=== PATIENT | female | born 1980 | race African-American/Black ===

== ENCOUNTER 2020-03-16 14:25 | Emergency (ER) | payer OTHER, SELFPAY ==
--- NOTE | ~2020-03-16 | CT_ITS ---
EXAMINATION: CT abdomen pelvis w con INDICATION: Left-sided abdominal pain TECHNIQUE: Computed tomographic images of the abdomen and pelvis were obtained after the administrati on of 100 cc of Omnipaque 350 intravenous contrast. The dose-length product (DLP) was 204.64 mGy-cm. Automated exposure control and iterative reconstruction technique were employed. COMPARISON: None available FINDINGS: Minimal dependent atelectasis is present in the lung bases. The heart size is normal. The l iver, spleen, pancreas, and adrenal glands are normal. There is a 2 mm nonobstructing stone of the ri ght kidney lower pole. The gallbladder is not identified, likely surgically absent. No pathologically enlarged abdominal or pelvic lymph nodes are identified. There is no free intraperitoneal gas or yadira dence of bowel obstruction. The appendix is normal. A small amount of free fluid in the pelvis is lik zainab physiologic. IMPRESSION: 1. No CT correlate for the patient's symptoms. 2. Nonobstructing right nephrolithiasis. Reviewed, dictated and finalized at location A.
--- NOTE | ~2020-03-16 | XR_ITS ---
EXAMINATION: XR chest 1V portable INDICATION: Abdominal pain and vomiting TECHNIQUE: Portable AP chest at 1602 hours COMPARISON: None available FINDINGS: There is mild atelectasis of the lung bases. The lungs are free of focal airspace opacities . There is no pleural effusion or pneumothorax. The cardiomediastinal silhouette is normal. IMPRESSION: 1. Mild atelectasis of the lung bases. Reviewed, dictated and finalized at location A.
--- NOTE | 2020-03-16 14:28 | ED.GENADULT ---
HPI - General Adult General Chief complaint: Nausea/Vomiting/Diarrhea Stated complaint: vomiting Time Seen by Provider: 03/16/20 14:28 Source: patient Mode of arrival: ambulatory Limitations: no limitations History of Present Illness HPI narrative: 39-year-old female patient presents to the emergency department with complaints of nausea and vomiting that started last night. Patient states that she was positive for COVID at the end of January. Patient states that her symptoms from COVID have since resolved. Patient states that she was placed on antibiotics for the pneumonia symptoms but has been finished with that now for over 3 weeks. Patient states that she just came out of quarantine for her COVID about 6 days ago. Patient states that she does have history of diabetes and prior to COVID she was maintaining with oral medication just fine however recently her sugars have been increasing since the COVID diagnosis and was recently placed on insulin. Patient states that she has not yet started the insulin. Patient states she is also having some abdominal pain more so on the left side. Patient denies stating that her significant other cannot have children. Patient denies any fevers that she is aware of. Denies any chest pain or shortness of breath. Related Data Home Medications Medication Instructions Recorded Confirmed liraglutide [Victoza 3-Yves] mg SUBCUT 03/16/20 pioglitazone mg 03/16/20 Allergies Allergy/AdvReac Type Severity Reaction Status Date / Time No Known Allergies Allergy Verified 03/16/20 14:40 Review of Systems Review of Systems: Narrative: CONSTITUTIONAL: Denies fever, chills, or sweats. EYES: Denies visual changes, redness, or discharge. ENT: Denies rhinorrhea, congestion, sore throat, or otalgia. CARDIOVASCULAR: Denies chest pain, palpitations, or edema. RESPIRATORY: Denies cough or dyspnea. GASTROINTESTINAL: Positive abdominal pain, nausea, vomiting, denies diarrhea. GENITOURINARY: Denies dysuria or hematuria. SKIN: Denies rash or itching. MUSCULOSKELETAL: Denies back pain, joint pain, or myalgia. NEUROLOGIC: Denies headache, numbness, or weakness. PSYCHIATRIC: Denies anxiety or depression. [facility] Social History Social History Gender identity (if verbalized by the patient): Female Comments At the time of my signature I agree with nursing past medical history, surgical, social, and family history. There is no relevant family history pertinent to the presenting complaint. Exam Narrative: Exam Narrative: GENERAL: Well-appearing, well-nourished, and in no acute distress. HEAD: Normocephalic, atraumatic. EYES: PERRLA and EOMI. ENT: Nares clear, no rhinorrhea or epistaxis. Mucous membranes moist. NECK: Supple. No lymphadenopathy CHEST: Clear to auscultation. No respiratory distress. Patient able talk in clear complete sentences. No tripoding noted. HEART: Regular rate and rhythm. No murmur heard. Normal peripheral pulses. ABDOMEN: Soft, flat, slightly distended. No guarding, rebound tenderness, or rigid. Patient has tenderness noted to the left lower quadrant and left upper quadrant on palpation as well as to the periumbilical area. No tenderness noted to the epigastric area. No pulsatilla masses. Bowel sounds present in all four quadrants. No organomegaly. Negative Trinh?s sign. No periumbicial tenderness. Supra public distension. Good femoral pulses bilaterally. No hernia noted. No scars or surface trauma. EXTREMITIES: Normal range of motion. No edema. SKIN: Warm, dry, no rash. NEURO: No focal deficits. Alert and oriented x3. Course Reevaluation(s) Reevaluation #1: Reevaluated patient. Discussed with her that I did speak with her primary care doctor and Dr. Gaitan wants her to start her insulin at home today after discharge. Discussed with her that she is going to continue to be sick until she starts the insulin. Discussed with her th
[2020-03-16 14:34] VITALS: BP 117/81; PULSE 126; RESP 18; TEMP 36.8; O2SAT 100
[2020-03-16 14:37] LABS: Glucose Point of Care 250 (65-105)
--- NOTE | 2020-03-16 14:42 | ECG_ITS ---
Measurements Intervals Crowder Rate: 112 P: 76 SD: 143 QRS: 34 QRSD: 76 T: 15 QT: 331 QTc: 453 Interpretive Statements SINUS TACHYCARDIA BORDERLINE T WAVE ABNORMALITY- INFERIOR LEADS ABNORMAL ECG Electronically Signed On 03-16-2020 16:14:00 CDT by Jamey Cowan D.O.
[2020-03-16 15:04] LABS: Add Urine Microscopic? YES; Appearance Urine Cloudy (Clear); Bacteria Urine 1+ /hpf; Bilirubin Urine Negative (Negative); Color Urine Yellow (Yellow); Glucose Urine UA 3+ mg/dL (Negative); Ketones Urine 2+ mg/dL (Negative); Leukocyte Esterase Ur Trace LEU/UL (Negative); Mucus Urine Heavy /lpf; Nitrate Urine Negative (Negative); Protein Urine 2+ mg/dL (Negative); Squamous Epithelial Cell Urine Many /hpf (Few); WBC Urine 21-30 /hpf
[2020-03-16 15:05] LABS: Blood Urine Negative (Negative); Specific Grav Ur 1.036 (1.001-1.035)
[2020-03-16 15:07] LABS: Basophils Percent Auto 0.2 % (0.2-1.2); Eosinophils Percent Auto 0.1 % (0-4.4); Hematocrit 41.1 % (37.0-47.0); Hemoglobin 14.5 g/dL (12.0-15.0); Immature Granulocyte Absolute 0.03 K/mm3 (0.00-0.031); Immature Granulocyte Percent A 0.3 % (0-0.5); Lymphocytes Absolute Auto 2.93 K/mm3 (0.9-3.2); Lymphocytes Percent Auto 29.4 % (18.3-44.2); Mean Corpuscular HGB Conc 35.3 g/dl (32-36); Mean Corpuscular Hemoglobin 31.8 pg (26-34); Mean Corpuscular Volume 90.1 fl (80-100); Mean Platelet Volume 11.1 fl (7.4-10.4); Monocytes Absolute Auto 0.6 K/mm3 (0.1-0.6); Monocytes Percent Auto 5.9 % (2.6-8.5); Neutrophils Absolute Auto 6.4 K/mm3 (1.3-6.7); Neutrophils Percent Auto 64.1 % (45.5-73.1); Platelet Count Result 355 k/mm3 (150-375); Red Blood Count 4.56 M/mm3 (4.2-5.4); Red Cell Distribution Width 13.6 % (11.5-14.5)
[2020-03-16] MEDS: ONDANSETRON INJ 4 MG/2 ML VIAL IV PUSH (15:12)
[2020-03-16] MEDS: SODIUM CHLORIDE 0.9% IV 1,000 ML 999 ML IV CONT ×2 (15:12→16:43)
[2020-03-16 15:18] LABS: Lactic Acid Reflex 1.6 mmol/L (0.7-2.1)
[2020-03-16 15:21] LABS: Alanine Aminotransferase 22 U/L (4-35); Albumin Level 4.8 g/dL (3.5-5.1); Alkaline Phosphatase 107 U/L (38-126); Aspartate Amino Transferase 20 U/L (14-36); Bilirubin,Total 0.7 mg/dL (0.2-1.3); Blood Urea Nitrogen 15 mg/dL (7-17); Calcium 9.5 mg/dL (8.4-10.2); Carbon Dioxide 22 mmol/L (22-30); Chloride 100 mmol/L (98-107); Estimated CRCL calculation 111 ml/min; Estimated Glomerular Filt Rate > 60; Glucose 303 mg/dL (65-105); Lipase 136 U/L (23-300); Potassium 4.1 mmol/L (3.4-5.0); Sodium 135 mmol/L (137-145)
[2020-03-16 15:22] LABS: Phosphorus 4.2 mg/dL (2.5-4.5)
[2020-03-16 15:24] LABS: INR 1.1; Prothrombin Time 14.1 Seconds (11.1-14.7)
[2020-03-16 15:25] LABS: Beta-Hydroxybutyrate/Acetoacetate 1.01 mmol/L (0.02-0.27); Partial Thromboplastin Time 24.9 SECONDS (22.3-36.8)
[2020-03-16 15:33] LABS: Troponin I < 0.012 ng/mL (0.000-0.034)
[2020-03-16 16:15] LABS: Glucose Point of Care 256 (65-105)
[2020-03-16 18:00] VITALS: BP 103/74; PULSE 108; RESP 16; O2SAT 100
== END 2020-03-16 18:06 | disposition home or self-care (01) ==
PROVIDERS: Emergency Provider Nurse Practitioner Family
DX: E11.65 Type 2 diabetes mellitus with hyperglycemia (principal); R11.2 Nausea with vomiting, unspecified; Z79.84 Long term (current) use of oral hypoglycemic drugs; R00.0 Tachycardia, unspecified; R94.31 Abnormal electrocardiogram [ECG] [EKG]; Z86.19 Personal history of other infectious and parasitic diseases
CPT/HCPCS: 36415; 71045; 74177; 80053; 81001; 81025; 82010; 82248; 82948; 83605; 83690; 83735; 84100; 84484; 85025; 85610; 85730; 87086; 87088; 93005; 96361; 96374; 99284; J2405; J7030; Q9967

== ENCOUNTER 2024-12-14 16:32 | Inpatient (IN) | payer OTHER, SELFPAY ==
--- NOTE | ~2024-12-14 | CT_ITS ---
CT abdomen pelvis w con Ordering provider: Oniel Ibarra MD History: 44 years Female with . abd pain . Comparison: March 15, 2024 Technique: CT abdomen and pelvis with IV and without oral contrast. Automated exposure control and it erative reconstruction technique were employed. The dose-length product was 196.93 mGy-cm. 100 mL Omn ipaque 350 was given IV. Fecal material is probably Findings: VISUALIZED LOWER CHEST: Bilateral dependent atelectatic changes. UPPER ABDOMINAL ORGANS: Liver: Hepatomegaly. Gallbladder: Not demonstrated most likely due to Cholecystectomy. Spleen: Normal. Stomach/duodenum: Normal. Pancreas: Normal. Adrenals: Normal. Kidneys: Hypodensity is seen in the right kidney lower pole. Follow-up ultrasound advised. PELVIC ORGANS: The bladder shows thickened wall suggestive of cystitis. BOWEL AND MESENTERY: Colon: No evidence of diverticulitis. Fecal material is loaded in the colon. Appendix is not demonstr ated. Small Bowel: Normal. No obstruction. Peritoneum/mesentery: No free air or free fluid. No mesenteric lymphadenopathy. RETROPERITONEUM: Normal aorta. No retroperitoneal lymphadenopathy. MUSCULOSKELETAL: Superficial soft tissues: The superficial soft tissues are normal. Bones: normal spine. IMPRESSION: 1. Hepatomegaly. 2. Hypodensities in the right kidney lower pole which may indicate focal infection cysts are less l ikely. Ultrasound evaluation advised. 3. Constipation. Reviewed, dictated and finalized at location A. IMPRESSION: 1. Hepatomegaly. 2. Hypodensities in the right kidney lower pole which may indicate focal infec tion cysts are less likely. Ultrasound evaluation advised. 3. Constipation.
--- NOTE | ~2024-12-14 | US_ITS ---
US renal BI Ordering provider: Oniel Ibarra MD History: . pyelonephritis . Comparison: None. Technique: Ultrasound bilateral kidneys. Findings: RIGHT KIDNEY: Measures 12.7x 5.3x 6.5 cm in length which is normal in size. No renal cysts. No renal mass or visualized echogenic stones. Otherwise, normal echotexture and contour. No hydronephrosis. No rmal renal cortical thickness. Increased vascularity is seen. LEFT KIDNEY: Measures 11.4x 6.2x 4.3 cm in length which is normal in size. No renal cysts. No renal m ass or visualized echogenic stones. Otherwise, normal echotexture and contour. No hydronephrosis. Nor mal renal cortical thickness. Increased vascularity is noted. BLADDER: Distended. Ureteral jets were not seen bilaterally. IMPRESSION: Increased vascularity in both kidneys which may indicate pyelonephritis. Clinical correlation and fol low-up advised. Reviewed, dictated and finalized at location A. IMPRESSION: Increased vascularity in both kidneys which may indicate pyelonephritis. Clinic al correlation and follow-up advised.
--- NOTE | ~2024-12-14 | CT_ITS ---
Non-contrast CT scan of the Abdomen and Pelvis Clinical indication: Left flank pain Technique: 2.5 mm axial scans were obtained through the abdomen and pelvis without intravenous or or al contrast. Dose reduction technique was used on this scan by utilizing automated exposure control a nd iterative reconstruction technique. The dose-length product (DLP) was 178.97 mGy-cm. COMPARISON: 12/14/2024 Findings: Images through the lung bases reveal partially imaged moderate bilateral pleural effusions . There is bibasilar pulmonary edema/atelectasis.. There is no evidence of renal or ureteral calculi. The kidneys and the ureters are nondilated. The liver, spleen, pancreas, and adrenals appear normal. Probable prior cholecystectomy. There is no aortic aneurysm. There is no evidence of bowel obstruction. Images through the pelvis were performed. There is small amount of pelvic ascites. Urinary bladder un remarkable. No pelvic mass evident. Impression: Moderate bilateral pleural effusions with bibasilar pulmonary edema/atelectasis. Small amount of pelvic ascites. Reviewed, dictated and finalized at location . Impression: Moderate bilateral pleural effusions with bibasilar pulmonary edema/atelectasis . Small amount of pelvic ascites.
--- NOTE | ~2024-12-14 | US_ITS ---
EXAMINATION: US abdomen limited DATE: 12/15/2024 07:53 INDICATION: Abnormal liver function tests. TECHNIQUE: Multiple grayscale and Doppler ultrasound images of the abdomen were obtained. COMPARISON: CT abdomen and pelvis 12/14/2024 FINDINGS: The visualized portions of the head, body, and tail of the pancreas are normal. The liver i s normal without focal lesion. There is normal flow in main portal vein. The gallbladder is absent. T he common duct is normal and measures 5 mm. IMPRESSION: 1. Normal right upper quadrant ultrasound status post cholecystectomy. Reviewed, dictated and finalized at location A.
[2024-12-14 16:33] VITALS: BP 122/75; PULSE 124; RESP 18; TEMP 37; O2SAT 98
--- OUTSIDE RECORDS SUMMARY | 2024-12-14 16:35 | XMS_ITS | CONTINUITY OF CARE DOCUMENT ---
Author Name dylanjaspreet dylanjaspreet Address Unknown Organization [facility] Address [address] [place] [address] Phone [phone] Care Team Providers Care Enamel Finisher Name Role Phone Dante Chavez MD Unavailable [phone] Anirudh BALL WARPER TENDER-BC, [place] Unavailable Anirudh BALL WARPER TENDER-BC, [place] Unavailable PROBLEMS Condition Status Date Provider Notes Cardiology examination active Dante Anna Fast pulse active Dante Chavez MD Diabetes, Type 2 active Dante Chavez MD Palpitations active Dante Chavez MD Sinus tachycardia active Kerry Oscar er ENCOUNTERS Date Type Provider Location Encounter Diag nosis - In-person encounter Office Visit Dante Chavez MD [facility] - In-person encounter Office Visit Dante Chavez MD [facility] Cardiology examinationFast pulseDiabetes, Type 2PalpitationsSinus tachycardia VITAL SIGNS Date Observation Value Provider Body Mass Index (Ratio) 22.48 kg/m2 Nicole Byrd blood pressure, cuff size regular Ke rri Gruenenfelder blood pressure, diastolic 70 mm[Hg] Ke rri Gruenenfelder blood pressure, systolic 100 mm[Hg] Ker ri Gruenenfelder oxygen saturation, oximetry 99 % Graciela Carlosruma respiratory rate E&M 12 /min Graciela herrmannkemargolden pulse rate 84 /min Graciela Kay tyraer weight E&M 131 [lb_av] Graciela Kay tyraer height E&M 64 [in_i] Graciela Kay tyraer weight E&M 131 [lb_av] Jessica Patelnard Body Mass Index (Ratio) 22.48 kg/m2 Nicole Byrd blood pressure, diastolic 85 mm[Hg] Nicol nkLogic blood pressure, systolic 132 mm[Hg] Shayla kLogic blood pressure, diastolic 85 mm[Hg] Rody Polk blood pressure, systolic 132 mm[Hg] [facility] yamel Polk oxygen saturation, oximetry 99 % Sangeetha Polk pulse rate 100 /min Sangeetha anna height E&M 64 [in_i] Sangeetha anna weight E&M 131 [lb_av] Sangeetha anna respiratory rate E&M 16 /min Adrienne Pokl blood pressure, cuff size large Rody Polk HISTORY OF MEDICATION USE Medication Status Instructions Dates Provider Indications Com ments Invokana 300 mg tablet active Sangeetha Polk glipizide 5 mg tablet active Sangeetha Polk sertraline 50 mg tablet active TAKE 1 TABLET BY MOUTH EVERY DAY Sangeetha Polk pantoprazole 40 mg tablet,delayed release (DR/EC) active Sangeetha Polk atenolol 50 mg tablet active 1 tablet by mouth once a day TAKE 1 TABLET BY MOUTH EVERY DAY Dante Chavez MD pioglitazone 30 mg tablet active Sangeetha Polk SOCIAL HISTORY Date Observation Value Provider social history reviewed E&M revi ewed - no changes required Kerry Byrd social history E&M S moking History: Monie dey has never smoked. Kerry Coatsdeo social history reviewed E&M revi ewed - no changes required Kerry Olivasharry smoking status Never smoker Sangeetha Osmel and INSURANCE PROVIDERS Payer name Policy type / Coverage type Ryan red republican ID TAL MEDICAID (2) Medicaid [id number] ADVANCE DIRECTIVES Name Date DISCUSSED - NO DECISION MADE TREATMENT PLAN Date Name Performer [id number],C, H er updated medication list for this problem includes: Invokana 300 Mg Tablet (Canagliflozin) Glipizide 5 Mg Tablet (Glipizide) Pioglitazone 30 Mg Tablet (Pioglitazone) Kerry Olivasharry [id number],C,P t reports significant improvement of sinus tachycardia. She also feels more calm, fewer palpitations. Telesentry showed occasional PVCs and an episode of sinus tachycardia. Stress test was normal. We will ask insurance to approve echo at this time based on telesentry results. H er updated medication list for this problem includes: Atenolol 50 Mg Tablet (Atenolol) ..... 1 tablet by mouth once a day take 1 tablet by mouth every day Kerry Olivasharry [id number],C,P t reports significant improvement of sinus tachycardia. She also feels more calm, fewer palpitations. Telesentry showed occasional PVCs and an episode of sinus tachycardia. Stress test was normal. We will ask insurance to approve echo at this time based on telesentry results. H er updated medication list for this problem includes: Atenolol 50 Mg Tablet (Atenolol) ..... 1 tablet by mouth once a day take 1 tablet by mouth every day Kerry Olivasharry [id number],C, H er updated medication list for this problem includes: Invokana 300 Mg Tablet (Canagliflozin) Glipizide 5 Mg Tablet (Glipizide) Pioglitazone 30 Mg Tablet (Pioglitazone) Kerry Olivasharry [id number],C,T He pt had a dental procedure and was noted to be tachycardic. EKG showed sinus tachycardia. Started on atenolol 25 mg BID and feels a bit better. Will obtain echo, stress test routine, and telemonitor Kerry Byrd [id number],C,T He pt had a dental procedure and was noted to be tachycardic. EKG showed sinus tachycardia. Started on atenolol 25 mg BID and feels a bit better. Will obtain echo, stress test routine, and telemonitor Kerry Byrd Cardiology: H er updated medication list for this problem includes: Invokana 300 Mg Tablet (Canagliflozin) Glipizide 5 Mg Tablet (Glipizide) Pioglitazone 30 Mg Tablet (Pioglitazone) Kerry Byrd Cardiology:Pt report s significant improvement of sinus tachycardia. She also feels more calm, fewer palpitations. Telesentry showed occasional PVCs and an episode of sinus tachycardia. Stress test was normal. We will ask insurance to approve echo at this time based on telesentry results. H er updated medication list for this problem includes: Atenolol 50 Mg Tablet (Atenolol) ..... 1 tablet by mouth once a day take 1 tablet by mouth every day Kerry Byrd Cardiology:Pt report s significant improvement of sinus tachycardia. She also feels more calm, fewer palpitations. Telesentry showed occasional PVCs and an episode of sinus tachycardia. Stress test was normal. We will ask insurance to approve echo at this time based on telesentry results. H er updated medication list for this problem includes: Atenolol 50 Mg Tablet (Atenolol) ..... 1 tablet by mouth once a day take 1 tablet by mouth every day Kerry Byrd Cardiology: H er updated medication list for this problem includes: Invokana 300 Mg Tablet (Canagliflozin) Glipizide 5 Mg Tablet (Glipizide) Pioglitazone 30 Mg Tablet (Pioglitazone) Kerry Byrd Cardiology:THe pt osman d a dental procedure and was noted to be tachycardic. EKG showed sinus tachycardia. Started on atenolol 25 mg BID and feels a bit better. Will obtain echo, stress test routine, and telemonitor Kerry Byrd Cardiology:THe pt osman d a dental procedure and was noted to be tachycardic. EKG showed sinus tachycardia. Started on atenolol 25 mg BID and feels a bit better. Will obtain echo, stress test routine, and telemonitor Kerry Byrd Date Name Complete Echo Stress Routine Monitor - Telemetry (Mobile Cardiac) Complete Echo HISTORY OF PROCEDURES Procedure Date Procedure Name Provider Procedure Notes S tatus EKG Dante Chavez MD completed
--- OUTSIDE RECORDS SUMMARY | 2024-12-14 16:35 | XMS_ITS | Clinical Summary ---
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 I BLOCKER Gender Identity Not on file Sexual Orientation Not on file Plan of Treatment Health Maintenance Due Date Last Done Comments Hepatitis C Virus (HCV) Screening 1982 Hepatitis B Immunization (1 of 3 - 19+ 3-dose series) 2001 Pap Smear 2003 Cervical Cancer Screening (CCS) 2012 HPV/Cotest 2012 Discussion re Starting/Frequency of Mammograms 2022 Influenza Immunization (#1) 2024 SARS-COV-2 Immunization ( season) 2024 Respiratory Syncytial Virus (RSV) Immunization (Adult) (1 - 1-dose 75+ series) 2057 DTaP/Tdap/Td Immunization Discontinued 2009, 04/23/1992, 03/20/1987, Additional history exists TdaP Immunization Completed 08/27/2010 Meningococcal Immunization (ACWY) Aged Out No longer eligible based on patient's age to complete this topic Pneumococcal Immunization Combined Aged Out No longer eligible based on patient's age to complete this topic Rotavirus Immunization Aged Out No lo nger eligible based on patient's age to complete this topic
--- OUTSIDE RECORDS SUMMARY | 2024-12-14 16:35 | XMS_ITS | Data Portability ---
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 Plan of Treatment Reminders Order Date Submit Date Provider Last Modified By Organization Details Last Modified Time Details Appointments None recorded . Lab CBC 2024 025 [facility] (Lab), [address], [place], [address], 5 22:56:28 CMP, serum or plasma 2024 025 [facility] (Lab), [address], [place], [address], 5 08:31:44 calprote ctin, stool 2023 024 [facility] (Lab), [address], [place], [address], 4 16:14:43 ESR (erythro cyte sediment ation rate), blood 2023 024 [facility] (Lab), [address], [place], [address], 4 14:34:56 C diff screen, stool, reflex PCR 2023 024 [facility] (Lab), [address], [place], [address], 4 15:01:26 culture, stool 2023 024 [facility] (Lab), [address], [place], [address], 4 16:07:41 giardia lamblia Ag, stool 2023 024 [facility] (Lab), [address], [place], [address], 4 15:49:12 O&P (ova & parasite s), stool 2023 024 [facility] (Lab), [address], [place], [address], 4 08:33:50 CMP, serum or plasma 2023 024 [facility] (Lab), [address], [place], [address], 4 14:34:54 CBC 2023 024 [facility] (Lab), [address], [place], [address], 4 05:01:15 pregnanc y test, urine 2022 023 [email or web address] In-Office Order, Internal Use Only DO Not Attach Compendium DO Not Attach Compendium, Do Not Delete/merge, [id number] 3 16:21:50 bacteria l vaginosi s score, BRYANNA+prob e, vaginal fluid (OBS) 2022 023 [facility], [address] [facility] [facility], [address], [place], [address], 3 03:08:08 pregnanc y test, urine 2022 023 [email or web address] In-Office Order, Internal Use Only DO Not Attach Compendium DO Not Attach Compendium, Do Not Delete/merge, [id number] 3 12:06:42 Referral None recorded . Procedures esophago gastrodu odenosco py with biopsy (PROC) 2024 025 [email or web address] [facility] (Surgery Sched), [address], [place], [address], 5 11:15:24 colonosc opy procedur e (PROC) - Is patient on blood thinners ?: NPacemak er or defibril lator?: NPrep (Colonos copy Procedur e): PEG 3350, Go Lytely, Colyte or Gavalyte G, dependin g on insuranc e coverage If patient has had coronary / vascular stent, provide date: NoIf patient has had heart attack or stroke, provide date: NoHas patient ever had problems with anesthes ia or sedation ?: NoHas patient had problems with opening mouth or breathin g tubes?: NoDoes patient use a wheelcha ir?: N 2023 024 [facility] (Surgery Sched), [address] [place], [address], 4 14:07:39 Surgeries None recorded . Imaging MAMMO, screenin g, bilatera l 2022 023 [facility] (One Call Scheduling), [address] [facility] [facility] [place], [address], 3 10:44:24 Medication Orders loperami de 2 mg tablet 2024 025 [facility] #[facility]2954, [address] , [place], [place], [id number], 5 16:12:53 Dulcolax (bisacod yl) 5 mg tablet,d elayed release 2023 024 [facility] #84905, [address] , [place], [place], [id number], 4 17:37:25 Miralax 17 gram/dos e oral powder 2023 024 [facility] #82510, [address], [place], [place], [id number], 4 17:37:24 pantopra zole 40 mg tablet,d elayed release 2023 024 [facility] #47615, [address], [place], [place], [id number], 4 17:37:27 Nexplano n 68 mg subderma l implant 2022 023 [email or web address] #60158, [address], [place], [place], [id number], 3 16:20:24 Nexplano n 68 mg subderma l implant 2022 023 [email or web address] Not available 14:21:59 Patient TargetsNo targets recorded. Patient Instructions Encounter Date Encounter Id Patient Instructions Last Modified By Organization Details Last Modified Time 12/03/2022 [id number] learning about breast cancer screening yancy Not available 12/03/2022 12:06:43 CHARLI Gonzalez Discussed with SARAVANAN Thomas Not available 12/03/2022 13:57:08 12/10/2022 [id number] CHARLI Gonzalez Discussed with SARAVANAN Thomas Not available 12/10/2022 18:39:13 01/12/2023 [id number] LAURA Nicolas, Discussed with SARAVANAN Thomas Not available 01/12/2023 09:40:12 11/11/2023 [id number] RL About Your Colonoscopy 1 Day Prep [email or web address] Not available 11/11/2023 17:37:19 Reason for Referral None Reported. Results Created Date Observation Date Name Description Value Unit Range Abnormal Flag Note LastModifiedBy Organization Detail LastModifiedTime 12/04/1912/03/2022 pregn ron test, urine HCG negati ve Not Available In-Office Order Internal Use Only DO Not Attach Compendium DO Not Attach Compendium, Do Not Delete/merge, [id number] 12/03/2022 12:00:07 12/05/1912/08/2022 NUSWA B VG+, HSV atopobium vaginae HIGH - 2 score abnormal Not Available [facility] ([facility]) [address], [place], [address], 12/09/2022 03:08:07 12/05/1912/08/2022 NUSWA B VG+, HSV bvab 2 HIGH - 2 score abnormal Not Available [facility] ([facility]) [address], [place], [address], 12/09/2022 03:08:07 12/05/1912/08/2022 NUSWA B VG+, HSV megasphaera 1 HIGH - 2 score abnormal Calcu late total score by silke g the 3 indiv idual bacte rial vagin osis (BV) marke r score s toget her. Total score is inter prete d as follo ws: Total score 0-1: Indic ates the absen ce of BV. Total score 2: Indet ermin ate for BV. Addit ional clini jaswinder data shoul d be evalu ated to estab donta a diagn osis. Total score 3-6: Indic ates the prese nce of BV. This test was devel oped and its perfo rmanc e marcelina cteri stics deter mined by [facility]. It has not been clear ed or appro layne by the Food and Drug Admin istra tion. Not Available [facility] ([facility]) [address], [place], [address], 12/09/2022 03:08:07 12/05/1912/08/2022 NUSWA B VG+, HSV kamila albicans, BRYANNA NEGATI VE negati ve Not Available [facility] ([facility]) [address], [place], [address], 12/09/2022 03:08:07 12/05/19 23 12/08/2022 NUSWA B VG+, HSV kamila glabrata, BRYANNA NEGATI VE negati ve Not Available [facility] ([facility]) [address], [place], [address], 12/09/2022 03:08:07 12/05/1912/08/2022 NUSWA B VG+, HSV trich vag by BRYANNA NEGATI VE negati ve Not Available [facility] ([facility]) [address], [place], [address], 12/09/2022 03:08:07 12/05/19 23 12/08/2022 NUSWA B VG+, HSV chlamydia trachomatis, BRYANNA NEGATI VE negati ve Not Available [facility] ([facility]) [address], [place], [address], 12/09/2022 03:08:07 12/05/1912/08/2022 NUSWA B VG+, HSV neisseria gonorrhoeae, BRYANNA NEGATI VE negati ve Not Available [facility] ([facility]) [address], [place], [address], 12/09/2022 03:08:07 12/05/19 23 12/08/2022 NUSWA B VG+, HSV hsv 1 BRYANNA NEGATI VE negati ve Not Available [facility] ([facility]) [address], [place], [address], 12/09/2022 03:08:07 12/05/19 23 12/08/2022 NUSWA B VG+, HSV hsv 2 BRYANNA NEGATI VE negati ve Not Available [facility] ([facility]) [address], [place], [address], 12/09/2022 03:08:07 12/11/1912/10/2022 pregn ron test, urine HCG negati ve Not Available In-Office Order Internal Use Only DO Not Attach Compendium DO Not Attach Compendium, Do Not Delete/merge, [id number] 12/10/2022 16:17:17 11/29/19 24 11/29/2023 COMPL ETE BLOOD COUNT AUTO DIFF white blood count 5.3 x10e3 /uL 3.4-10 .8 normal Not Available [facility] (Lab) [address], [place], [address], 11/29/2023 14:34:55 11/29/19 24 11/29/2023 COMPL ETE BLOOD COUNT AUTO DIFF red blood count 4.56 x10e6 /uL 3.77-5 .28 normal Not Available [facility] (Lab) [address], [place], [address], 11/29/2023 14:34:55 11/29/19 24 11/29/2023 COMPL ETE BLOOD COUNT AUTO DIFF hemoglobin 15.1 g/dL 11.1-1 5.9 normal Not Available [facility] (Lab) [address], [place], [address], 11/29/2023 14:34:55 11/29/19 24 11/29/2023 COMPL ETE BLOOD COUNT AUTO DIFF hematocrit 41.7 % 34.0-4 6.6 normal Not Available [facility] (Lab) [address], [place], [address], 11/29/2023 14:34:55 11/29/19 24 11/29/2023 COMPL ETE BLOOD COUNT AUTO DIFF mean corpuscular volume 91 fL 79-97 normal Not Available [facility] (Lab) [address], [place], [address], 11/29/2023 14:34:55 11/29/19 24 11/29/2023 COMPL ETE BLOOD COUNT AUTO DIFF mean corpuscular hemoglobin 33.1 pg 26.6-3 3.0 high Not Available [facility] (Lab) [address] [place], [address], 11/29/2023 14:34:55 11/29/19 24 11/29/2023 COMPL ETE BLOOD COUNT AUTO DIFF mean corpuscular HGB conc 36.2 g/dL 31.5-3 5.7 high Not Available [facility] (Lab) [address] [place], [address], 11/29/2023 14:34:55 11/29/19 24 11/29/2023 COMPL ETE BLOOD COUNT AUTO DIFF red cell distribution width 11.1 % 11.5-1 4.5 low Not Available [facility] (Lab) [address], [place], [address], 11/29/2023 14:34:55 11/29/19 24 11/29/2023 COMPL ETE BLOOD COUNT AUTO DIFF platelet count 263 x10e3 /uL 150-45 0 normal Not Available [facility] (Lab) [address] [place], [address], 11/29/2023 14:34:55 11/29/19 24 11/29/2023 COMPL ETE BLOOD COUNT AUTO DIFF mean platelet volume 10.6 fL 8.9-12 .7 normal Not Available [facility] (Lab) [address] [place], [address], 11/29/2023 14:34:55 11/29/19 24 11/29/2023 COMPL ETE BLOOD COUNT AUTO DIFF immature granulocytes pct auto 0 % not estb. Not Available [facility] (Lab) [address] [place], [address], 11/29/2023 14:34:55 11/29/19 24 11/29/2023 COMPL ETE BLOOD COUNT AUTO DIFF neutrophils percent auto 50 % not estb. Not Available [facility] (Lab) [address] [place], [address], 11/29/2023 14:34:55 11/29/19 24 11/29/2023 COMPL ETE BLOOD COUNT AUTO DIFF lymphocytes percent auto 44 % not estb. Not Available [facility] (Lab) [address], [place], [address], 11/29/2023 14:34:55 11/29/19 24 11/29/2023 COMPL ETE BLOOD COUNT AUTO DIFF monocytes percent auto 6 % not estb. Not Available [facility] (Lab) [address], [place], [address], 11/29/2023 14:34:55 11/29/19 24 11/29/2023 COMPL ETE BLOOD COUNT AUTO DIFF eosinophils percent auto 1 % not estb. Not Available [facility] (Lab) [address], [place], [address], 11/29/2023 14:34:55 11/29/19 24 11/29/2023 COMPL ETE BLOOD COUNT AUTO DIFF basophils percent auto 0 % not estb. Not Available [facility] (Lab) [address], [place], [address], 11/29/2023 14:34:55 11/29/19 24 11/29/2023 COMPL ETE BLOOD COUNT AUTO DIFF neutrophils absolute auto 2.6 x10e3 /uL 1.4-7. 0 normal Not Available [facility] (Lab) [address], [place], [address], 11/29/2023 14:34:55 11/29/19 24 11/29/2023 COMPL ETE BLOOD COUNT AUTO DIFF immature granulocytes abs auto 0.0 x10e3 /uL 0.0-0. 1 normal Not Available [facility] (Lab) [address], [place], [address], 11/29/2023 14:34:55 11/29/19 24 11/29/2023 COMPL ETE BLOOD COUNT AUTO DIFF lymphocytes absolute auto 2.3 x10e3 /uL 0.7-3. 1 normal Not Available [facility] (Lab) [address] [place], [address], 11/29/2023 14:34:55 11/29/19 24 11/29/2023 COMPL ETE BLOOD COUNT AUTO DIFF monocytes absolute auto 0.3 x10e3 /uL 0.1-0. 9 normal Not Available [facility] (Lab) [address] [place], [address], 11/29/2023 14:34:55 11/29/19 24 11/29/2023 COMPL ETE BLOOD COUNT AUTO DIFF eosinophils absolute auto 0.0 x10e3 /uL 0.0-0. 4 normal Not Available [facility] (Lab) [address], [place], [address], 11/29/2023 14:34:55 11/29/19 24 11/29/2023 COMPL ETE BLOOD COUNT AUTO DIFF basophils absolute auto 0.0 x10e3 /uL 0.0-0. 2 normal Not Available [facility] (Lab) [address], [place], [address], 11/29/2023 14:34:55 11/29/19 24 11/29/2023 COMPL ETE BLOOD COUNT AUTO DIFF nucleated red blood cells auto 0 % 0-0 normal Not Available [facility] ([facility]) [address] [place], [address], 11/29/2023 14:34:55 11/29/19 24 11/29/2023 COMPR EHENS GUERRERO METAB OLIC PANEL sodium 136 mmol/ L 134-14 4 normal Not Available [facility] (Lab) [address] [place], [address], 11/29/2023 14:34:54 11/29/19 24 11/29/2023 COMPR EHENS GUERRERO METAB OLIC PANEL potassium 4.2 mmol/ L 3.5-5. 2 normal Not Available [facility] (Lab) [address] [place], [address], 11/29/2023 14:34:54 11/29/19 24 11/29/2023 COMPR EHENS GUERRERO METAB OLIC PANEL chloride 100 mmol/ L 96-106 normal Not Available [facility] (Lab) [address] [place], [address], 11/29/2023 14:34:54 11/29/19 24 11/29/2023 COMPR EHENS GUERRERO METAB OLIC PANEL carbon dioxide 23 mmol/ L 20-29 normal Not Available [facility] (Lab) [address], [place], [address], 11/29/2023 14:34:54 11/29/19 24 11/29/2023 COMPR EHENS GUERRERO METAB OLIC PANEL anion gap 17.0 mmol/ L Not Available [facility] (Lab) [address], [place], [address], 11/29/2023 14:34:54 11/29/19 24 11/29/2023 COMPR EHENS GUERRERO METAB OLIC PANEL blood urea nitrogen 13 mg/dL 6-24 normal Not Available [facility] ([facility]) [address] [place], [address], 11/29/2023 14:34:54 11/29/19 24 11/29/2023 COMPR EHENS GUERRERO METAB OLIC PANEL creatinine 0.52 mg/dL 0.76-1 .27 low Not Available [facility] (Lab) [address] [place], [address], 11/29/2023 14:34:54 11/29/19 24 11/29/2023 COMPR EHENS GUERRERO METAB OLIC PANEL glomerular filtration rate 120 mL/mi n/1 Not Available [facility] (Lab) [address] [place], [address], 11/29/2023 14:34:54 11/29/19 24 11/29/2023 COMPR EHENS GUERRERO METAB OLIC PANEL BUN creatinine ratio 24 9-23 high Not Available [facility] ([facility]) [address] [place], [address], 11/29/2023 14:34:54 11/29/19 24 11/29/2023 COMPR EHENS GUERRERO METAB OLIC PANEL glucose 384 mg/dL 70-99 critical high RESUL TS VERIF IED AND GARZA D 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 Not Available [facility] (Lab) [address] [place], [address], 11/29/2023 14:34:54 11/29/19 24 11/29/2023 COMPR EHENS GUERRERO METAB OLIC PANEL osmolality calculated 288 275-29 5 normal Not Available [facility] (Lab) [address] [place], [address], 11/29/2023 14:34:54 11/29/19 24 11/29/2023 COMPR EHENS GUERRERO METAB OLIC PANEL calcium 9.2 mg/dL 8.7-10 .2 normal Not Available [facility] (Lab) [address], [place], [address], 11/29/2023 14:34:54 11/29/19 24 11/29/2023 COMPR EHENS GUERRERO METAB OLIC PANEL bilirubin total 1.1 mg/dL 0.0-1. 2 normal Not Available [facility] (Lab) [address] [place], [address], 11/29/2023 14:34:54 11/29/19 24 11/29/2023 COMPR EHENS GUERRERO METAB OLIC PANEL aspartate amino transferase 12 IU/L 0-40 normal Not Available [facility] ([facility]) [address] [place], [address], 11/29/2023 14:34:54 11/29/19 24 11/29/2023 COMPR EHENS GUERRERO METAB OLIC PANEL alanine aminotransfe rase 14 IU/L 0-32 normal Not Available [facility] (Lab) [address] [place], [address], 11/29/2023 14:34:54 11/29/19 24 11/29/2023 COMPR EHENS GUERRERO METAB OLIC PANEL total protein 7.5 g/dL 6.0-8. 5 normal Not Available [facility] (Lab) [address], [place], [address], 11/29/2023 14:34:54 11/29/19 24 11/29/2023 COMPR EHENS GUERRERO METAB OLIC PANEL albumin level 4.6 g/dL 3.9-4. 9 normal Not Available [facility] (Lab) [address], [place], [address], 11/29/2023 14:34:54 11/29/19 24 11/29/2023 COMPR EHENS GUERRERO METAB OLIC PANEL globulin 2.9 g/dL 1.5-4. 5 normal Not Available [facility] (Lab) [address], [place], [address], 11/29/2023 14:34:54 11/29/19 24 11/29/2023 COMPR EHENS GUERRERO METAB OLIC PANEL albumin globulin ratio 2.0 1.2-2. 2 normal Not Available [facility] (Lab) [address], [place], [address], 11/29/2023 14:34:54 11/29/19 24 11/29/2023 COMPR EHENS GUERRERO METAB OLIC PANEL alkaline phosphatase 92 IU/L 44-121 normal Not Available [facility] (Lab) [address] [place], [address], 11/29/2023 14:34:54 11/29/19 24 11/29/2023 ERYTH ROCYT E SEDIM ENTAT ION RATE erythrocyte sedimentatio n rate 14 mm/HR 0-20 normal Not Available [facility] (Lab) [address] [place], [address], 11/29/2023 14:34:56 11/29/19 24 11/30/2023 C DIFFI CILE TOXIN S A+B, EIA C difficile toxins A+B, EIA Negati ve negati ve Perfo rmed at: 01 - [facility] [address] [place] [address] Lab Direc tor: Tulio mcdonough PhD, Phone : [phone] Not Available [facility] (Lab) [address] [place] [address], [address], 11/30/2023 16:14:44 11/29/19 24 12/01/2023 SALMO JOANNA /SHIG MANOHAR SCREE N salmonella/s higella screen No Salmo joanna or Shige lla recov ered. Perfo rmed at: 01 - [facility] [address] [place], [place] [id number] Lab Direc tor: Tulio mcdonough PhD, Phone : [phone] Not Available [facility] (Lab) [address] [place], [address], 12/01/2023 14:15:55 11/29/19 24 12/01/2023 E COLI SHIGA TOXIN EIA E coli shiga toxin EIA Negat guerrero Perfo rmed at: 01 - [facility] [address] [place] [address] Lab Direc tor: Tulio mcdonough PhD, Phone : [phone] Not Available [facility] (Lab) [address] [place], [address], 12/01/2023 16:14:47 11/29/19 24 12/03/2023 CALPR OTECT IN, FECAL calprotectin , fecal 11 ug/g 0-120 Raeann ntrat ion Inter preta tion Follo w-Up < 5 - 50 ug/g Makayla l None >50 -120 ug/g Borde rline Re-ev aluat e in 4-6 weeks >120 ug/g Abnor mal Repea t as clini carl indic ated [facility]: [facility] [address] [facility] [place] [address] Lab Direc tor: Angélica beltrán MD, Phone : [phone] Not Available [facility] (Lab) [address] [place], [address], 12/03/2023 16:14:43 11/29/19 24 12/03/[address]AMPY LOBAC TER CULTU RE campylobacte r culture No Campy lobac ter speci es isola raciel. Not Available [facility] (Lab) [address] [place], [address], 12/03/2023 16:14:48 11/29/19 24 12/03/[address]AC TER CULTU RE campylobacte r culture No Campy lobac ter speci es isola raciel. Not Available [facility] (Lab) [address] [place], [address], 12/06/2023 22:08:43 11/29/19 24 12/06/2023 OVA + SWATI ITE EXAM ova + parasite exam No ova, cysts , or swati ites seen. . One negat guerrero speci men does not rule out the possi bilit y of a swati itic infec tion. These resul ts were obtai greg using wet prepa ratio n(s) and trich chang stain ed smear . This test does not inclu de testi ng for Crypt ospor idium parvu m, Cyclo spora , or Micro spori lisa. Perfo [facility]med at: 01 - [facility] [id number] [id number] Lab Direc tor: Tulio mcdonough PhD, Phone : [phone] Not Available [facility] (Lab) [address] [place], [address], 12/06/2023 22:08:44 12/17/19 24 12/17/2023 Micro album in/Cr eatin ine [Mass Ratio ] in Urine microalbumin [mass/volume ] in urine by detection limit <= 1.0 mg/L 15.4 ug/mL text: not establ ished Album in Rando m Urine 15.4 Not Estab lishe d ug/mL 12/16 4:31 PM CDT [facility] Not Available Not Available 11/30/2024 15:13:24 12/17/19 24 12/17/2023 Micro album in/Cr eatin ine [Mass Ratio ] in Urine creatinine [mass/volume ] in urine 43.47 mg/dL text: not establ ished Creat inine Urine 43.47 Not Estab lishe d mg/dL 12/16 4:31 PM CDT [facility] Not Available Not Available 11/30/2024 15:13:24 12/17/19 24 12/17/2023 Micro album in/Cr eatin ine [Mass Ratio ] in Urine microalbumin /creatinine [mass ratio] in urine 35 mg/g high: 30mg/g high Urine Album in/Cr eatin ine Ratio 35 (H) <30 mg/g 12/16 4:31 PM CDT [facility] Not Available Not Available 11/30/2024 15:13:24 12/17/19 24 12/17/2023 Micro album in/Cr eatin ine [Mass Ratio ] in Urine interpretati on and review of laboratory results Abnorm al Not Available Not Available 15:13:24 12/17/19 24 12/17/2023 Thyro xine (T4) free [Mass /volu me] in Serum or Plasm a thyroxine (T4) free [mass/volume ] in serum or plasma 0.8 NG/dL low: 0.7NG/ dLhigh : 1.5NG/ dL T4 Free 0.8 0.7 - 1.5 ng/dL 12/16 4:31 PM CDT [facility] Not Available Not Available 11/30/2024 15:13:31 12/17/19 24 12/17/2023 Thyro xine (T4) free [Mass /volu me] in Serum or Plasm a interpretati on and review of laboratory results Normal Not Available Not Available 11/18 15:13:31 12/17/19 24 12/17/2023 Thyro tropi n [Unit s/vol ume] in Serum or Plasm a by Detec tion limit <= 0.005 mIU/L thyrotropin [units/volum e] in serum or plasma by detection limit <= 0.005 mIU/L 0.977 text: 0.350 - 4.940 uIU/mL TSH 0.977 0.350 - 4.940 uIU/m L 12/16 4:31 PM CDT [facility] [employer] [facility] Not Available Not Available 11/30/2024 15:13:31 12/17/19 24 12/17/2023 Thyro tropi n [Unit s/vol ume] in Serum or Plasm a by Detec tion limit <= 0.005 mIU/L interpretati on and review of laboratory results Normal Not Available Not Available 11/18 15:13:31 12/17/19 24 12/17/2023 Lipid 1995 panel - Serum or Plasm a cholesterol [mass/volume ] in serum or plasma 208 mg/dL high: 200mg/ dL high Veronique stero l Total 208 (H) <200 mg/dL 12/16 4:31 PM CDT [facility] [employer] [facility] Not Available Not Available 11/30/2024 15:13:31 12/17/19 24 12/17/2023 Lipid 1995 panel - Serum or Plasm a cholesterol in HDL [mass/volume ] in serum or plasma 73 mg/dL low: 40mg/d L HDL 73 >40 mg/dL 12/16 4:31 PM CDT [facility] [employer] [facility] Not Available Not Available 11/30/2024 15:13:31 12/17/19 24 12/17/2023 Lipid 1995 panel - Serum or Plasm a cholesterol in LDL [mass/volume ] in serum or plasma by calculation 86 mg/dL high: 100mg/ dL LDL Calcu lated 86 <100 mg/dL 12/16 4:31 PM CDT [facility] [employer] [facility] Not Available Not Available 11/30/2024 15:13:31 12/17/19 24 12/17/2023 Lipid 1995 panel - Serum or Plasm a tricyclic antidepressa nts [mass/volume ] in serum or plasma 245 mg/dL high: 150mg/ dL high Trigl yceri ancelmo 245 (H) <150 mg/dL 12/16 4:31 PM CDT [facility] Not Available Not Available 11/30/2024 15:13:31 12/17/19 24 12/17/2023 Lipid 1996 panel - Serum or Plasm a interpretati on and review of laboratory results Abnorm al Not Available Not Available 15:13:31 12/17/19 24 12/17/2023 CBC panel - Blood by Autom ated count leukocytes [#/volume] in blood by automated count 5.4 text: 4.0 - 10.7 x10e9/ L WBC 5.4 4.0 - 10.7 x10E9 /L 12/16 3:12 PM CDT [facility] Not Available Not Available 11/30/2024 15:13:31 12/17/19 24 12/17/2023 CBC panel - Blood by Autom ated count erythrocytes [#/volume] in blood by automated count 4.49 text: 3.90 - 5.20 x10e12 /L RBC Count 4.49 3.90 - 5.20 x10E1 2/L 12/16 3:12 PM CDT [facility] STPE[facility] Not Available Not Available 11/30/2024 15:13:31 12/17/19 24 12/17/2023 CBC panel - Blood by Autom ated count hemoglobin [mass/volume ] in blood 14.9 g/dL low: 11.9g/ dLhigh : 15.8g/ dL Hemog lobin 14.9 11.9 - 15.8 g/dL 12/16 3:12 PM CDT [facility] Not Available Not Available 11/30/2024 15:13:31 12/17/19 24 12/17/2023 CBC panel - Blood by Autom ated count hematocrit [volume fraction] of blood by automated count 41 % low: 34.8%h igh: 46.1% Hemat ocrit 41.0 34.8 - 46.1 % 12/16 3:12 PM CDT [facility] Not Available Not Available 11/30/2024 15:13:31 12/17/19 24 12/17/2023 CBC panel - Blood by Autom ated count MCV [entitic volume] by automated count 91.3 fL low: 80fLhi gh: 98fL MCV 91.3 80.0 - 98.0 fL 12/16 3:12 PM [facility]T [facility] Not Available Not Available 11/30/2024 15:13:31 12/17/19 24 12/17/2023 CBC panel - Blood by Autom ated count MCH [entitic mass] by automated count 33.2 pg low: 26.7pg high: 33.6pg MCH 33.2 26.7 - 33.6 pg 12/16 3:12 PM CDT [facility] Not Available Not Available 11/30/2024 15:13:31 12/17/1912/17/2023 CBC panel - Blood by Autom ated count MCHC [mass/volume ] by automated count 36.3 g/dL low: 31.7g/ dLhigh : 36.3g/ dL MCHC 36.3 31.7 - 36.3 g/dL 12/16 3:12 PM CDT [facility] Not Available Not Available 11/30/2024 15:13:31 12/17/19 24 12/17/2023 CBC panel - Blood by Autom ated count erythrocyte distribution width [ratio] by automated count 11.3 % low: 11.3%h igh: 14.8% RDW-C V 11.3 11.3 - 14.8 % 12/16 3:12 PM T [facility] Not Available Not Available 11/30/2024 15:13:31 12/17/19 24 12/17/2023 CBC panel - Blood by Autom ated count platelets [#/volume] in blood by automated count 318 text: 150 - 420 x10e9/ L Plate let Count 318 150 - 420 x10E9 /L 12/16 3:12 PM T [facility] Not Available Not Available 11/30/2024 15:13:31 12/17/19 24 12/17/2023 CBC panel - Blood by Autom ated count platelet mean volume [entitic volume] in blood by automated count 10.5 fL low: 7.8fLh igh: 11.4fL MPV 10.5 7.8 - 11.4 fL 12/16 3:12 PM CDT [facility] Not Available Not Available 11/30/2024 15:13:31 12/17/19 24 12/17/2023 CBC panel - Blood by Autom ated count interpretati on and review of laboratory results Normal Not Available Not Available 11/18 15:13:31 12/17/19 24 12/17/2023 Compr ehens guerrero metab olic 1999 panel - Serum or Plasm a urea nitrogen [mass/volume ] in serum or plasma 7 mg/dL low: 7mg/dL high: 26mg/d L BUN 7 7 - 26 mg/dL 12/16 4:31 PM CDT [facility] Not Available Not Available 11/30/2024 15:13:24 12/17/19 24 12/17/2023 Compr ehens guerrero metab olic 1999 panel - Serum or Plasm a creatinine [mass/volume ] in serum or plasma 0.59 mg/dL low: 0.56mg /dLhig h: 0.96mg /dL Creat inine 0.59 0.56 - 0.96 mg/dL 12/16 4:31 PM CDT [facility] Not Available Not Available 11/30/2024 15:13:24 12/17/19 24 12/17/2023 Compr ehens guerrero metab olic 1999 panel - Serum or Plasm a sodium [moles/volum e] in serum or plasma 135 mmol/ L low: 136mmo l/Lhig h: 145mmo l/L low Sodiu m 135 (L) 136 - 145 mmol/ L 12/16 4:31 PM CDT [facility] Not Available Not Available 11/30/2024 15:13:24 12/17/19 24 12/17/2023 Compr ehens guerrero metab olic 2000 panel - Serum or Plasm a potassium [moles/volum e] in serum or plasma 4 mmol/ L low: 3.5mmo l/Lhig h: 4.5mmo l/L Potas sium 4.0 3.5 - 4.5 mmol/ L 12/16 4:31 PM CDT [facility] Not Available Not Available 11/30/2024 15:13:24 12/17/19 24 12/17/2023 Compr ehens guerrero metab olic 1999 panel - Serum or Plasm a chloride [moles/volum e] in serum or plasma 99 mmol/ L low: 98mmol /Lhigh : 107mmo l/L Chlor kiersten 99 98 - 107 mmol/ L 12/16 4:31 PM CDT [facility] Not Available Not Available 11/30/2024 15:13:24 12/17/19 24 12/17/2023 Compr ehens guerrero metab olic 1999 panel - Serum or Plasm a carbon dioxide, total [moles/volum e] in serum or plasma 23 mmol/ L low: 22mmol /Lhigh : 29mmol /L CO2 23 22 - 29 mmol/ L 12/16 4:31 PM CDT [facility] Not Available Not Available 11/30/2024 15:13:24 12/17/19 24 12/17/2023 Compr ehens guerrero metab olic 1999 panel - Serum or Plasm a glucose [mass/volume ] in serum or plasma 386 mg/dL low: 70mg/d Lhigh: 115mg/ dL high Gluco se 386 (H) 70 - 115 mg/dL 12/16 4:31 PM CDT [facility] Not Available Not Available 11/30/2024 15:13:24 12/17/19 24 12/17/2023 Compr ehens guerrero metab olic 1999 panel - Serum or Plasm a calcium [moles/volum e] in serum or plasma 9.6 mg/dL low: 8.4mg/ dLhigh : 10.2mg /dL Calci um 9.6 8.4 - 10.2 mg/dL 12/16 4:31 PM CDT [facility] Not Available Not Available 11/30/2024 15:13:24 12/17/19 24 12/17/2023 Compr ehens guerrero metab olic 1999 panel - Serum or Plasm a protein [mass/volume ] in serum or plasma 8 g/dL low: 6g/dLh igh: 8.3g/d L Prote in Total 8.0 6.0 - 8.3 g/dL 12/16 4:31 PM CDT [facility] Not Available Not Available 11/30/2024 15:13:24 12/17/19 24 12/17/2023 [facility] guerrero metab olic 1999 panel - Serum or Plasm a albumin [mass/volume ] in serum or plasma by bromocresol green (bcg) dye binding method 4.1 g/dL low: 3.4g/d Lhigh: 5g/dL Album in 4.1 3.4 - 5.0 g/dL 12/16 4:31 PM CDT [facility] Not Available Not Available 11/30/2024 15:13:24 12/17/19 24 12/17/2023 Compr ens guerrero metab olic 2000 panel - Serum or Plasm a bilirubin.to steph [mass/volume ] in serum or plasma 1.1 mg/dL low: 0.2mg/ dLhigh : 1.2mg/ dL Bilir ubin Total 1.1 0.2 - 1.2 mg/dL 12/16 4:31 PM CDT [facility] Not Available Not Available 11/30/2024 15:13:24 12/17/19 24 12/17/2023 Compr ens guerrero metab olic 2000 panel - Serum or Plasm a alkaline phosphatase [enzymatic activity/vol ume] in serum or plasma 103 U/L low: 40U/Lh igh: 150U/L Alkal ine Phosp hatas e 103 40 - 150 U/L 12/16 4:31 PM CDT [facility] Not Available Not Available 11/30/2024 15:13:24 12/17/19 24 12/17/2023 Compr XINTECens guerrero metab olic 2000 panel - Serum or Plasm a alanine aminotransfe rase [enzymatic activity/vol ume] in serum or plasma by no addition of P-5'-P 18 U/L low: 5U/Lhi gh: 55U/L ALT 18 5 - 55 U/L 12/16 4:31 PM CDT [facility] Not Available Not Available 11/30/2024 15:13:24 12/17/19 24 12/17/2023 Compr ehens guerrero metab olic 1999 panel - Serum or Plasm a aspartate aminotransfe rase [enzymatic activity/vol ume] in serum or plasma 11 U/L low: 5U/Lhi gh: 34U/L AST 11 5 - 34 U/L 12/16 4:31 PM CDT [facility] Not Available Not Available 11/30/2024 15:13:24 12/17/19 24 12/17/2023 Compr ehens guerrero metab olic 1999 panel - Serum or Plasm a anion gap 13 low: 6high: 16 Anion Gap 13 6 - 16 12/16 4:31 PM CDT [facility] Not Available Not Available 11/30/2024 15:13:24 12/17/19 24 12/17/2023 Compr ehens guerrero metab olic 1999 panel - Serum or Plasm a urea nitrogen/cre atinine [mass ratio] in serum or plasma 12 low: 7high: 23 BUN/C reati nine Ratio 12 7 - 23 12/16 4:31 PM CDT [facility] Not Available Not Available 11/30/2024 15:13:24 12/17/19 24 12/17/2023 Compr ehens guerrero metab olic 2000 panel - Serum or Plasm a osmolality calculated 294 text: 275 - 295 mOsm/k g Osmol ality Calcu lated 294 275 - 295 mOsm/ kg 12/16 4:31 PM CDT [facility] Not Available Not Available 11/30/2024 15:13:24 12/17/19 24 12/17/2023 Compr ehens guerrero metab olic 2000 panel - Serum or Plasm a albumin/glob ulin ratio 1.1 low: 1.1hig h: 2.3 Album in/Gl obuli n Ratio 1.1 1.1 - 2.3 12/16 4:31 PM CDT [facility] Not Available Not Available 11/30/2024 15:13:24 12/17/19 24 12/17/2023 Compr ehens guerrero metab olic 1999 panel - Serum or Plasm a glomerular filtration rate/1.73 sq M.predicted [volume rate/area] in serum, plasma or blood by creatinine-b ased formula (CKD-epi) text: >=90 mL/min /1.73 m2 eGFR by CKD-E PI >90 >=90 mL/mi n/1.7 3 m2 12/16 4:31 PM CDT [facility] Not Available Not Available 11/30/2024 15:13:24 12/17/19 24 12/17/2023 Compr ehens guerrero metab olic 2000 panel - Serum or Plasm a interpretati on and review of laboratory results Abnorm al Not Available Not Available 15:13:24 12/17/19 24 12/17/2023 Hemog lobin A1c/H emogl obin. total in Blood hemoglobin A1C/hemoglob in.total in blood 11.3 % Hemog lobin A1c POCT 11.3 % [facility] [address] Not Available Not Available 11/30/2024 15:13:24 01/14/20 23 01/13/2023 MAMMO , scree whitney, bilat eral No observ ation record ed. [facility] [address] [place], [address], 01/29/2023 10:21:04 12/28/19 24 12/09/2023 colon oscop y proce dure (PROC ) No observ ation record ed. [email or web address] Not Available 12/27 13:11:41 02/08/20 24 12/09/2023 colon oscop y proce dure (PROC ) No observ ation record ed. BARCODE Not Available 2023 18:07:03 Result Notes None recorded. Problems Name Problem SNOMED Code Status Onset Date Resolution Date Notes Provider Name and Address Organization Details Recorded Time Polycyst ic ovaries Active 2017 KALIN Birch [place] - [place] 3 16:05:01 Genital herpes simplex 50108157 Active 2017 [place] 3 16:04:35 Candidia sis of vagina 93280319 Active 2017 Frida Garvin [place] [facility] 3 16:04:02 HPV - Human papillom avirus test positive Active 2018 Frida [place] [facility] 3 16:04:56 Group B Streptoc occus carrier 52523858572 03 Active 2018 Frida Gar[place] [facility] 3 16:04:40 Fibrocys tic disease of breast 54917065 Active 2018 Frida [place] [facility] 3 16:04:26 Family planning surveill ance Active 2018 Frida [place] [facility] 3 16:04:19 Gynecolo gic examinat ion Active 2018 Frida [place] [facility] 3 16:04:49 Candidal vulvovag initis 30873459 Active 2018 Frida [place] [facility] 3 16:03:57 Candidia sis 49393375 Active 2018 Frida Gar[place] [facility] 3 16:03:59 Active or passive immuniza tion Active 2018 KAL[place] [facility] 3 16:03:48 Screenin g for malignan t neoplasm of colon Active 2019 Next colonosc opy April 2025 Frida [place] [facility] 3 16:05:04 Gastriti s 0997011 Active 2019 Frida [place] [facility] 3 16:04:29 Internal hemorrho ids 10870859 Active 2019 Frida [place] [facility] 3 16:04:58 Divertic ulosis of colon 332243114 Active 2019 K[place] [facility] 3 16:04:14 Gastroes ophageal reflux disease 405055203 Active 2019 K[place] [facility] 3 16:04:32 Type 2 diabetes mellitus 31617216 Active 2020 KAL[place] [facility] 3 16:05:10 Gastriti s 2947059 Completed 12/13/2018 KAL[place] [facility] 3 16:04:29 Mammogra [facility] mass of breast 871765437 Completed 12/13/2018 David [place]houry [place] - [facility] 9 11:26:47 Nausea 123223333 Completed 12/13/2018 [place]houry [place] [facility] 9 11:26:34 Bacteria l vaginosi s 534206477 Active [place] [facility] 3 16:03:54 Urinary tract infectio us disease 52675285 Active [place] [facility] 3 16:05:16 Sexually transmit raciel infectio us disease 0909702 [place] [facility] 3 16:05:06 Diabetes mellitus 90298904 Active [place]AL[place] [facility] 3 16:04:05 [place] ht 756641186 Completed 12/13/2018 [place]houry [place] [facility] 9 11:26:26 Albuminu chavo 963353729 Completed 12/13/2018 [place]houry [place] [facility] 9 11:26:31 Bacteria l conjunct ivitis 079682824 Active KAL[place] [facility] 3 16:03:50 Herpesvi oh infectio n 56240268 Completed 12/13/2018 David [place]houry [place] - [facility] 9 11:26:22 Problem Notes None recorded. Procedures Surgical History Date Name Laterality Status Provider Name and Address Organization Details Recorded Time 12/11/19 23 Control Implant Insertion completed TRE YORK Attn: Accounting, [address] [facility], [place], [address], [facility] - [facility] 12/10/2022 14:36:09 03/26/20 21 Date of Last Pap Smear completed Rebecca Akbar [place] - [facility] 12/03/2021 11:40:30 07/29/20 16 IUD Removal completed Derek Carranza MD Attn: Accounting, [address] [facility], [place], [address], [facility] - SI 07/29/2016 10:53:47 05/26/20 16 IUD Removal completed Santa Owens [place] - [facility] 05/26/2016 15:32:23 05/26/20 16 IUD Insertion completed Derek Carranza MD Attn: Accounting, [address] [place], [address], [facility] - SI 05/26/2016 16:34:23 09/20/19 15 Cholecystectomy completed Derek Carranza MD Attn: Accounting, [address] [place], [address], [facility] SI 09/06/2015 11:40:49 Imaging Results Imaging Date Name Status LastModified by Organiz ation Details LastModified Time 01/13/2023 MAMMO, screening, bilateral completed [address], [address], 01/29/2023 10:21:04 12/09/2023 colonoscopy procedure (PROC) completed [email or web address] Information not available 12/28/2023 13:11:41 12/09/2023 colonoscopy procedure (PROC) completed BARCODE Information not available 02/08/2024 18:07:03 Procedure Notes None recorded. Medical Equipment None Reported. Allergies No known drug allergies Medications Name Sig Start Date Stop Date Status Note LastModified by Organization Details LastModified Time multivitami n tablet TAKE 1 TABLET EVERY DAY BY ORAL ROUTE 12/03 completed Not Available Not Available Not Available cyclobenzap rine 10 mg tablet TAKE 1 TABLET BY MOUTH THREE TIMES DAILY EVERY 8 HOURS active Not Available Not Available No t Available amoxicillin 500 mg capsule 11/27 completed Not Available Not Available Not Available Mirena 21 mcg/24 hr (up to 8 years) 52 mg intrauterin e device Take 1 device by intrauter ine route. 04/27 completed Not Available Not Available Not Available pioglitazon e 15 mg tablet Take 1 tablet every day by oral route in the morning for 30 days. 05/16 completed Not Available Not Available Not Available metformin 500 mg tablet TAKE 1 TABLET BY MOUTH TWICE DAILY WITH MEALS active Not Available Not Available No t Available prednisone 10 mg tablet 12/03 completed Not Available Not Available Not Available Protonix 40 mg tablet,andrea yed release Take 1 tablet every day by oral route for 30 days. 2024 active Not Available Not Available Not Avai lable paroxetine 10 mg tablet TAKE 1 TABLET BY MOUTH AT BEDTIME 12/03 completed Not Available Not Available Not Available clindamycin HCl 300 mg capsule 07/22 completed Not Available Not Available Not Available loperamide 2 mg capsule TAKE ONE CAPSULE BY MOUTH DAILY NEEDED active Not Available Not Available No t Available trazodone 50 mg tablet TAKE 1 TABLET BY MOUTH EVERY NIGHT AT BEDTIME active Not Available Not Available No t Available azithromyci n 250 mg tablet TAKE 2 TABLETS (500 MG) BY ORAL ROUTE ONCE DAILY FOR 1 DAY THEN 1 TABLET (250 MG) BY ORAL ROUTE ONCE DAILY FOR 4 DAYS 12/03 completed Not Available Not Available Not Available nystatin 100,000 unit/gram topical ointment APPLY TO THE AFFECTED AREA(S) BY TOPICAL ROUTE 2 TIMES PER DAY 04/09 completed Not Available Not Available Not Available fluconazole 150 mg tablet TAKE 1 TABLET BY MOUTH ONCE 12/03 completed Not Available Not Available Not Available benzonatate 200 mg capsule TAKE 1 CAPSULE BY MOUTH EVERY 8 HOURS FOR 7 DAYS NEEDED 12/10 completed Not Available Not Available Not Available hydrocodone 5 mg-acetamin ophen 325 mg tablet TAKE 1 TABLET BY MOUTH EVERY 6 HOURS NEEDED 01/13 completed Not Available Not Available Not Available fluconazole 200 mg tablet TAKE 1 TABLET BY MOUTH EVERY 2 WEEKS NEEDED 03/16 /2022 completed Not Available Not Available Not Available phenazopyri dine 200 mg tablet active Not Available Not Available Not Available metronidazo le 0.75 % (37.5 mg/5 gram) vaginal gel Insert 1 applicato rful every day by vaginal route at bedtime for 5 days. active Not Available Not Available No t Available ondansetron HCl 4 mg tablet Take 1 tablet every 8 hours by oral route for 10 days. active Not Available Not Available No t Available prednisone 20 mg tablet TAKE 3 TABLET BY MOUTH ONCE DAILY FOR 5 DAYS 12/03 completed Not Available Not Available Not Available terconazole 0.8 % vaginal cream INSERT 1 APPLICATO RFUL VAGINALLY EVERY EVENING FOR 3 DAYS 12/03 completed Not Available Not Available Not Available loperamide 2 mg tablet Take 1 tablet as needed by oral route, for diarrhea. 2024 active Not Available Not Available Not Avai lable atenolol 25 mg tablet TAKE 1 TABLET BY MOUTH EVERY DAY active Not Available Not Available No t Available Lantus U-100 Insulin 100 unit/mL subcutaneou s solution Inject 24 units subqutane ously at bedtime 11/27 completed Not Available Not Available Not Available clindamycin HCl 150 mg capsule TAKE 3 CAPSULES BY MOUTH THREE TIMES DAILY FOR 10 DAYS 01/13 completed Not Available Not Available Not Available penicillin V potassium 500 mg tablet TAKE 1 TABLET BY MOUTH TWICE DAILY FOR 10 DAYS 01/13 completed Not Available Not Available Not Available metronidazo le 500 mg tablet TAKE 1 TABLET BY MOUTH EVERY 12 HOURS FOR 7 DAYS 12/03 completed Not Available Not Available Not Available acetaminoph en 300 mg-codeine 30 mg tablet 07/22 completed Not Available Not Available Not Available prochlorper azine maleate 10 mg tablet TAKE 1 TABLET BY MOUTH EVERY 6 HOURS NEEDED FORNAUSEA AND VOMITING 12/03 completed Not Available Not Available Not Available acyclovir 400 mg tablet Take 1 tablet twice a day by oral route for 30 days. 04/27 completed Not Available Not Available Not Available ciprofloxac in 500 mg tablet 07/22 completed Not Available Not Available Not Available sulfamethox azole 800 mg-trimetho prim 160 mg tablet Take 1 tablet every 12 hours by oral route for 7 days. 04/27 completed Not Available Not Available Not Available peg-electro lyte solution 420 gram oral solution 07/15 completed Not Available Not Available Not Available tramadol 50 mg tablet TAKE 1 TABLET BY MOUTH EVERY 6 HOURS NEEDED 12/03 completed Not Available Not Available Not Available acetaminoph en 500 mg tablet Take 2 tablets every 6 hours by oral route as directed for 30 days. 01/13 completed Not Available Not Available Not Available simvastatin 40 mg tablet Take 1 tablet every day by oral route. 05/18 completed Not Available Not Available Not Available acyclovir 800 mg tablet Take 1 tablet every day by oral route. 12/03 completed Not Available Not Available Not Available ondansetron 8 mg disintegrat ing tablet Place 1 tablet every 8 hours by transling ual route as directed for 5 days. 07/15 completed Not Available Not Available Not Available Vitamin tablet Take 1 tablet every day by oral route for 30 days. 04/27 completed Not Available Not Available Not Available meloxicam 7.5 mg tablet active Not Available Not Available Not Available oxycodone-a cetaminophe n 5 mg-325 mg tablet TAKE 1 TABLET BY MOUTH EVERY 6 HOURS NEEDED FOR MILD TO MODERATE PAIN OR 2 TABLETS EVERY 6 HOURS NEEDED FOR SEVERE PAIN 12/03 completed Not Available Not Available Not Available amoxicillin 875 mg tablet TAKE 1 TABLET BY MOUTH TWICE DAILY FOR 10 DAYS active Not Available Not Available No t Available famotidine 20 mg tablet Take 1 tablet twice a day by oral route as directed for 30 days. 01/15 completed Not Available Not Available Not Available oxycodone-a cetaminophe n 10 mg-325 mg tablet 04/27 completed Not Available Not Available Not Available hydrocodone 7.5 mg-acetamin ophen 325 mg tablet TAKE 1 TABLET BY MOUTH EVERY 4 HOURS NEEDED 12/03 completed Not Available Not Available Not Available cephalexin 500 mg capsule TAKE 1 CAPSULE BY MOUTH EVERY 6 HOURS FOR 10 DAYS 12/03 completed Not Available Not Available Not Available metformin 1,000 mg tablet Take 1 tablet twice a day by oral route. 06/27 completed Not Available Not Available Not Available nystatin 100,000 unit/gram topical cream APPLY TOPICALLY TO THE AFFECTED AREA TWICE DAILY 12/03 completed Not Available Not Available Not Available ranitidine 150 mg tablet Take 1 tablet twice a day by oral route for 30 days. 04/27 completed Not Available Not Available Not Available polymyxin B sulfate 10,000 unit-trimet hoprim 1 mg/mL eye drops INSTILL 1 DROP INTO AFFECTED EYE(S) BY OPHTHALMI C ROUTE EVERY 6 HOURS 04/27 completed Not Available Not Available Not Available gabapentin 300 mg capsule 05/18 completed Not Available Not Available Not Available omeprazole 20 mg capsule,del ayed release Take 1 capsule every day by oral route in the morning for 30 days. 05/16 completed Not Available Not Available Not Available bisacodyl 5 mg tablet,andrea yed release TAKE 4 TABLETS BY MOUTH AT 2PM THE DAY BEFORE PROCEDURE WITH 8 OUNCES OF WATER active Not Available Not Available No t Available diazepam 10 mg tablet 07/22 completed Not Available Not Available Not Available ibuprofen 600 mg tablet TAKE 1 TABLET BY MOUTH EVERY 6 HOURS NEEDED FOR PAIN active Not Available Not Available No t Available polyethylen e glycol 3350 17 gram/dose oral powder In a pitcher, mix entire bottle of Miralax in one 64 ounce bottle of yellow or green Gatorade. Beginning at 5:00 PM the evening before the colonosco py, drink 1 8-ounce glass every 15 minutes until completed . Drink 4 glasses of water after finishing this mixture active Not Available Not Available No t Available levofloxaci n 500 mg tablet 04/09 completed Not Available Not Available Not Available methylpredn isolone 4 mg tablets in a dose pack 04/27 completed Not Available Not Available Not Available albuterol sulfate HFA 90 mcg/actuati on aerosol inhaler INHALE 2 PUFFS BY MOUTH EVERY 6 HOURS FOR 10 DAYS NEEDED 12/10 completed Not Available Not Available Not Available pioglitazon e 30 mg tablet TAKE 1 TABLET BY MOUTH DAILY active Not Available Not Available No t Available oxybutynin chloride 5 mg tablet Take 1 tablet twice a day by oral route. 12/13 completed Not Available Not Available Not Available ondansetron 4 mg disintegrat ing tablet DISSOLVE 1 TABLET IN MOUTH EVERY 6 HOURS NEEDED FOR NAUSEA OR VOMITING active Not Available Not Available No t Available metformin ER 500 mg tablet,exte nded release 24 hr TAKE 2 TABLETS BY MOUTH EVERY MORNING 07/11 completed Not Available Not Available Not Available sertraline 50 mg tablet TAKE 1 TABLET BY MOUTH EVERY DAY active Not Available Not Available No t Available atenolol 50 mg tablet TAKE 1 TABLET BY MOUTH DAILY active Not Available Not Available No t Available glipizide 5 mg tablet TAKE 1 TABLET BY MOUTH TWICE DAILY BEFORE BREAKFAST AND SUPPER active Not Available Not Available No t Available naproxen 500 mg tablet Take 1 tablet twice a day by oral route for 7 days. 04/27 completed Not Available Not Available Not Available diazepam 5 mg tablet TAKE 1 TABLET BY MOUTH EVERY NIGHT AT BEDTIME NEEDED FOR ANXIETY 12/03 completed Not Available Not Available Not Available amoxicillin 875 mg-potassiu m clavulanate 125 mg tablet Take 1 Tablet by mouth Every twelve hours active Not Available Not Available No t Available hydroxyzine pamoate 25 mg capsule TAKE ONE CAPSULE BY MOUTH FOUR TIMES DAILY FOR 7 DAYS NEEDED FOR ANXIETY active Not Available Not Available No t Available Alcohol Prep Pads USE 2 TIMES A DAY. active Not Available Not Available No t Available nitrofurant oin monohydrate /macrocryst als 100 mg capsule TAKE ONE CAPSULE BY MOUTH TWICE DAILY active Not Available Not Available No t Available BD Ultra-Fine Mini Pen Needle 31 gauge x 12/03 completed Not Available Not Available Not Available Byetta 5 mcg/dose (250 mcg/mL)1.2 mL subcutaneou s pen injector Inject 5 microgram s twice a day by subcutane ous route as directed for 30 days. 03/13 completed Not Available Not Available Not Available calcium 600 mg (as carbonate)- vitamin D3 10 mcg (400 unit) tablet TAKE 1 TABLET TWICE A DAY 12/03 completed Not Available Not Available Not Available peg 3350 240 gram-electr olytes 22.72 gram-6.72 g-5.84 g powdr for soln Beginning at 5:00 PM the night before the colonosco py, drink 8 ounces every 15 minutes until gone. 05/16 completed Not Available Not Available Not Available Lantus Solostar U-100 Insulin 100 unit/mL (3 mL) subcutaneou s pen INJECT 20 UNITS INTO SKIN ONCE DAILY AT BEDTIME active Not Available Not Available No t Available metformin ER 1,000 mg 24 hr tablet,exte nded release (gastric reten.) Take 1 tablet every day by oral route in the morning for 30 days. 07/11 completed Not Available Not Available Not Available Trueresult Blood Glucose System kit 04/27 completed Not Available Not Available Not Available Lili (28) 90 mcg-20 mcg tablet Take 1 tablet every day by oral route. 05/18 completed Not Available Not Available Not Available Nexplanon 68 mg subdermal implant Inject 1 implant by subcutane ous route. 2022 active Not Available Not Available Not Avai lable OneTouch Verio test strips TEST TWICE DAILY DIRECTED active Not Available Not Available No t Available Wal-Mucil Fiber (aspartame) 3.4 gram/5.8 gram oral powder 12/03 completed Not Available Not Available Not Available calcium 600 mg (as carbonate)- vitamin D3 20 mcg (800 unit) tablet Take 1 tablet twice a day by oral route. 12/13 completed Not Available Not Available Not Available Invokana 100 mg tablet TAKE 1 TABLET BY MOUTH DAILY BEFORE BREAKFAST 12/10 completed Not Available Not Available Not Available Invokana 300 mg tablet TAKE 1 TABLET BY MOUTH DAILY BEFORE BREAKFAST active Not Available Not Available No t Available Victoza 3-Yves 0.6 mg/0.1 mL (18 mg/3 mL) subcutaneou s pen injector Inject 1.8 mg every day by subcutane ous route as directed for 30 days. 07/15 completed Not Available Not Available Not Available Vitamins Plus Low Iron 27 mg iron-1 mg tablet 04/27 completed Not Available Not Available Not Available Metamucil 3.4 gram/5.4 gram oral powder Week 1: Take 1 teaspoon mixed in water by mouth daily Week 2: Take 2 teaspoons mixed in water by mouth daily Week 3 and afterward s: Take 1 Tablespoo n mixed in water by mouth daily 01/13 completed Not Available Not Available Not Available TRUEplus Pen Needle 32 gauge x 532 DIRECTED EVERY DAY active Not Available Not Available No t Available OneTouch Delica Plus Lancet 33 gauge active Not Available Not Available Not Available Slynd 4 mg (28) tablet TAKE 1 TABLET BY MOUTH EVERY DAY 12/03 completed Not Available Not Available Not Available OneTouch Verio Reflect Meter USE DIRECTED active Not Available Not Available No t Available Vitals Date Recorded Body height Body mass index (BMI) Body weight Systolic blood pressure Diastolic blood pressure Provider Name and Address Organization Details Last Updated DateTime 12/03/2022 162.56 cm 22 kg/m2 70275.82 g 90 mm[Hg] 58 mm[Hg] Rebecca Akbar MA [facility] 3 11:54:09 Date Recorded Body height Body mass index (BMI) Body weight Systolic blood pressure Diastolic blood pressure Provider Name and Address Organization Details Last Updated DateTime 12/10/2022 162.56 cm 21.8 kg/m2 37595.23 g 88 mm[Hg] 58 mm[Hg] Rebecca Akbar MA [facility] 3 14:25:59 Date Recorded Body height Body weight Systolic blood pressure Diastolic blood pressure Provider Name and Address Organization Details Last Updated DateTime 01/12/2023 162.56 cm 64792.71 g 92 mm[Hg] 60 mm[Hg] Flores ball MA [facility] 01/12/2023 09:13:47 Date Recorded Body height Body mass index (BMI) Body weight Heart rate Oxygen saturation Oxygen saturation in Arterial blood by Pulse oximetry Pain severity - 0-10 verbal numeric rating [Score] - Reported Body temperature Systolic blood pressure Diastolic blood pressure Provider Name and Address Organization Details Last Updated DateTime 4 162.56 cm 19.9 kg/m2 47537.6 4 g 126 /min 97 % 97 % 7 98.3 [degF] 166 mm[Hg] 95 mm[Hg] Kim Gentile MA [facility] 4 16:43:50 Date Recorded Body weight Body temperature Oxygen saturation Oxygen saturation in Arterial blood by Pulse oximetry Respiratory rate Body mass index (BMI) Body height Heart rate Systolic blood pressure Diastolic blood pressure Provider Name and Address Organization Details Last Updated DateTime 5 47558.9 4 g 97.6 [degF] 99 % 99 % 18 /min 19.4 kg/m2 162.56 cm 126 /min 110 mm[Hg] 69 mm[Hg] Jia barbosa MA [facility] 15:16:51 Social History Question Answer Notes LastModified by Organizat ion Details LastModified Time Tobacco Smoking Status Never Smoker Derek Carranza MD Attn: Accounting,[address] , [place], [address], [facility] - [facility] 06/27/2015 11:19:32 Do You Have An Advance Directive? No Information not available 04/27/2018 What Is Your Level Of Alcohol Consumption? None Information not available 04/27/2018 Is Blood Transfusion Acceptable In An Emergency? Yes Information not available 04/27/2018 What Is Your Level Of Caffeine Consumption? Moderate Information not available 04/27/2018 How Much Tobacco Do You Chew? None Information not available 04/27/2018 Are You Currently Employed? Yes Information not available 04/27/2018 What Type Of Diet Are You Following? REGULAR Information not available 04/27/2018 Which Illicit Or Recreational Drugs Have You Used? None Information not available 04/27/2018 Do You Or Have You Ever Used E-cigarettes Or Vape? 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 With Others Information not available 04/27/2018 What Was The Date Of Your Most Recent Tobacco Screening? 11/30/2024 Information not available 11/30/2024 How Many Children Do You Have? 1 Information not available 04/27/2018 Performs Monthly Self-breast Exam? Yes Information not available 04/27/2018 Do You Use Protection During Sex? No Information not available 04/27/2018 What Is Your Relationship Status? Single Information not available 04/27/2018 Seat Belts Used Routinely Yes Information not available 04/27/2018 Are You Sexually Active? Yes Information not available 04/27/2018 Do You Have Smoke And Carbon Monoxide Detectors In Your Home? Yes Information not available 12/03/2021 Are You Passively Exposed To Smoke? No Information not available 12/03/2021 Do You Or Have You Ever Used Smokeless Tobacco? Never Used Smokeless Tobacco [email or web address] Information not available 05/18/2019 How Much Tobacco Do You Smoke? No [email or web address] Information not available 11/25/2015 General Stress Level Low Information not available 04/27/2018 Do You Use Any Illicit Or Recreational Drugs? No Information not available 12/03/2021 Do You Use Sunscreen Routinely? No Information not available 04/27/2018 Has Tobacco Cessation Counseling Been Provided? Yes Information not available 12/03/2022 On What Date Was Tobacco Cessation Counseling Provided? 11/30/2024 Information not available 11/30/2024 Do You Or Have You Ever Used Any Other Forms Of Tobacco Or Nicotine? No Information not available 12/03/2021 Sex: Unknown Functional Status Question Answer Note LastModified by Organization D etails LastModified Time What is your exercise level? None Information not available 04/27/2018 Mental Status None recorded. Family History Relationship Description Onset Age of this Age Resolved Age Notes LastModified by Organization Details LastModified Time Mother No current problems or disability [email or web address] Not available 01/18 12:55:04 Father Malignant tumor of colon 42 [email or web address] Not available 02/05 12:55:04 Paternal Aunt Crohn's disease [email or web address] Not available 2019 12:35:26 Paternal Aunt Malignant tumor of stomach [email or web address] Not available 2019 12:35:37 Medical History Condition Response Coronary Artery Disease N Other N Atrial Fibrillation N High Blood Pressure N Breast Cancer N Lung Disease N Depression N COPD N Blood Clots N Breast Problem N Anesthesia Complications N Headaches/Migraines N Anxiety Disorder N Muscle, Joint, or Bone Problems N Arthritis N Infertility N Polyps N Acid Reflux (GERD) N Cancer N Stroke N ADHD N Endometriosis N High Cholesterol N Liver Disease N Fibromyalgia N Headaches N Kidney Disease N Heart Problems N Thyroid Problems N Kidney or Bladder Problems N GI Problems N Acne N Eating Disorder N Skin Problems N Anemia N Heart Attack (DE) N Diabetes Y Ovarian Cancer N Blood Transfusions N Seizures/Epilepsy N Abuse/Domestic Violence N Asthma N Allergies N Hepatitis N Heart Disease N Pre-Eclampsia N Hypertension N Heart Failure N Osteoporosis N Gynecological History Statement/Question Response Abnormal Pap Y Flow Moderate Date of LMP 12/20/2022 On BCP's at Conception? N STIs/STDs N HPV Vaccine N Duration of Flow (days) 4 Age at Menarche 17 Current Control Method Implant Age at First Child 19 Frequency of Cycle (Q days) 28 Sexually Active? Y Menses Monthly Y Date of Last Pap Smear 03/26/2021 Sexual Problems? N LMP Approximate Desired Control Method Unknown Obstetrics History GPAL:G 1 P 1 0 0 1 Type Value Multiple Births 0 Full Term 1 Induced 0 Spontaneous 0 Premature 0 Living 1 Ectopics 0 Total 1 Immunizations Vaccine Type Date Status Note Provider Nam e and Address Organization Details Recorded Time pneumococcal polysaccharide PPV23 7 completed Not Available [facility] 10/07/2019 02:33:58 HPV9 9 completed Not Available [facility] 10/07/2019 02:37:31 HPV9 1 completed Ayse Christensen MA [place], [place] - [facility] 08/01/2021 11:57:32 Past Encounters Encounter ID Performer Location Encounter Start Date Encounter Closed Date Diagnosis/Indication Diagnosis SNOMED-CT Code Diagnosis ICD10 Code Diagnosis Note [id number] [facility] ([employer]) [address] [place] [address] 06/27/2015 10:46:17 06/27/2015 17:08:16 Gastritis 0590715 K29.70 Mammograph ic mass of breast 061532481 R92.8 [id number] Derek Carranza MD [facility] ([employer]) [address] [place] [address] 09/06/2015 10:40:05 09/06/2015 17:04:08 Mammographic mass of breast 597431616 R92.8 Diabetes m ellitus screening 452637056 Z13.1 Nausea 541198775 R11.0 [id number] Derek Carranza MD [facility] ([employer]) [address] [place] [address] 10/23/2015 10:23:45 10/23/2015 14:11:47 Gynecologic examination 40703558 Z01.419 Bacterial vaginosis 4197 66589 N76.0 Urinary tr act infectious disease 73740066 N39.0 Sexually t ransmitted infectious disease 1356793 A64 Diabetes mellitus 728886 09 E11.9 [id number] Chloé [address] [address] 10/24/2015 12:21:58 10/24/2015 13:20:01 Overweight 202095601 E66.3 Diabetes mellitus 248024 09 E11.9 New diagnoisis ...discuss ed disease process and treatment. -Postprand ial FS 281 -Start oral therapy -Fasting labs to be done in am -Referral to automobile damage field appraiser -RTC in 2 weeks for FU [id number] Chloé [address] [address] 10/25/2015 10:47:11 11/02/2015 12:11:51 Diabetes mellitus 00085856 E11.9 New diagnoisis ...discuss ed disease process and treatment. -Postprand ial FS 281 -Start oral therapy -Fasting labs to be done in am -Referral to automobile damage field appraiser -RTC in 2 weeks for FU [id number] Chloé [address] [address] 11/07/2015 10:13:18 11/08/2015 09:04:52 Diabetes mellitus 33295077 E11.9 Post Prandial BS >300 today...Ho me sugars mid 200s. Pt. advised due to work schedule only taking Metformin once daily...Re inforced importance of taking medication appropriat zainab. Chg Metformin to 1000mg ER to improve compliance . Will continue close FU Noncomplia nce with treatment 7160668 Z91.19 Per pt. only taking Metformin once daily because of work scheduled. Overweight 269514385 E66 .3 BMI=27 Bacterial conjunctivitis 145885024 H10.021 [id number] Derek Carranza MD [facility] ([employer]) [address] [place] [address] 11/15/2015 10:03:00 11/15/2015 11:26:14 Bacterial vaginosis 139706937 N76.0 Herpesvirus infection 23 782983 B00.9 [id number] BLAYNE Vázquez [address] [address] 11/25/2015 10:24:11 11/25/2015 11:08:06 Diabetes mellitus 04800088 E11.9 RR=994...d iscussed adding bedtime insulin. Had pt. demonstrat e ability to administer her in the office today. RTC in 1 month for FU. Overweight 864362084 E66 .3 BMI=27 Bacterial conjunctivitis 974764103 H10.021 resolved with polytrim gtts. Albuminuria 511080763 R8 0.9 Albumin urine 40.6...DM2 primary dx. will refer to Nephrologi for eval and treat....A pt. with Dr. Sanz on 12/07. [id number] BLAYNE Vázquez [address] [address] 01/10/2016 11:03:07 01/10/2016 12:30:03 Diabetes mellitus 00444745 E11.9 Refill request. Post prandial EV=456 Home fasting sugars still in early 200s...dis cussed increasing Lantus to 24U @ HS...peggy nue Metformin 1000mg ER Seeing dialal next FU in 4 months Seen by bottle machine operator and feels that was beneficial . [id number] BLAYNE Vázquez [address] [address] 02/06/2016 10:10:52 02/06/2016 13:06:50 Diabetes mellitus 95766288 E11.9 Post prandial DS=591 Tolerating Metformin 1000mg ER. Seeing dialal next FU in February Seen by bottle machine operator and feels that was beneficial . Discussed checking feet daily/eye exam Noncomplia nce with treatment 7801247 Z91.19 Per pt. occasional ly missing PO and insulin doses. [id number] BLAYNE Vázquez [address] [address] 02/24/2016 10:35:05 03/14/2016 03:47:52 Diabetes mellitus 96606618 E11.9 Post prandial XF=866 Tolerating Metformin 1000mg ER. Seeing dialal next FU in February Seen by bottle machine operator and feels that was beneficial . Discussed checking feet daily/eye exam [id number] Derek Carranza MD [facility] ([employer]) [address] [place] [address] 04/23/2016 11:26:44 04/23/2016 13:31:11 Contraception care 817586549 Z30.40 [id number] Derek Carranza MD [facility] ([employer]) [address] [place] [address] 05/26/2016 15:00:38 05/26/2016 17:39:44 Contraception care 838445483 Z30.40 [id number] Derek Carranza MD [facility] ([employer]) [address] [place] [address] 07/29/2016 10:18:44 07/29/2016 16:22:20 Vaginitis and vulvovaginitis 282294357 N76.0 [id number] Marilee Chou [facility] ([employer]) [address] [place] [address] 10/30/2016 14:51:32 10/30/2016 17:20:50 Diabetes mellitus 68319634 E11.9 Vaginitis and vulvovaginitis 172324198 N76.0 [id number] Derek Carranza MD [facility] ([employer]) [address] [place] [address] 03/10/2017 11:28:57 03/10/2017 12:49:08 Gynecologic examination 16844962 Z01.419 Vaginitis and vulvovaginitis 411405474 N76.0 Diabetes mellitus 874572 09 E11.9 Costal chondritis 697361 04 M94.0 [id number] Chloé Carreon NP-C [address] [address] 03/18/2017 11:14:25 03/25/2017 08:57:34 Diabetes mellitus 35385213 E11.9 Post prandial LK=639 Tolerating Metformin 1000mg ER. Seeing dialal next FU in February Seen by bottle machine operator and feels that was beneficial . Discussed checking feet daily/eye exam Gastroesop hageal reflux disease without esophagitis 516692474 K21.9 STable, conitnue Body mass index 25-29 - overweight 617236694 Z68.25 BMI=25.9 [id number] BLAYNE Vázquez [address] [address] 04/15/2017 12:22:59 04/15/2017 14:29:32 Diabetes mellitus 79871245 E11.9 Post prandial EO=409 Last A1C=11.9 Had not been taking insulin because Lantus not covered. Ordered Basaglar kwik pen. Gastroesop hageal reflux disease without esophagitis 456142881 K21.9 R/o esophagiti s. Frequent Body mass index 25-29 - overweight 238101448 Z68.25 BMI=25.2 Noncomplia nce with medication regimen 921915158 Z91.14 No taking insulin as ordered, frequently misses PO meds. No PO meds this AM. [id number] Alem Chavez [address] [address] 05/14/2017 11:30:46 05/25/2017 13:45:09 Diabetes mellitus 22528899 E11.9 Post prandial LC=003, 11.9 Active or passive immunization 324339432 Z23 Tolerated well VIS given Candidiasis of vagina 72 963257 B37.3 [id number] BLAYNE Vázquez [address] [address] 07/22/2017 11:48:13 07/22/2017 14:03:19 Diabetes mellitus 14424986 E11.9 Post prandial FS 221. She was referred to column precaster by Endocrinol ogist. Continue current medication glipizide, invokana, and bedtime insulin. Counseled on counting carbs and increasing physical activity. Candidiasis of vagina 72 376734 B37.3 Presumptiv e treatment Body mass index 25-29 - overweight 229781148 Z68.25 BMI=26.1. Discussed increasing physical activity [id number] BLAYNE Vázquez [address] [address] 08/24/2017 11:50:28 08/24/2017 16:18:47 Diabetes mellitus 76295103 E11.9 Post prandial FS 131 . She was referred to column precaster by Endocrinol ogist. Continue invokana, and bedtime insulin. Counseled on counting carbs and increasing physical activity. Overweight 805063164 E66 .3 BMI=26 Candidiasis of vagina 72 645302 B37.3 recurrent Low back pain 242606164 M54.5 UTI r/o by Endocrinol ogist. Discussed that OTC ibuprofen is ok. [id number] [facility] ([employer]) [address] [place] [address] 04/27/2018 11:51:59 04/27/2018 13:30:44 Gynecologic examination 29362605 Z01.419 Exposure t o sexually transmissible disorder 725669142 Z20.2 Fertility care 974301730 Z31.84 Diabetes mellitus 454078 09 E11.9 Polycystic ovaries 47581 008 E28.2 Bacterial vaginosis 4197 66281 N76.0 Candidiasis of vagina 72 556513 B37.3 [id number] BLAYNE Vázquez [address] [address] 06/14/2018 15:49:25 06/27/2018 16:36:12 Diabetes mellitus 68939754 E11.9 Post prandial FS 107 . POC A!C today is 9.9 down from 12. She was referred to column precaster by Endocrinol ogist. Continue invokana, and bedtime insulin. Counseled on counting carbs and increasing physical activity. Low back pain 106052399 M54.5 UTI r/o by Endocrinol ogist. Discussed that OTC ibuprofen is ok. Noncomplia nce with treatment 7426963 Z91.19 Per pt. occasional ly missing PO and insulin doses. Not follow-up with Endocrinol ogist as scheduled/ advised [id number] [facility] ([employer]) [address] [place] [address] 06/27/2018 15:39:47 06/29/2018 16:06:25 HPV - Human papillomavirus test positive 457052180 R87.619 Polycystic ovaries 02502 008 E28.2 DM managed per PCP. To wait for results of partner's sperm study and discuss further therapy options pending results with possible referral to fertility specialist . Candidiasis of vagina 72 849328 B37.3 Recurrent yeast infections from DM. [facility] nning surveillance 132535724 Z30.09 Diabetes mellitus 946640 09 E11.9 Follows with BLAYNE Vázquez Herpesvirus infection 23 766762 B00.9 on acyclovir. [id number] David Cohn ([employer]) [address] [place] [address] 12/13/2018 10:29:51 12/14/2018 12:15:26 Gynecologic examination 88275863 Z01.419 Z11.51 Candidal vulvovaginitis 69510384 B37.3 Candidiasis 78314096 B37 .[address] reptococcus carrier 9173139028 103 Z22.330 [facility] nning surveillance 381886750 Z30.09 Fibrocysti c disease of breast 97894427 N60.19 HPV - Sussy n papillomavirus test positive 878268671 R87.619 Genital he rpes simplex 85188096 A60.9 Polycystic ovaries 93455 008 E28.2 DM managed per PCP. To wait for results of partner's sperm study and discuss further therapy options pending results with possible referral to fertility specialist . Diabetes mellitus 597473 09 E11.9 Follows with BLAYNE Vázquez Active or passive immunization 461491320 Z23 [id number] David Cohn ([employer]) [address] [place] [address] 05/18/2019 16:13:11 05/19/2019 13:43:36 Group B Streptococcus carrier 3131776367 103 Z22.330 Exposure t o sexually transmissible disorder 901113497 Z20.2 Diabetes mellitus 753389 09 E11.9 Follows with BLAYNE Vázquez Candidiasis 70795971 B37 .9 [facility] nning surveillance 898846361 Z30.09 [id number] Ewelina Parson MD [address] [address] 11/28/2019 16:27:26 11/29/2019 08:46:39 Type 2 diabetes mellitus 30739963 E11.65 Gastroesop hageal reflux disease without esophagitis 527526682 K21.9 [id number] Kim Elliott LPN [address] [address] 11/29/2019 14:22:52 12/05/2019 11:29:00 [id number] Ewelina Parson MD [address] [address] 01/16/2020 14:37:31 01/17/2020 10:50:54 Type 2 diabetes mellitus 55567300 E11.65 improved control, continue care and instructio n per endocrinol ogist. Viral gastroenteritis 11 3953910 A08.4 increase oral fluids and electrolyt es as directed with soft foods. Gastroesop hageal reflux disease without esophagitis 817893885 K21.9 [id number] Ewelina Parson MD [place] [address] 01/29/2020 14:11:14 01/30/2020 09:34:57 Nausea and vomiting 66903428 R11.2 referred for Covid-19 testing due to loss of smell and taste Abdominal pain 23880894 R10.9 follow up in 1 week to discuss results [id number] THUAN MONTEZ [address] [place] [address] 01/29/2020 15:58:19 01/30/2020 08:37:21 Loss of sense of smell 50757569 R43.0 [id number] Ewelina Parson MD [address] [address] 02/19/2020 14:53:37 02/20/2020 11:10:04 SARS-CoV-2 570407324 U07.1 resolving , improving symptoms. [id number] Ewelina Parson MD [address] [address] 03/19/2020 10:02:44 03/20/2020 07:07:43 Chronic nonspecific abdominal pain 950277641 R10.9 with intermitte nt nausea and vomiting, non-pregna nt. Type 2 lisa betes mellitus 25957156 E11.65 improved control, continue care and instructio n per endocrinol ogist., seeing Dr. Momin. [id number] MILTON FERRIS NP [facility] [address] [place] [address] 04/09/2020 12:08:47 04/16/2020 16:37:28 Abdominal pain 04551652 R10.9 Family history of colon cancer - father diagnosed in 40's with stage 4Family history stomach cancer - epigastric pain, persistent reflux unresponsi ve to PPIOn PPI, will review EGD pathology report for presence of H. Pylori Diabetes mellitus 954464 09 E11.9 Last A1C 11/29/2019: 12.1%Now on insulin [id number] MILTON FERRIS NP [facility] [address] [place] [address] 05/16/2020 09:49:39 05/23/2020 16:20:27 Internal hemorrhoids 53822326 K64.8 Diverticul osis of colon 694926222 K57.30 Gastritis 6337341 K29.70 Reactive gastritis, H. Pylori negativeTa ke omeprazole 20 mg daily until current medication is gone, then change to pantoprazo le 40 mg daily for formulary purposesWi ll consider gastric emptying study if no improvemen t Screening for malignant neoplasm of colon 248281799 Z12.11 Next colonoscop y April 2025 Test resul t to patient personally 992080717 Z71.2 Colonoscop y and EGD [id number] KALIN Sotelo ([employer]) [address] [place] [address] 06/11/2020 09:31:53 06/12/2020 13:54:43 Diabetes mellitus 33979090 E11.9 Follows with Chloé Carreon NP[facility] nning surveillance 151419211 Z30.09 Exposure t o sexually transmissible disorder 805785168 Z20.2 [id number] MILTON FERRIS NP [facility] [address] [place] [address] 07/15/2020 15:02:55 07/16/2020 08:35:59 Gastritis 3232784 K29.70 Reactive gastritis, H. Pylori negativeTa ke omeprazole 20 mg daily until current medication is gone, then change to pantoprazo le 40 mg daily for formulary purposesWi ll consider gastric emptying study if no improvemen t Gastroesop hageal reflux disease 178883109 K21.9 Asymptomat ic on pantoprazo le 40 mg daily Diabetes mellitus 487703 09 E11.9 Last A1C May 2020: 7.6% by patient report as assessed by endocrinol ogy in [facility] on insulin [id number] MILTON FERRIS NP [facility] [address] [place] [address] 01/13/2021 14:50:36 01/20/2021 12:15:38 Gastroesophageal reflux disease [id number] K21.9 Asymptomat ic on pantoprazo le 40 mg daily Type 2 lisa betes mellitus 31884634 E11.9 Uncontroll ed Being managed by [facility] endocrinol ogy [id number] David Cohn HC ([employer]) [address] [place] [phone] 03/26/2021 11:37:03 04/05/2021 20:04:04 Gynecologic examination 22177571 Z01.419 Z11.51 Venereal d isease screening 644604004 Z11.3 Diabetes mellitus 393628 09 E11.9 Follows with Chloé Carreon NP-Edilberto Genital he rpes simplex 87354484 A60.[address] reptococcus carrier [id number] 103 Z22.330 Sexually t ransmitted infectious disease 4941421 A64 Type 2 lisa betes mellitus 11431306 E11.65 Active or passive immunization 312001785 Z23 [id number] KALIN Romero HC ([employer]) [address] [place] [phone] 08/01/2021 11:36:45 08/04/2021 10:37:47 Immunization due 955256486 Z28.3 [id number] TRE YORK HC ([employer]) [address] [place] [phone] 12/03/2021 11:22:36 12/10/2021 13:22:32 Venereal disease screening 637369637 Z11.3 41 year old who presents today for STI check. She thinks she was exposed to trichomona s by a former sexual partner 1.5 months ago and desires a full STI workup. Reporting vulvar irritation and pruritis. PE concerning for possible yeast vs BV infection, see below. Safe sex practices discussed. Lump in bi lateral breasts [id number] 2647280 N63.10 N63.20 Pt noticed a rash and swelling on her left breast September 2021. She was treated in the ER with antibiotic s and pain medication s, which resolved symptoms. Two weeks later she noticed a painful breast lump above the nipple in her right breast which has not changed in size since then. Pt reports h/o fibrocysti c changes on mammogram and US 6 years ago. Given bilateral breast issues, diagnostic mammogram and US ordered. Vulvovaginitis 08942562 N76.0 Pt has history of recurrent yeast and BV infections , and possibly exposed to trich. Will treat empiricall y with PO Flagyl and Diflucan. Follow up cultures. Topical nystatin started for clinically present candidal vulvitis. Wear loose cotton clothing. Do not wear nylon or other fabric that holds body heat and moisture close to the skin. Do not scratch. Relieve itching with a cold pack or a cool bath. Do not wash your vaginal area more than once a day. Use plain water or a mild, unscented soap. Use condoms to prevent STIs. [id number] TRE YORK ([employer]) [address] [place] [phone] 12/03/2022 11:40:03 12/15/2022 10:04:32 Gynecologic examination 50270899 Z01.419 Normal gynecologi c exam today.Cerv ical cancer screening: Last Pap 2020 NILM/HPV neg, due 2025.Breas t cancer screening: Reviewed recommenda tions for initiation at age 40 with annual screening. Discussed SBESTI screening: routine nuswab, treat as needed. Safe sex practices discussed. Contracept ion: discussed, nexplanon orderedDie t/exercise : Counseled regarding importance of physical activity, healthy diet and appropriat e calcium intake. Screening for malignant neoplasm of breast 657374602 Z12.31 Patient referred for yearly mammogram. Educated on the importance of breast cancer screening. Contracept ion care management 351365622 Z30.9 Patient expressed desire to begin contracept ion. Educated on options and their risks/bene fits. Patient stated she would like to start Nexplanon. Scheduled a visit for Nexplanon insertion. Acute vaginitis 98879227 N76.0 Pt reporting discharge with itching x 2 weeks. PE unremarkab le. Cultures obtained, will treat as indicated. [id number] TRE YORK HC ([employer]) [address] [place] [phone] 12/10/2022 14:13:04 12/17/2022 15:34:47 Insertion of subcutaneous contraceptive 318819452 Z30.9 Nexplanon inserted in office today as detailed in the procedure note. Educated on irregular bleeding. RTC in 1 month. [id number] TRE YORK ([employer]) [address] [place] [phone] 01/12/2023 09:04:13 01/19/2023 10:59:50 Surveillance of subcutaneous contraceptive implant 335216539 Z30.46 Insertion site well healed. Pt tolerating Nexplanon well. RTC prn. [id number] Jon Padron DO [facility] [address] [place] [address] 11/11/2023 16:09:41 11/12/2023 11:09:28 Diarrhea 41593145 R19.7 Altered saran wel function 74934765 R19.4 Family his tory of cancer of colon 491224310 Z80.0 Father found age 43 Gastroesop hageal reflux disease 625512430 K21.9 [id number] Jon Padron DO [facility] [address] [place] [address] 11/30/2024 15:11:47 12/01/2024 07:11:45 Abdominal pain 58503234 R10.9 Stop Pantorazol e has not helped. Irritable bowel syndrome with diarrhea 451032698 K58.0 most likely DX Weight loss 68606312 R63 .4 May consider Elavil later. Health Concerns Section Related Observation LastModified by Organization Detai ls LastModified Time None Recorded Concern Status LastModified by Organization Details LastModified Time None Recorded Advance Directives Directive N: Payers Encounter Date Sequence Insurance Name Policy Number Policy George Covered Member ID George Member ID Guarantor Name 12/03/2022 1 [facility] ON OR AFTER 03/20/21 (MEDICAID REPLACEMENT - HMO) Alyssa Guzmán [id number] Alyssa Ramirez 12/10/2022 1 [facility] ON OR AFTER 03/20/21 (MEDICAID REPLACEMENT - HMO) Alyssa Guzmán [id number] Alyssasa Guzmán 01/12/2023 1 [facility] ON OR AFTER 03/20/21 (MEDICAID REPLACEMENT - HMO) Alyssa Guzmán [id number] Alyssa Guzmán 11/11/2023 1 [facility] ON OR AFTER 03/20/21 (MEDICAID REPLACEMENT - HMO) Alyssa Guzmán [id number] Alyssasa Guzmán 11/30/2024 1 [facility] ON OR AFTER 03/20/21 (MEDICAID REPLACEMENT - HMO) Alyssa Guzmán [id number] Alyssa Guzmán Notes Date Note Type Note Provider Name and Address Organization Details Recorded Time 12/03/2022 text/html Annual GYNReport ed bypatient.Menstrual cycle:Normal menses Urinary symptoms:No hematuria; No incontinence Vulva:No genital lesion Vagina:White;Vagina l itching Breast:No breast pain; No breast lump; No nipple discharge Current Contraception:Wants to discuss contraceptive options Sexual complaints:No sexual complaints; No pain during intercourse; Normal libido Menopausal Symptoms:No menopausal symptoms; Normal vaginal lubrication Psychological symptoms:No depression; No anxiety; No PMDD Preventive measures:Encourage self breast examination; Encourage regular exercise; Encourage no tobacco use; Encourage regular mammograms starting age 40; Needs to schedule mammogram Alyssa Guzmán is a 42 year old female with T2DM, polycystic ovaries, fibrocystic breast changes, and candidal infections who presents for WWE with concerns for vaginal itching with discharge x 2 weeks and counseling on contraception. LMP 11/20/22. She states that after her last menstrual cycle, he experienced a clear discharge that was accompanied by itching. She denies pain, odor, dyspareunia, or changes in urination. She states she had an infection last year when she presented for her WWE, and these symptoms feel similar. She is not currently on contraception but would like to start. She states she would like Nexplanon, as she previously had an IUD and does not want another, and is not a compliant pill taker. TRE YORK Attn: Accounting,[address] [facility], [place], [address], [place] - [facility] 12/08/2022 13:49:17 12/10/2022 text/html Alyssa Guzmán is a 42 year old F who presents for Nexplanon insertion with no concerns. LMP 11/20/22, patient reports regular periods with no menorrhagia. She states she was previously seen on 12/03/22, tested positive for BV, but has not yet filled her script for metrogel. She reports no improvement in symptoms of itching or discharge. She still denies dyspareunia, odor, or pelvic pain. She denies changes in bowel, bladder, v/v/d/f. TER YORK Attn: Accounting[address] [facility], [place], [address], [place] [facility] 12/17/2022 12:41:40 01/12/2023 text/html Pt is a 42yo G1P 1 F here for Nexplanon check. She has no concerns, problems, the insertion wound has healed well, pt can feel the implant. LMP started just yesterday.She has mammo scheduled for trw. Pt denies rash, fever, chills, breast pain, discharge, abnormal bleeding. TRE YORK Attn: Accounting[address] [facility], [place], [address], [place] [facility] 02/02/2023 10:15:45 11/11/2023 text/html Has lost 15 poun ds. No appetite. Mucous in the stool. Has back pain. Has bowel urgency foul smelling stool. Has nocturnal fecal incontinence. Jon Padron, DO [address] [place], [address], [place] [facility] 11/11/2023 17:38:01 11/30/2024 text/html Uses Peptobismol . Has diarrhea daily.. Colonoscopy 12/11 had some lymphoid aggregates on BX. Has discomfort after each meal. Diarrhea is brown. Has lost weight. Jon Padron, DO [address], [place], [address], [facility] 11/30/2024 16:13:26 OBGyn Episode Ob Episode Information Episode Created Date Number of Fetuses Patient Bloodtype Patient rh Status Prepregnancy Weight lbs Domestic Partner Domestic Partner Phone Father Name Emt P Status 04/27/20 18 1 CLOSED Fetus Data First Name Last Name Admitted to NICU Weight (g) Sex Living Outcome Pediatric Complications Fetus ID Race Codes Race Delivery Type 2608.15 4 F Full Term [id number] Vaginal Keven Calculation Initial Keven Date Initial Exam Date Initial Exam Provider Initial Ultrasound Date Last Menstrual Period Date Ultra Sound Weeks Gestation 0 Eighteen To Twenty Week Keven Update Ultra Sound Date Fundal Height At Umbil Quickening Date Ultra Sound Latest Weeks Gestation Final Keven Confirmed By Final Keven Confirmed Date Final Keven Date Ultra Sound Latest Days Gestation 0 0 Menstrual History Last Menstrual Date Menses Monthly On Bcp Conception Prior Menses Frequency Hcg Plus Date Menarche Onset Age Delivery Information Delivery Date Delivery Type Labor Anesthesia Weeks Gestation Incision Type Labor Labor Length Hrs Delivered By Post Complications Tubal Sterilization Discharge Date Comments 9 None 37 12 Discharge Information Feeding Method Contraceptive Method Maternal HG B and HCT Levels
--- OUTSIDE RECORDS SUMMARY | 2024-12-14 16:35 | XMS_ITS | Clinical Summary ---
Author Organization [facility] [employer] Address [address] [facility] [place] [address] Care Team Providers Care Pig Sticker Name Role Phone Ewelina Gaitan MD Primary Care Provider [phone] Source Comments [facility] [employer],non-owned Affiliates and Associated Physician Practices is amultiple site organization consisting of ambulatory clinics and hospital sitesin [place], [place], [place] and [place]. This disclosure is being madepursuant to the Care Everywhere program and may not contain all information available regarding this patient. Last updated 18.[facility] [employer] Allergies No known active allergies Medications * Be aware that medications may not be up to date on this document. Alwaysverify current medications with the patient. Medication Sig Dispensed Refills Start Date End Date Status calcium carbonate-vitamin D 600-400 MG-UNIT tablet 12/13/2018 Active Multiple Vitamin (MULTI-VITAMINS) TABS 12/13/2018 Active ACETAMINOPHEN EXTRA STRENGTH 500 MG tablet as needed 02/19/2020 Active WAL-MUCIL 58.6 % powder 05/16/2020 Active nystatin (MYCOSTATIN) 503287 UNIT/GM cream APPLY TOPICALLY TO THE AFFECTED AREA TWICE DAILY 12/03/2021 Active terconazole (TERAZOL 3) 0.8 % vaginal cream terconazole 0.8 % vaginal cream INSERT 1 APPLICATORFUL VAGINALLY EVERY EVENING FOR 3 DAYS Active fluconazole (Diflucan) 150 MG tablet fluconazole 150 mg tablet TAKE 1 TABLET BY MOUTH ONCE Active Blood Glucose Monitoring Suppl (OneTouch Verio Flex System) w/Device KITIndications:Ty pe 2 diabetes mellitus with hyperglycemia, with long-term current use of insulin ([facility]) Use 1 kit as directed 1 kit 11/30/2022 Active pantoprazole EC (Protonix) 40 MG tabletIndications :Type 2 diabetes mellitus with hyperglycemia, with long-term current use of insulin ([facility]) Take 1 (one) tablet by mouth once daily 11/30/2022 Active bisacodyl EC 5 MG tablet TAKE 4 TABLETS BY MOUTH AT 2PM THE DAY BEFORE PROCEDURE WITH 8 OUNCES OF WATER 11/11/2023 Active Alcohol SwabsIndications: Type 2 diabetes mellitus with hyperglycemia, with long-term current use of insulin ([facility]) Use 1 Each 2 times daily 100 Each 12/17/2023 Active atenolol (Tenormin) 50 MG tabletIndications :Type 2 diabetes mellitus with hyperglycemia, with long-term current use of insulin ([facility]) Take 1 (one) tablet by mouth once daily 90 tablet 12/17/2023 Active canagliflozin (Invokana) 300 MG tabletIndications :Type 2 diabetes mellitus with hyperglycemia, with long-term current use of insulin ([facility]) Take 1 (one) tablet by mouth daily before breakfast 90 tablet 12/17/2023 Active glipiZIDE (Glucotrol) 5 MG tabletIndications :Type 2 diabetes mellitus with hyperglycemia, with long-term current use of insulin ([facility]) Take 1 (one) tablet by mouth 2 times daily, before breakfast and supper 180 tablet 12/17/2023 Active insulin glargine (Lantus/Semglee) 100 units/mL penIndications:Ty pe 2 diabetes mellitus with hyperglycemia, with long-term current use of insulin ([facility]) Inject 20 (twenty) Units subcutaneously at bedtime 15 mL 12/17/2023 Active Insulin Pen Needle 32G X 4 MM MISCIndications:T ype 2 diabetes mellitus with hyperglycemia, with long-term current use of insulin ([facility]) 1 Each by Injection route once daily 100 Each 12/17/2023 Active OneTouch Delica Lancets 33G MISCIndications:T ype 2 diabetes mellitus with hyperglycemia, with long-term current use of insulin ([facility]) Use 1 Each 2 times daily 100 Each 12/17/2023 Active pioglitazone (Actos) 30 MG tabletIndications :Type 2 diabetes mellitus with hyperglycemia, with long-term current use of insulin ([facility]) Take 1 (one) tablet by mouth once daily 90 tablet 4 12/17/2023 Active Active Problems Problem Noted Date Diagnosed Date Albuminuria 12/22/2023 12/22/2023 Biliary dyskinesia 12/22/2023 12/22/2023 Bacterial vaginosis 12/22/2023 12/22/2023 Anxiety 01/07/2023 12/22/2023 Cyst of right breast 11/25/2021 12/22/2023 Gastroesophageal reflux disease without esophagi tis 07/15/2020 12/22/2023 Diverticulosis of colon 05/10/2020 12/22/19 24 Candidiasis 12/13/2018 12/22/2023 Fibrocystic disease of breast 12/13/2018 Genital herpes simplex 05/07/2018 Type 2 diabetes mellitus wit h hyperglycemia, with long-term current use of insulin 07/05/2017 Resolved Problems Problem Noted Date Diagnosed Date Resolved Date care home current use of insulin 07/05/2017 12/19/2019 Encounters Date Type Department Care Team Description 11/30/2024 Telephone [facility] - Endocrinology [address] [place] [phone] Nancy Jaeger, RD/LD Scheduling 11/23/2024 Telephone [facility] - Ophthalmology [address] [place] [phone] Santy Guerra MD Eye Problem from Last 3 Months Immunizations Name Administration Dates Next Due Human Papilloma Virus Ninevalent Vaccine 019 INFLUENZA VACCINE 08/03/2017 Influenza Intradermal 08/03/2017 PNEUMOCOCCAL PPSV23 05/14/2017 Family History Medical History Relation Name Comments None Known Brother Status: d Alcohol abuse Father Status: Deceas ed Cancer - Colon Father Diabetes - Type 2 Maternal Aunt Status: A live CVA Maternal Grandfather Status: Diabetes - Type [address] atus: Alive Hypertension Maternal Grandmother Renal Disease Maternal Grandmother Diabetes - Type 2 Maternal Uncle 1 Status : Alive CVA Maternal Uncle 2 None Known Mother Status: Alive None Known Other CVA Paternal Aunt Status: Alive None Known Paternal Grandfather Status: Alive None Known Paternal Grandmother Status: Alive None Known Paternal Uncle Status: Decea sed Thyroid Disease Sister Status: Aliv e Asthma Neg Hx Blindness Neg Hx Dementia Neg Hx Depression Neg Hx Drug Abuse Neg Hx Glaucoma Neg Hx Gout Neg Hx Leukemia Neg Hx Migraine Neg Hx Multiple Sclerosis Neg Hx Other Neg Hx Relation Name Status Comments Brother Father Maternal Aunt Maternal Grandfather Maternal Grandmother Maternal Uncle 1 Maternal Uncle 2 Mother Other Paternal Aunt Paternal Grandfather Paternal Grandmother Paternal Uncle Sister Social History Tobacco Use Types Packs/Day Years Used Date Smoking Tobacco: Never Smokeless Tobacco: Never Tobacco Cessation:Counseling Given: Not Answered Alcohol Use Standard Drinks/Week Comments No 0 (1 standard drink = 0.6 oz pur e alcohol) PHQ-2 Answer Date Recorded PHQ2 TOTAL SCORE 0 11/30/2022 Sex and Gender Information Value Date Recorded Sex Assigned at Not on file Gender Identity Not on file Sexual Orientation Not on file Last Filed Vital Signs Vital Sign Reading Time Taken Comments Blood Pressure 147/89 12/17/2023 2:08 PM CDT Pulse 109 12/17/2023 2:08 PM CDT Temperature 36.4 C (97.6 F) 12/17/2023 2:08 PM CDT Respiratory Rate 18 11/30/2022 3:02 PM CDT Oxygen Saturation 98% 12/17/2023 2:08 PM CDT Inhaled Oxygen Concentration - - Weight 53.5 kg (118 lb) 12/17/2023 2:08 PM CDT Height 162.6 cm (5' 4 ) 11/30/2022 3:02 PM CDT Body Mass Index 20.25 11/30/2022 3:02 PM CDT Plan of Treatment Upcoming Encounters Date Type Department Care Team (Late st Contact Info) Description 12/28/2024 9:30 AM CDT [facility] [address] [place] [phone] Jose M Cooper MD [address] [place] [address] [place] [phone] 03/01/2025 1:20 PM CDT Office Visit [facility] - Endocrinology [address] [place] [address], [place] [address] Vinny De Luna MD [address] [place] [address] Health Maintenance Due Date Last Done Comments MAMMOGRAM 1982 PAP SMEAR 1982 HIV SCREENING 1997 HEPATITIS C SCREENING 06/20/2000 DTAP/TDAP/TD VACCINES (1 - Tdap) 2001 HEPATITIS B VACCINE (1 of 3 - 19+ 3-dose series) 2001 PNEUMOCOCCAL VACCINE (2 of 2 - PCV) 05/14/2018 05/14/2017 HPV VACCINE (2 - 3-dose SCDM series) 01/10/2019 12/13/2018 DIABETES-STATIN 2022 DIABETES-FOOT EXAM WITH MONOFILAMENT 12/01/2023 11/30/2022, 01/09/2019 DIABETES-HGB A1C 03/18/2024 12/17/2023, , 05/16/2021, Additional history exists COVID-19 VACCINE ( - season) 2024 INFLUENZA VACCINE (#1) 2024 08/03/2017, 2016 DEPRESSION SCREENING 09/20/2024 11/30/2022 DIABETES - URINE PROTEIN SCREENING 09/20/2024 12/17/2023, 12/30/2020, 01/09/2019, Additional history exists DIABETES-SERUM CREATININE 12/16/20242023, 05/16/2021, 12/30/2020, Additional history exists DIABETES RETINOPATHY SCREENING 12/21/2025 12/22/2023, 12/01/2023, 11/19/2022, Additional history exists ZOSTER VACCINE (1 of 2) 2032 HIB VACCINE Aged Out No longer eligi ble based on patient's age to complete this topic MENINGOCOCCAL (Group B) VACCINE SHARED DECISION-MAKING Aged Out No longer eligible based on patient's age to complete this topic MENINGOCOCCAL GROUPS A/C/Y/W VACCINE Aged Out No longer eligible based on patient's age to complete this topic Goals Goal Patient Goal Type Associated Problems Recent Progress Patient-Stated? Author Follow-up with Diabetes Clinic as recommended by Provider General Maria Fernanda Iniguez RN Note: Decrease the Victoza to 1.2mg daily If symptoms present please call [facility] MCALL[facility] [phone] MON PM, AM, WED AM, MON PM, PM, WED PM THUR-AM/PM Bring meter back to the office for download and review in 1 week. Return to the clinic in 3 months. Procedures Procedure Name Priority Date/Time Associated Diagnosis Comments MICROALB/CREAT RATIO URINE RANDOM PANEL Routine 12/17/2023 2:53 PM CDT Type 2 diabetes mellitus with hyperglycemia, with long-term current use of insulin COMPREHENSIVE METABOLIC PANEL Routine 12/17/2023 2:45 PM CDT Type 2 diabetes mellitus with hyperglycemia, with long-term current use of insulin HEMOGLOBIN A1C - POINT OF CARE (AMB) [facility] Routine 12/17/2023 2:13 PM CDT Type 2 diabetes mellitus with hyperglycemia, with long-term current use of insulin from Last 3 Months or Most Recently Relevant to Health Maintenance Results * (ABNORMAL) MICROALB/CREAT RATIO URINE RANDOM PANEL (12/17/2023 2:53 PM CDT) Albumin Random Urine 15.4 Not Established ug/mL 12/17/2023 4:31 PM CDT [facility] Creatinine Urine 43.47 Not Established mg/dL 12/17/2023 4:31 PM CDT [facility] Urine Albumin/Creati nine Ratio 35(H) <30 mg/g 12/17/2023 4:31 PM T [facility] Urine URINE SPECIMEN OBTAINED BY CLEAN CATCH PROCEDURE / Unknown Collection / Unknown 12/17/2023 2:53 PM CDT 12/17/2023 3:04 PM CDT Vinny De Luna MD LAB - URINE CHEMISTR Y ORDERABLES [facility] [address] [address], [facility] [phone] * (ABNORMAL) COMPREHENSIVE METABOLIC PANEL (12/17/2023 2:45 PM [facility]) BUN 7 7 - 26 mg/dL 12/17/2023 4:31 PM [facility] Creatinine 0.59 0.56 - 0.96 mg/dL 12/17/2023 4:31 PM [facility] Sodium 135(L) 136 - 145 mmol/L 12/17/2023 4:31 PM [facility] Potassium 4.0 3.5 - 4.5 mmol/L 12/17/2023 4:31 PM [facility] Chloride 99 98 - 107 mmol/L 12/17/2023 4:31 PM [facility] CO2 23 22 - 29 mmol/L 12/17/2023 4:31 PM [facility] Glucose 386(H) 70 - 115 mg/dL 12/17/2023 4:31 PM [facility] Calcium 9.6 8.4 - 10.2 mg/dL 12/17/2023 4:31 PM [facility] Protein Total 8.0 6.0 - 8.3 g/dL 12/17/2023 4:31 PM [facility] Albumin 4.1 3.4 - 5.0 g/dL 12/17/2023 4:31 PM [facility] Bilirubin Total 1.1 0.2 - 1.2 mg/dL 12/17/2023 4:31 PM [facility] Alkaline Phosphatase 103 40 - 150 U/L 12/17/2023 4:31 PM [facility] ALT 18 5 - 55 U/L 12/17/2023 4:31 PM [facility] AST 11 5 - 34 U/L 12/17/2023 4:31 PM [facility] Anion Gap 13 6 - 16 12/17/2023 4:31 PM [facility] BUN/Creatinine Ratio 12 7 - 23 12/17/2023 4:31 PM [facility] Osmolality Calculated 294 275 - 295 mOsm/kg 12/17/2023 4:31 PM CDT [facility] Albumin/Globulin Ratio 1.1 1.1 - 2.3 12/17/2023 4:31 PM CDT [facility] eGFR by CKD-EPI >90 >=90 mL/min/1.7 3 m2 12/17/2023 4:31 PM CDT [facility] Blood BLOOD SPECIMEN / Unknown Lab Venipuncture / Unknown 12/17/2023 2:45 PM CDT 12/17/2023 3:08 PM CDT Vinny De Luna MD LAB - CHEMISTRY ORDE SIN [facility] [address] [place] [address], [facility] [phone] * HEMOGLOBIN A1C - POINT OF CARE (AMB) U (12/17/2023 2:13 PM CDT) Hemoglobin A1c POCT 11.3 % [address] BLOOD SPECIMEN / Unknown 12/17/2023 2:13 PM CDT Vinny De Luna MD LAB - POINT OF CARE ORDERABLES [facility] [address] [facility] [address] [facility] [place] [address], [facility] [phone] from Last 3 Months or Most Recently Relevant to Health Maintenance Care Teams Pig Sticker Relationship Specialty Start Date End Date Ewelina Gaitan MD [address] [place] [address] PCP - General 01/25/20
--- OUTSIDE RECORDS SUMMARY | 2024-12-14 16:35 | XMS_ITS | Continuity of Care Document ---
Author Organization [facility]. If a dditional information is needed, contact Health Information Management at [phone] [place] [address] Phone Care Team Providers Care Office Services Clerk Name Role Phone Unavailable Unavailable Unavailable Unavailable Unavailable Unavailable Unavailable Unavailable Unavailable Problems Hyperglycemia Onset:23-Dec-2022 Shalom Bright MD Palpitations Onset:23-Dec-2022 Shalom Bright MD Urinary tract infectious dis ease Onset:23-Dec-2022 Shalom Bright MD Allergies and Adverse Reactions No Known Allergies(Allergy) Onset: 23-Dec-2022 Social History Smoking Status Never smoked tobacco Recorded: 23-Dec-2022
--- OUTSIDE RECORDS SUMMARY | 2024-12-14 16:35 | XMS_ITS | Clinical Summary ---
Author Organization [facility] Address [address] [place] [address] Care Team Providers Care Thermal Spray Operator Name Role Phone Unknown, Notinfile Primary Care Provider Unavail able Allergies No known active allergies Medications atenoloL (TENORMIN) 50 mg tablet Take 1 tablet (50 mg total) by mouth daily Active Invokana 300 mg tablet Take 1 tablet (300 mg total) by mouth daily before breakfast 4 Active glipiZIDE (GLUCOTROL) 5 mg tablet TAKE 1 TABLET BY MOUTH TWICE DAILY BEFORE BREAKFAST AND SUPPER 4 Active LANTUS 100 unit/mL (3 mL) pen for injection ADMINISTER 20 UNITS UNDER THE SKIN AT BEDTIME [address] (PROTONIX) 40 mg EC tablet Take 1 tablet (40 mg total) by mouth daily 3 Active pioglitazone (ACTOS) 30 mg tablet Take 1 tablet (30 mg total) by mouth daily 4 Active ibuprofen (ADVIL,MOTRIN) 600 mg tablet Take 1 tablet (600 mg total) by mouth every 6 (six) hours as needed for pain 20 tablet 4 Active Surgical History Surgery Date Site/Laterality Comments CHOLECYSTECTOMY Medical History Medical History Date Comments Diabetes mellitus (HCC) Social History Tobacco Use Types Packs/Day Years Used Date Smoking Tobacco: Never Assessed Personal Safety Answer Date Recorded Have you ever been in or are you currently in a harmful physical or emotional relationship or is someone making you feel afraid or unsafe? 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 Gender Identity Not on file Sexual Orientation Not on file Obstetrics History Last Filed Vital Signs Vital Sign Reading Time Taken Comments Blood Pressure 121/68 09/09/2024 3:09 PM STEVEDORING SUPERINTENDENT Pulse 97 09/09/2024 3:09 PM STEVEDORING SUPERINTENDENT Temperature 36.6 C (97.9 F) 09/09/2024 3:09 PM STEVEDORING SUPERINTENDENT Respiratory Rate 18 09/09/2024 3:09 PM STEVEDORING SUPERINTENDENT Oxygen Saturation 99% 09/09/2024 3:09 PM STEVEDORING SUPERINTENDENT Inhaled Oxygen Concentration - - Weight 49.9 kg (110 lb) 09/09/2024 3:09 PM STEVEDORING SUPERINTENDENT Height 162.6 cm (5' 4 ) 09/09/2024 3:09 PM STEVEDORING SUPERINTENDENT Body Mass Index 18.88 09/09/2024 3:09 PM STEVEDORING SUPERINTENDENT Plan of Treatment Health Maintenance Due Date Last Done Comments Breast Cancer Screening-Mammogram 1982 Cervical Cancer Screening 1982 Depression Screening 1982 Hepatitis C Screening 1982 DTaP/Tdap/Td Vaccine (1 - Tdap) 1993 Varicella Vaccines (1 of 2 - 13+ 2-dose series) 1995 Hepatitis B Screening 2000 Regular Well Visit/Exam 18-64 2000 Influenza Vaccine (#1) 2024 08/03/2017 Pneumococcal vaccine <65 Aged Out 05/14/2017 No longer eligible based on patient's age to complete this topic HPV Vaccines Aged Out No longer eligi ble based on patient's age to complete this topic Insurance [facility] Care Teams Thermal Spray Operator Relationship Specialty Start Date End Date Unknown, Notinfile PCP - General 03/26/21
--- OUTSIDE RECORDS SUMMARY | 2024-12-14 16:35 | XMS_ITS | Referral Summary ---
Author Organization [facility] Address [address] [place] [address] Care Team Providers Care Vp Clinical Name Role Phone Unknown, Notinfile Primary Care [...] needed for pain 20 tablet 4 Active Social History Tobacco Use Types Packs/Day Years [...] on file Legal Sex Female 11:28 PM DIRECTOR PARK Gender Identity Not on file Sexual Orientation Not on file Last Filed Vital Signs Vital Sign Reading Time Taken Comments Blood Pressure 121/68 09/09/2024 3:09 PM DIRECTOR PARK Pulse 97 09/09/2024 3:09 PM DIRECTOR PARK Temperature 36.6 C (97.9 F) 09/09/2024 3:09 PM DIRECTOR PARK Respiratory Rate 18 09/09/2024 3:09 PM DIRECTOR PARK Oxygen Saturation 99% 09/09/2024 3:09 PM DIRECTOR PARK Inhaled Oxygen Concentration - - Weight 49.9 kg (110 lb) 09/09/2024 3:09 PM DIRECTOR PARK Height 162.6 cm (5' 4 ) 09/09/2024 3:09 PM DIRECTOR PARK Body Mass Index 18.88 09/09/2024 3:09 PM DIRECTOR PARK Plan of Treatment Not on file Insurance [facility] Care Teams Vp Clinical Relationship Specialty Start Date End Date Unknown, Notinfile PCP - General 03/26/21
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
[2024-12-14 16:39] LABS: Glucose Point of Care 422 mg/dl (65-105)
[2024-12-14 17:24] LABS: BEDSIDEPREGUCG Negative (Negative)
--- OUTSIDE RECORDS SUMMARY | 2024-12-14 17:40 | XMS_ITS | Clinical Summary ---
Author Organization [facility] Address [address] [place] [address] Care Team Providers Care Bottom Scrubber Name Role Phone Ewelina Gaitan MD Primary Care Provider [phone] Source Comments [facility],non-owned Affiliates and Associated Physician Practices is amultiple site organization consisting of ambulatory clinics and hospital sitesin [place], [place], [place] and [place]. This disclosure is being madepursuant to the Care Everywhere program and may not contain all information available regarding this patient. Last updated 18.[facility] Allergies No known active allergies Medications * [...] 58.6 % powder 05/16/2020 Active nystatin (MYCOSTATIN) 015842 UNIT/GM cream APPLY TOPICALLY TO THE AFFECTED [...] hyperglycemia, with long-term current use of insulin ([facility]) Use 1 kit as directed 1 kit 11/30/2022 Active pantoprazole EC (Protonix) 40 MG tabletIndications :Type 2 diabetes mellitus with hyperglycemia, with long-term current use of insulin ([facility]) Take 1 (one) tablet by mouth once daily 11/30/2022 Active bisacodyl EC 5 MG tablet TAKE 4 TABLETS BY MOUTH AT 2PM THE DAY BEFORE PROCEDURE WITH 8 OUNCES OF WATER 11/11/2023 Active Alcohol SwabsIndications: Type 2 diabetes mellitus with hyperglycemia, with long-term current use of insulin ([facility]) Use 1 Each 2 times daily 100 Each 12/17/2023 Active atenolol (Tenormin) 50 MG tabletIndications :Type 2 diabetes mellitus with hyperglycemia, with long-term current use of insulin ([facility]) Take 1 (one) tablet by mouth once daily 90 tablet 12/17/2023 Active canagliflozin (Invokana) 300 MG tabletIndications :Type 2 diabetes mellitus with hyperglycemia, with long-term current use of insulin ([facility]) Take 1 (one) tablet by mouth daily before breakfast 90 tablet 12/17/2023 Active glipiZIDE (Glucotrol) 5 MG tabletIndications :Type 2 diabetes mellitus with hyperglycemia, with long-term current use of insulin ([facility]) Take 1 (one) tablet by mouth 2 times daily, before breakfast and supper 180 tablet 12/17/2023 Active insulin glargine (Lantus/Semglee) 100 units/mL penIndications:Ty pe 2 diabetes mellitus with hyperglycemia, with long-term current use of insulin ([facility]) Inject 20 (twenty) Units subcutaneously at bedtime 15 mL 12/17/2023 Active Insulin Pen Needle 32G X 4 MM MISCIndications:T ype 2 diabetes mellitus with hyperglycemia, with long-term current use of insulin ([facility]) 1 Each by Injection route once daily 100 Each 12/17/2023 Active OneTouch Delica Lancets 33G MISCIndications:T ype 2 diabetes mellitus with hyperglycemia, with long-term current use of insulin ([facility]) Use 1 Each 2 times daily 100 [...] Problem Noted Date Diagnosed Date Resolved Date senior care current use of insulin 07/05/2017 12/19/2019 Encounters Date Type Department Care Team Description 11/30/2024 Telephone [facility] - Endocrinology [address] [place] [phone] Nancy Jaeger, RD/LD Scheduling 11/23/2024 Telephone [facility] - Ophthalmology [address] [place] [phone] Santy Guerra MD Eye Problem from Last [...] Description 12/28/2024 9:30 AM CDT [facility] [address] [place] [phone] Jose M Cooper MD [address] [place] [address] [place] [phone] 03/01/2025 1:20 PM CDT Office Visit [facility] - Endocrinology [address] [place] [address], [place] [phone] Vinny De Luna MD [address] [place] [address] Health Maintenance Due Date Last Done Comments [...] If symptoms present please call Doris MCALLISTER [facility] [phone] MON PM, AM, WED AM, MON PM, [...] Not Established ug/mL 12/17/2023 4:31 PM CDT [facility] Creatinine Urine 43.47 Not Established mg/dL 12/17/2023 4:31 PM CDT [facility] Urine Albumin/Creati nine Ratio 35(H) <30 mg/g 12/17/2023 4:31 PM T [facility] Urine URINE SPECIMEN OBTAINED BY CLEAN CATCH PROCEDURE / Unknown Collection / Unknown 12/17/2023 2:53 PM CDT 12/17/2023 3:04 PM CDT Vinny De Luna MD LAB - URINE CHEMISTR Y ORDERABLES [facility] [address] [phone], [facility] [phone] * (ABNORMAL) COMPREHENSIVE METABOLIC PANEL (12/17/2023 2:45 PM [facility] BUN 7 7 - 26 mg/dL 12/17/2023 4:31 PM [facility] Creatinine 0.59 0.56 - 0.96 mg/dL 12/17/2023 4:31 PM [facility] Sodium 135(L) 136 - 145 mmol/L 12/17/2023 4:31 PM [facility] Potassium 4.0 3.5 - 4.5 mmol/L 12/17/2023 4:31 PM [facility] Chloride 99 98 - 107 mmol/L 12/17/2023 4:31 PM [facility] CO2 23 22 - 29 mmol/L 12/17/2023 4:31 PM [facility] Glucose 386(H) 70 - 115 mg/dL 12/17/2023 4:31 PM [facility] Calcium 9.6 8.4 - 10.2 mg/dL 12/17/2023 4:31 PM [facility] Protein Total 8.0 6.0 - 8.3 g/dL 12/17/2023 4:31 PM [facility] Albumin 4.1 3.4 - 5.0 g/dL 12/17/2023 4:31 PM [facility] Bilirubin Total 1.1 0.2 - 1.2 mg/dL 12/17/2023 4:31 PM [facility] Alkaline Phosphatase 103 40 - 150 U/L 12/17/2023 4:31 PM [facility] ALT 18 5 - 55 U/L 12/17/2023 4:31 PM [facility] AST 11 5 - 34 U/L 12/17/2023 4:31 PM [facility] Anion Gap 13 6 - 16 12/17/2023 4:31 PM [facility] BUN/Creatinine Ratio 12 7 - 23 12/17/2023 4:31 PM [facility] Osmolality Calculated 294 275 - 295 mOsm/kg 12/17/2023 4:31 PM CDT [facility] Albumin/Globulin Ratio 1.1 1.1 - 2.3 12/17/2023 4:31 PM CDT [facility] eGFR by CKD-EPI >90 >=90 mL/min/1.7 3 m2 12/17/2023 4:31 PM CDT [facility] Blood BLOOD SPECIMEN / Unknown Lab Venipuncture / Unknown 12/17/2023 2:45 PM CDT 12/17/2023 3:08 PM CDT Vinny De Luna MD LAB - CHEMISTRY ORDE SIN [facility] [address] [place] [address], [facility] [phone] * HEMOGLOBIN A1C - POINT OF CARE (AMB) U (12/17/2023 2:13 PM CDT) Hemoglobin A1c POCT 11.3 % [address] BLOOD SPECIMEN / Unknown 12/17/2023 2:13 PM CDT Vinny De Luna MD LAB - POINT OF CARE ORDERABLES [facility] [address] [facility] [address] [facility] [place] [address], [facility] [phone] from Last 3 Months or Most Recently Relevant to Health Maintenance Care Teams Bottom Scrubber Relationship Specialty Start Date End Date Ewelina Gaitan MD [address] [place] [address] PCP - General 01/25/20
--- OUTSIDE RECORDS SUMMARY | 2024-12-14 17:40 | XMS_ITS | Clinical Summary ---
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
--- OUTSIDE RECORDS SUMMARY | 2024-12-14 17:40 | XMS_ITS | Clinical Summary ---
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 Gender Identity Not on file Sexual Orientation Not on file Obstetrics History Last Filed Vital Signs Vital Sign Reading Time Taken Comments Blood Pressure 121/68 09/09/2024 3:09 PM CHAIN SALES CONSULTANT Pulse 97 09/09/2024 3:09 PM CHAIN SALES CONSULTANT Temperature 36.6 C (97.9 F) 09/09/2024 3:09 PM CHAIN SALES CONSULTANT Respiratory Rate 18 09/09/2024 3:09 PM CHAIN SALES CONSULTANT Oxygen Saturation 99% 09/09/2024 3:09 PM CHAIN SALES CONSULTANT Inhaled Oxygen Concentration - - Weight 49.9 kg (110 lb) 09/09/2024 3:09 PM CHAIN SALES CONSULTANT Height 162.6 cm (5' 4 ) 09/09/2024 3:09 PM CHAIN SALES CONSULTANT Body Mass Index 18.88 09/09/2024 3:09 PM CHAIN SALES CONSULTANT Plan of Treatment Health Maintenance Due Date [...] patient's age to complete this topic Insurance [facility] Care Teams Education Nurse Relationship Specialty Start Date End Date Unknown, Notinfile PCP - General 03/26/21
--- OUTSIDE RECORDS SUMMARY | 2024-12-14 17:40 | XMS_ITS | Referral Summary ---
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 Gender Identity Not on file Sexual Orientation Not on file Last Filed Vital Signs Vital Sign Reading Time Taken Comments Blood Pressure 121/68 09/09/2024 3:09 PM TEXTILE COATING MACHINE OPERATOR Pulse 97 09/09/2024 3:09 PM TEXTILE COATING MACHINE OPERATOR Temperature 36.6 C (97.9 F) 09/09/2024 3:09 PM TEXTILE COATING MACHINE OPERATOR Respiratory Rate 18 09/09/2024 3:09 PM TEXTILE COATING MACHINE OPERATOR Oxygen Saturation 99% 09/09/2024 3:09 PM TEXTILE COATING MACHINE OPERATOR Inhaled Oxygen Concentration - - Weight 49.9 kg (110 lb) 09/09/2024 3:09 PM TEXTILE COATING MACHINE OPERATOR Height 162.6 cm (5' 4 ) 09/09/2024 3:09 PM TEXTILE COATING MACHINE OPERATOR Body Mass Index 18.88 09/09/2024 3:09 PM TEXTILE COATING MACHINE OPERATOR Plan of Treatment Not on file Insurance [facility] Care Teams Ski Maker Wood Relationship Specialty Start Date End Date Unknown, Notinfile PCP - General 03/26/21
--- OUTSIDE RECORDS SUMMARY | 2024-12-14 17:40 | XMS_ITS | CONTINUITY OF CARE DOCUMENT ---
Author Name dylanjaspreet dylanjaspreet Address Unknown Organization [facility] Address [address] [place] [address] Phone [phone] Care Team Providers Care Binding Cutter Name Role Phone Dante Chavez MD Unavailable [phone] Anirudh AIRPORT PLANNER-BC, [place] Unavailable [phone] Anirudh AIRPORT PLANNER-BC, [place] Unavailable PROBLEMS Condition Status Date Provider Notes Cardiology examination active Dante Anna Fast pulse active Dante Chavez MD Diabetes, Type 2 active Dante Chavez MD Palpitations active Dante Chavez MD Sinus tachycardia active Kerry Oscar er ENCOUNTERS Date Type Provider Location Encounter Diag nosis - In-person encounter Office Visit Dante Chavez MD [facility] - In-person encounter Office Visit Dante Chavez MD [facility] Cardiology examinationFast pulseDiabetes, Type 2PalpitationsSinus tachycardia VITAL SIGNS Date Observation Value Provider Body Mass Index (Ratio) 22.48 kg/m2 Nicole Byrd blood pressure, cuff size regular Ke rri Gruenenfelder blood pressure, diastolic 70 mm[Hg] Ke rri Gruenenfelder blood pressure, systolic 100 mm[Hg] Ker ri Gruenenfelder oxygen saturation, oximetry 99 % Graicela Carlosruma respiratory rate E&M 12 /min Graciela [...] Rody Polk blood pressure, systolic 132 mm[Hg] [facility] yamel Polk oxygen saturation, oximetry 99 % Sangeetha Polk pulse rate 100 /min Sangeetha anna height E&M 64 [in_i] Sangeetha anna weight E&M 131 [lb_av] Sangeetha anna respiratory rate E&M 16 /min Adrienne Polk blood pressure, cuff size large Rody Polk [...] Policy type / Coverage type Ryan red libertarian [place] MEDICAID (2) Medicaid [id number] ADVANCE DIRECTIVES Name Date DISCUSSED - NO DECISION MADE TREATMENT PLAN Date Name Performer [id number],C, H er updated medication list for this problem includes: Invokana 300 Mg Tablet (Canagliflozin) Glipizide 5 Mg Tablet (Glipizide) Pioglitazone 30 Mg Tablet (Pioglitazone) Kerry Olivasharry [id number],C,P t reports significant improvement of sinus tachycardia. [...] 1 tablet by mouth every day Kerry Olivashrary [id number],C,P t reports significant improvement of sinus tachycardia. [...] tablet by mouth every day Kerry Olivasharry [id number],C, H er updated medication list for this problem includes: Invokana 300 Mg Tablet (Canagliflozin) Glipizide 5 Mg Tablet (Glipizide) Pioglitazone 30 Mg Tablet (Pioglitazone) Kerry Olivasharry [id number],C,T He pt had a dental procedure and was noted to be tachycardic. EKG showed sinus tachycardia. Started on atenolol 25 mg BID and feels a bit better. Will obtain echo, stress test routine, and telemonitor Kerry Byrd [id number],C,T He pt had a dental procedure and [...] obtain echo, stress test routine, and telemonitor Keryr Byrd Date Name Complete Echo Stress Routine Monitor - Telemetry (Mobile Cardiac) Complete Echo HISTORY OF PROCEDURES Procedure Date Procedure Name Provider Procedure Notes S tatus EKG Dante Chavez MD completed
[2024-12-14 17:43] LABS: Basophils Percent Auto 0.3 % (0.2-1.2); Eosinophils Absolute Auto 0.1 K/mm3 (0-0.3); Hematocrit 36.5 % (37.0-47.0); Hemoglobin 13.5 g/dL (12.0-15.0); Immature Granulocyte Absolute 0.04 K/mm3 (0.00-0.031); Immature Granulocyte Percent A 0.5 % (0-0.5); Lymphocytes Absolute Auto 0.94 K/mm3 (0.9-3.2); Lymphocytes Percent Auto 10.9 % (18.3-44.2); Mean Corpuscular Hemoglobin 32.7 pg (26-34); Mean Corpuscular Volume 88.4 fl (80-100); Neutrophils Absolute Auto 6.6 K/mm3 (1.3-6.7); Neutrophils Percent Auto 76.3 % (45.5-73.1); Platelet Count Result 228 k/mm3 (150-375); Red Blood Count 4.13 M/mm3 (4.2-5.4); Red Cell Distribution Width 11.1 % (11.5-14.5); White Blood Count 8.7 K/mm3 (4.5-10.0)
[2024-12-14 17:53] LABS: Alanine Aminotransferase 185 U/L (6-35); Alkaline Phosphatase 286 U/L (38-126); Anion Gap 12 mmol/L (4-12); Aspartate Amino Transferase 54 U/L (14-36); Bilirubin,Total 1.5 mg/dL (0.2-1.3); Blood Urea Nitrogen 6 mg/dL (7-17); Calcium 8.9 mg/dL (8.4-10.2); Carbon Dioxide 26 mmol/L (22-30); Chloride 90 mmol/L (98-107); Estimated CRCL calculation 93 ml/min; Estimated Glomerular Filt Rate > 60; Glucose 380 mg/dL (65-110); Lipase 21 U/L (23-300); Potassium 3.5 mmol/L (3.4-5.0); Sodium 128 mmol/L (137-145)
[2024-12-14 18:05] LABS: Add Urine Microscopic? YES; Appearance Urine Cloudy (Clear); Bacteria Urine 4+ /hpf; Bilirubin Urine Negative (Negative); Blood Urine Negative (Negative); Budding Yeast Urine Present /hpf; Color Urine Yellow (Yellow); Glucose Urine UA 3+ mg/dL (Negative); Ketones Urine 1+ mg/dL (Negative); Leukocyte Esterase Ur 2+ LEU/UL (Negative); Need Manual Microscopic Reviewed; Nitrate Urine Negative (Negative); Non Pathogenic Casts 0-2; Protein Urine Trace mg/dL (Negative); RBC Urine 0-2 /hpf (0-2); Specific Grav Ur 1.026 (1.001-1.035); Squamous Epithelial Cell Urine Few /hpf (Few); WBC Urine >100 /hpf (0-3); pH Urine 5.5 (5.0-9.0)
--- NOTE | 2024-12-14 18:12 | ED.NAVMDI ---
HPI - Nausea/Vomiting/Diarrhea General Chief complaint: Nausea/Vomiting/Diarrhea Stated complaint: n/v, h/a Time Seen by Provider: 12/14/24 17:07 History of Present Illness HPI Narrative: 44-year-old female with a past medical history including insulin-dependent diabetes presenting to the emergency department for nausea vomiting and abdominal pain as well as a headache, myalgias and back pain for last 4 days. She is nauseous to the point where she was not taking her oral medications and noted that her blood sugars are high recently. She has a type 2 diabetic but uses nightly long-acting insulin. Was otherwise in her normal state of health, no diarrheal illness, recent sick contact exposures or hospital visits. No recent antibiotics. Related Data Home Medications ?Medication ?Instructions ?Recorded ?Confirmed ?Last Taken ?Type liraglutide 0.6 mg/0.1 mL (18 mg/3 mg subcut 03/16/20 Unknown History mL) subcutaneous pen injector (Victoza 3-Yves) pioglitazone 30 mg tablet mg 03/16/20 Unknown History Allergies Allergy/AdvReac Type Severity Reaction Status Date / Time No Known Allergies Allergy Verified 03/16/20 14:40 Review of Systems Review of Systems: As reviewed above in HPI [facility] Social History Social History Gender identity (if verbalized by the patient): Female Exam Narrative: GENERAL: [Well-appearing, well-nourished, and in no acute distress.] HEAD: [Normocephalic, atraumatic.] EYES: [PERRLA and EOMI.] ENT: Nares clear, no rhinorrhea or epistaxis. Mucous membranes dry. NECK: Supple. CHEST: [Clear to auscultation. No respiratory distress.] HEART: [Regular rate and rhythm]. No murmur heard. [Normal peripheral pulses.] ABDOMEN: [Soft, nondistended], tender to palpation without any focality. No rigidity or guarding. No CVA tenderness EXTREMITIES: Normal range of motion. [No edema.] SKIN: Warm, dry, no rash. NEURO: [No focal deficits]. Alert and oriented [x3.] PSYCH: [Normal mood and affect.] Course Vital Signs Vital signs: Vital Signs Temperature 37.0 C 12/14/24 16:33 Pulse Rate 124 H 12/14/24 16:33 Respiratory Rate 18 12/14/24 16:33 Blood Pressure 122/75 12/14/24 16:33 Pulse Oximetry 98 12/14/24 16:33 Oxygen Delivery Room Air 12/14/24 16:33 Temperature 37.0 C 12/14/24 16:33 Pulse Rate 106 H 12/14/24 20:22 Respiratory Rate 16 12/14/24 20:22 Blood Pressure 148/96 H 12/14/24 20:22 Pulse Oximetry 96 12/14/24 20:22 Oxygen Delivery Room Air 12/14/24 16:33 MDM - Nausea/Vomiting/Diarrhea MDM Narrative Medical decision making narrative: 44-year-old female with history of insulin-dependent diabetes presenting to the emergency room with nausea vomiting abdominal pain, headache, myalgias and back pain. She is hyperglycemic in triage up in the 400s and tachycardic. She does appear dry does have a tender abdomen. No fever, hypoxia, blood pressure concerns. Differential diagnosis includes gastroenteritis, gastritis, cholecystitis, pancreatitis, diverticulitis, diabetic ketoacidosis, urinary tract infection, . Broad workup was ordered including a CBC, CMP, lipase, beta hydroxybutyrate level, urinalysis. She was given 2 L of fluid resuscitation and some morphine for analgesia. CT scan with contrast was ordered after laboratory assessment. Laboratory studies showed no leukocytosis or anemia. Normal platelet count. Urinary tract infection seen on urinalysis with patient has no urinary symptoms this time. She is complaining of flank and back pain. CT scan shows evidence of pyelonephritis. She is hyperglycemic at 380 but no signs of ketosis or acidosis. Likely asymptomatic hyperglycemia. She was given a fluid bolus and resuscitated with additional fluids. She was given pain control medications as needed with improvement. Started on Zosyn for the pyelonephritis. Discussed this with the patient and my plan for admission given her kidney infection in hyperglycemia. She was comfortable with this. Spoke to the hospitalist currently being covered by the midlevel provider Vanna Orellana who accepted the patient to a medical bed at this time. Medical Records Attestation: I reviewed the patient's medical records. Lab Data Attestation: I reviewed the patient's lab results. 12/14/24 17:35 12/14/24 17:35 Labs: Lab Results 12/14/24 12/14/24 12/14/24 Range/Units 16:36 17:20 17:34 WBC (4.5-10.0) K/mm3 RBC (4.2-5.4) M/mm3 Hgb (12.0-15.0) g/dL Hct (37.0-47.0) % MCV (80-100) fl MCH (26-34) pg MCHC (32-36) g/dl RDW (11.5-14.5) % Plt Count (150-375) k/mm3 MPV (7.4-10.4) fl Immature Gran % (Auto) (0-0.5) % Neut % (Auto) (45.5-73.1) % Lymph % (Auto) (18.3-44.2) % [place] % (Auto) (2.6-8.5) % Eos % (Auto) (0-4.4) % Baso % (Auto) (0.2-1.2) % Lymph # (Auto) (0.9-3.2) K/mm3 [place] # (Auto) (0.1-0.6) K/mm3 Eos # (Auto) (0-0.3) K/mm3 Baso # (Auto) (0.0-0.1) K/mm3 Abs Immat Gran (auto) (0.00-0.031) K/mm3 Absolute Neuts (auto) (1.3-6.7) K/mm3 Absolute Nucleated RBC (0.0-0.012) K/mm3 Nucleated RBC % (0.0-0.2) % Sodium (137-145) mmol/L Potassium (3.4-5.0) mmol/L Chloride (98-107) mmol/L Carbon Dioxide (22-30) mmol/L Anion Gap (4-12) mmol/L BUN (7-17) mg/dL Creatinine (0.7-1.0) mg/dL Estim Creat Clear Calc ml/min Estimated GFR (59 - ) Glucose (65-110) mg/dL POC Capillary Glucose 422 H (65-105) mg/dl Calcium (8.4-10.2) mg/dL Total Bilirubin (0.2-1.3) mg/dL AST (14-36) U/L ALT (6-35) U/L Alkaline Phosphatase (38-126) U/L Total Protein (6.3-8.2) g/dL Albumin (3.5-5.1) g/dL Lipase (23-300) U/L Beta-Hydroxybutyrate/Acetoacetate 0.73 H (0.02-0.27) mmol/L Urine Color (Yellow) Urine Appearance (Clear) Urine pH (5.0-9.0) Ur Specific [place] (1.001-1.035) Urine Protein (Negative) mg/dL Urine Glucose (UA) (Negative) mg/dL Urine Ketones (Negative) mg/dL Ur Blood (Man) (Negative) Urine Nitrate (Negative) Urine Bilirubin (Negative) Urine Urobilinogen (<2.0) mg/dL Add Ur Microanalysis Leukocyte Esterase Rfl (Negative) VARUN/UL Urine RBC (0-2) /hpf Urine WBC (0-3) /hpf Ur Squamous Epith Cells (Few) /hpf Urine Bacteria /hpf Urine Casts Urine Yeast (Budding) (None) /hpf POC Urine HCG, Qual Negative (Negative) Influenza A (RT-PCR) (Negative) Influenza B (RT-PCR) (Negative) RSV (RT-PCR) (Negative) SARS-CoV-2 RNA (RT-PCR) (Negative) 12/14/24 Range/Units 17:35 WBC 8.7 (4.5-10.0) K/mm3 RBC 4.13 L (4.2-5.4) M/mm3 Hgb 13.5 (12.0-15.0) g/dL Hct 36.5 L (37.0-47.0) % MCV 88.4 (80-100) fl MCH 32.7 (26-34) pg MCHC 37.0 H (32-36) g/dl RDW 11.1 L (11.5-14.5) % Plt Count 228 (150-375) k/mm3 MPV 10.0 (7.4-10.4) fl Immature Gran % (Auto) 0.5 (0-0.5) % Neut % (Auto) 76.3 H (45.5-73.1) % Lymph % (Auto) 10.9 L (18.3-44.2) % [place] % (Auto) 11.0 H (2.6-8.5) % Eos % (Auto) 1.0 (0-4.4) % Baso % (Auto) 0.3 (0.2-1.2) % Lymph # (Auto) 0.94 (0.9-3.2) K/mm3 [place] # (Auto) 1.0 H (0.1-0.6) K/mm3 Eos # (Auto) 0.1 (0-0.3) K/mm3 Baso # (Auto) 0.0 (0.0-0.1) K/mm3 Abs Immat Gran (auto) 0.04 H (0.00-0.031) K/mm3 Absolute Neuts (auto) 6.6 (1.3-6.7) K/mm3 Absolute Nucleated RBC 0.000 (0.0-0.012) K/mm3 Nucleated RBC % 0.0 (0.0-0.2) % Sodium 128 L (137-145) mmol/L Potassium 3.5 (3.4-5.0) mmol/L Chloride 90 L (98-107) mmol/L Carbon Dioxide 26 (22-30) mmol/L Anion Gap 12 (4-12) mmol/L BUN 6 L D (7-17) mg/dL Creatinine 0.52 L (0.7-1.0) mg/dL Estim Creat Clear Calc 93 ml/min Estimated GFR > 60 (59 - ) Glucose 380 H (65-110) mg/dL POC Capillary Glucose (65-105) mg/dl Calcium 8.9 (8.4-10.2) mg/dL Total Bilirubin 1.5 H (0.2-1.3) mg/dL AST 54 H (14-36) U/L ALT 185 H (6-35) U/L Alkaline Phosphatase 286 H (38-126) U/L Total Protein 8.0 (6.3-8.2) g/dL Albumin 4.0 (3.5-5.1) g/dL Lipase 21 L (23-300) U/L Beta-Hydroxybutyrate/Acetoacetate (0.02-0.27) mmol/L Urine Color Yellow (Yellow) Urine Appearance Cloudy H (Clear) Urine pH 5.5 (5.0-9.0) Ur Specific [place] 1.026 (1.001-1.035) Urine Protein Trace (Negative) mg/dL Urine Glucose (UA) 3+ H (Negative) mg/dL Urine Ketones 1+ H (Negative) mg/dL Ur Blood (Man) Negative (Negative) Urine Nitrate Negative (Negative) Urine Bilirubin Negative (Negative) Urine Urobilinogen 1.0 (<2.0) mg/dL Add Ur Microanalysis Reviewed Leukocyte Esterase Rfl 2+ H (Negative) VARUN/UL Urine RBC 0-2 (0-2) /hpf Urine WBC >100 H (0-3) /hpf Ur Squamous Epith Cells Few (Few) /hpf Urine Bacteria 4+ H /hpf Urine Casts 0-2 Urine Yeast (Budding) Present H (None) /hpf POC Urine HCG, Qual (Negative) Influenza A (RT-PCR) Negative (Negative) Influenza B (RT-PCR) Negative (Negative) RSV (RT-PCR) Negative (Negative) SARS-CoV-2 RNA (RT-PCR) Negative (Negative) Imaging Data Attestation: I personally reviewed and interpreted this imaging study as follows: My impression: Impressions Abdomen/Pelvis CT 12/14/24 20:15 IMPRESSION: 1. Hepatomegaly. 2. Hypodensities in the right kidney lower pole which may indicate focal infection cysts are less likely. Ultrasound evaluation advised. 3. Constipation. Critical Care Time Critical Care Time Critical Care Time: Yes Total Critical Care Time: 35 Discharge Plan Discharge Clinical Impression: Pyelonephritis, Abdominal pain, Nausea & vomiting, Elevated LFTs, Hyperglycemia without ketosis Patient Disposition: Still a Patient Condition: Stable Patient Language: Armenian Prescriptions: No Action pioglitazone 30 mg tablet Victoza 3-Yves 0.6 mg/0.1 mL (18 mg/3 mL) pen injector SUBCUT ondansetron 4 mg tablet,disintegrating 4 mg PO Q6H PRN (Reason: nausea and vomiting) Qty: 14 0RF Follow-up/Referrals: PHYSICIAN,MUNICIPAL CLERK [Primary Care Provider] - Time of Disposition: 20:53
[2024-12-14 18:20] LABS: Influenza A QL RT-PCR Negative (Negative); Influenza B QL RT-PCR Negative (Negative); RSV RNA, RT-PCR Negative (Negative); SARS-CoV-2 RNA PCR Negative (Negative)
[2024-12-14] MEDS: LACTATED RINGERS 1,000 ML 999 ML IV CONT ×2 (18:36)
[2024-12-14] MEDS: ONDANSETRON INJ 4 MG/2 ML VIAL IV PUSH ×2 (18:36→20:34)
[2024-12-14] MEDS: MORPHINE SULFATE (*CRX) 4 MG/ML INJ IV PUSH (18:36)
[2024-12-14 18:39] VITALS: BP 134/79; PULSE 112; RESP 16; O2SAT 99
[2024-12-14 19:47] LABS: Beta-Hydroxybutyrate/Acetoacetate 0.73 mmol/L (0.02-0.27)
[2024-12-14 20:22] VITALS: BP 148/96; PULSE 106; RESP 16; O2SAT 96
[2024-12-14] MEDS: HYDROmorphone HCL INJ (*CRX) 1 MG/ML SYR 0.5 MG IV PUSH (20:28)
[2024-12-14] MEDS: PIPERACILLIN/TAZ 4.5G/NS 100ML 4.5 GM/100 ML BAG IVPB (20:57)
[2024-12-14 21:07] VITALS: BP 141/75; PULSE 122; RESP 14; O2SAT 92
[2024-12-14] MEDS: INSULIN ASPART (*BKC) 100 UNITS/ML SUB-Q (21:52)
--- NOTE | 2024-12-14 21:58 | P.HP_ITS ---
H&P: HPI History of Present Illness Date/Time: 12/14/24 21:58 Chief Complaint: nausea and vomiting Narrative: This is a 44-year-old female with a significant past medical history of insulin dependent diabetes who presented to the hospital with complaints of nausea, vomiting, abdominal pain, headache x4 days. Patient states that her symptoms started on Wednesday and thought she had possible stomach flu. She tried treating this home however her abdominal pain and flank pain the continue to get worse. She decided to come in for further evaluation of her symptoms. She denies any fever, chills, diarrhea, chest pain, shortness a breath. Workup in the hospital included in abdomen/pelvis CT which showed hepatomegaly, hypodensities in the right kidney lower pole which may indicate focal infection, constipation. Renal ultrasound showed increased vascularity in both kidneys which may indicate pyelonephritis. Initial labs showed a normal white blood cell count of 8.7, sodium 128, chloride 90, creatinine 0.52, blood sugars ranging 329-422, total bili 1.5, AST 54, ALT 185, alkaline phosphate 286, beta hydroxybutyrate 0.73, anion gap 12. UA was obtained which showed cloudy urine appearance, 3+ urine glucose, 1+ urine ketone, 2+ leukocyte, greater than 100 urine WBC, 4+ urine bacteria, yeast present. Urine test was negative. Respiratory panel was negative for influenza a and B, RSV, COVID. Urine culture was obtained and pending. Patient was given 1 L of LR, 5 units of insulin, morphine, Zofran, Dilaudid, and Zosyn while in the ED. Review of Systems Review of Systems: All systems reviewed & are unremarkable except as noted in HPI and below PMFSH Past Medical History Medical History Insulin dependent diabetes mellitus Social History Social History Smoking status: Never smoker Alcohol intake: never Substance use: never Substance use type: does not use Do You Feel Safe in your Home?: Yes Lack of Transportation: YES Lack of Food: Never True Current Housing: I Have Housing Concerned About Future Housing: No Difficulty Paying Gas/Electric Bills: No Difficulty Paying for Meds: No Currently Unemployed: No Education: Decline to Answer Difficulty w/ Childcare or Family Care: No Gender identity (if verbalized by the patient): Female Spiritual care concerns: No Meds Home Medications and Allergies Home Medications ?Medication ?Instructions ?Recorded ?Confirmed ?Type liraglutide 0.6 mg/0.1 mL (18 mg/3 mg subcut 03/16/20 History mL) subcutaneous pen injector (Victoza 3-Yves) ondansetron 4 mg disintegrating 4 mg PO Q6H PRN nausea and 03/16/20 12/14/24 Rx tablet vomiting #14 tabs pioglitazone 30 mg tablet 30 mg PO DAILY 03/16/20 12/14/24 History atenolol 50 mg tablet 50 mg PO DAILY 12/14/24 12/14/24 History canagliflozin 300 mg tablet 300 mg PO DAILY 12/14/24 12/14/24 History (Invokana) glipizide 5 mg tablet 5 mg PO BIDAC 12/14/24 12/14/24 History insulin glargine 100 unit/mL (3 10 unit subcut HS 12/14/24 12/14/24 History mL) subcutaneous pen (Lantus Solostar U-100 Insulin) Allergies Allergy/AdvReac Type Severity Reaction Status Date / Time No Known Allergies Allergy Verified 03/16/20 14:40 Vital Signs Vital Signs - 24 hr 12/14/24 16:33 12/14/24 18:39 12/14/24 20:22 Temperature 98.6 F Pulse Rate 124 H 112 H 106 H Respiratory Rate 18 16 16 Blood Pressure 122/75 134/79 148/96 H Pulse Oximetry 98 99 96 Oxygen Delivery Room Air 12/14/24 21:07 Temperature Pulse Rate 122 H Respiratory Rate 14 Blood Pressure 141/75 H Pulse Oximetry 92 Oxygen Delivery Exam Narrative: General: In no acute distress, well nourished Head: atraumatic, no encephalopathy Eyes: PERRLA, sclera clear ENT: moist mucous membranes, nasal passages clear Neck: supple, no JVD, no adenopathy, trachea midline Cardiac: Normal S1 and S2. No murmur, gallops or friction rubs, peripheral pulses intact. Respiratory: Lungs clear to auscultation, no adventitious lung sounds, currently on room air Gastrointestinal: soft, non-distended, non-tender, normoactive bowel sounds. : voiding without difficulty. Extremities: moves all extremities well, no edema Skin: clean, dry, intact. No wounds or lesions. Neuro: Alert and oriented x4, cranial nerves intact, no neuro deficits. Psych: normal mood, normal affect, interactive H&P: Results Labs Labs: Short CBC 12/14/24 Range/Units 17:35 WBC 8.7 (4.5-10.0) K/mm3 Hgb 13.5 (12.0-15.0) g/dL Hct 36.5 L (37.0-47.0) % Plt Count 228 (150-375) k/mm3 BMP 12/14/24 17:35 Sodium 128 L Potassium 3.5 Chloride 90 L Carbon Dioxide 26 BUN 6 L D Creatinine 0.52 L Glucose 380 H Calcium 8.9 Liver Function 12/14/24 Range/Units 17:35 Total Bilirubin 1.5 H (0.2-1.3) mg/dL AST 54 H (14-36) U/L ALT 185 H (6-35) U/L Alkaline Phosphatase 286 H (38-126) U/L Albumin 4.0 (3.5-5.1) g/dL Urine 12/14/24 Range/Units 17:35 Urine Color Yellow (Yellow) Urine Appearance Cloudy H (Clear) Urine pH 5.5 (5.0-9.0) Ur Specific [place] 1.026 (1.001-1.035) Urine Protein Trace (Negative) mg/dL Urine Glucose (UA) 3+ H (Negative) mg/dL Imaging Abdomen/pelvis CT: Radiologist's impression: CT abdomen pelvis w con Ordering provider: Oniel Ibarra MD History: 44 years Female with . abd pain . Comparison: March 15, 2024 Technique: CT abdomen and pelvis with IV and without oral contrast. Automated exposure control and iterative reconstruction technique were employed. The dose- length product was 196.93 mGy-cm. 100 mL Omnipaque 350 was given IV. Fecal material is probably Findings: VISUALIZED LOWER CHEST: Bilateral dependent atelectatic changes. UPPER ABDOMINAL ORGANS: Liver: Hepatomegaly. Gallbladder: Not demonstrated most likely due to Cholecystectomy. Spleen: Normal. Stomach/duodenum: Normal. Pancreas: Normal. Adrenals: Normal. Kidneys: Hypodensity is seen in the right kidney lower pole. Follow-up ultrasound advised. PELVIC ORGANS: The bladder shows thickened wall suggestive of cystitis. BOWEL AND MESENTERY: Colon: No evidence of diverticulitis. Fecal material is loaded in the colon. Appendix is not demonstrated. Small Bowel: Normal. No obstruction. Peritoneum/mesentery: No free air or free fluid. No mesenteric lymphadenopathy. RETROPERITONEUM: Normal aorta. No retroperitoneal lymphadenopathy. MUSCULOSKELETAL: Superficial soft tissues: The superficial soft tissues are normal. Bones: normal spine. IMPRESSION: 1. Hepatomegaly. 2. Hypodensities in the right kidney lower pole which may indicate focal infection cysts are less likely. Ultrasound evaluation advised. 3. Constipation. Reviewed, dictated and finalized at location A. Renal ultrasound: Radiologist's impression: US renal BI Ordering provider: Oniel Ibarra MD History: . pyelonephritis . Comparison: None. Technique: Ultrasound bilateral kidneys. Findings: RIGHT KIDNEY: Measures 12.7x 5.3x 6.5 cm in length which is normal in size. No renal cysts. No renal mass or visualized echogenic stones. Otherwise, normal echotexture and contour. No hydronephrosis. Normal renal cortical thickness. Increased vascularity is seen. LEFT KIDNEY: Measures 11.4x 6.2x 4.3 cm in length which is normal in size. No renal cysts. No renal mass or visualized echogenic stones. Otherwise, normal echotexture and contour. No hydronephrosis. Normal renal cortical thickness. Increased vascularity is noted. BLADDER: Distended. Ureteral jets were not seen bilaterally. IMPRESSION: Increased vascularity in both kidneys which may indicate pyelonephritis. Clinical correlation and follow-up advised. Reviewed, dictated and finalized at location A. Assessment and Plan Assessment and plan (1) Pyelonephritis: Code(s): N12 - Tubulo-interstitial nephritis, not specified as acute or chronic Status: Acute Assessment and Plan: Patient reporting nausea vomiting and abdominal pain x4 days * Abdomen/pelvis CT showed hyperdensities in the right kidney lower pole which may indicate focal infection, hepatomegaly, constipation * Renal ultrasound shown increased vascularity in both kidneys which may indicate pyelonephritis * UA showed cloudy urine appearance, 3+ urine glucose, 1+ urine ketone, 2+ leukocytes, greater than 100 urine WBC, 4+ urine bacteria, yeast present * Urine culture was obtained and pending * Patient was started on Zosyn while in the ED * Will start Rocephin 2 g dosing (2) Insulin dependent diabetes mellitus: Status: Acute Assessment and Plan: * Blood sugars ranging 329-422 * Hgb A1C 11.8 * Accu checks AC/HS * Low-dose SSI ordered * Continue Lantus 10 at HS * hypoglycemic protocol in place * Diabetic diet ordered (3) Hyperglycemia without ketosis: Code(s): R73.9 - Hyperglycemia, unspecified Status: Acute Assessment and Plan: * Blood sugars ranging 329-422 * Patient was given 5 units of insulin while in the ED * Will obtain hemoglobin A1c * Anion gap 12, beta hydroxybutyrate 0.73, UA showing 3+ glucose, 1+ ketone * Continue to monitor (4) Elevated LFTs: Code(s): R79.89 - Other specified abnormal findings of blood chemistry Status: Acute Assessment and Plan: * Total bili 1.5, AST 54, ALT 185, alkaline phosphate 286 * Abdomen/pelvis CT showed hepatomegaly, gallbladder was not demonstrated most likely due to cholecystectomy * Patient does take glipizide, ? Hepatotoxicity * Continue to trend * Will get US of Liver * Check Hepatitis panel Quality VTE Prophylaxis VTE prophylaxis: mechanical ordered Hospitalist MIPS Advance Care Plan I have confirmed that the patient's Advanced Care Plan is present, code status is documented, or surrogate decision maker is listed in patient medical record.: Yes Medication Reconciliation I have utilized all available resources to obtain, update and review the patients current medications (includes all prescriptions, OTC, herbals, cannabis, and nutritional supplements).: Yes
[2024-12-14 22:08] VITALS: BP 105/63; PULSE 113; RESP 15; O2SAT 96
[2024-12-14 22:35] VITALS: BMI 19.1
[2024-12-14 22:39] LABS: Glucose Point of Care 329 mg/dl (65-105)
[2024-12-14 22:42] VITALS: BP 108/68; PULSE 115; RESP 20; TEMP 36.5; O2SAT 100
[2024-12-14] MEDS: LACTATED RINGERS 1,000 ML 125 ML IV CONT (22:58)
[2024-12-15] MEDS: HYDROcodone/acetaminophen (*CRX) 5-325 MG TABLET 1 TAB PO ×2 (02:02→17:15)
[2024-12-15] MEDS: cefTRIAXone 2 GM/NS 100 ML 2 GM/100 ML BAG IVPB (05:38)
[2024-12-15] MEDS: LACTATED RINGERS 1,000 ML 125 ML IV CONT ×2 (05:39→17:13)
[2024-12-15 05:41] LABS: Magnesium 1.6 mg/dL (1.6-2.3)
[2024-12-15 05:42] VITALS: BP 100/68; PULSE 93; RESP 20; TEMP 36.7; O2SAT 99
[2024-12-15] MEDS: INSULIN GLARGINE (*BKC) 100 UNITS/ML 10 UNITS SUB-Q ×2 (05:43→20:10)
[2024-12-15 05:46] LABS: Hemoglobin A1C 11.8 % (<5.7)
[2024-12-15 06:04] LABS: Glucose Point of Care 253 mg/dl (65-105)
[2024-12-15 06:08] LABS: Hepatitis B Surface Antigen Negative (Negative)
[2024-12-15 06:14] LABS: HAV RESULT Negative (Negative); Hepatitis B Core IgM Result Negative (Negative)
[2024-12-15 06:25] LABS: Hepatitis C Virus Antibody Negative (Negative)
[2024-12-15 06:44] LABS: Basophils Percent Auto 0.4 % (0.2-1.2); Eosinophils Absolute Auto 0.2 K/mm3 (0-0.3); Eosinophils Percent Auto 1.4 % (0-4.4); Hemoglobin 11.4 g/dL (12.0-15.0); Immature Granulocyte Absolute 0.07 K/mm3 (0.00-0.031); Immature Granulocyte Percent A 0.6 % (0-0.5); Lymphocytes Absolute Auto 1.27 K/mm3 (0.9-3.2); Lymphocytes Percent Auto 11.5 % (18.3-44.2); Mean Corpuscular HGB Conc 35.6 g/dl (32-36); Mean Corpuscular Hemoglobin 31.8 pg (26-34); Mean Corpuscular Volume 89.1 fl (80-100); Mean Platelet Volume 10.8 fl (7.4-10.4); Monocytes Absolute Auto 1.2 K/mm3 (0.1-0.6); Monocytes Percent Auto 10.5 % (2.6-8.5); Neutrophils Absolute Auto 8.4 K/mm3 (1.3-6.7); Neutrophils Percent Auto 75.6 % (45.5-73.1); Platelet Count Result 209 k/mm3 (150-375); Red Blood Count 3.59 M/mm3 (4.2-5.4); Red Cell Distribution Width 11.3 % (11.5-14.5); White Blood Count 11.1 K/mm3 (4.5-10.0)
[2024-12-15 06:55] LABS: Alanine Aminotransferase 337 U/L (6-35); Albumin Level 3.3 g/dL (3.5-5.1); Alkaline Phosphatase 422 U/L (38-126); Anion Gap 15 mmol/L (4-12); Aspartate Amino Transferase 260 U/L (14-36); Bilirubin,Total 1.8 mg/dL (0.2-1.3); Blood Urea Nitrogen 6 mg/dL (7-17); Calcium 8.1 mg/dL (8.4-10.2); Carbon Dioxide 20 mmol/L (22-30); Chloride 95 mmol/L (98-107); Estimated CRCL calculation 100 ml/min; Estimated Glomerular Filt Rate > 60; Glucose 274 mg/dL (65-110); Potassium 3.3 mmol/L (3.4-5.0); Sodium 130 mmol/L (137-145)
[2024-12-15 07:45] LABS: Glucose Point of Care 276 mg/dl (65-105)
[2024-12-15 08:41] VITALS: PULSE 94
[2024-12-15] MEDS: ONDANSETRON INJ 4 MG/2 ML VIAL IV PUSH ×3 (08:41→17:15)
[2024-12-15] MEDS: atenoloL 50 MG TABLET PO (08:41)
[2024-12-15] MEDS: HYDROmorphone HCL INJ (*CRX) 1 MG/ML SYR 0.5 MG IV PUSH ×3 (08:41→21:34)
[2024-12-15] MEDS: POTASSIUM CHLORIDE 20 MEQ ER TABLET 40 MEQ PO (08:42)
[2024-12-15] MEDS: MAGNESIUM SULF 2 GM/WATER 50ML 2 GM/50 ML BAG IVPB (08:44)
[2024-12-15 09:30] VITALS: O2SAT 92
[2024-12-15] MEDS: INSULIN ASPART (*BKC) 100 UNITS/ML SUB-Q ×4 (09:33→20:08)
--- NOTE | 2024-12-15 10:55 | P.PNIM_ITS ---
Progress Note: A&P Assessment and Plan (1) Pyelonephritis: Code(s): N12 - Tubulo-interstitial nephritis, not specified as acute or chronic Status: Acute Assessment and Plan: Patient reporting nausea vomiting and abdominal pain x4 days * Abdomen/pelvis CT showed hyperdensities in the right kidney lower pole which may indicate focal infection, hepatomegaly, constipation * Renal ultrasound shown increased vascularity in both kidneys which may indicate pyelonephritis * UA showed cloudy urine appearance, 3+ urine glucose, 1+ urine ketone, 2+ leukocytes, greater than 100 urine WBC, 4+ urine bacteria, yeast present * Urine culture was obtained and pending * Patient was started on Zosyn while in the ED * Currently receiving Rocephin 2 g dosing (2) Insulin dependent diabetes mellitus: Status: Acute Assessment and Plan: * Blood sugars ranging 253-309 * Hgb A1C 11.8% * Accu checks AC/HS * Low-dose SSI ordered * Continue Lantus 10 at HS * hypoglycemic protocol in place * Diabetic diet ordered (3) Hyperglycemia without ketosis: Code(s): R73.9 - Hyperglycemia, unspecified Status: Acute Assessment and Plan: * Blood sugars ranging 253-309 * Patient was given 5 units of insulin while in the ED * Hemoglobin A1c 11.8% * Accu checks AC/HS * Low-dose SSI ordered * Continue Lantus 10 at HS * hypoglycemic protocol in place * Diabetic diet ordered * Anion gap 12, beta hydroxybutyrate 0.73, UA showing 3+ glucose, 1+ ketone * Continue to monitor (4) Elevated LFTs: Code(s): R79.89 - Other specified abnormal findings of blood chemistry Status: Acute Assessment and Plan: * Total bili 1.5, AST 260, ALT 337, alkaline phosphate 422 * Abdomen/pelvis CT showed hepatomegaly, gallbladder was not demonstrated most likely due to cholecystectomy * Patient does take glipizide, ? Hepatotoxicity * Continue to trend * US of Liver showed:FINDINGS: The visualized portions of the head, body, and tail of the pancreas are normal. The liver is normal without focal lesion. There is normal flow in main portal vein. The gallbladder is absent. The common duct is normal and measures 5 mm. IMPRESSION: 1. Normal right upper quadrant ultrasound status post cholecystectomy. * Hepatitis panel- negative. (5) Hypokalemia: Code(s): E87.6 - Hypokalemia Status: Acute Assessment and Plan: * Potassium 3.3. * Potassium 40 meq PO x1. * Monitor lab. Subjective Date/time seen: 12/15/24 10:55 Interval history: Patient reports pain in lower back and abdomen are a 6 , frequent, and aching. Patient reports that she just had an episode of nausea with vomiting. Patient denies chest pain, palpitations, headache, or dizziness. Family at bedside. Review of Systems Review of Systems: All systems reviewed & are unremarkable except as noted in HPI and below Exam Const: General: no acute distress and uncomfortable Resp: Effort & Inspection: normal respiratory effort Auscultation: clear to auscultation bilaterally Cardio: Rate: regular rate Rhythm: regular rhythm GI: GI Palp: Yes Soft to palpation Auscultation: normal bowel sounds Neuro: Speech: normal speech Extrem: General: no pedal edema Psych: Mental Status: mental status grossly normal Affect: normal affect Objective Data Vital Signs Vital Signs: Vital Signs - 24 hr 12/14/24 16:33 12/14/24 18:39 12/14/24 20:22 Temperature 98.6 F Pulse Rate 124 H 112 H 106 H Respiratory Rate 18 16 16 Blood Pressure 122/75 134/79 148/96 H Pulse Oximetry 98 99 96 Oxygen Delivery Room Air Oxygen Flow Rate 12/14/24 21:07 12/14/24 22:08 12/14/24 22:42 Temperature 97.7 F Pulse Rate 122 H 113 H 115 H Respiratory Rate 14 15 20 Blood Pressure 141/75 H 105/63 108/68 Pulse Oximetry 92 96 100 Oxygen Delivery Oxygen Flow Rate 12/15/24 05:42 12/15/24 08:41 12/15/24 09:30 Temperature 98.1 F Pulse Rate 93 94 Respiratory Rate 20 Blood Pressure 100/68 Pulse Oximetry 99 92 Oxygen Delivery Nasal Cannula Oxygen Flow Rate 2.5 Intake/Output Intake/Output: Intake & Output 12/12/24 12/13/24 12/14/24 12/15/24 23:59 23:59 23:59 23:59 Intake Total 2100 895.4 Balance 2100 895.4 Meds/Results Medications: Active Medications Generic Name Dose Route Start Last Admin Trade Name Freq PRN Reason Stop Dose Admin Acetaminophen 650 mg 12/14/24 21:07 Acetaminophen 325 Mg Tablet PO Q4H PRN Mild Pain (1-3) or Fever Hydrocodone Bitart/Acetaminophen 1 tab 12/14/24 21:07 12/15/24 02:02 Hydrocodone/Acetaminophen (*Crx) 5-325 Mg Tablet PO 1 tab Q4H PRN Administration Pain Rated 4-6 Atenolol 50 mg 12/15/24 09:00 12/15/24 08:41 Atenolol 50 Mg Tablet PO 50 mg DAILY LAURA Administration Dextrose 12.5 gm 12/15/24 02:21 Dextrose 50% 25 Gm/50 Ml Syringe IV PUSH PRN PRN Hypoglycemia Protocol Glucagon 1 mg 12/15/24 02:21 Glucagon For Inj 1 Mg Vial IM PRN PRN Hypoglycemia Protocol Glucose 15 gm 12/15/24 02:21 Glucose Oral Gel 15 Gm Of Glucse In 37.5 Gm Tube PO PRN PRN Hypoglycemia Protocol Hydromorphone HCl 0.5 mg 12/14/24 21:07 12/15/24 08:41 Hydromorphone Hcl Inj (*Crx) 1 Mg/Ml Syr IV PUSH 0.5 mg Q4H PRN Administration Pain Rated 7-10 Lactated Ringer's 1,000 mls @ 125 mls/hr 12/14/24 21:10 12/15/24 05:39 Lr - Lactated Ringers Iv IV CONT 125 mls/hr .Q8H LAURA Administration Dextrose 1,000 mls @ 100 mls/hr 12/15/24 02:21 Dextrose 5% 1,000 Ml IVPB PRN PRN Hypoglycemia Protocol Ceftriaxone Sodium 2 gm in 100 mls @ 200 mls/hr 12/15/24 03:00 12/15/24 05:38 Rocephin 2 Gm/Ns 100 Ml IVPB 200 mls/hr Q24H LAURA Administration Insulin Aspart 2 - 5 units 12/15/24 08:00 12/15/24 09:33 Insulin Aspart (*Bkc) 100 Units/Ml SUB-Q 3 units TIDWM LAURA Administration Protocol Insulin Aspart 1 - 2 units 12/15/24 21:00 Insulin Aspart (*Bkc) 100 Units/Ml SUB-Q HS LAURA Protocol Insulin Glargine 10 units 12/15/24 02:20 12/15/24 05:43 Insulin Glargine (*Bkc) 100 Units/Ml SUB-Q 10 units HS LAURA Administration Ondansetron HCl 4 mg 12/14/24 21:07 12/15/24 08:41 Ondansetron Inj 4 Mg/2 Ml Vial IV PUSH 4 mg Q4H PRN Administration Nausea Polyethylene Glycol 17 gm 12/16/24 09:00 Polyethylene Glycol 3350 17 Gm Powd.Pack PO QAM ON LICENSE OF [facility] Radiology Results: ITS Impressions Abdomen/Pelvis CT 12/14/24 20:15 IMPRESSION: 1. Hepatomegaly. 2. Hypodensities in the right kidney lower pole which may indicate focal infection cysts are less likely. Ultrasound evaluation advised. 3. Constipation. Renal Ultrasound 12/14/24 21:36 IMPRESSION: Increased vascularity in both kidneys which may indicate pyelonephritis. Clinical correlation and follow-up advised. Abdomen Ultrasound 12/15/24 08:03 IMPRESSION: 1. Normal right upper quadrant ultrasound status post cholecystectomy. Labs Labs: Laboratory Results - last 24 hr 12/14/24 12/14/24 12/14/24 16:36 17:20 17:34 WBC RBC Hgb Hct MCV MCH MCHC RDW Plt Count MPV Immature Gran % (Auto) Neut % (Auto) Lymph % (Auto) [place] % (Auto) Eos % (Auto) Baso % (Auto) Lymph # (Auto) [place] # (Auto) Eos # (Auto) Baso # (Auto) Abs Immat Gran (auto) Absolute Neuts (auto) Absolute Nucleated RBC Nucleated RBC % Sodium Potassium Chloride Carbon Dioxide Anion Gap BUN Creatinine Estim Creat Clear Calc Estimated GFR Glucose POC Capillary Glucose 422 H Hemoglobin A1c Calcium Magnesium Total Bilirubin AST ALT Alkaline Phosphatase Total Protein Albumin Lipase Beta-Hydroxybutyrate/Acetoacetate 0.73 H Urine Color Urine Appearance Urine pH Ur Specific [place] Urine Protein Urine Glucose (UA) Urine Ketones Ur Blood (Man) Urine Nitrate Urine Bilirubin Urine Urobilinogen Add Ur Microanalysis Leukocyte Esterase Rfl Urine RBC Urine WBC Ur Squamous Epith Cells Urine Bacteria Urine Casts Urine Yeast (Budding) POC Urine HCG, Qual Negative Hepatitis A IgM Ab Hep Bs Antigen Hep B Core IgM Ab Hepatitis C Ab Screen Influenza A (RT-PCR) Influenza B (RT-PCR) RSV (RT-PCR) SARS-CoV-2 RNA (RT-PCR) 12/14/24 12/14/24 12/15/24 17:35 22:34 04:47 WBC 8.7 11.1 H RBC 4.13 L 3.59 L Hgb 13.5 11.4 L Hct 36.5 L 32.0 L MCV 88.4 89.1 MCH 32.7 31.8 MCHC 37.0 H 35.6 RDW 11.1 L 11.3 L Plt Count 228 209 MPV 10.0 10.8 H Immature Gran % (Auto) 0.5 0.6 H Neut % (Auto) 76.3 H 75.6 H Lymph % (Auto) 10.9 L 11.5 L [place] % (Auto) 11.0 H 10.5 H Eos % (Auto) 1.0 1.4 Baso % (Auto) 0.3 0.4 Lymph # (Auto) 0.94 1.27 [place] # (Auto) 1.0 H 1.2 H Eos # (Auto) 0.1 0.2 Baso # (Auto) 0.0 0.0 Abs Immat Gran (auto) 0.04 H 0.07 H Absolute Neuts (auto) 6.6 8.4 H Absolute Nucleated RBC 0.000 0.000 Nucleated RBC % 0.0 0.0 Sodium 128 L 130 L Potassium 3.5 3.3 L Chloride 90 L 95 L Carbon Dioxide 26 20 L Anion Gap 12 15 H BUN 6 L D 6 L Creatinine 0.52 L 0.49 L Estim Creat Clear Calc 93 100 Estimated GFR > 60 > 60 Glucose 380 H 274 H POC Capillary Glucose 329 H Hemoglobin A1c Calcium 8.9 8.1 L Magnesium Total Bilirubin 1.5 H 1.8 H AST 54 H 260 H ALT 185 H 337 H Alkaline Phosphatase 286 H 422 H Total Protein 8.0 6.0 L Albumin 4.0 3.3 L Lipase 21 L Beta-Hydroxybutyrate/Acetoacetate Urine Color Yellow Urine Appearance Cloudy H Urine pH 5.5 Ur Specific [place] 1.026 Urine Protein Trace Urine Glucose (UA) 3+ H Urine Ketones 1+ H Ur Blood (Man) Negative Urine Nitrate Negative Urine Bilirubin Negative Urine Urobilinogen 1.0 Add Ur Microanalysis Reviewed Leukocyte Esterase Rfl 2+ H Urine RBC 0-2 Urine WBC >100 H Ur Squamous Epith Cells Few Urine Bacteria 4+ H Urine Casts 0-2 Urine Yeast (Budding) Present H POC Urine HCG, Qual Hepatitis A IgM Ab Hep Bs Antigen Hep B Core IgM Ab Hepatitis C Ab Screen Influenza A (RT-PCR) Negative Influenza B (RT-PCR) Negative RSV (RT-PCR) Negative SARS-CoV-2 RNA (RT-PCR) Negative 12/15/24 12/15/24 12/15/24 04:49 05:43 07:33 WBC RBC Hgb Hct MCV MCH MCHC RDW Plt Count MPV Immature Gran % (Auto) Neut % (Auto) Lymph % (Auto) [place] % (Auto) Eos % (Auto) Baso % (Auto) Lymph # (Auto) [place] # (Auto) Eos # (Auto) Baso # (Auto) Abs Immat Gran (auto) Absolute Neuts (auto) Absolute Nucleated RBC Nucleated RBC % Sodium Potassium Chloride Carbon Dioxide Anion Gap BUN Creatinine Estim Creat Clear Calc Estimated GFR Glucose POC Capillary Glucose 253 H 276 H Hemoglobin A1c 11.8 H Calcium Magnesium 1.6 Total Bilirubin AST ALT Alkaline Phosphatase Total Protein Albumin Lipase Beta-Hydroxybutyrate/Acetoacetate Urine Color Urine Appearance Urine pH Ur Specific [place] Urine Protein Urine Glucose (UA) Urine Ketones Ur Blood (Man) Urine Nitrate Urine Bilirubin Urine Urobilinogen Add Ur Microanalysis Leukocyte Esterase Rfl Urine RBC Urine WBC Ur Squamous Epith Cells Urine Bacteria Urine Casts Urine Yeast (Budding) POC Urine HCG, Qual Hepatitis A IgM Ab Negative Hep Bs Antigen Negative Hep B Core IgM Ab Negative Hepatitis C Ab Screen Negative Influenza A (RT-PCR) Influenza B (RT-PCR) RSV (RT-PCR) SARS-CoV-2 RNA (RT-PCR) Quality VTE Prophylaxis VTE prophylaxis: mechanical ordered
[2024-12-15 11:02] VITALS: BMI 19.1
[2024-12-15 11:55] LABS: Glucose Point of Care 309 mg/dl (65-105)
[2024-12-15 14:53] VITALS: BP 120/82; PULSE 95; RESP 18; TEMP 36.8; O2SAT 99
[2024-12-15] MEDS: diphenhydrAMINE HCl CAP 25 MG CAPSULE PO ×2 (15:33→23:14)
[2024-12-15 16:15] LABS: Glucose Point of Care 247 mg/dl (65-105)
[2024-12-15 20:00] VITALS: O2SAT 96
[2024-12-15 20:46] LABS: Glucose Point of Care 273 mg/dl (65-105)
[2024-12-15 21:09] VITALS: BP 125/74; PULSE 100; RESP 18; TEMP 37.1; O2SAT 96
[2024-12-16] MEDS: traMADol HCL (*CRX) 50 MG TABLET PO ×3 (01:22→16:34)
[2024-12-16] MEDS: LACTATED RINGERS 1,000 ML 125 ML IV CONT ×3 (01:23→17:55)
[2024-12-16] MEDS: cefTRIAXone 2 GM/NS 100 ML 2 GM/100 ML BAG IVPB (02:05)
[2024-12-16 06:19] LABS: Basophils Percent Auto 0.2 % (0.2-1.2); Eosinophils Percent Auto 0.4 % (0-4.4); Hemoglobin 10.7 g/dL (12.0-15.0); Immature Granulocyte Absolute 0.06 K/mm3 (0.00-0.031); Immature Granulocyte Percent A 0.7 % (0-0.5); Lymphocytes Percent Auto 18.2 % (18.3-44.2); Mean Corpuscular HGB Conc 35.7 g/dl (32-36); Mean Corpuscular Hemoglobin 31.9 pg (26-34); Mean Corpuscular Volume 89.6 fl (80-100); Mean Platelet Volume 10.3 fl (7.4-10.4); Monocytes Percent Auto 12.7 % (2.6-8.5); Neutrophils Absolute Auto 5.6 K/mm3 (1.3-6.7); Neutrophils Percent Auto 67.8 % (45.5-73.1); Platelet Count Result 225 k/mm3 (150-375); Red Blood Count 3.35 M/mm3 (4.2-5.4); Red Cell Distribution Width 11.2 % (11.5-14.5); White Blood Count 8.2 K/mm3 (4.5-10.0)
[2024-12-16 06:36] LABS: Alanine Aminotransferase 216 U/L (6-35); Albumin Level 3.3 g/dL (3.5-5.1); Alkaline Phosphatase 356 U/L (38-126); Anion Gap 10 mmol/L (4-12); Aspartate Amino Transferase 67 U/L (14-36); Bilirubin,Total 0.7 mg/dL (0.2-1.3); Blood Urea Nitrogen 5 mg/dL (7-17); Calcium 8.3 mg/dL (8.4-10.2); Carbon Dioxide 26 mmol/L (22-30); Chloride 94 mmol/L (98-107); Estimated CRCL calculation 114 ml/min; Estimated Glomerular Filt Rate > 60; Glucose 256 mg/dL (65-110); Magnesium 1.9 mg/dL (1.6-2.3); Potassium 3.2 mmol/L (3.4-5.0); Sodium 130 mmol/L (137-145)
[2024-12-16 08:08] LABS: Glucose Point of Care 269 mg/dl (65-105)
[2024-12-16 08:41] VITALS: PULSE 72
[2024-12-16] MEDS: POTASSIUM CHLORIDE 20 MEQ ER TABLET 40 MEQ PO (08:41)
[2024-12-16] MEDS: atenoloL 50 MG TABLET PO (08:41)
[2024-12-16] MEDS: polyethylene glycoL 3350 17 GM POWD.PACK PO (08:41)
[2024-12-16] MEDS: ONDANSETRON INJ 4 MG/2 ML VIAL IV PUSH ×2 (08:41→16:35)
[2024-12-16] MEDS: INSULIN ASPART (*BKC) 100 UNITS/ML SUB-Q ×4 (08:45→20:42)
[2024-12-16 11:58] LABS: Glucose Point of Care 256 mg/dl (65-105)
--- NOTE | 2024-12-16 12:33 | P.PNIM_ITS ---
Progress Note: A&P Assessment and Plan (1) Pyelonephritis: Code(s): N12 - Tubulo-interstitial nephritis, not specified as acute or chronic Status: Acute Assessment and Plan: Patient reporting nausea vomiting and abdominal pain x4 days * Abdomen/pelvis CT showed hyperdensities in the right kidney lower pole which may indicate focal infection, hepatomegaly, constipation * Renal ultrasound shown increased vascularity in both kidneys which may indicate pyelonephritis * UA showed cloudy urine appearance, 3+ urine glucose, 1+ urine ketone, 2+ leukocytes, greater than 100 urine WBC, 4+ urine bacteria, yeast present * Urine culture grew E coli. * Patient was started on Zosyn while in the ED * Currently receiving Rocephin 2 g dosing (2) Insulin dependent diabetes mellitus: Status: Acute Assessment and Plan: * Blood sugars ranging 256-269 * Hgb A1C 11.8% * Accu checks AC/HS * Low-dose SSI ordered * Increase Lantus 12 at HS * hypoglycemic protocol in place * Diabetic diet ordered (3) Hyperglycemia without ketosis: Code(s): R73.9 - Hyperglycemia, unspecified Status: Acute Assessment and Plan: * Blood sugars ranging 256-269 * Patient was given 5 units of insulin while in the ED * Hemoglobin A1c 11.8% * Accu checks AC/HS * Low-dose SSI ordered * Increase Lantus 12 at HS * hypoglycemic protocol in place * Diabetic diet ordered * Anion gap 12, beta hydroxybutyrate 0.73, UA showing 3+ glucose, 1+ ketone * Continue to monitor (4) Elevated LFTs: Code(s): R79.89 - Other specified abnormal findings of blood chemistry Status: Acute Assessment and Plan: * 12/16/24: Total bili 0.7, AST 67, ALT 216, alkaline phosphatase 356. * 12/15/24:Total bili 1.5, AST 260, ALT 337, alkaline phosphatase 422. * Abdomen/pelvis CT showed hepatomegaly, gallbladder was not demonstrated most likely due to cholecystectomy * Patient does take glipizide, ? Hepatotoxicity * Continue to trend * US of Liver showed:FINDINGS: The visualized portions of the head, body, and tail of the pancreas are normal. The liver is normal without focal lesion. There is normal flow in main portal vein. The gallbladder is absent. The common duct is normal and measures 5 mm. IMPRESSION: 1. Normal right upper quadrant ultrasound status post cholecystectomy. * Hepatitis panel- negative. (5) Hypokalemia: Code(s): E87.6 - Hypokalemia Status: Acute Assessment and Plan: * Potassium 3.2. * Potassium 40 meq PO x1. * Monitor lab. Subjective Date/time seen: 12/16/24 12:33 Interval history: Patient sitting up in bed. Patient in back is a 6 , frequent, and aching. Patient reports episode of vomiting after taking a pain pill this morning on an empty stomach. Patient denies chest pain, palpitations, headache, or dizziness. Patient reports that her abdomen is a little tender. Review of Systems Review of Systems: All systems reviewed & are unremarkable except as noted in HPI and below Exam Const: General: no acute distress and uncomfortable Resp: Effort & Inspection: normal respiratory effort Auscultation: clear to auscultation bilaterally Cardio: Rate: regular rate Rhythm: regular rhythm GI: GI Palp: Yes Soft to palpation Auscultation: normal bowel sounds Neuro: Speech: normal speech Extrem: General: no pedal edema Psych: Mental Status: mental status grossly normal Affect: normal affect Objective Data Vital Signs Vital Signs: Vital Signs - 24 hr 12/15/24 14:53 12/15/24 20:00 12/15/24 21:09 Temperature 98.2 F 98.7 F Pulse Rate 95 100 Respiratory Rate 18 18 Blood Pressure 120/82 125/74 Pulse Oximetry 99 96 96 Oxygen Delivery Nasal Cannula Oxygen Flow Rate 2 12/16/24 08:00 12/16/24 08:41 Temperature Pulse Rate 72 Respiratory Rate Blood Pressure Pulse Oximetry Oxygen Delivery Room Air Oxygen Flow Rate Intake/Output Intake/Output: Intake & Output 12/13/24 12/14/24 12/15/24 12/16/24 23:59 23:59 23:59 23:59 Intake Total 2099 3365.4 1999 Balance 2099 3365.4 1999 Meds/Results Medications: Active Medications Generic Name Dose Route Start Last Admin Trade Name Freq PRN Reason Stop Dose Admin Acetaminophen 650 mg 12/14/24 21:07 Acetaminophen 325 Mg Tablet PO Q4H PRN Mild Pain (1-3) or Fever Atenolol 50 mg 12/15/24 09:00 12/16/24 08:41 Atenolol 50 Mg Tablet PO 50 mg DAILY LAURA Administration Dextrose 12.5 gm 12/15/24 02:21 Dextrose 50% 25 Gm/50 Ml Syringe IV PUSH PRN PRN Hypoglycemia Protocol Glucagon 1 mg 12/15/24 02:21 Glucagon For Inj 1 Mg Vial IM PRN PRN Hypoglycemia Protocol Glucose 15 gm 12/15/24 02:21 Glucose Oral Gel 15 Gm Of Glucse In 37.5 Gm Tube PO PRN PRN Hypoglycemia Protocol Lactated Ringer's 1,000 mls @ 125 mls/hr 12/14/24 21:10 12/16/24 10:28 Lr - Lactated Ringers Iv IV CONT 125 mls/hr .Q8H LAURA Administration Dextrose 1,000 mls @ 100 mls/hr 12/15/24 02:21 Dextrose 5% 1,000 Ml IVPB PRN PRN Hypoglycemia Protocol Ceftriaxone Sodium 2 gm in 100 mls @ 200 mls/hr 12/15/24 03:00 12/16/24 02:05 Rocephin 2 Gm/Ns 100 Ml IVPB 200 mls/hr Q24H LAURA Administration Insulin Aspart 2 - 5 units 12/15/24 08:00 12/16/24 08:45 Insulin Aspart (*Bkc) 100 Units/Ml SUB-Q 3 units TIDWM LAURA Administration Protocol Insulin Aspart 1 - 2 units 12/15/24 21:00 12/15/24 20:08 Insulin Aspart (*Bkc) 100 Units/Ml SUB-Q 1 units HS LAURA Administration Protocol Insulin Glargine 12 units 12/16/24 21:00 Insulin Glargine (*Bkc) 100 Units/Ml SUB-Q HS LAURA Ondansetron HCl 4 mg 12/14/24 21:07 12/16/24 08:41 Ondansetron Inj 4 Mg/2 Ml Vial IV PUSH 4 mg Q4H PRN Administration Nausea Polyethylene Glycol 17 gm 12/16/24 09:00 12/16/24 08:41 Polyethylene Glycol 3350 17 Gm Powd.Pack PO 17 gm QAM LAURA Administration Tramadol HCl 50 mg 12/15/24 23:40 12/16/24 07:26 Tramadol Hcl (*Crx) 50 Mg Tablet PO 50 mg Q6H PRN Administration Pain Rated 4-6 Radiology Results: ITS Impressions Abdomen/Pelvis CT 12/14/24 20:15 IMPRESSION: 1. Hepatomegaly. 2. Hypodensities in the right kidney lower pole which may indicate focal infection cysts are less likely. Ultrasound evaluation advised. 3. Constipation. Renal Ultrasound 12/14/24 21:36 IMPRESSION: Increased vascularity in both kidneys which may indicate pyelonephritis. Clinical correlation and follow-up advised. Abdomen Ultrasound 12/15/24 08:03 IMPRESSION: 1. Normal right upper quadrant ultrasound status post cholecystectomy. Labs Labs: Laboratory Results - last 24 hr 12/15/24 12/15/24 12/16/24 16:06 20:02 05:32 WBC 8.2 RBC 3.35 L Hgb 10.7 L Hct 30.0 L MCV 89.6 MCH 31.9 MCHC 35.7 RDW 11.2 L Plt Count 225 MPV 10.3 Immature Gran % (Auto) 0.7 H Neut % (Auto) 67.8 Lymph % (Auto) 18.2 L [place] % (Auto) 12.7 H Eos % (Auto) 0.4 Baso % (Auto) 0.2 Lymph # (Auto) 1.50 [place] # (Auto) 1.0 H Eos # (Auto) 0.0 Baso # (Auto) 0.0 Abs Immat Gran (auto) 0.06 H Absolute Neuts (auto) 5.6 Absolute Nucleated RBC 0.000 Nucleated RBC % 0.0 Sodium 130 L Potassium 3.2 L Chloride 94 L Carbon Dioxide 26 Anion Gap 10 BUN 5 L Creatinine 0.42 L Estim Creat Clear Calc 114 Estimated GFR > 60 Glucose 256 H POC Capillary Glucose 247 H 273 H Calcium 8.3 L Magnesium 1.9 Total Bilirubin 0.7 AST 67 H ALT 216 H Alkaline Phosphatase 356 H Total Protein 7.0 Albumin 3.3 L 12/16/24 12/16/24 08:06 11:42 WBC RBC Hgb Hct MCV MCH MCHC RDW Plt Count MPV Immature Gran % (Auto) Neut % (Auto) Lymph % (Auto) [place] % (Auto) Eos % (Auto) Baso % (Auto) Lymph # (Auto) [place] # (Auto) Eos # (Auto) Baso # (Auto) Abs Immat Gran (auto) Absolute Neuts (auto) Absolute Nucleated RBC Nucleated RBC % Sodium Potassium Chloride Carbon Dioxide Anion Gap BUN Creatinine Estim Creat Clear Calc Estimated GFR Glucose POC Capillary Glucose 269 H 256 H Calcium Magnesium Total Bilirubin AST ALT Alkaline Phosphatase Total Protein Albumin Quality VTE Prophylaxis VTE prophylaxis: mechanical ordered
[2024-12-16 16:00] VITALS: BP 104/64; PULSE 102; RESP 18; TEMP 36.6; O2SAT 98
[2024-12-16] MEDS: PANTOPRAZOLE 40 MG TABLET PO (16:34)
[2024-12-16 16:35] LABS: Glucose Point of Care 273 mg/dl (65-105)
[2024-12-16] MEDS: INSULIN GLARGINE (*BKC) 100 UNITS/ML 12 UNITS SUB-Q (20:41)
[2024-12-16 21:27] LABS: Glucose Point of Care 232 mg/dl (65-105)
[2024-12-17] VITALS (7 sets, daily range): BP systolic 107–157; BP diastolic 68–89; PULSE 70–89; RESP 18; TEMP 36.2–36.8; O2SAT 90–100
[2024-12-17] MEDS: traMADol HCL (*CRX) 50 MG TABLET PO ×3 (02:02→22:13)
[2024-12-17] MEDS: cefTRIAXone 2 GM/NS 100 ML 2 GM/100 ML BAG IVPB (02:02)
[2024-12-17] MEDS: LACTATED RINGERS 1,000 ML 125 ML IV CONT (02:03)
[2024-12-17 06:48] LABS: Basophils Percent Auto 0.3 % (0.2-1.2); Eosinophils Percent Auto 0.1 % (0-4.4); Hematocrit 30.7 % (37.0-47.0); Immature Granulocyte Absolute 0.04 K/mm3 (0.00-0.031); Immature Granulocyte Percent A 0.6 % (0-0.5); Lymphocytes Absolute Auto 1.38 K/mm3 (0.9-3.2); Lymphocytes Percent Auto 20.5 % (18.3-44.2); Mean Corpuscular HGB Conc 35.8 g/dl (32-36); Mean Corpuscular Hemoglobin 32.2 pg (26-34); Mean Corpuscular Volume 89.8 fl (80-100); Monocytes Absolute Auto 0.6 K/mm3 (0.1-0.6); Monocytes Percent Auto 8.3 % (2.6-8.5); Neutrophils Absolute Auto 4.7 K/mm3 (1.3-6.7); Neutrophils Percent Auto 70.2 % (45.5-73.1); Platelet Count Result 273 k/mm3 (150-375); Red Blood Count 3.42 M/mm3 (4.2-5.4); Red Cell Distribution Width 11.4 % (11.5-14.5); White Blood Count 6.7 K/mm3 (4.5-10.0)
[2024-12-17 07:03] LABS: Alanine Aminotransferase 153 U/L (6-35); Albumin Level 3.2 g/dL (3.5-5.1); Alkaline Phosphatase 324 U/L (38-126); Anion Gap 6 mmol/L (4-12); Aspartate Amino Transferase 38 U/L (14-36); Bilirubin,Total 0.5 mg/dL (0.2-1.3); Blood Urea Nitrogen 3 mg/dL (7-17); Calcium 8.2 mg/dL (8.4-10.2); Carbon Dioxide 31 mmol/L (22-30); Chloride 95 mmol/L (98-107); Estimated CRCL calculation 114 ml/min; Estimated Glomerular Filt Rate > 60; Glucose 212 mg/dL (65-110); Magnesium 1.6 mg/dL (1.6-2.3); Potassium 3.4 mmol/L (3.4-5.0); Sodium 132 mmol/L (137-145)
[2024-12-17 08:08] LABS: Glucose Point of Care 198 mg/dl (65-105)
[2024-12-17] MEDS: PANTOPRAZOLE 40 MG TABLET PO (09:44)
[2024-12-17] MEDS: atenoloL 50 MG TABLET PO (09:44)
[2024-12-17] MEDS: polyethylene glycoL 3350 17 GM POWD.PACK PO (09:45)
[2024-12-17] MEDS: POTASSIUM CHLORIDE 20 MEQ ER TABLET 40 MEQ PO (09:56)
[2024-12-17] MEDS: MAGNESIUM SULF 2 GM/WATER 50ML 2 GM/50 ML BAG IVPB (09:56)
[2024-12-17] MEDS: ONDANSETRON INJ 4 MG/2 ML VIAL IV PUSH (10:02)
--- NOTE | 2024-12-17 11:30 | P.PNIM_ITS ---
Progress Note: A&P Assessment and Plan (1) Pyelonephritis: Code(s): N12 - Tubulo-interstitial nephritis, not specified as acute or chronic Status: Acute Assessment and Plan: Patient reporting nausea vomiting and abdominal pain x4 days * Abdomen/pelvis CT showed hyperdensities in the right kidney lower pole which may indicate focal infection, hepatomegaly, constipation * Renal ultrasound shown increased vascularity in both kidneys which may indicate pyelonephritis * UA showed cloudy urine appearance, 3+ urine glucose, 1+ urine ketone, 2+ leukocytes, greater than 100 urine WBC, 4+ urine bacteria, yeast present * Urine culture grew E coli. * Patient was started on Zosyn while in the ED * Currently receiving Rocephin 2 g dosing (2) Insulin dependent diabetes mellitus: Status: Acute Assessment and Plan: * Blood sugars ranging 198-241 * Hgb A1C 11.8% * Accu checks AC/HS * Low-dose SSI ordered * Increase Lantus 14 at HS * hypoglycemic protocol in place * Diabetic diet ordered (3) Hyperglycemia without ketosis: Code(s): R73.9 - Hyperglycemia, unspecified Status: Acute Assessment and Plan: * Blood sugars ranging 198-241 * Patient was given 5 units of insulin while in the ED * Hemoglobin A1c 11.8% * Accu checks AC/HS * Low-dose SSI ordered * Increase Lantus 14 at HS * hypoglycemic protocol in place * Diabetic diet ordered * Anion gap 12, beta hydroxybutyrate 0.73, UA showing 3+ glucose, 1+ ketone * Continue to monitor (4) Elevated LFTs: Code(s): R79.89 - Other specified abnormal findings of blood chemistry Status: Acute Assessment and Plan: * 12/17/24: Total bili 0.5, AST 38, ALT 153, alkaline phosphatase 324. * 12/16/24: Total bili 0.7, AST 67, ALT 216, alkaline phosphatase 356. * 12/15/24:Total bili 1.5, AST 260, ALT 337, alkaline phosphatase 422. * Abdomen/pelvis CT showed hepatomegaly, gallbladder was not demonstrated most likely due to cholecystectomy * Patient does take glipizide, ? Hepatotoxicity * Continue to trend * US of Liver showed:FINDINGS: The visualized portions of the head, body, and tail of the pancreas are normal. The liver is normal without focal lesion. There is normal flow in main portal vein. The gallbladder is absent. The common duct is normal and measures 5 mm. IMPRESSION: 1. Normal right upper quadrant ultrasound status post cholecystectomy. * Hepatitis panel- negative. (5) Hypokalemia: Code(s): E87.6 - Hypokalemia Status: Acute Assessment and Plan: * Potassium 3.4. * Potassium 40 meq PO x1. * Monitor lab. (6) Nausea & vomiting: Code(s): R11.2 - Nausea with vomiting, unspecified Status: Acute Assessment and Plan: * Change Zofran to Prochlorperazine 10 mg q 6 PRN. * NS @ 100 ml/hr. (7) Constipation: Code(s): K59.00 - Constipation, unspecified Status: Acute Assessment and Plan: * Miralax 17 gram PO daily * Add Docusate/senna tab 1 tab PO BID. * Encourage water to drink and activity. Subjective Date/time seen: 12/17/24 11:30 Interval history: Patient reports pain in her head that is a 6 , frequent, and aching. Patient denies chest pain, palpitations, headache, or dizziness. Patient had episode of vomiting earlier and is having some nausea not. Review of Systems Review of Systems: All systems reviewed & are unremarkable except as noted in HPI and below Exam Const: General: no acute distress and uncomfortable Resp: Effort & Inspection: normal respiratory effort Auscultation: clear to auscultation bilaterally Cardio: Rate: regular rate Rhythm: regular rhythm GI: GI Palp: Yes Soft to palpation Other: hypoactive. Neuro: Speech: normal speech Extrem: General: no pedal edema Psych: Mental Status: mental status grossly normal Affect: normal affect Objective Data Vital Signs Vital Signs: Vital Signs - 24 hr 12/16/24 16:00 12/16/24 20:00 12/17/24 00:00 Temperature 98 F 97.1 F L Pulse Rate 102 H 86 Respiratory Rate 18 18 Blood Pressure 104/64 128/80 Pulse Oximetry 98 90 Oxygen Delivery Room Air 12/17/24 05:30 12/17/24 08:00 12/17/24 09:39 Temperature 98.2 F 97.5 F L Pulse Rate 83 87 Respiratory Rate 18 18 Blood Pressure 146/87 H 157/89 H Pulse Oximetry 96 100 94 Oxygen Delivery Room Air 12/17/24 09:44 Temperature Pulse Rate 70 Respiratory Rate Blood Pressure Pulse Oximetry Oxygen Delivery Intake/Output Intake/Output: Intake & Output 12/14/24 12/15/24 12/16/24 12/17/24 23:59 23:59 23:59 23:59 Intake Total 2100 3365.4 4251.3 1400 Balance 2100 3365.4 4251.3 1400 Meds/Results Medications: Active Medications Generic Name Dose Route Start Last Admin Trade Name Freq PRN Reason Stop Dose Admin Acetaminophen 650 mg 12/14/24 21:07 Acetaminophen 325 Mg Tablet PO Q4H PRN Mild Pain (1-3) or Fever Atenolol 50 mg 12/15/24 09:00 12/17/24 09:44 Atenolol 50 Mg Tablet PO 50 mg DAILY LAURA Administration Dextrose 12.5 gm 12/15/24 02:21 Dextrose 50% 25 Gm/50 Ml Syringe IV PUSH PRN PRN Hypoglycemia Protocol Glucagon 1 mg 12/15/24 02:21 Glucagon For Inj 1 Mg Vial IM PRN PRN Hypoglycemia Protocol Glucose 15 gm 12/15/24 02:21 Glucose Oral Gel 15 Gm Of Glucse In 37.5 Gm Tube PO PRN PRN Hypoglycemia Protocol Lactated Ringer's 1,000 mls @ 125 mls/hr 12/14/24 21:10 12/17/24 02:03 Lr - Lactated Ringers Iv IV CONT 125 mls/hr .Q8H LAURA Administration Dextrose 1,000 mls @ 100 mls/hr 12/15/24 02:21 Dextrose 5% 1,000 Ml IVPB PRN PRN Hypoglycemia Protocol Ceftriaxone Sodium 2 gm in 100 mls @ 200 mls/hr 12/15/24 03:00 12/17/24 02:02 Rocephin 2 Gm/Ns 100 Ml IVPB 200 mls/hr Q24H LAURA Administration Magnesium Sulfate 2 gm in 50 mls @ 25 mls/hr 12/17/24 09:33 12/17/24 09:56 Magnesium Sulf 2 Gm/Water 50ml IVPB 12/17/24 11:32 25 mls/hr ONCE ONE Administration Insulin Aspart 2 - 5 units 12/15/24 08:00 12/17/24 08:46 Insulin Aspart (*Bkc) 100 Units/Ml SUB-Q Not Given TIDWM LAURA Protocol Insulin Aspart 1 - 2 units 12/15/24 21:00 12/16/24 20:42 Insulin Aspart (*Bkc) 100 Units/Ml SUB-Q 1 units HS LAURA Administration Protocol Insulin Glargine 12 units 12/16/24 21:00 12/16/24 20:41 Insulin Glargine (*Bkc) 100 Units/Ml SUB-Q 12 units HS LAURA Administration Ondansetron HCl 4 mg 12/14/24 21:07 12/17/24 10:02 Ondansetron Inj 4 Mg/2 Ml Vial IV PUSH 4 mg Q4H PRN Administration Nausea Pantoprazole Sodium 40 mg 12/16/24 14:55 12/17/24 09:44 Pantoprazole 40 Mg Tablet PO 40 mg QAM LAURA Administration Polyethylene Glycol 17 gm 12/16/24 09:00 12/17/24 09:45 Polyethylene Glycol 3350 17 Gm Powd.Pack PO 17 gm QAM LAURA Administration Tramadol HCl 50 mg 12/15/24 23:40 12/17/24 09:57 Tramadol Hcl (*Crx) 50 Mg Tablet PO 50 mg Q6H PRN Administration Pain Rated 4-6 Radiology Results: ITS Impressions Abdomen/Pelvis CT 12/14/24 20:15 IMPRESSION: 1. Hepatomegaly. 2. Hypodensities in the right kidney lower pole which may indicate focal infection cysts are less likely. Ultrasound evaluation advised. 3. Constipation. Renal Ultrasound 12/14/24 21:36 IMPRESSION: Increased vascularity in both kidneys which may indicate pyelonephritis. Clinical correlation and follow-up advised. Abdomen Ultrasound 12/15/24 08:03 IMPRESSION: 1. Normal right upper quadrant ultrasound status post cholecystectomy. Labs Labs: Laboratory Results - last 24 hr 12/16/24 12/16/24 12/16/24 11:42 16:28 20:15 WBC RBC Hgb Hct MCV MCH MCHC RDW Plt Count MPV Immature Gran % (Auto) Neut % (Auto) Lymph % (Auto) [place] % (Auto) Eos % (Auto) Baso % (Auto) Lymph # (Auto) [place] # (Auto) Eos # (Auto) Baso # (Auto) Abs Immat Gran (auto) Absolute Neuts (auto) Absolute Nucleated RBC Nucleated RBC % Sodium Potassium Chloride Carbon Dioxide Anion Gap BUN Creatinine Estim Creat Clear Calc Estimated GFR Glucose POC Capillary Glucose 256 H 273 H 232 H Calcium Magnesium Total Bilirubin AST ALT Alkaline Phosphatase Total Protein Albumin 12/17/24 12/17/24 06:00 07:42 WBC 6.7 RBC 3.42 L Hgb 11.0 L Hct 30.7 L MCV 89.8 MCH 32.2 MCHC 35.8 RDW 11.4 L Plt Count 273 MPV 10.0 Immature Gran % (Auto) 0.6 H Neut % (Auto) 70.2 Lymph % (Auto) 20.5 [place] % (Auto) 8.3 Eos % (Auto) 0.1 Baso % (Auto) 0.3 Lymph # (Auto) 1.38 [place] # (Auto) 0.6 Eos # (Auto) 0.0 Baso # (Auto) 0.0 Abs Immat Gran (auto) 0.04 H Absolute Neuts (auto) 4.7 Absolute Nucleated RBC 0.000 Nucleated RBC % 0.0 Sodium 132 L Potassium 3.4 Chloride 95 L Carbon Dioxide 31 H Anion Gap 6 BUN 3 L Creatinine 0.42 L Estim Creat Clear Calc 114 Estimated GFR > 60 Glucose 212 H POC Capillary Glucose 198 H Calcium 8.2 L Magnesium 1.6 Total Bilirubin 0.5 AST 38 H ALT 153 H Alkaline Phosphatase 324 H Total Protein 6.0 L Albumin 3.2 L Quality VTE Prophylaxis VTE prophylaxis: mechanical ordered
[2024-12-17 12:02] LABS: Glucose Point of Care 241 mg/dl (65-105)
[2024-12-17] MEDS: SENNA/DOCUSATE SODIUM TABLET 1 TAB PO ×2 (12:04→17:13)
[2024-12-17] MEDS: PROCHLORPERAZINE EDISYLATE 10 MG/2 ML VIAL IV PUSH ×2 (12:04→20:58)
[2024-12-17] MEDS: SODIUM CHLORIDE 0.9% IV 1,000 ML 100 ML IV CONT ×2 (12:05→20:55)
[2024-12-17] MEDS: INSULIN ASPART (*BKC) 100 UNITS/ML SUB-Q ×3 (12:05→20:57)
[2024-12-17 17:09] LABS: Glucose Point of Care 317 mg/dl (65-105)
[2024-12-17] MEDS: INSULIN GLARGINE (*BKC) 100 UNITS/ML 14 UNITS SUB-Q (20:58)
[2024-12-17 21:21] LABS: Glucose Point of Care 241 mg/dl (65-105)
[2024-12-18 05:08] VITALS: BP 142/75; PULSE 81; RESP 18; TEMP 36.8; O2SAT 99
[2024-12-18 06:30] LABS: Basophils Percent Auto 0.6 % (0.2-1.2); Eosinophils Absolute Auto 0.1 K/mm3 (0-0.3); Eosinophils Percent Auto 0.8 % (0-4.4); Hematocrit 28.7 % (37.0-47.0); Hemoglobin 10.2 g/dL (12.0-15.0); Immature Granulocyte Absolute 0.06 K/mm3 (0.00-0.031); Immature Granulocyte Percent A 0.9 % (0-0.5); Lymphocytes Absolute Auto 1.61 K/mm3 (0.9-3.2); Lymphocytes Percent Auto 25.3 % (18.3-44.2); Mean Corpuscular HGB Conc 35.5 g/dl (32-36); Mean Corpuscular Hemoglobin 32.8 pg (26-34); Mean Corpuscular Volume 92.3 fl (80-100); Mean Platelet Volume 10.1 fl (7.4-10.4); Monocytes Absolute Auto 0.6 K/mm3 (0.1-0.6); Monocytes Percent Auto 9.1 % (2.6-8.5); Neutrophils Percent Auto 63.3 % (45.5-73.1); Platelet Count Result 302 k/mm3 (150-375); Red Blood Count 3.11 M/mm3 (4.2-5.4); Red Cell Distribution Width 11.7 % (11.5-14.5); White Blood Count 6.4 K/mm3 (4.5-10.0)
[2024-12-18] MEDS: cefTRIAXone 2 GM/NS 100 ML 2 GM/100 ML BAG IVPB (06:38)
[2024-12-18 07:50] LABS: Glucose Point of Care 274 mg/dl (65-105)
[2024-12-18 09:03] LABS: Alanine Aminotransferase 121 U/L (6-35); Alkaline Phosphatase 308 U/L (38-126); Anion Gap 7 mmol/L (4-12); Aspartate Amino Transferase 36 U/L (14-36); Bilirubin,Total 0.5 mg/dL (0.2-1.3); Blood Urea Nitrogen 3 mg/dL (7-17); Calcium 7.9 mg/dL (8.4-10.2); Carbon Dioxide 31 mmol/L (22-30); Chloride 96 mmol/L (98-107); Estimated CRCL calculation 103 ml/min; Estimated Glomerular Filt Rate > 60; Glucose 280 mg/dL (65-110); Magnesium 1.8 mg/dL (1.6-2.3); Potassium 3.2 mmol/L (3.4-5.0); Sodium 134 mmol/L (137-145)
[2024-12-18] MEDS: ACETAMINOPHEN 325 MG TABLET 650 MG PO ×2 (10:02→19:35)
[2024-12-18] MEDS: POTASSIUM CHLORIDE 20 MEQ ER TABLET 40 MEQ PO ×2 (10:03→13:34)
[2024-12-18 10:04] VITALS: PULSE 81
[2024-12-18] MEDS: atenoloL 50 MG TABLET PO (10:04)
[2024-12-18] MEDS: PANTOPRAZOLE 40 MG TABLET PO (10:05)
[2024-12-18] MEDS: INSULIN ASPART (*BKC) 100 UNITS/ML SUB-Q ×4 (10:06→21:04)
[2024-12-18] MEDS: SENNA/DOCUSATE SODIUM TABLET 1 TAB PO ×2 (10:12→19:32)
--- NOTE | 2024-12-18 11:17 | P.PNIM_ITS ---
Progress Note: A&P Assessment and Plan (1) Pyelonephritis: Code(s): N12 - Tubulo-interstitial nephritis, not specified as acute or chronic Status: Acute Assessment and Plan: Patient reporting nausea vomiting and abdominal pain x4 days * Abdomen/pelvis CT showed hyperdensities in the right kidney lower pole which may indicate focal infection, hepatomegaly, constipation * Renal ultrasound shown increased vascularity in both kidneys which may indicate pyelonephritis * UA showed cloudy urine appearance, 3+ urine glucose, 1+ urine ketone, 2+ leukocytes, greater than 100 urine WBC, 4+ urine bacteria, yeast present * Urine culture grew E coli. * Patient was started on Zosyn while in the ED * Switch from Rocephin to Septra DS tonight. (2) Insulin dependent diabetes mellitus: Status: Acute Assessment and Plan: * Blood sugars ranging 258-274 * Hgb A1C 11.8% * Accu checks AC/HS * Low-dose SSI ordered * Continue Lantus 14 at HS * hypoglycemic protocol in place * Diabetic diet ordered (3) Hyperglycemia without ketosis: Code(s): R73.9 - Hyperglycemia, unspecified Status: Acute Assessment and Plan: * Blood sugars ranging 258-274 * Patient was given 5 units of insulin while in the ED * Hemoglobin A1c 11.8% * Accu checks AC/HS * Low-dose SSI ordered * Continue Lantus 14 at HS * hypoglycemic protocol in place * Diabetic diet ordered * Anion gap 12, beta hydroxybutyrate 0.73, UA showing 3+ glucose, 1+ ketone * Continue to monitor (4) Elevated LFTs: Code(s): R79.89 - Other specified abnormal findings of blood chemistry Status: Acute Assessment and Plan: * 12/18/24: Total bili 0.5, AST 36, ALT 121, Alkaline phosphatase 308. * 12/17/24: Total bili 0.5, AST 38, ALT 153, alkaline phosphatase 324. * 12/16/24: Total bili 0.7, AST 67, ALT 216, alkaline phosphatase 356. * 12/15/24:Total bili 1.5, AST 260, ALT 337, alkaline phosphatase 422. * Abdomen/pelvis CT showed hepatomegaly, gallbladder was not demonstrated most likely due to cholecystectomy * Patient does take glipizide, ? Hepatotoxicity * Continue to trend * US of Liver showed:FINDINGS: The visualized portions of the head, body, and tail of the pancreas are normal. The liver is normal without focal lesion. There is normal flow in main portal vein. The gallbladder is absent. The common duct is normal and measures 5 mm. IMPRESSION: 1. Normal right upper quadrant ultrasound status post cholecystectomy. * Hepatitis panel- negative. (5) Hypokalemia: Code(s): E87.6 - Hypokalemia Status: Acute Assessment and Plan: * Potassium 3.2. * Potassium 40 meq PO x2. * Monitor lab. (6) Nausea & vomiting: Code(s): R11.2 - Nausea with vomiting, unspecified Status: Acute Assessment and Plan: * Change Zofran to Prochlorperazine 10 mg q 6 PRN. (7) Constipation: Code(s): K59.00 - Constipation, unspecified Status: Acute Assessment and Plan: * Miralax 17 gram PO daily * Docusate/senna tab 1 tab PO BID. * Encourage water to drink and activity. * Last BM today. Subjective Date/time seen: 12/18/24 11:17 Interval history: Patient reports that her back feels better today. Patient had a headache this morning that has now gone away. Patient reports starting to eat more. Patient denies chest pain, palpitations, headache, dizziness, nausea, or vomiting. Review of Systems Review of Systems: All systems reviewed & are unremarkable except as noted in HPI and below Exam Const: General: comfortable and no acute distress Resp: Effort & Inspection: normal respiratory effort Auscultation: clear to auscultation bilaterally Cardio: Rate: regular rate Rhythm: regular rhythm GI: GI Palp: Yes Soft to palpation Auscultation: normal bowel sounds Neuro: Speech: normal speech Extrem: General: no pedal edema Psych: Mental Status: mental status grossly normal Affect: normal affect Objective Data Vital Signs Vital Signs: Vital Signs - 24 hr 12/17/24 16:00 12/17/24 21:48 12/18/24 05:08 Temperature 98.1 F 98 F 98.2 F Pulse Rate 89 88 81 Respiratory Rate 18 18 18 Blood Pressure 107/68 147/85 H 142/75 H Pulse Oximetry 93 98 99 12/18/24 10:04 Temperature Pulse Rate 81 Respiratory Rate Blood Pressure Pulse Oximetry Intake/Output Intake/Output: Intake & Output 0312/16/24 12/17/24 12/18/24 23:59 23:59 23:59 23:59 Intake Total 3365.4 4251.3 2583.3 300 Output Total 500 Balance 3365.4 4251.3 2583.3 -200 Meds/Results Medications: Active Medications Generic Name Dose Route Start Last Admin Trade Name Freq PRN Reason Stop Dose Admin Acetaminophen 650 mg 12/14/24 21:07 12/18/24 10:02 Acetaminophen 325 Mg Tablet PO 650 mg Q4H PRN Administration Mild Pain (1-3) or Fever Atenolol 50 mg 12/15/24 09:00 12/18/24 10:04 Atenolol 50 Mg Tablet PO 50 mg DAILY LAURA Administration Dextrose 12.5 gm 12/15/24 02:21 Dextrose 50% 25 Gm/50 Ml Syringe IV PUSH PRN PRN Hypoglycemia Protocol Glucagon 1 mg 12/15/24 02:21 Glucagon For Inj 1 Mg Vial IM PRN PRN Hypoglycemia Protocol Glucose 15 gm 12/15/24 02:21 Glucose Oral Gel 15 Gm Of Glucse In 37.5 Gm Tube PO PRN PRN Hypoglycemia Protocol Dextrose 1,000 mls @ 100 mls/hr 12/15/24 02:21 Dextrose 5% 1,000 Ml IVPB PRN PRN Hypoglycemia Protocol Ceftriaxone Sodium 2 gm in 100 mls @ 200 mls/hr 12/15/24 03:00 12/18/24 06:38 Rocephin 2 Gm/Ns 100 Ml IVPB 200 mls/hr Q24H LAURA Administration Sodium Chloride 1,000 mls @ 100 mls/hr 12/17/24 11:35 12/17/24 20:55 Normal Saline Iv IV CONT 100 mls/hr .Q10H LAURA Administration Insulin Aspart 2 - 5 units 12/15/24 08:00 12/18/24 10:06 Insulin Aspart (*Bkc) 100 Units/Ml SUB-Q 3 units TIDWM LAURA Administration Protocol Insulin Aspart 1 - 2 units 12/15/24 21:00 12/17/24 20:57 Insulin Aspart (*Bkc) 100 Units/Ml SUB-Q 1 units HS LAURA Administration Protocol Insulin Glargine 14 units 12/17/24 21:00 12/17/24 20:58 Insulin Glargine (*Bkc) 100 Units/Ml SUB-Q 14 units HS LAURA Administration Pantoprazole Sodium 40 mg 12/16/24 14:55 12/18/24 10:05 Pantoprazole 40 Mg Tablet PO 40 mg QAM LAURA Administration Polyethylene Glycol 17 gm 12/16/24 09:00 12/17/24 09:45 Polyethylene Glycol 3350 17 Gm Powd.Pack PO 17 gm QAM LAURA Administration Potassium Chloride 40 meq 12/18/24 14:00 Potassium Chloride 20 Meq Er Tablet PO 12/18/24 14:01 ONCE ONE Prochlorperazine Edisylate 10 mg 12/17/24 11:32 12/17/24 20:58 Prochlorperazine Edisylate 10 Mg/2 Ml Vial IV PUSH 10 mg Q6H PRN Administration Nausea And Vomiting Senna/Docusate Sodium 1 tab 12/17/24 11:35 12/18/24 10:12 Senna/Docusate Sodium Tablet PO 1 tab BID LAURA Administration Tramadol HCl 50 mg 12/15/24 23:40 12/17/24 22:13 Tramadol Hcl (*Crx) 50 Mg Tablet PO 50 mg Q6H PRN Administration Pain Rated 4-6 Radiology Results: ITS Impressions Abdomen/Pelvis CT 12/14/24 20:15 IMPRESSION: 1. Hepatomegaly. 2. Hypodensities in the right kidney lower pole which may indicate focal infection cysts are less likely. Ultrasound evaluation advised. 3. Constipation. Renal Ultrasound 12/14/24 21:36 IMPRESSION: Increased vascularity in both kidneys which may indicate pyelonephritis. Clinical correlation and follow-up advised. Abdomen Ultrasound 12/15/24 08:03 IMPRESSION: 1. Normal right upper quadrant ultrasound status post cholecystectomy. Labs Labs: Laboratory Results - last 24 hr 12/17/24 12/17/24 12/17/24 11:42 16:59 20:45 WBC RBC Hgb Hct MCV MCH MCHC RDW Plt Count MPV Immature Gran % (Auto) Neut % (Auto) Lymph % (Auto) [place] % (Auto) Eos % (Auto) Baso % (Auto) Lymph # (Auto) [place] # (Auto) Eos # (Auto) Baso # (Auto) Abs Immat Gran (auto) Absolute Neuts (auto) Absolute Nucleated RBC Nucleated RBC % Sodium Potassium Chloride Carbon Dioxide Anion Gap BUN Creatinine Estim Creat Clear Calc Estimated GFR Glucose POC Capillary Glucose 241 H 317 H 241 H Calcium Magnesium Total Bilirubin AST ALT Alkaline Phosphatase Total Protein Albumin 12/18/24 12/18/24 12/18/24 05:34 07:12 07:46 WBC 6.4 RBC 3.11 L Hgb 10.2 L Hct 28.7 L MCV 92.3 MCH 32.8 MCHC 35.5 RDW 11.7 Plt Count 302 MPV 10.1 Immature Gran % (Auto) 0.9 H Neut % (Auto) 63.3 Lymph % (Auto) 25.3 [place] % (Auto) 9.1 H Eos % (Auto) 0.8 Baso % (Auto) 0.6 Lymph # (Auto) 1.61 [place] # (Auto) 0.6 Eos # (Auto) 0.1 Baso # (Auto) 0.0 Abs Immat Gran (auto) 0.06 H Absolute Neuts (auto) 4.0 Absolute Nucleated RBC 0.000 Nucleated RBC % 0.0 Sodium 134 L Potassium 3.2 L Chloride 96 L Carbon Dioxide 31 H Anion Gap 7 BUN 3 L Creatinine 0.47 L Estim Creat Clear Calc 103 Estimated GFR > 60 Glucose 280 H POC Capillary Glucose 274 H Calcium 7.9 L Magnesium 1.8 Total Bilirubin 0.5 AST 36 ALT 121 H Alkaline Phosphatase 308 H Total Protein 6.0 L Albumin 3.0 L Quality VTE Prophylaxis VTE prophylaxis: mechanical ordered
--- NOTE | 2024-12-18 11:17 | PM.IMHP ---
H&P: HPI History of Present Illness Date/Time: 12/18/24 11:17 Review of Systems Review of Systems: All systems reviewed & are unremarkable except as noted in HPI and below PMFSH Past Medical History Medical History Insulin dependent diabetes mellitus Social History Social History Smoking status: Never smoker Alcohol intake: never Substance use: never Substance use type: does not use Do You Feel Safe in your Home?: Yes Lack of Transportation: YES Lack of Food: Never True Current Housing: I Have Housing Concerned About Future Housing: No Difficulty Paying Gas/Electric Bills: No Difficulty Paying for Meds: No Currently Unemployed: No Education: Decline to Answer Difficulty w/ Childcare or Family Care: No Gender identity (if verbalized by the patient): Female Spiritual care concerns: No Meds Home Medications and Allergies Home Medications ?Medication ?Instructions ?Recorded ?Confirmed ?Type liraglutide 0.6 mg/0.1 mL (18 mg/3 mg subcut 03/16/20 History mL) subcutaneous pen injector (Victoza 3-Yves) ondansetron 4 mg disintegrating 4 mg PO Q6H PRN nausea and 03/16/20 12/14/24 Rx tablet vomiting #14 tabs pioglitazone 30 mg tablet 30 mg PO DAILY 03/16/20 12/14/24 History atenolol 50 mg tablet 50 mg PO DAILY 12/14/24 12/14/24 History canagliflozin 300 mg tablet 300 mg PO DAILY 12/14/24 12/14/24 History (Invokana) glipizide 5 mg tablet 5 mg PO BIDAC 12/14/24 12/14/24 History insulin glargine 100 unit/mL (3 10 unit subcut HS 12/14/24 12/14/24 History mL) subcutaneous pen (Lantus Solostar U-100 Insulin) Allergies Allergy/AdvReac Type Severity Reaction Status Date / Time acetaminophen (From [place]) Allergy Itching Verified 12/16/24 07:28 hydrocodone (From [place]) Allergy Itching Verified 12/16/24 07:28 hydromorphone (From Dilaud[place]) Allergy Itching Verified 12/16/24 07:28 Vital Signs Vital Signs - 24 hr 12/17/24 16:00 12/17/24 21:48 12/18/24 05:08 Temperature 98.1 F 98 F 98.2 F Pulse Rate 89 88 81 Respiratory Rate 18 18 18 Blood Pressure 107/68 147/85 H 142/75 H Pulse Oximetry 93 98 99 12/18/24 10:04 Temperature Pulse Rate 81 Respiratory Rate Blood Pressure Pulse Oximetry H&P: Results Labs Labs: Short CBC 12/18/24 Range/Units 05:34 WBC 6.4 (4.5-10.0) K/mm3 Hgb 10.2 L (12.0-15.0) g/dL Hct 28.7 L (37.0-47.0) % Plt Count 302 (150-375) k/mm3 BMP 12/18/24 07:12 Sodium 134 L Potassium 3.2 L Chloride 96 L Carbon Dioxide 31 H BUN 3 L Creatinine 0.47 L Glucose 280 H Calcium 7.9 L Liver Function 12/18/24 Range/Units 07:12 Total Bilirubin 0.5 (0.2-1.3) mg/dL AST 36 (14-36) U/L ALT 121 H (6-35) U/L Alkaline Phosphatase 308 H (38-126) U/L Albumin 3.0 L (3.5-5.1) g/dL
[2024-12-18 11:41] LABS: Glucose Point of Care 258 mg/dl (65-105)
[2024-12-18 14:27] VITALS: BP 135/76; PULSE 79; RESP 18; TEMP 36.5; O2SAT 96
[2024-12-18 16:32] LABS: Glucose Point of Care 202 mg/dl (65-105)
[2024-12-18] MEDS: INSULIN GLARGINE (*BKC) 100 UNITS/ML 14 UNITS SUB-Q (21:03)
[2024-12-18] MEDS: SULFAMETHOXAZOLE/TRIMETHOPRIM 800/160 MG DS TABLET 1 TAB PO (21:03)
[2024-12-18] MEDS: traMADol HCL (*CRX) 50 MG TABLET PO (21:08)
[2024-12-18 21:35] LABS: Glucose Point of Care 282 mg/dl (65-105)
[2024-12-18 21:39] VITALS: BP 140/84; PULSE 95; RESP 18; TEMP 36.6; O2SAT 95
[2024-12-19 05:00] VITALS: BP 147/84; PULSE 82; RESP 18; TEMP 36.4; O2SAT 100
[2024-12-19 06:00] LABS: Basophils Percent Auto 0.5 % (0.2-1.2); Eosinophils Absolute Auto 0.1 K/mm3 (0-0.3); Eosinophils Percent Auto 1.3 % (0-4.4); Hematocrit 29.5 % (37.0-47.0); Hemoglobin 10.6 g/dL (12.0-15.0); Immature Granulocyte Absolute 0.08 K/mm3 (0.00-0.031); Immature Granulocyte Percent A 1.3 % (0-0.5); Lymphocytes Absolute Auto 2.33 K/mm3 (0.9-3.2); Lymphocytes Percent Auto 38.7 % (18.3-44.2); Mean Corpuscular HGB Conc 35.9 g/dl (32-36); Mean Corpuscular Hemoglobin 31.9 pg (26-34); Mean Corpuscular Volume 88.9 fl (80-100); Mean Platelet Volume 9.6 fl (7.4-10.4); Monocytes Absolute Auto 0.5 K/mm3 (0.1-0.6); Neutrophils Percent Auto 49.2 % (45.5-73.1); Platelet Count Result 398 k/mm3 (150-375); Red Blood Count 3.32 M/mm3 (4.2-5.4); Red Cell Distribution Width 11.4 % (11.5-14.5)
[2024-12-19 06:17] LABS: Alanine Aminotransferase 119 U/L (6-35); Albumin Level 3.3 g/dL (3.5-5.1); Alkaline Phosphatase 301 U/L (38-126); Anion Gap 8 mmol/L (4-12); Aspartate Amino Transferase 42 U/L (14-36); Bilirubin,Total 0.5 mg/dL (0.2-1.3); Blood Urea Nitrogen 2 mg/dL (7-17); Calcium 8.3 mg/dL (8.4-10.2); Carbon Dioxide 30 mmol/L (22-30); Chloride 96 mmol/L (98-107); Estimated CRCL calculation 114 ml/min; Estimated Glomerular Filt Rate > 60; Glucose 216 mg/dL (65-110); Potassium 3.4 mmol/L (3.4-5.0); Sodium 134 mmol/L (137-145)
[2024-12-19 07:36] LABS: Glucose Point of Care 219 mg/dl (65-105)
[2024-12-19] MEDS: PANTOPRAZOLE 40 MG TABLET PO (09:39)
[2024-12-19] MEDS: SENNA/DOCUSATE SODIUM TABLET 1 TAB PO (09:39)
[2024-12-19 09:40] VITALS: PULSE 82
[2024-12-19] MEDS: atenoloL 50 MG TABLET PO (09:40)
[2024-12-19] MEDS: traMADol HCL (*CRX) 50 MG TABLET PO (09:42)
[2024-12-19] MEDS: SULFAMETHOXAZOLE/TRIMETHOPRIM 800/160 MG DS TABLET 1 TAB PO (09:42)
[2024-12-19] MEDS: ACETAMINOPHEN 325 MG TABLET 650 MG PO (09:43)
[2024-12-19] MEDS: INSULIN ASPART (*BKC) 100 UNITS/ML SUB-Q ×2 (09:45→13:22)
[2024-12-19] MEDS: POTASSIUM CHLORIDE 20 MEQ ER TABLET 40 MEQ PO (09:47)
--- NOTE | 2024-12-19 11:18 | P.PNIM_ITS ---
Subjective Date/time seen: 12/19/24 11:18 Review of Systems Review of Systems: All systems reviewed & are unremarkable except as noted in HPI and below Objective Data Vital Signs Vital Signs: Vital Signs - 24 hr 12/18/24 14:27 12/18/24 21:39 12/19/24 05:00 Temperature 97.7 F 98 F 97.6 F Pulse Rate 79 95 82 Respiratory Rate 18 18 18 Blood Pressure 135/76 140/84 147/84 H Pulse Oximetry 96 95 100 12/19/24 09:40 Temperature Pulse Rate 82 Respiratory Rate Blood Pressure Pulse Oximetry Intake/Output Intake/Output: Intake & Output 12/16/24 12/17/24 12/18/24 12/19/24 23:59 23:59 23:59 23:59 Intake Total 4251.3 2583.3 1680 550 Output Total 500 Balance 4251.3 2583.3 1180 550 Meds/Results Medications: Active Medications Generic Name Dose Route Start Last Admin Trade Name Freq PRN Reason Stop Dose Admin Acetaminophen 650 mg 12/14/24 21:07 12/19/24 09:43 Acetaminophen 325 Mg Tablet PO 650 mg Q4H PRN Administration Mild Pain (1-3) or Fever Atenolol 50 mg 12/15/24 09:00 12/19/24 09:40 Atenolol 50 Mg Tablet PO 50 mg DAILY LAURA Administration Dextrose 12.5 gm 12/15/24 02:21 Dextrose 50% 25 Gm/50 Ml Syringe IV PUSH PRN PRN Hypoglycemia Protocol Glucagon 1 mg 12/15/24 02:21 Glucagon For Inj 1 Mg Vial IM PRN PRN Hypoglycemia Protocol Glucose 15 gm 12/15/24 02:21 Glucose Oral Gel 15 Gm Of Glucse In 37.5 Gm Tube PO PRN PRN Hypoglycemia Protocol Dextrose 1,000 mls @ 100 mls/hr 12/15/24 02:21 Dextrose 5% 1,000 Ml IVPB PRN PRN Hypoglycemia Protocol Insulin Aspart 2 - 5 units 12/15/24 08:00 12/19/24 09:45 Insulin Aspart (*Bkc) 100 Units/Ml SUB-Q 2 units TIDWM LAURA Administration Protocol Insulin Aspart 1 - 2 units 12/15/24 21:00 12/18/24 21:04 Insulin Aspart (*Bkc) 100 Units/Ml SUB-Q 1 units HS LAURA Administration Protocol Insulin Glargine 14 units 12/17/24 21:00 12/18/24 21:03 Insulin Glargine (*Bkc) 100 Units/Ml SUB-Q 14 units HS LAURA Administration Pantoprazole Sodium 40 mg 12/16/24 14:55 12/19/24 09:39 Pantoprazole 40 Mg Tablet PO 40 mg QAM LAURA Administration Polyethylene Glycol 17 gm 12/16/24 09:00 12/18/24 13:43 Polyethylene Glycol 3350 17 Gm Powd.Pack PO Not Given QAM LAURA Prochlorperazine Edisylate 10 mg 12/17/24 11:32 12/17/24 20:58 Prochlorperazine Edisylate 10 Mg/2 Ml Vial IV PUSH 10 mg Q6H PRN Administration Nausea And Vomiting Senna/Docusate Sodium 1 tab 12/17/24 11:35 12/19/24 09:39 Senna/Docusate Sodium Tablet PO 1 tab BID LAURA Administration Tramadol HCl 50 mg 12/15/24 23:40 12/19/24 09:42 Tramadol Hcl (*Crx) 50 Mg Tablet PO 50 mg Q6H PRN Administration Pain Rated 4-6 Trimethoprim/Sulfamethoxazole 1 tab 12/18/24 21:00 12/19/24 09:42 Sulfamethoxazole/Trimethoprim 800/160 Mg Ds Tablet PO 12/25/24 09:01 1 tab Q12HR LAURA Administration Radiology Results: ITS Impressions Abdomen/Pelvis CT 12/14/24 20:15 IMPRESSION: 1. Hepatomegaly. 2. Hypodensities in the right kidney lower pole which may indicate focal infection cysts are less likely. Ultrasound evaluation advised. 3. Constipation. Renal Ultrasound 12/14/24 21:36 IMPRESSION: Increased vascularity in both kidneys which may indicate pyelonephritis. Clinical correlation and follow-up advised. Abdomen Ultrasound 12/15/24 08:03 IMPRESSION: 1. Normal right upper quadrant ultrasound status post cholecystectomy. Labs Labs: Laboratory Results - last 24 hr 12/18/24 12/18/24 12/18/24 11:29 16:29 20:48 WBC RBC Hgb Hct MCV MCH MCHC RDW Plt Count MPV Immature Gran % (Auto) Neut % (Auto) Lymph % (Auto) [place] % (Auto) Eos % (Auto) Baso % (Auto) Lymph # (Auto) [place] # (Auto) Eos # (Auto) Baso # (Auto) Abs Immat Gran (auto) Absolute Neuts (auto) Absolute Nucleated RBC Nucleated RBC % Sodium Potassium Chloride Carbon Dioxide Anion Gap BUN Creatinine Estim Creat Clear Calc Estimated GFR Glucose POC Capillary Glucose 258 H 202 H 282 H Calcium Total Bilirubin AST ALT Alkaline Phosphatase Total Protein Albumin 12/19/24 12/19/24 05:16 07:24 WBC 6.0 RBC 3.32 L Hgb 10.6 L Hct 29.5 L MCV 88.9 MCH 31.9 MCHC 35.9 RDW 11.4 L Plt Count 398 H MPV 9.6 Immature Gran % (Auto) 1.3 H Neut % (Auto) 49.2 Lymph % (Auto) 38.7 [place] % (Auto) 9.0 H Eos % (Auto) 1.3 Baso % (Auto) 0.5 Lymph # (Auto) 2.33 [place] # (Auto) 0.5 Eos # (Auto) 0.1 Baso # (Auto) 0.0 Abs Immat Gran (auto) 0.08 H Absolute Neuts (auto) 3.0 Absolute Nucleated RBC 0.000 Nucleated RBC % 0.0 Sodium 134 L Potassium 3.4 Chloride 96 L Carbon Dioxide 30 Anion Gap 8 BUN 2 L Creatinine 0.42 L Estim Creat Clear Calc 114 Estimated GFR > 60 Glucose 216 H POC Capillary Glucose 219 H Calcium 8.3 L Total Bilirubin 0.5 AST 42 H ALT 119 H Alkaline Phosphatase 301 H Total Protein 7.0 Albumin 3.3 L
[2024-12-19 11:20] LABS: Glucose Point of Care 316 mg/dl (65-105)
--- NOTE | 2024-12-19 13:33 | P.CONUR_ITS ---
Assessment and Plan Assessment and plan (1) Flank pain, acute: Code(s): R10.9 - Unspecified abdominal pain Status: Acute Assessment and Plan: - Left, onset 12/18 (2) Pyelonephritis: Code(s): N12 - Tubulo-interstitial nephritis, not specified as acute or chronic Status: Acute Assessment and Plan: - 12/14/24 Urine culture: EColi (resistant to Cipro) transitioned to Bactrim from IV ceftriaxone Plan - Agree with culture-directed antibiotics for EColi UTI - Repeat CT AP WO CON ordred for today to reassess left kidney --> bibasilar pulmonary edema/atelectasis, no hydronephrosis, no stones, no abnormalities - Flank pain likely not related - A1c 11.8%, recommend glycemic control as glucosuria increases recurrent UTI risk Urology Consult Note HPI Date Seen: 12/19/24 Requesting Physician: Soto Chavez MD Primary Care Provider: COMMERCIAL LEASE ADMINISTRATOR PHYSICIAN Consult Narrative Reason for consult: Flank pain, pyelonephritis Narrative: WENT TO BEDSIDE AT 1515 TO ASSESS PATIENT FOLLOWING CT SCAN. HOSPITALIST DISCHARGED PATIENT WITHOUT NOTIFYING UROLOGY SERVICE. PATIENT NOT EXAMINED. Alyssa Guzmán is a 44 year old female with a medical history significant for uncontrolled diabetes admitted 12/14/24 with nausea, vomiting, abdominal pain, right flank pain, blood glucose >400. CT AP W/WO CON significant for right kidney lower pole hypodensity suspicious for focal infection, cystitis, constipation. Follow-up renal ultrasound unremarkable except increased vascularity concerning for bilateral pyelonephritis. Urine culture growing EColi on Bactrim. Urology was consulted today for evaluation of new left flank pain, onset last evening. Renal function, stable, Cr 0.4. No leukocytosis, WBC 6. Afebrile. [facility] Past Medical History Medical History Insulin dependent diabetes mellitus Social History Social History Smoking status: Never smoker Alcohol intake: never Substance use: never Substance use type: does not use Do You Feel Safe in your Home?: Yes Lack of Transportation: YES Lack of Food: Never True Current Housing: I Have Housing Concerned About Future Housing: No Difficulty Paying Gas/Electric Bills: No Difficulty Paying for Meds: No Currently Unemployed: No Education: Decline to Answer Difficulty w/ Childcare or Family Care: No Gender identity (if verbalized by the patient): Female Spiritual care concerns: No Meds Home Medications and Allergies Home Medications ?Medication ?Instructions ?Recorded ?Confirmed ?Type ondansetron 4 mg disintegrating 4 mg PO Q6H PRN nausea and 03/16/20 12/14/24 Rx tablet vomiting #14 tabs atenolol 50 mg tablet 50 mg PO DAILY 12/14/24 12/14/24 History canagliflozin 300 mg tablet 300 mg PO DAILY 12/14/24 12/14/24 History (Invokana) glipizide 5 mg tablet 5 mg PO BIDAC 12/14/24 12/14/24 History insulin glargine 100 unit/mL (3 10 unit subcut HS 12/14/24 12/14/24 History mL) subcutaneous pen (Lantus Solostar U-100 Insulin) sulfamethoxazole 800 1 tablet PO Q12HR #12 tabs 12/19/24 Rx mg-trimethoprim 160 mg tablet Allergies Allergy/AdvReac Type Severity Reaction Status Date / Time acetaminophen (From [place]) Allergy Itching Verified 12/16/24 07:28 hydrocodone (From [place]) Allergy Itching Verified 12/16/24 07:28 hydromorphone (From Dilaudid) Allergy Itching Verified 12/16/24 07:28 Vital Signs Vital Signs - 24 hr 12/18/24 14:27 12/18/24 21:39 12/19/24 05:00 Temperature 97.7 F 98 F 97.6 F Pulse Rate 79 95 82 Respiratory Rate 18 18 18 Blood Pressure 135/76 140/84 147/84 H Pulse Oximetry 96 95 100 12/19/24 09:40 Temperature Pulse Rate 82 Respiratory Rate Blood Pressure Pulse Oximetry Results Labs 12/19/24 05:16 12/19/24 05:16 Labs: Short CBC 12/19/24 Range/Units 05:16 WBC 6.0 (4.5-10.0) K/mm3 Hgb 10.6 L (12.0-15.0) g/dL Hct 29.5 L (37.0-47.0) % Plt Count 398 H (150-375) k/mm3 BMP 12/19/24 05:16 Sodium 134 L Potassium 3.4 Chloride 96 L Carbon Dioxide 30 BUN 2 L Creatinine 0.42 L Glucose 216 H Calcium 8.3 L Liver Function 12/19/24 Range/Units 05:16 Total Bilirubin 0.5 (0.2-1.3) mg/dL AST 42 H (14-36) U/L ALT 119 H (6-35) U/L Alkaline Phosphatase 301 H (38-126) U/L Albumin 3.3 L (3.5-5.1) g/dL
--- NOTE | 2024-12-19 14:22 | P.DS_ITS ---
DS: Admitting Diagnosis Discharge Date 12/19/2024 Admitting Diagnosis Nausea/ vomiting/diarrhea DS: Summary Hospital Course Hospital Course: Initial labs showed a normal white blood cell count of 8.7, sodium 128, chloride 90, creatinine 0.52, blood sugars ranging 329-422, total bili 1.5, AST 54, ALT 185, alkaline phosphate 286, beta hydroxybutyrate 0.73, anion gap 12. UA was obtained which showed cloudy urine appearance, 3+ urine glucose, 1+ urine ketone, 2+ leukocyte, greater than 100 urine WBC, 4+ urine bacteria, yeast present. Urine test was negative. Respiratory panel was negative for influenza a and B, RSV, COVID. Urine culture obtained. Patient was given 1 L of LR, 5 units of insulin, morphine, Zofran, Dilaudid, and Zosyn while in the ED. Urine grew E. coli. IV antibiotics transitioned to oral antibiotics. Radiology Results: ITS Impressions Abdomen/Pelvis CT 12/14/24 20:15 IMPRESSION: 1. Hepatomegaly. 2. Hypodensities in the right kidney lower pole which may indicate focal infection cysts are less likely. Ultrasound evaluation advised. 3. Constipation. Renal Ultrasound 12/14/24 21:36 IMPRESSION: Increased vascularity in both kidneys which may indicate pyelonephritis. Clinical correlation and follow-up advised. Abdomen Ultrasound 12/15/24 08:03 IMPRESSION: 1. Normal right upper quadrant ultrasound status post cholecystectomy. Abdominal pelvis CT on 12/19/24: Impression: Moderate bilateral pleural effusions with bibasilar pulmonary edema/atelectasis. Small amount of pelvic ascites. HgbA1C 11.8%. Patient was not compliant with medications at home. Patient has an paper inserter at [facility] that she will call and get an appointment with. Discussed importance of getting diabetes under control and the outcomes if she does not get her diabetes under control. Patient to get established with a primary doctor. Status at Discharge Functional status at discharge: independent ambulation Overall status at discharge: patient is progressing back to baseline Time Spent with Patient Time attestation: Total time spent providing and/or coordinating discharge services: Time spent: Greater than 30 minutes Exam Const: General: no acute distress and uncomfortable Resp: Effort & Inspection: normal respiratory effort Auscultation: clear to auscultation bilaterally Cardio: Rate: regular rate Rhythm: regular rhythm GI: GI Palp: Yes Soft to palpation Auscultation: normal bowel sounds : Other: Left flank slightly swollen and pain a 5 , frequent, and sore. Neuro: General: gait normal Extrem: General: no pedal edema Psych: Mental Status: mental status grossly normal Affect: normal affect DS: Data Data Completed and Pending Labs on day of discharge: Labs from last 24 hours 12/19/24 12/19/24 12/19/24 11:02 07:24 05:16 WBC 6.0 RBC 3.32 L Hgb 10.6 L Hct 29.5 L MCV 88.9 MCH 31.9 MCHC 35.9 RDW 11.4 L Plt Count 398 H MPV 9.6 Immature Gran % (Auto) 1.3 H Neut % (Auto) 49.2 Lymph % (Auto) 38.7 [place] % (Auto) 9.0 H Eos % (Auto) 1.3 Baso % (Auto) 0.5 Lymph # (Auto) 2.33 [place] # (Auto) 0.5 Eos # (Auto) 0.1 Baso # (Auto) 0.0 Abs Immat Gran (auto) 0.08 H Absolute Neuts (auto) 3.0 Absolute Nucleated RBC 0.000 Nucleated RBC % 0.0 Sodium 134 L Potassium 3.4 Chloride 96 L Carbon Dioxide 30 Anion Gap 8 BUN 2 L Creatinine 0.42 L Estim Creat Clear Calc 114 Estimated GFR > 60 Glucose 216 H POC Capillary Glucose 316 H 219 H Calcium 8.3 L Total Bilirubin 0.5 AST 42 H ALT 119 H Alkaline Phosphatase 301 H Total Protein 7.0 Albumin 3.3 L 12/18/24 12/18/24 20:48 16:29 WBC RBC Hgb Hct MCV MCH MCHC RDW Plt Count MPV Immature Gran % (Auto) Neut % (Auto) Lymph % (Auto) [place] % (Auto) Eos % (Auto) Baso % (Auto) Lymph # (Auto) [place] # (Auto) Eos # (Auto) Baso # (Auto) Abs Immat Gran (auto) Absolute Neuts (auto) Absolute Nucleated RBC Nucleated RBC % Sodium Potassium Chloride Carbon Dioxide Anion Gap BUN Creatinine Estim Creat Clear Calc Estimated GFR Glucose POC Capillary Glucose 282 H 202 H Calcium Total Bilirubin AST ALT Alkaline Phosphatase Total Protein Albumin Discharge Plan Discharge Attending physician on discharge: Shelly Santamaria Consulting providers: Charly Arreola Discharging Clinician: Maryanne Parada Anticipated Discharge Date/Time: 12/19/24 15:30 Patient Disposition: Home, Self-Care Activity: may shower and as tolerated Diet: diabetic Discharge Instructions: * Take all doses of antibiotics. * Get an appointment with Vehicle Dynamics Engineer and take diabetic medications as prescribed. * Your HgbA1C 11.8%. It is important to get your diabetes under control. * Set up appointment with Dr. Huff she is a primary doctor that can see you for after hospital visit. * Get established with primary. * Report to provider any fever >101, nausea, burning with urination, or blood in urine. Thank you for entrusting [facility] with your healthcare! Patient Instructions: Antibiotic Form, Urinary Tract Infection in Women (DC), Meal Planning with Diabetes Exchanges (DC), Diabetic Hyperglycemia (DC) Patient Language: [place]an Stand Alone Forms: General Discharge Information Follow-up/Referrals: Ramya Huff DO [Physician] - 1 Week Discharge Medications: New sulfamethoxazole-trimethoprim 800-160 mg Tablet 1 tablet PO Q12HR Qty: 12 0RF Continued insulin glargine [Lantus Solostar U-100 Insulin] 100 unit/mL (3 mL) insulin pen 10 unit SUBCUT HS Rx Instructions: 10 units for under 200 blood sugar 15 units for above 200 on blood sugar Invokana 300 mg tablet 300 mg PO DAILY glipizide 5 mg tablet 5 mg PO BIDAC Patient Comments: before breakfast and supper atenolol 50 mg tablet 50 mg PO DAILY ondansetron 4 mg tablet,disintegrating 4 mg PO Q6H PRN (Reason: nausea and vomiting) Qty: 14 0RF Discontinued pioglitazone 30 mg tablet 30 mg PO DAILY liraglutide [Victoza 3-Yves] 0.6 mg/0.1 mL (18 mg/3 mL) pen injector SUBCUT Date of admission: 12/14/24 21:07 Primary Care Provider: PHYSICIAN,RESIDENCE LIFE COORDINATOR Admitting Provider: Soto Chavez Attending physician on admission: Soto Chavez Condition: Improved Hospitalist MIPS Heart Failure (Exclusion) Patient has history of Heart Transplant or Left Ventricular Assistive Device?: No IF YES, STOP HERE Heart Failure (Qualifier) Patient has current or prior documentation of LVEF less than or equal to 40%, or mod/servere depressed LVSF?: No IF NO, STOP HERE
[2024-12-19 14:43] VITALS: BP 138/87; PULSE 69; RESP 18; TEMP 36.4; O2SAT 100
== END 2024-12-19 15:18 | disposition home or self-care (01) | DRG 463 ==
LOC: ANHED 20:53 → ANH3MEDSUR 12-15 11:39
PROVIDERS: Nurse Practitioner Acute Care; Admitting Provider General Practice; Emergency Provider Student in an Organized Health Care Education/Training Program; Visit Provider Nurse Practitioner Family
DX: N10 Acute pyelonephritis (principal); B96.20 Unspecified Escherichia coli [E. coli] as the cause of diseases classified elsewhere; Z16.39 Resistance to other specified antimicrobial drug; E11.65 Type 2 diabetes mellitus with hyperglycemia; R79.89 Other specified abnormal findings of blood chemistry; E87.6 Hypokalemia; K59.00 Constipation, unspecified; Z20.822 Contact with and (suspected) exposure to COVID-19
CPT/HCPCS: 36415; 74176; 74177; 76705; 76775; 80053; 80074; 81001; 81025; 82010; 82948; 83036; 83690; 83735; 85025; 87086; 87186; 87637; 96361; 96365; 96375; 96376; 99285; A9270; J0696; J0780; J1171; J1815; J2270; J2405; J2543; J3475; J7030; J7120; Q9967

== ENCOUNTER 2025-09-02 16:47 | Inpatient (IN) | payer SELFPAY ==
[2025-09-02] VITALS (19 sets, daily range): BP systolic 147–187; BP diastolic 90–124; PULSE 116–139; RESP 12–23; TEMP 36.6–36.8; O2SAT 94–100; BMI 16.5
--- NOTE | ~2025-09-02 | XR_ITS ---
EXAMINATION: XR chest 2V, 09/02/2025 17:40 CONDUIT INSTALLER HISTORY: chest pain COMPARISON: No comparisons available. Technique: 2 views obtained. Findings: Scattered small infiltrate suspected. No pneumothorax. Heart is normal size. Mediastinal and hilar contours are within normal limits. Bony thorax no acute abnormality. Impression: Probable viral pneumonitis Reviewed, dictated and finalized at location P. UIT INSTALLER Impression: Probable viral pneumonitis
--- NOTE | ~2025-09-02 | CT_ITS ---
Alyssa Guzmán EXAMINATION: CT abdomen pelvis w con COMPARISON: None HISTORY: abdominal pain and vomiting TECHNIQUE: Axial images were obtained through the abdomen, pelvis post administration of IV contrast. Oral contrast was also administered. Coronal reconstruction images were obtained from the axial views. CT scan performed using dose optimization techniques including the following automated exposure control; adjustment of mA and/or kV; use of iterative reconstruction technique. Automatic exposure control was used to reduce radiation dose. Permanent radiation dose record is archived to PACS. FINDINGS: CT abdomen: LUNG BASES: The lung bases are clear. The visualized portions of the heart and pericardium are unremarkable. LIVER: Mild hepatic steatosis. Portal vein is patent. No intrahepatic biliary duct dilatation. SPLEEN: Unremarkable. KIDNEYS: Right Kidney: Unremarkable. No calculi. No hydronephrosis. Left Kidney: Unremarkable. No calculi. No hydronephrosis ADRENAL GLANDS: Unremarkable. PANCREAS: Unremarkable. GALLBLADDER/BILIARY: Gallbladder is not identified. STOMACH AND ESOPHAGUS: Thickening of the esophagus may represent mild esophagitis. BOWEL/MESENTERY: Moderate fecal content, no colitis or diverticulitis. Appendix normal. Mesentery normal. No thickened or dilated loops of small bowel. ADENOPATHY/RETROPERITONEUM: No lymphadenopathy. AORTA/VASCULATURE: Normal caliber aorta. FREE FLUID OR FREE AIR: No free fluid.. CT pelvis: SOLID ORGANS/REPRODUCTIVE: Uterus is atrophic. No adnexal mass. BLADDER: The bladder is distended. OSSEOUS STRUCTURES: No acute osseous abnormality.No suspicious lesions. OVERLYING SOFT TISSUES: Unremarkable. IMPRESSION: No acute intra-abdominal process Reviewed, dictated and finalized at location P. INAL GAUGER SUPERVISOR
--- OUTSIDE RECORDS SUMMARY | 2025-09-02 16:49 | XMS_ITS | Clinical Summary ---
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
--- OUTSIDE RECORDS SUMMARY | 2025-09-02 16:49 | XMS_ITS | Clinical Summary ---
Author Organization [facility] [place] Address [address] [place] [address] Care Team Providers Care Tourist Adviser Name Role Phone Ewelina Gaitan MD Primary Care Provider [phone] Source Comments [facility] [place],non-owned Affiliates and Associated Physician Practices is amultiple site organization consisting of ambulatory clinics and hospital sitesin [place], [place], [place] and [place]. This disclosure is being madepursuant to the Care Everywhere program and may not contain all information available regarding this patient. Last updated 18.[facility] [place] Allergies No known active allergies Medications * Be aware that medications may not be up to date on this document. Alwaysverify current medications with the patient. Multiple Vitamin (MULTI-VITAMIN S) TABS 9 Active ACETAMINOPHEN EXTRA STRENGTH 500 MG tablet as needed 0 Active Blood Glucose Monitoring Suppl (OneTouch Verio Flex System) w/Device KITIndications :Type 2 diabetes mellitus with hyperglycemia, with long-term current use of insulin (HCC) Use 1 kit as directed 1 kit 3 Active pantoprazole EC (Protonix) 40 MG tabletIndicati ons:Type 2 diabetes mellitus with hyperglycemia, with long-term current use of insulin (HCC) Take 1 (one) tablet by mouth once daily 3 Active bisacodyl EC 5 MG tablet TAKE 4 TABLETS BY MOUTH AT 2PM THE DAY BEFORE PROCEDURE WITH 8 OUNCES OF WATER 4 Active Alcohol SwabsIndicatio ns:Type 2 diabetes mellitus with hyperglycemia, with long-term current use of insulin ([facility]) Use 1 Each 2 times daily 100 Each 11 4 Active atenolol (Tenormin) 50 MG tabletIndicati ons:Type 2 diabetes mellitus with hyperglycemia, with long-term current use of insulin ([facility]) Take 1 (one) tablet by mouth once daily 90 tablet 11 4 Active glipiZIDE (Glucotrol) 5 MG tabletIndicati ons:Type 2 diabetes mellitus with hyperglycemia, with long-term current use of insulin ([facility]) Take 1 (one) tablet by mouth 2 times daily, before breakfast and supper 180 tablet 11 4 Active insulin glargine (Lantus/Semgle e) 100 units/mL penIndications :Type 2 diabetes mellitus with hyperglycemia, with long-term current use of insulin ([facility]) Inject 20 (twenty) Units subcutaneously at bedtime 15 mL 11 4 Active Insulin Pen Needle 32G X 4 MM MISCIndication s:Type 2 diabetes mellitus with hyperglycemia, with long-term current use of insulin ([facility]) 1 Each by Injection route once daily 100 Each 4 Active OneTouch Delica Lancets 33G MISCIndication s:Type 2 diabetes mellitus with hyperglycemia, with long-term current use of insulin ([facility]) Use 1 Each 2 times daily 100 Each 4 Active pioglitazone (Actos) 30 MG tabletIndicati ons:Type 2 diabetes mellitus with hyperglycemia, with long-term current use of insulin ([facility]) Take 1 (one) tablet by mouth once daily 90 tablet 4 4 Active amoxicillin-cl avulanate (Augmentin) 875-125 MG tablet Take 1 Tablet by mouth Every twelve hours Active Loperamide (Imodium) 2 MG tablet Take 1 tablet as needed by oral route, for diarrhea. 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 Gender Identity Not on file Sexual Orientation [...] 2:08 PM CDT Height 162.6 cm (5' 4) 11/30/2022 3:02 PM CDT Body Mass Index 20.25 11/30/2022 3:02 PM CDT Plan of Treatment Health Maintenance Due Date Last Done Comments MAMMOGRAM 1982 HIV SCREENING 1997 HEPATITIS C SCREENING 06/20/2000 DTAP/TDAP/TD VACCINES (1 - Tdap) 2001 HEPATITIS B VACCINE (1 of 3 - 19+ 3-dose series) 2001 PAP SMEAR 2003 PNEUMOCOCCAL VACCINE (2 of 2 - PCV) 05/14/2018 05/14/2017 HPV VACCINE (2 - 3-dose SCDM series) 01/10/2019 12/13/2018 DIABETES-FOOT EXAM WITH MONOFILAMENT 12/01/2023 11/30/2022, 01/09/2019 DIABETES-HGB A1C 03/18/2024 12/17/2023, , 05/16/2021, Additional history exists DIABETES - URINE PROTEIN SCREENING 09/20/2024 12/17/2023, 12/30/2020, 01/09/2019, Additional history exists DIABETES-SERUM CREATININE 12/16/20242023, 05/16/2021, 12/30/2020, Additional history exists COVID-19 VACCINE (1 - season) 2025 INFLUENZA VACCINE (#1) 2025 08/03/2017, 2016 DIABETES RETINOPATHY SCREENING 12/28/2026 12/28/2024, 12/28/2024, 12/22/2023, Additional history exists ZOSTER VACCINE (1 of 2) 2032 DEPRESSION SCREENING Completed 12/28/2024, 12/01/19 23 HIB VACCINE Aged Out No longer eligi [...] If symptoms present please call Doris [facility] [phone] MON PM, AM, WED AM, MON PM, [...] 15.4 Not Established ug/mL 12/17/2023 4:31 PM T [facility] Creatinine Urine 43.47 Not Established mg/dL 12/17/2023 4:31 PM T [facility] Urine Albumin/Creati nine Ratio 35(H) <30 mg/g 12/17/2023 4:31 PM [facility] Urine URINE SPECIMEN OBTAINED BY CLEAN CATCH PROCEDURE / Unknown Collection / Unknown 12/17/2023 2:53 PM CDT 12/17/2023 3:04 PM CDT Vinny De Luna MD LAB - URINE CHEMISTRY ORDERABL ES Final Result Performing Organization Address [facility]/ZIP Co de Phone Number [facility] [address] [place] [address], [facility] [phone] * (ABNORMAL) COMPREHENSIVE METABOLIC PANEL (12/17/2023 2:45 PM CDT) BUN 7 7 - 26 mg/dL 12/17/2023 4:31 PM [facility] Creatinine 0.59 0.56 - 0.96 mg/dL 12/17/2023 4:31 PM [facility] Sodium 135(L) 136 - 145 mmol/L 12/17/2023 4:31 PM [facility] Potassium 4.0 3.5 - 4.5 mmol/L 12/17/2023 4:31 PM [facility] Chloride 99 98 - 107 mmol/L 12/17/2023 4:31 PM [facility] CO2 23 22 - 29 mmol/L 12/17/2023 4:31 PM [facility] Glucose 386(H) 70 - 115 mg/dL 12/17/2023 4:31 PM [facility] Calcium 9.6 8.4 - 10.2 mg/dL 12/17/2023 4:31 PM [facility] Protein Total 8.0 6.0 - 8.3 g/dL 12/17/2023 4:31 PM [facility] Albumin 4.1 3.4 - 5.0 g/dL 12/17/2023 4:31 PM [facility] Bilirubin Total 1.1 0.2 - 1.2 mg/dL 12/17/2023 4:31 PM [facility] Alkaline Phosphatase 103 40 - 150 U/L 12/17/2023 4:31 PM [facility] ALT 18 5 - 55 U/L 12/17/2023 4:31 PM CDT [facility] AST 11 5 - 34 U/L 12/17/2023 4:31 PM CDT [facility] Anion Gap 13 6 - 16 12/17/2023 4:31 PM CDT [facility] BUN/Creatinine Ratio 12 7 - 23 12/17/2023 4:31 PM CDT [facility] Osmolality Calculated 294 275 - 295 mOsm/kg 12/17/2023 4:31 PM CDT [facility] Albumin/Globulin Ratio 1.1 1.1 - 2.3 12/17/2023 4:31 PM T [facility] eGFR by CKD-EPI >90 >=90 mL/min/1.7 3 m2 12/17/2023 4:31 PM CDT [facility] Blood BLOOD SPECIMEN / Unknown Lab Venipuncture / Unknown 12/17/2023 2:45 PM CDT 12/17/2023 3:08 PM CDT Vinny De Luna MD LAB - CHEMISTRY ORDERABLES Fin al Result [facility] [address] [place] [address], [facility] [phone] * HEMOGLOBIN A1C - POINT OF CARE (AMB) [facility] (12/17/2023 2:13 PM CDT) Hemoglobin A1c POCT 11.3 % [address] BLOOD SPECIMEN / Unknown 12/17/2023 2:13 PM CDT Vinny De Luna MD LAB - POINT OF CARE ORDERABLES Final Result Performing Organization Address [facility]/ZIP Co de Phone Number [facility] [phone] [address], [facility] [phone] from Last 3 Months or Most Recently Relevant to Health Maintenance Care Teams Tourist Adviser Relationship Specialty Start Date End Date Ewelina Gaitan MD [address] [place] [id number] [facility] - General 01/25/20
--- NOTE | 2025-09-02 16:50 | ECG_ITS ---
Test Date: 2025-09-02 16:56:59 Measurements Intervals [place] Rate: 123 P: 81 SC: 129 QRS: 55 QRSD: 71 T: 42 QT: 324 QTc: 465 Interpretive Statements SINUS TACHYCARDIA CONSIDER ANTERIOR INFARCT, AGE INDETERMINATE ABNORMAL ECG No previous ECG available for comparison Electronically Signed On 09-02-2025 20:07:48 ASSURANCE ANALYST by Jamey Cowan D.O.
[2025-09-02 17:14] LABS: Hematocrit 43.6 % (37.0-47.0); Hemoglobin 15.5 g/dL (12.0-15.0); Immature Granulocyte Percent A 0.4 % (0-0.5); Lymphocytes Absolute Auto 1.17 K/mm3 (0.9-3.2); Mean Corpuscular HGB Conc 35.6 g/dl (32-36); Mean Corpuscular Hemoglobin 32.6 pg (26-34); Mean Corpuscular Volume 91.8 fl (80-100); Nucleated Red Blood Cells Absolute Auto 0.000 K/mm3 (0.0-0.012); Nucleated Red Blood Cells Perc 0.0 % (0.0-0.2); Platelet Count Result 337 k/mm3 (150-375); Red Blood Count 4.75 M/mm3 (4.2-5.4); White Blood Count 12.7 K/mm3 (4.5-10.0)
[2025-09-02] MEDS: ONDANSETRON INJ 4 MG/2 ML VIAL IV PUSH ×2 (17:19→21:28)
[2025-09-02] MEDS: SODIUM CHLORIDE 0.9% IV 1,000 ML 999 ML IV CONT (17:20)
[2025-09-02 17:37] LABS: Alanine Aminotransferase 31 U/L (6-35); Albumin Level 5.5 g/dL (3.5-5.1); Alkaline Phosphatase 128 U/L (38-126); Anion Gap 23 mmol/L (4-12); Aspartate Amino Transferase 34 U/L (14-36); Bilirubin,Total 1.7 mg/dL (0.2-1.3); Blood Urea Nitrogen 12 mg/dL (7-17); Calcium 9.9 mg/dL (8.4-10.2); Carbon Dioxide 21 mmol/L (22-30); Chloride 93 mmol/L (98-107); Estimated CRCL calculation 73 ml/min; Estimated Glomerular Filt Rate > 60; Glucose 487 mg/dL (65-110); Lipase 44 U/L (23-300); Potassium 3.8 mmol/L (3.4-5.0); Sodium 137 mmol/L (137-145); Total Protein 10.8 g/dL (6.3-8.2)
[2025-09-02 17:48] LABS: Troponin I < 0.012 ng/mL (0.000-0.034)
[2025-09-02 18:01] LABS: INR 1.1; Prothrombin Time 14.6 Seconds (11.1-14.7)
[2025-09-02 18:02] LABS: Partial Thromboplastin Time 22.2 Seconds (22.3-36.8)
[2025-09-02] MEDS: MORPHINE SULFATE (*CRX) 4 MG/ML INJ IV PUSH (18:07)
--- NOTE | 2025-09-02 18:24 | ED.GENADULT ---
HPI - General Adult General Chief complaint: Nausea/Vomiting/Diarrhea <TRE Green - Last Filed: 09/02/25 23:06> Stated complaint: NVD x2 days, chest pain <TRE Green - Last Filed: 09/02/25 23:06> Time Seen by Provider: 09/02/25 16:55 <TRE Green - Last Filed: 09/02/25 23:06> History of Present Illness HPI narrative: 45-year-old female presenting with vomiting since yesterday. Patient states she developed midline/epigastric pain that radiates to her back today. She was also concerned about having pink tinged vomit. Denies diarrhea, urinary symptoms, fevers/chills, or shortness of breath. Patient is a type 2 diabetic. <TRE Green - Last Filed: 09/02/25 23:06> Related Data Home medications: Home Medications ?Medication ?Instructions ?Recorded ?Confirmed ?Last Taken ?Type atenolol 50 mg tablet 50 mg PO DAILY 12/14/24 09/02/25 12/11/24 History canagliflozin 300 mg tablet 300 mg PO DAILY 12/14/24 09/02/25 12/11/24 History (Invokana) glipizide 5 mg tablet 5 mg PO BIDAC 12/14/24 09/02/25 12/11/24 History insulin glargine 100 unit/mL (3 10 unit subcut HS 12/14/24 09/02/25 12/11/24 History mL) subcutaneous pen (Lantus Solostar U-100 Insulin) <TRE Green - Last Filed: 09/02/25 23:06> Allergies/adverse reactions: Allergies Allergy/AdvReac Type Severity Reaction Status Date / Time hydrocodone (From [place]) AdvReac Mild Itching Verified 09/02/25 21:37 hydromorphone (From Dilaudid) AdvReac Mild Itching Verified 09/02/25 21:37 <TRE Green - Last Filed: 09/02/25 23:06> Review of Systems Review of Systems: All systems reviewed & are unremarkable except as noted in HPI and below <TRE Green - Last Filed: 09/02/25 23:06> [facility] Past Medical History Medical History: Medical History (Updated 09/03/25 @ 10:04 by Ej Quinn MD) Hypertension Insulin dependent diabetes mellitus <TRE Green - Last Filed: 09/02/25 23:06> Family History Family History: Family History (Updated 09/02/25 @ 22:01 by Sandra Wright RN) Grandparent Acute myocardial infarction Cerebrovascular accident Diabetes mellitus Hypertension Father Colon cancer Diabetes mellitus <TRE Green - Last Filed: 09/02/25 23:06> Social History Social History: Social History Smoking status: Never smoker Alcohol intake: current Drinks per week: 1 Substance use: never Substance use type: does not use Lack of Transportation: No Lack of Food: Never True Current Housing: I Have Housing Concerned About Future Housing: No Difficulty Paying Gas/Electric Bills: YES Difficulty Paying for Meds: No Currently Unemployed: Decline to Answer Education: Decline to Answer Difficulty w/ Childcare or Family Care: No Gender identity (if verbalized by the patient): Female Spiritual care concerns: No <TRE Green - Last Filed: 09/02/25 23:06> Exam Narrative: GENERAL: Ill-appearing HEAD: Normocephalic, atraumatic. EYES: PERRLA and EOMI. ENT: Nares clear, no rhinorrhea or epistaxis. Mucous membranes moist. Oropharynx without tonsillar hypertrophy exudate or other lesions. Bilateral TMs pearly reyes non-bulging NECK: Supple. No adenopathy or masses. No carotid bruits or JVD CHEST: Clear to auscultation. No respiratory distress. No wheezes rales or rhonchi HEART: Tachycardic. Regular rhythm. No murmur heard. Normal peripheral pulses. ABDOMEN: Decreased bowel sounds. Diffuse TTP. EXTREMITIES: Normal range of motion. No edema. SKIN: Warm, dry, no rash. NEURO: No focal deficits. Alert and oriented x3. PSYCH: Normal mood and affect <TRE Green - Last Filed: 09/02/25 23:06> Course ROUGH AND TRUING MACHINE OPERATOR/PA Physician Supervision This visit was performed by both a physician and an APC; I performed all aspects of the medical decision making component of this evaluation as documented. Briefly, patient with diabetes presenting with nausea, vomiting, not feeling well. Labs are consistent with likely DKA with possible starvation ketosis. Fluids given, potassium repleted, discussed with tree shear operator for admission to ICU. <Angeles Foote MD - Last Filed: 09/04/25 10:12> Vital Signs Vital signs: Vital Signs Temperature 97.8 F 09/02/25 16:52 Pulse Rate 127 H 09/02/25 16:52 Respiratory Rate 16 09/02/25 16:52 Blood Pressure 180/124 H 09/02/25 16:52 Pulse Oximetry 100 09/02/25 16:52 Oxygen Delivery Room Air 09/02/25 16:52 Temperature 97.9 F 09/04/25 05:58 Pulse Rate 96 09/04/25 08:35 Respiratory Rate 16 09/04/25 05:58 Blood Pressure 111/71 09/04/25 05:58 Pulse Oximetry 99 09/04/25 05:58 Oxygen Delivery Room Air 09/03/25 20:00 <TRE Green - Last Filed: 09/02/25 23:06> Vital Signs Temperature 97.8 F 09/02/25 16:52 Pulse Rate 127 H 09/02/25 16:52 Respiratory Rate 16 09/02/25 16:52 Blood Pressure 180/124 H 09/02/25 16:52 Pulse Oximetry 100 09/02/25 16:52 Oxygen Delivery Room Air 09/02/25 16:52 Temperature 97.9 F 09/04/25 05:58 Pulse Rate 96 09/04/25 08:35 Respiratory Rate 16 09/04/25 05:58 Blood Pressure 111/71 09/04/25 05:58 Pulse Oximetry 99 09/04/25 05:58 Oxygen Delivery Room Air 09/03/25 20:00 <Angeles Foote MD - Last Filed: 09/04/25 10:12> MDM MDM Narrative Medical decision making narrative: 45-year-old female presenting with vomiting since yesterday. Patient states she developed midline/epigastric pain that radiates to her back today. She was also concerned about having pink tinged vomit. Denies diarrhea, urinary symptoms, fevers/chills, or shortness of breath. Patient is a type 2 diabetic. Upon my initial assessment patient is ill-appearing and uncomfortable with tachycardia. Labs and presentation concerning for DKA vs. starvation ketosis with hyperglycemia, metabolic acidosis with an elevated anion gap, and positive serum/urine ketones. Started IV fluids. Troponins negative and EKGs without acute ischemic changes. Abdominal imaging without acute abnormalities. CXR concerning for a viral pneumonitis. ER provider Dr. Foote discussed with tree shear operator Dr. Quinn patient presentation and workup. Agrees with admission at this time and recommending DKA orders. Orders placed. Administered Zofran and morphine. Discussed with hospitalist Dr. Bernard patient presentation and workup. Agrees with admission at this time. Patient pending transfer. <TRE Green - Last Filed: 09/02/25 23:06> Differential Diagnosis Differential Diagnosis: DKA, starvation ketosis, dehydration, gastroenteritis, food poisoning, bowel obstruction <TRE Green - Last Filed: 09/02/25 23:06> Medical Records I have reviewed the following patient records and this information was taken into consideration when formulating the assessment and plan.: previous labs and previous ER visits <TRE Green - Last Filed: 09/02/25 23:06> Lab Data MDM Lab Attestation statement: I personally reviewed the patient's lab results. <TRE Green - Last Filed: 09/02/25 23:06> Result diagrams: 09/04/25 05:12 09/04/25 05:12 <TRE Green - Last Filed: 09/02/25 23:06> Labs: Lab Results 09/02/25 09/02/25 09/02/25 Range/Units 17:09 18:17 18:22 WBC 12.7 H (4.5-10.0) K/mm3 RBC 4.75 (4.2-5.4) M/mm3 Hgb 15.5 H D (12.0-15.0) g/dL Hct 43.6 (37.0-47.0) % MCV 91.8 (80-100) fl MCH 32.6 (26-34) pg MCHC 35.6 (32-36) g/dl RDW 12.0 (11.5-14.5) % Plt Count 337 (150-375) k/mm3 MPV 10.1 (7.4-10.4) fl Immature Gran % (Auto) 0.4 (0-0.5) % Neut % (Auto) 85.5 H (45.5-73.1) % Lymph % (Auto) 9.2 L (18.3-44.2) % [place] % (Auto) 4.7 (2.6-8.5) % Eos % (Auto) 0.0 (0-4.4) % Baso % (Auto) 0.2 (0.2-1.2) % Lymph # (Auto) 1.17 (0.9-3.2) K/mm3 [place] # (Auto) 0.6 (0.1-0.6) K/mm3 Eos # (Auto) 0.0 (0-0.3) K/mm3 Baso # (Auto) 0.0 (0.0-0.1) K/mm3 Abs Immat Gran (auto) 0.05 H (0.00-0.031) K/mm3 Absolute Neuts (auto) 10.8 H (1.3-6.7) K/mm3 Absolute Nucleated RBC 0.000 (0.0-0.012) K/mm3 Nucleated RBC % 0.0 (0.0-0.2) % PT 14.6 (11.1-14.7) Seconds INR 1.1 APTT 22.2 L (22.3-36.8) Seconds Sodium 137 (137-145) mmol/L Potassium 3.8 (3.4-5.0) mmol/L Chloride 93 L (98-107) mmol/L Carbon Dioxide 21 L (22-30) mmol/L Anion Gap 23 H (4-12) mmol/L BUN 12 D (7-17) mg/dL Creatinine 0.71 (0.7-1.0) mg/dL Estim Creat Clear Calc 73 ml/min Estimated GFR > 60 (59 - ) Glucose 487 H (65-110) mg/dL Hemoglobin A1c 12.6 H (<5.7) % Lactic Acid 3.2 H (0.7-2.0) mmol/L Calcium 9.9 (8.4-10.2) mg/dL Phosphorus 5.8 H (2.5-4.5) mg/dL Magnesium 2.3 (1.6-2.3) mg/dL Total Bilirubin 1.7 H (0.2-1.3) mg/dL AST 34 (14-36) U/L ALT 31 (6-35) U/L Alkaline Phosphatase 128 H (38-126) U/L Troponin I < 0.012 (0.000-0.034) ng/mL Total Protein 10.8 H (6.3-8.2) g/dL Albumin 5.5 H (3.5-5.1) g/dL Lipase 44 (23-300) U/L Beta-Hydroxybutyrate/Acetoacetate 3.71 H (0.02-0.27) mmol/L Urine Color Yellow (Yellow) Urine Appearance Clear (Clear) Urine pH 5.5 (5.0-9.0) Ur Specific [place] > 1.045 H (1.001-1.035) Urine Protein 1+ H (Negative) mg/dL Urine Glucose (UA) 3+ H (Negative) mg/dL Urine Ketones 4+ H (Negative) mg/dL Ur Blood (Man) Negative (Negative) Urine Nitrate Negative (Negative) Urine Bilirubin Negative (Negative) Urine Urobilinogen 0.2 (<2.0) mg/dL Leukocyte Esterase Rfl Negative (Negative) VARUN/UL Urine RBC 0-2 (0-2) /hpf Urine WBC 0-5 (0-3) /hpf Ur Squamous Epith Cells None seen (Few) /hpf Urine Bacteria 1+ H /hpf Urine Casts 0-2 <TRE Green - Last Filed: 09/02/25 23:06> Lab Results 09/02/25 09/02/25 09/02/25 Range/Units 17:09 18:17 18:22 WBC 12.7 H (4.5-10.0) K/mm3 RBC 4.75 (4.2-5.4) M/mm3 Hgb 15.5 H D (12.0-15.0) g/dL Hct 43.6 (37.0-47.0) % MCV 91.8 (80-100) fl MCH 32.6 (26-34) pg MCHC 35.6 (32-36) g/dl RDW 12.0 (11.5-14.5) % Plt Count 337 (150-375) k/mm3 MPV 10.1 (7.4-10.4) fl Immature Gran % (Auto) 0.4 (0-0.5) % Neut % (Auto) 85.5 H (45.5-73.1) % Lymph % (Auto) 9.2 L (18.3-44.2) % [place] % (Auto) 4.7 (2.6-8.5) % Eos % (Auto) 0.0 (0-4.4) % Baso % (Auto) 0.2 (0.2-1.2) % Lymph # (Auto) 1.17 (0.9-3.2) K/mm3 [place] # (Auto) 0.6 (0.1-0.6) K/mm3 Eos # (Auto) 0.0 (0-0.3) K/mm3 Baso # (Auto) 0.0 (0.0-0.1) K/mm3 Abs Immat Gran (auto) 0.05 H (0.00-0.031) K/mm3 Absolute Neuts (auto) 10.8 H (1.3-6.7) K/mm3 Absolute Nucleated RBC 0.000 (0.0-0.012) K/mm3 Nucleated RBC % 0.0 (0.0-0.2) % PT 14.6 (11.1-14.7) Seconds INR 1.1 APTT 22.2 L (22.3-36.8) Seconds Sodium 137 (137-145) mmol/L Potassium 3.8 (3.4-5.0) mmol/L Chloride 93 L (98-107) mmol/L Carbon Dioxide 21 L (22-30) mmol/L Anion Gap 23 H (4-12) mmol/L BUN 12 D (7-17) mg/dL Creatinine 0.71 (0.7-1.0) mg/dL Estim Creat Clear Calc 73 ml/min Estimated GFR > 60 (59 - ) Glucose 487 H (65-110) mg/dL Hemoglobin A1c 12.6 H (<5.7) % Lactic Acid 3.2 H (0.7-2.0) mmol/L Calcium 9.9 (8.4-10.2) mg/dL Phosphorus 5.8 H (2.5-4.5) mg/dL Magnesium 2.3 (1.6-2.3) mg/dL Total Bilirubin 1.7 H (0.2-1.3) mg/dL AST 34 (14-36) U/L ALT 31 (6-35) U/L Alkaline Phosphatase 128 H (38-126) U/L Troponin I < 0.012 (0.000-0.034) ng/mL Total Protein 10.8 H (6.3-8.2) g/dL Albumin 5.5 H (3.5-5.1) g/dL Lipase 44 (23-300) U/L Beta-Hydroxybutyrate/Acetoacetate 3.71 H (0.02-0.27) mmol/L Urine Color Yellow (Yellow) Urine Appearance Clear (Clear) Urine pH 5.5 (5.0-9.0) Ur Specific [place] > 1.045 H (1.001-1.035) Urine Protein 1+ H (Negative) mg/dL Urine Glucose (UA) 3+ H (Negative) mg/dL Urine Ketones 4+ H (Negative) mg/dL Ur Blood (Man) Negative (Negative) Urine Nitrate Negative (Negative) Urine Bilirubin Negative (Negative) Urine Urobilinogen 0.2 (<2.0) mg/dL Leukocyte Esterase Rfl Negative (Negative) VARUN/UL Urine RBC 0-2 (0-2) /hpf Urine WBC 0-5 (0-3) /hpf Ur Squamous Epith Cells None seen (Few) /hpf Urine Bacteria 1+ H /hpf Urine Casts 0-2 <Angeles Foote MD - Last Filed: 09/04/25 10:12> ABG Data ABG results: 09/02/25 18:22 VBG pH 7.277 L VBG pCO2 46.2 VBG pO2 31.2 L VBG HCO3 21.1 L O2 Delivery Device Room air O2 Liters/Min Not Reportable FiO2 21 <TRE Green - Last Filed: 09/02/25 23:06> 09/02/25 18:22 VBG pH 7.277 L VBG pCO2 46.2 VBG pO2 31.2 L VBG HCO3 21.1 L O2 Delivery Device Room air O2 Liters/Min Not Reportable FiO2 21 <Angeles Foote MD - Last Filed: 09/04/25 10:12> Imaging Data Attestation: I personally reviewed and interpreted this imaging study as follows: <TRE Green - Last Filed: 09/02/25 23:06> Radiologist's impression: ITS Impressions Chest X-Ray 09/02/25 17:56 Impression: Probable viral pneumonitis Abdomen/Pelvis CT 09/02/25 18:14 IMPRESSION: No acute intra-abdominal process <TRE Green - Last Filed: 09/02/25 23:06> ITS Impressions Chest X-Ray 09/02/25 17:56 Impression: Probable viral pneumonitis Abdomen/Pelvis CT 09/02/25 18:14 IMPRESSION: No acute intra-abdominal process <Angeles Foote MD - Last Filed: 09/04/25 10:12> ECG Data EKG #1: ECG completion date: 09/02/25 <TRE Green - Last Filed: 09/02/25 23:06> ECG completion time: 16:56 <TRE Green - Last Filed: 09/02/25 23:06> normal rate, tachycardia and no acute changes <TRE Green - Last Filed: 09/02/25 23:06> Critical Care Time Critical Care Time Critical Care Time: Yes <Angeles Foote MD - Last Filed: 09/04/25 10:12> Indication: DKA <Angeles Foote MD - Last Filed: 09/04/25 10:12> Initial evaluation, discuss w/ involved parties, attempting to gather old records: 10 minutes <Agneles Foote MD - Last Filed: 09/04/25 10:12> Documenting medical record: 5 minutes <Angeles Foote MD - Last Filed: 09/04/25 10:12> Review of results (EKG's, labs, imaging): 5 minutes <Angeles Foote MD - Last Filed: 09/04/25 10:12> Serial repeat bedside evaluation: 10 minutes <Angeles Foote MD - Last Filed: 09/04/25 10:12> Discussing case with multiple memebers of the care team and consultants: 5 minutes <Angeles Foote MD - Last Filed: 09/04/25 10:12> Total Critical Care Time: 35 <Angeles Foote MD - Last Filed: 09/04/25 10:12> Discharge Plan Discharge Clinical Impression: DKA (diabetic ketoacidosis) <TRE Green - Last Filed: 09/02/25 23:06> Patient Disposition: Still a Patient <TRE Green - Last Filed: 09/02/25 23:06> Condition: Serious <TRE Green - Last Filed: 09/02/25 23:06>
[2025-09-02 18:29] LABS: Fractional Inspired Oxygen 21 %; HCO3 VBG 21.1 mEq/l (24.0-30.0); PCO2 VBG 46.2 mmHg (42.0-48.0); PO2 VBG 31.2 mmHg (35.0-45.0); pH VBG 7.277 (7.300-7.400)
[2025-09-02 18:30] LABS: Add Urine Microscopic? YES; Appearance Urine Clear (Clear); Glucose Urine UA 3+ mg/dL (Negative); Leukocyte Esterase Ur Negative LEU/UL (Negative); Nitrate Urine Negative (Negative); Non Pathogenic Casts 0-2; Specific Grav Ur > 1.045 (1.001-1.035)
[2025-09-02 18:31] LABS: Magnesium 2.3 mg/dL (1.6-2.3)
[2025-09-02 18:37] LABS: Beta-Hydroxybutyrate/Acetoace. 3.71 mmol/L (0.02-0.27)
[2025-09-02 19:40] LABS: Hemoglobin A1C 12.6 % (<5.7)
[2025-09-02] MEDS: LACTATED RINGERS 1,000 ML 125 ML IV CONT (19:51)
[2025-09-02] MEDS: KCL 20 MEQ/SW 100 ML 100 ML 50 MEQ IVPB (19:52)
[2025-09-02] MEDS: INSULIN HUMAN REGULAR (*BKC) 100 UNITS in SODIUM CHLORIDE 0.9% IV 99 ML IV CONT (19:53)
--- NOTE | 2025-09-02 20:21 | ECG_ITS ---
Test Date: 2025-09-02 20:28:17 Measurements Intervals [place] Rate: 122 P: 73 RI: 141 QRS: 41 QRSD: 71 T: 35 QT: 338 QTc: 482 Interpretive Statements SINUS TACHYCARDIA CONSIDER ANTERIOR INFARCT, AGE INDETERMINATE ABNORMAL ECG Compared to ECG 09/02/2025 16:56:59 NO SIGNIFICANT CHANGE Electronically Signed On 09-03-2025 06:08:57 PAD MACHINE OFFBEARER by Jamey Cowan D.O.
[2025-09-02 20:27] LABS: MRSA (PCR) NOT DETECTED (NOT DETECTE)
[2025-09-02] MEDS: LACTATED RINGERS 1,000 ML 999 ML IV CONT (20:37)
--- NOTE | 2025-09-02 20:43 | WPCEDHO ---
ED Hand Off Checklist All vitals saved:yes IV Site documented:yes All med administrations documented:yes Triage Note Triage Note Pt amb to ED c/o epigastric/chest 09/02/25 16:52 , abd, and lower L back pain. Endorses N/V x 2 days. Reports chills. Allergies acetaminophen (From [place]) Allergy (Verified 12/16/24 07:28) Itching hydrocodone (From [place]) Allergy (Verified 12/16/24 07:28) Itching hydromorphone (From Dilaudid) Allergy (Verified 12/16/24 07:28) Itching Active Medications including assessments/comments Lactated Ringer's (Lr - Lactated Ringers Iv) 1,000 mls @ 125 mls/hr IV CONT .Q8H LAURA Last Admin: 09/02/25 19:51 Dose: 125 mls/hr Documented By: PEDRO Infusion/Titration Document 09/02/25 19:51 LLG (Rec: 09/02/25 19:51 LLG [id number]) Intake IV Site Peripheral Access Left Forearm Container Volume 1,000 Waste Amount 0 Dosing Infusion Rate 125 Cumulative Dose Not Applicable Increase/Decrease Started Elapsed Time Elapsed Time ( 0m minutes) Insulin Human Regular 100 (units/ Sodium Chloride) 100 mls @ 8 mls/hr IV CONT .[id number] [facility]; Protocol Last Titration: 09/02/25 20:36 Dose: 8 units/hr, 8 mls/hr Documented By: ALEXA Co-signed By: HNK Infusion/Titration Document 09/02/25 20:36 EMW (Rec: 09/02/25 20:36 EMW [id number]) Co-signed By Vanna Curiel RN Intake Intake 3.6 Cumulative Intake ( 3.6 bag) Cumulative Intake ( 3.6 Rx) Container Volume 96.4 Waste Amount 0 Dosing Dose Rate 8 Infusion Rate 8 Cumulative Dose 3.6 Increase/Decrease Increased Elapsed Time Elapsed Time ( 43m minutes) MAR IV Insulin Document 09/02/25 20:36 EMW (Rec: 09/02/25 20:36 EMW [id number]) Co-signed By Vanna Curiel RN Reason for Administration IV Insulin Infusion DKA Protocol - Reason for Administration Blood Glucose Random Glucose Yes Ordered IV Insulin Action/Checks IV Insulin Action Titrated - Blood Glucose Verified and Dose Adjusted per Guidelines DKA Trends Insulin Infusion - Blood Glucose Trend Upward/Unchanged DKA Trends Admin: 09/02/25 19:53 Dose: 5 units/hr, 5 mls/hr Documented By: PEDRO Co-signed By: ALEXA Infusion/Titration Document 09/02/25 19:53 LLG (Rec: 09/02/25 19:57 LLG [id number]) Co-signed By Leesa Robles RN Intake IV Site Peripheral Access Left Forearm Container Volume 100 Waste Amount 0 Dosing Dose Rate 5 Infusion Rate 5 Increase/Decrease Started Elapsed Time Elapsed Time ( 0m minutes) [facility] IV Insulin Pump Document 09/02/25 19:53 LLG (Rec: 09/02/25 19:57 LLG [id number]) Co-signed By Leesa Robles RN [facility] IV Insulin Pump Patient Has an No Insulin Pump MAR IV Insulin Document 09/02/25 19:53 LLG (Rec: 09/02/25 19:57 DONNAG [id number]) Co-signed By Leesa Robles RN Reason for Administration IV Insulin Infusion DKA Protocol - Reason for Administration IV Insulin Action/Checks IV Insulin Action Initiated Potassium Chloride (Kcl 20 Meq/Sw 100 Ml) 100 mls @ 50 mls/hr IVPB ONCE STA Stop: 09/02/25 21:10 Last Admin: 09/02/25 19:52 Dose: 50 mls/hr Documented By: PEDRO Co-signed By: ALEXA Infusion/Titration Document 09/02/25 19:52 LLG (Rec: 09/02/25 19:52 LLG [id number]) Co-signed By Leesa Robles RN Intake IV Site Peripheral Access Left Forearm Container Volume 100 Waste Amount 0 Dosing Infusion Rate 50 Cumulative Dose Not Applicable Increase/Decrease Started Elapsed Time Elapsed Time ( 0m minutes) Potassium Chloride Infusion Document 09/02/25 19:52 DONNAG (Rec: 09/02/25 19:52 LLG [id number]) Co-signed By Leesa Robles RN Infusion Action Potassium Chloride Initiated Infusion Action Administered/Completed Medications Discontinued Medications Aspirin (Aspirin 81 Mg Chewable Tablet) 324 mg PO ONCE STA Stop: 09/02/25 16:50 Last Admin: 09/02/25 17:18 Dose: Not Given Documented By: HNK Non-Admin Reason: Order Discontinued Sodium Chloride (Normal Saline Iv) 1,000 mls @ 999 mls/hr IV CONT .Q1H1M STA Stop: 09/02/25 18:15 Last Infusion: 09/02/25 19:19 Dose: Infused Documented By: Admin: 09/02/25 17:20 Dose: 999 mls/hr Documented By: MLHector Lactated Ringer's (Lr - Lactated Ringers Iv) 1,000 mls @ 999 mls/hr IV CONT .Q1H1M STA Stop: 09/02/25 19:59 Last Admin: 09/02/25 20:37 Dose: 999 mls/hr Documented By: DARLINW Morphine Sulfate (Morphine Sulfate (*Crx) 4 Mg/Ml Inj) 4 mg IV PUSH ONCE STA Stop: 09/02/25 17:46 Last Admin: 09/02/25 18:07 Dose: 4 mg Documented By: GRETTA Ondansetron HCl (Ondansetron Inj 4 Mg/2 Ml Vial) 4 mg IV PUSH ONCE STA Stop: 09/02/25 17:16 Last Admin: 09/02/25 17:19 Dose: 4 mg Documented By: GRETTA Interventions/Assessments IV / Saline Lock, Insert Start: 09/02/25 16:50 Freq: STAT Status: Active Protocol: Document 09/02/25 20:22 HNK (Rec: 09/02/25 20:22 HNK [id number]) IV Assessment Peripheral Access Left Wrist IV Catheter Access Initiated IV Insertion Date 09/02/25 IV Insertion Time 20:22 Catheter Gauge 20 IV Insertion 1 Attempts Ultrasound Used for Yes Placement IV Site Assessment WNL IV Care and WNL Maintenance PA: Cardiovascular Assessment Start: 09/02/25 16:49 Freq: Status: Complete Protocol: Document 09/02/25 16:56 MLI (Rec: 09/02/25 16:57 MLI [id number]) Cardiovascular Assessment Cardiovascular Chest Pain Symptoms Skin Description Normal Color Heart Sounds Normal Jugular Vein None Distention Chest Pain Assessment Chest Pain Intensity 10 Chest Pain Location Epigastric Description and Burning Symptoms Chest Pain Duration > 6 Hours PA: Gastrointestinal Assessment Start: 09/02/25 16:56 Freq: Status: Active Protocol: Document 09/02/25 16:56 MLI (Rec: 09/02/25 16:57 MLI [id number]) GI Assessment Gastrointestinal Nausea,Vomiting Symptoms Description Flat,Soft Pattern Normal Flatus Present Date of Last Bowel 08/30/25 Movement PA: Respiratory Assessment Start: 09/02/25 16:49 Freq: Status: Complete Protocol: Document 09/02/25 16:56 MLI (Rec: 09/02/25 16:57 MLI [id number]) Respiratory Assessment Symptoms Cough Effort Normal Pattern Regular Depth Normal Chest Expansion Symmetrical Adult Capillary Normal/Less than 2 Seconds Refill Cough Description Non-Productive Cough Frequency Intermittent Oxygen Delivery Oxygen Delivery Room Air Last Vital Signs Temperature 98.3 F 09/02/25 20:36 Pulse Rate 121 H 09/02/25 20:36 Respiratory Rate 15 09/02/25 20:36 Pulse Oximetry 98 09/02/25 20:36 Blood Pressure 164/92 H 09/02/25 20:36 Blood Pressure Mean 113 09/02/25 20:36 Oxygen Delivery Room Air 09/02/25 16:56 Weight 52.7 kg 09/02/25 16:52 Last Result - Abnormals Only WBC 12.7 K/mm3 (4.5-10.0) H 09/02/25 17:09 Hgb 15.5 g/dL (12.0-15.0) H D 09/02/25 17:09 Neut % (Auto) 85.5 % (45.5-73.1) H 09/02/25 17:09 Lymph % (Auto) 9.2 % (18.3-44.2) L 09/02/25 17:09 Abs Immat Gran (auto) 0.05 K/mm3 (0.00-0.031) H 09/02/25 17:09 Absolute Neuts (auto) 10.8 K/mm3 (1.3-6.7) H 09/02/25 17:09 APTT 22.2 Seconds (22.3-36.8) L 09/02/25 17:09 VBG pH 7.277 (7.300-7.400) L 09/02/25 18:22 VBG pO2 31.2 mmHg (35.0-45.0) L 09/02/25 18:22 VBG HCO3 21.1 mEq/l (24.0-30.0) L 09/02/25 18:22 Chloride 93 mmol/L (98-107) L 09/02/25 17:09 Carbon Dioxide 21 mmol/L (22-30) L 09/02/25 17:09 Anion Gap 23 mmol/L (4-12) H 09/02/25 17:09 Glucose 487 mg/dL (65-110) H 09/02/25 17:09 POC Capillary Glucose 396 mg/dl (65-105) H 09/02/25 20:35 Hemoglobin A1c 12.6 % (<5.7) H 09/02/25 17:09 Lactic Acid 3.2 mmol/L (0.7-2.0) H 09/02/25 18:22 Phosphorus 5.8 mg/dL (2.5-4.5) H 09/02/25 17:09 Total Bilirubin 1.7 mg/dL (0.2-1.3) H 09/02/25 17:09 Alkaline Phosphatase 128 U/L (38-126) H 09/02/25 17:09 Total Protein 10.8 g/dL (6.3-8.2) H 09/02/25 17:09 Albumin 5.5 g/dL (3.5-5.1) H 09/02/25 17:09 Beta-Hydroxybutyrate/Acetoacetate 3.71 mmol/L (0.02-0.27) H 09/02/25 17:09 Ur Specific [place] > 1.045 (1.001-1.035) H 09/02/25 18:17 Urine Protein 1+ mg/dL (Negative) H 09/02/25 18:17 Urine Glucose (UA) 3+ mg/dL (Negative) H 09/02/25 18:17 Urine Ketones 4+ mg/dL (Negative) H 09/02/25 18:17 Urine Bacteria 1+ /hpf H 09/02/25 18:17 Most Recent Suicide Severity Rating Suicide Severity Rating NO RISK INDICATED 09/02/25 16:52
--- NOTE | 2025-09-02 20:58 | PC.NURSE ---
This patient, Alyssa Guzmán, was admitted to Intensive Care Unit-3. Patient/family oriented to hospital policies and general routines including ID bracelet, bed and alarms, visiting hours, pain management, procedures, bathroom and other care routines, personal items, smoking policy, room service/diet, and visiting hours. Information on how to activate the Rapid Response Team has been discussed. Patient/Family are encouraged to report perceived risks to care and to ask questions if they do not understand what they are told or what they should do.
--- NOTE | 2025-09-02 21:17 | P.HP_ITS ---
H&P: HPI History of Present Illness Date/Time: 09/02/25 21:17 Chief Complaint: Nausea vomiting Narrative: This is a 45-year-old female who presented with nausea, vomiting since yesterday. Also epigastric pain that radiated to the back. She denies any diarrhea urinary symptoms fever chills shortness of breath. Patient type diabetes and insulin however she has not been using her insulin since a week now due to cost. In the ED she was hypertensive and tachycardic but afebrile. laboratory studies showed WBC 12 hemoglobin of 15 point platelet sodium potassium 3.8 chloride 93 bicarbonate 21 anion gap of 23 BUN 12 creatinine 0.7 blood glucose of 487 lactate of 3.2 calcium 9.9 phosphorus 5.8 magnesium 2.3 LFT with 1.7 bilirubin AST 34 ALT 31 up in phosphatase 128 troponin was negative at less than 0.012, beta hydroxy butyrate elevated at 3.71 urinalysis negative for UTI nasal MRSA is not detected. VBG 7.27/46//. INR 1.1. Chest x-ray showed probable viral pneumonitis. CT abdomen pelvis with no acute findings. EKG showed sinus tachycardia Patient received fluid bolus, morphine and Zofran. Patient has been started on IV insulin per DKA protocol. Patient admitted in this setting to the ICU for further treatment. Review of Systems Review of Systems: - CONSTITUTIONAL: Denies weight loss, fever and chills. - HEENT: Denies changes in vision and he aring - RESPIRATORY: Denies SOB and cough. - CV: Denies palpitations and CP. - GI: reports abdominal pain, nausea, v omiting and denies diarrhea. - : Denies dysuria and urinary frequen cy. - MSK: Denies myalgia and joint pain. - SKIN: Denies rash and pruritus. - NEUROLOGICAL: Denies headache and sync ope. - PSYCHIATRIC: Denies recent changes in mood. Denies anxiety and depression. [facility] Past Medical History Medical History Insulin dependent diabetes mellitus Family History Family History Grandparent Acute myocardial infarction Cerebrovascular accident Diabetes mellitus Hypertension Father Colon cancer Diabetes mellitus Social History Social History Smoking status: Never smoker Alcohol intake: never Substance use: never Substance use type: does not use Lack of Transportation: YES Lack of Food: Never True Current Housing: I Have Housing Concerned About Future Housing: No Difficulty Paying Gas/Electric Bills: No Difficulty Paying for Meds: No Currently Unemployed: No Education: Decline to Answer Difficulty w/ Childcare or Family Care: No Gender identity (if verbalized by the patient): Female Spiritual care concerns: No Meds Home Medications and Allergies Home Medications ?Medication ?Instructions ?Recorded ?Confirmed ?Type atenolol 50 mg tablet 50 mg PO DAILY 12/14/2408/20 History canagliflozin 300 mg tablet 300 mg PO DAILY 12/14/24 1 11/03/24 History (Invokana) glipizide 5 mg tablet 5 mg PO BIDAC 12/14/2409/02 History insulin glargine 100 unit/mL (3 10 unit subcut HS 11/1909/02/25 History mL) subcutaneous pen (Lantus Solostar U-100 Insulin) Allergies Allergy/AdvReac Type Severity Reaction Status Date / Time hydrocodone (From [place]) AdvReac Mild Itching Verified 09/02/25 21:37 hydromorphone (From Dilaudid) AdvReac Mild Itching Verified 09/02/25 21:37 Vital Signs Vital Signs - 24 hr 09/02/25 16:52 09/02/25 16:56 09/02/25 17:48 Temperature 97.8 F Pulse Rate 127 H 124 H Respiratory Rate 16 17 Blood Pressure 180/124 H Pulse Oximetry 100 94 Oxygen Delivery Room Air Room Air 09/02/25 18:07 09/02/25 18:40 09/02/25 19:16 Temperature Pulse Rate 118 H 117 H 121 H Respiratory Rate 15 20 13 Blood Pressure 187/104 H 162/102 H Pulse Oximetry 100 100 Oxygen Delivery 09/02/25 19:30 09/02/25 19:31 09/02/25 19:45 Temperature Pulse Rate 118 H 116 H 116 H Respiratory Rate 15 19 13 Blood Pressure 168/101 H 172/106 H Pulse Oximetry 100 98 Oxygen Delivery 09/02/25 19:46 09/02/25 20:00 09/02/25 20:01 Temperature Pulse Rate 116 H 117 H 139 H Respiratory Rate 16 22 H 23 H Blood Pressure 156/90 H Pulse Oximetry Oxygen Delivery 09/02/25 20:15 09/02/25 20:16 09/02/25 20:30 Temperature Pulse Rate 123 H 124 H 121 H Respiratory Rate 12 17 15 Blood Pressure 160/92 H Pulse Oximetry 100 100 97 Oxygen Delivery 09/02/25 20:36 09/02/25 20:47 Temperature 98.3 F 98.3 F Pulse Rate 121 H 121 H Respiratory Rate 15 20 Blood Pressure 164/92 H 156/110 H Pulse Oximetry 98 98 Oxygen Delivery Exam Narrative: GENERAL: The patient is well developed, not in acute distress HEENT: Nonicteric sclerae, PERRLA, EOMI. Oropharynx clear. dry mucous membranes. Conjunctivae appear well perfused. CHEST: Chest wall is nontender. HEART: tachycardic, sinus on telemetry, without murmur, rubs, or gallops LUNGS: Clear to auscultation bilaterally. no respiratory distress ABDOMEN: Soft, positive bowel sounds, non-tender, no organomegaly. SKIN: No rash, no excessive bruising, petechiae, or purpura. NEUROLOGIC: Cranial nerves II-XII intact, alert and oriented x 3, no gross motor deficits EXTREMITIES: no edema, cyanosis or clubbing Results Labs Labs: Short CBC 09/02/25 Range/Units 17:09 WBC 12.7 H (4.5-10.0) K/mm3 Hgb 15.5 H D (12.0-15.0) g/dL Hct 43.6 (37.0-47.0) % Plt Count 337 (150-375) k/mm3 [facility] 09/02/25 17:09 Sodium 137 Potassium 3.8 Chloride 93 L Carbon Dioxide 21 L BUN 12 D Creatinine 0.71 Glucose 487 H Calcium 9.9 Cardiac Enzymes 09/02/25 Range/Units 17:09 Troponin I < 0.012 (0.000-0.034) ng/mL Liver Function 09/02/25 Range/Units 17:09 Total Bilirubin 1.7 H (0.2-1.3) mg/dL AST 34 (14-36) U/L ALT 31 (6-35) U/L Alkaline Phosphatase 128 H (38-126) U/L Albumin 5.5 H (3.5-5.1) g/dL Urine // Range/Units 18:17 Urine Color Yellow (Yellow) Urine Appearance Clear (Clear) Urine pH 5.5 (5.0-9.0) Ur Specific [place] > 1.045 H (1.001-1.035) Urine Protein 1+ H (Negative) mg/dL Urine Glucose (UA) 3+ H (Negative) mg/dL Critical Care Time Critical Care Time Indication: 40 minutes Assessment and Plan Assessment and plan (1) Insulin dependent diabetes mellitus: Status: Acute (2) DKA (diabetic ketoacidosis): Code(s): E11.10 - Type 2 diabetes mellitus with ketoacidosis without coma Status: Acute (3) Nausea & vomiting: Code(s): R11.2 - Nausea with vomiting, unspecified Status: Acute (4) Abdominal pain: Code(s): R10.9 - Unspecified abdominal pain Status: Acute (5) Lactic acidosis: Code(s): E87.20 - Acidosis, unspecified Status: Acute Plan This is a 45-year-old female who presented with nausea, vomiting since yesterday. Also epigastric pain that radiated to the back. She denies any diarrhea urinary symptoms fever chills shortness of breath. Patient type diabetes and insulin however she has not been using her insulin since a week now due to cost. In the ED she was hypertensive and tachycardic but afebrile. laboratory studies showed WBC 12 hemoglobin of 15 point platelet sodium potassium 3.8 chloride 93 bicarbonate 21 anion gap of 23 BUN 12 creatinine 0.7 blood glucose of 487 lactate of 3.2 calcium 9.9 phosphorus 5.8 magnesium 2.3 LFT with 1.7 bilirubin AST 34 ALT 31 up in phosphatase 128 troponin was negative at less than 0.012, beta hydroxy butyrate elevated at 3.71 urinalysis negative for UTI nasal MRSA is not detected. VBG 7.27/46/31/21. INR 1.1. Chest x-ray showed probable viral pneumonitis. CT abdomen pelvis with no acute findings. EKG showed sinus tachycardia Patient received fluid bolus, morphine and Zofran. Patient has been started on IV insulin per DKA protocol. Patient admitted in this setting to the ICU for further treatment. Acute DKA with hyperglycemia Continue fluid resuscitation as ordered dehydration ivf with aggressive resuscitation Lactic acidosis chest x-ray viral pneumonitis will get flu RSV COVID swab. Panculture. Urinalysis negative for infection. no signs of infection could be from severe dehydration. watch off antibiotics. Abdominal pain nausea vomiting CT abdomen is negative. lipase is normal hypertension Type 2 diabetes mellitus On insulin Hemoglobin A1c 12.6 Diff prophylaxis Lovenox Code status full code Hospitalist [facility] Advance Care Plan I have confirmed that the patient's Advanced Care Plan is present, code status is documented, or surrogate decision maker is listed in patient medical record.: Yes Medication Reconciliation I have utilized all available resources to obtain, update and review the patients current medications (includes all prescriptions, OTC, herbals, cannabis, and nutritional supplements).: Yes
[2025-09-02] MEDS: MORPHINE SULFATE (*CRX) 4 MG/ML INJ 2 MG IV PUSH (21:28)
[2025-09-02 21:38] LABS: Anion Gap 23 mmol/L (4-12); Blood Urea Nitrogen 10 mg/dL (7-17); Calcium 9.5 mg/dL (8.4-10.2); Carbon Dioxide 14 mmol/L (22-30); Chloride 103 mmol/L (98-107); Estimated CRCL calculation 88 ml/min; Estimated Glomerular Filt Rate > 60; Glucose 334 mg/dL (65-110); Potassium 3.9 mmol/L (3.4-5.0); Sodium 140 mmol/L (137-145)
[2025-09-02 21:48] LABS: Troponin I < 0.012 ng/mL (0.000-0.034)
[2025-09-02 21:55] LABS: Hemoglobin A1C 12.8 % (<5.7)
[2025-09-02 21:59] LABS: Magnesium 2.2 mg/dL (1.6-2.3)
[2025-09-02] MEDS: KCL 20 MEQ/D5/0.45% SOD CHL 1,000 ML 150 ML IV CONT (23:10)
[2025-09-03] VITALS (16 sets, daily range): BP systolic 100–154; BP diastolic 56–96; PULSE 80–124; RESP 11–20; TEMP 36.4–37.1; O2SAT 97–100; BMI 16.5
[2025-09-03 00:13] LABS: Strep Group A RT-PCR NOT DETECTED (Negative)
[2025-09-03 00:24] LABS: Influenza A QL RT-PCR Negative (Negative); Influenza B QL RT-PCR Negative (Negative); RSV RNA, RT-PCR Negative (Negative); SARS-CoV-2 RNA PCR Negative (Negative)
[2025-09-03 00:50] LABS: Anion Gap 6 mmol/L (4-12); Blood Urea Nitrogen 10 mg/dL (7-17); Calcium 8.4 mg/dL (8.4-10.2); Carbon Dioxide 22 mmol/L (22-30); Chloride 110 mmol/L (98-107); Estimated CRCL calculation 92 ml/min; Estimated Glomerular Filt Rate > 60; Glucose 195 mg/dL (65-110); Potassium 4.1 mmol/L (3.4-5.0); Sodium 138 mmol/L (137-145)
[2025-09-03] MEDS: SODIUM CHLORIDE 0.9% IV 1,000 ML 150 ML IV CONT ×2 (02:12→08:05)
[2025-09-03] MEDS: MORPHINE SULFATE (*CRX) 4 MG/ML INJ 2 MG IV PUSH ×4 (02:25→21:26)
[2025-09-03] MEDS: ONDANSETRON INJ 4 MG/2 ML VIAL IV PUSH ×3 (02:25→12:10)
[2025-09-03 04:27] LABS: Troponin I < 0.012 ng/mL (0.000-0.034)
[2025-09-03 05:53] LABS: Anion Gap 10 mmol/L (4-12); Blood Urea Nitrogen 9 mg/dL (7-17); Calcium 9.0 mg/dL (8.4-10.2); Carbon Dioxide 20 mmol/L (22-30); Chloride 108 mmol/L (98-107); Estimated CRCL calculation 75 ml/min; Estimated Glomerular Filt Rate > 60; Glucose 225 mg/dL (65-110); Potassium 3.8 mmol/L (3.4-5.0); Sodium 138 mmol/L (137-145)
[2025-09-03] MEDS: ENOXAPARIN 40 MG/0.4 ML SYRINGE SUB-Q (08:06)
[2025-09-03] MEDS: INSULIN GLARGINE (*BKC) 100 UNITS/ML 15 UNITS SUB-Q (09:08)
[2025-09-03] MEDS: PANTOPRAZOLE SODIUM IV 40 MG VIAL IV PUSH ×2 (09:08→21:21)
[2025-09-03 09:11] LABS: Hematocrit 36.8 % (37.0-47.0); Hemoglobin 12.9 g/dL (12.0-15.0); Mean Corpuscular HGB Conc 35.1 g/dl (32-36); Mean Corpuscular Hemoglobin 32.5 pg (26-34); Mean Corpuscular Volume 92.7 fl (80-100); Platelet Count Result 274 k/mm3 (150-375); Red Blood Count 3.97 M/mm3 (4.2-5.4); White Blood Count 9.2 K/mm3 (4.5-10.0)
[2025-09-03] MEDS: KCL 20 MEQ/D5/0.45% SOD CHL 1,000 ML 150 ML IV CONT (09:17)
[2025-09-03 09:39] LABS: Anion Gap 7 mmol/L (4-12); Blood Urea Nitrogen 8 mg/dL (7-17); Calcium 8.3 mg/dL (8.4-10.2); Carbon Dioxide 22 mmol/L (22-30); Chloride 105 mmol/L (98-107); Estimated CRCL calculation 78 ml/min; Estimated Glomerular Filt Rate > 60; Glucose 246 mg/dL (65-110); Magnesium 2.2 mg/dL (1.6-2.3); Potassium 3.6 mmol/L (3.4-5.0); Sodium 134 mmol/L (137-145)
--- NOTE | 2025-09-03 09:55 | WPDCNINT2 ---
Assessment and Plan Assessment and plan (1) DKA (diabetic ketoacidosis): Code(s): E11.10 - Type 2 diabetes mellitus with ketoacidosis without coma Status: Acute Assessment and Plan: DKA secondary to noncompliance. Pt was given IVF bolus and started on infusion Insulin infusion Was started and Q1H glucose monitoring is being done Serial labs were ordered anion gap has now closed I will start patient on clear liquid diet and advance as tolerated. Will transition her to subcutaneous insulin. Consult dietitian and diabetes educator. (2) Nausea & vomiting: Code(s): R11.2 - Nausea with vomiting, unspecified Status: Acute Assessment and Plan: p.r.n. Zofran (3) Electrolyte abnormality: Code(s): E87.8 - Other disorders of electrolyte and fluid balance, not elsewhere classified Status: Acute Assessment and Plan: replace low potassium (4) Esophagitis: Code(s): K20.90 - Esophagitis, unspecified without bleeding Status: Acute Assessment and Plan: CT scan shows inflamed esophagus suggestive of esophagitis. Patient will be started on PPI IV q.12 hours. (5) Hematemesis: Code(s): K92.0 - Hematemesis Status: Acute Assessment and Plan: patient reports some episodes of blood-tinged vomitus later in the course of her vomiting episodes. This could be mild Samantha-Ibrahim tear. I did not see any blood-tinged vomitus in her vomitus bag at bedside monitor and consult GI IV PPI q.[address] scan of the abdomen does not show any evidence of perforation or free air but does show esophagitis changes (6) Pain: Code(s): R52 - Pain, unspecified Status: Acute Assessment and Plan: noncardiac chest pain and abdominal pain without any tenderness likely secondary to DKA CT abdomen pelvis negative EKG does not suggest any ST elevation or depression troponin x2 negative Plan DVT prophylaxis - SCD Stress ulcer prophylaxis - PPI Nutrition - start clear liquid diet and advance as tolerated Code Status - Full Code transfer out of ICU today Educational Adviser Consult Note Consult date: 09/03/25 Reason for consult: DKA HPI: Alyssa Guzmán is a 45 year old female with past medical history of hypertension and type 2 diabetes who is on p.o. medications and insulin but is noncompliant with the treatment presented to ER yesterday with chief complaint of nausea vomiting and chest pain. Patient admits that she does not take her insulin regularly and has not taken any insulin for last 1 week. She states that 2 days ago she started having nausea vomiting and was unable to keep anything down. After few episodes she had couple of the episodes of vomiting which she felt there was some blood associated with it. She denies any fever shortness of breath. She states the pain was in the middle the chest and upper abdomen and was sharp and did not radiate anywhere else. She rates pain at 7/10 . All other systems were reviewed and were negative. Workup in the ER showed hemoglobin to be elevated at 15.5 WBC 12.7 blood gas showed metabolic acidosis chemistry showed elevated beta hydroxybutyrate and anion gap along with hyperglycemia HbA1c 12.8 lactic acid was 9.5 troponin was negative patient was admitted to ICU with DKA and started on IV fluids and insulin infusion. Patient this morning states she feels markedly better with improvement in her pain and nausea vomiting. she is having some hiccups but is willing to try food. [facility] Past Medical History Medical History (Updated 09/03/25 @ 10:04 by Ej Quinn MD) Hypertension Insulin dependent diabetes mellitus Family History Family History (Updated 09/02/25 @ 22:01 by Sandra Wright RN) Grandparent Acute myocardial infarction Cerebrovascular accident Diabetes mellitus Hypertension Father Colon cancer Diabetes mellitus Social History Social History Smoking status: Never smoker Alcohol intake: current Drinks per week: 1 Substance use: never Substance use type: does not use Lack of Transportation: No Lack of Food: Never True Current Housing: I Have Housing Concerned About Future Housing: No Difficulty Paying Gas/Electric Bills: YES Difficulty Paying for Meds: No Currently Unemployed: Decline to Answer Education: Decline to Answer Difficulty w/ Childcare or Family Care: No Gender identity (if verbalized by the patient): Female Spiritual care concerns: No Meds Home Medications and Allergies Home Medications ?Medication ?Instructions ?Recorded ?Confirmed ?Type atenolol 50 mg tablet 50 mg PO DAILY 12/14/24 09/02/25 History canagliflozin 300 mg tablet 300 mg PO DAILY 12/14/24 09/02/25 History (Invokana) glipizide 5 mg tablet 5 mg PO BIDAC 12/14/24 09/02/25 History insulin glargine 100 unit/mL (3 10 unit subcut HS 12/14/24 09/02/25 History mL) subcutaneous pen (Lantus Solostar U-100 Insulin) Allergies Allergy/AdvReac Type Severity Reaction Status Date / Time hydrocodone (From [place]) AdvReac Mild Itching Verified 09/02/25 21:37 hydromorphone (From Dilaud[place]) AdvReac Mild Itching Verified 09/02/25 21:37 Vital Signs Vital Signs - 24 hr 09/02/25 16:52 09/02/25 16:56 09/02/25 17:48 Temperature 36.6 C Pulse Rate 127 H 124 H Respiratory Rate 16 17 Blood Pressure 180/124 H Pulse Oximetry 100 94 Oxygen Delivery Room Air Room Air 09/02/25 18:07 09/02/25 18:40 09/02/25 19:16 Temperature Pulse Rate 118 H 117 H 121 H Respiratory Rate 15 20 13 Blood Pressure 187/104 H 162/102 H Pulse Oximetry 100 100 Oxygen Delivery 09/02/25 19:30 09/02/25 19:31 09/02/25 19:45 Temperature Pulse Rate 118 H 116 H 116 H Respiratory Rate 15 19 13 Blood Pressure 168/101 H 172/106 H Pulse Oximetry 100 98 Oxygen Delivery 09/02/25 19:46 09/02/25 20:00 09/02/25 20:01 Temperature Pulse Rate 116 H 117 H 139 H Respiratory Rate 16 22 H 23 H Blood Pressure 156/90 H Pulse Oximetry Oxygen Delivery 09/02/25 20:15 09/02/25 20:16 09/02/25 20:30 Temperature Pulse Rate 123 H 124 H 121 H Respiratory Rate 12 17 15 Blood Pressure 160/92 H Pulse Oximetry 100 100 97 Oxygen Delivery 09/02/25 20:36 09/02/25 20:47 09/02/25 21:00 Temperature 36.8 C 36.8 C Pulse Rate 121 H 121 H Respiratory Rate 15 20 Blood Pressure 164/92 H 156/110 H Pulse Oximetry 98 98 Oxygen Delivery Room Air 09/02/25 21:00 09/02/25 22:00 09/02/25 22:00 Temperature 36.7 C Pulse Rate 124 H 123 H 123 H Respiratory Rate 15 17 Blood Pressure 168/95 H 147/93 H Pulse Oximetry 99 99 Oxygen Delivery 09/02/25 23:00 09/03/25 00:00 09/03/25 00:00 Temperature Pulse Rate 124 H 124 H Respiratory Rate 15 Blood Pressure 152/95 H Pulse Oximetry 99 Oxygen Delivery Room Air 09/03/25 00:00 09/03/25 01:00 09/03/25 02:00 Temperature 36.7 C Pulse Rate 124 H 110 H 103 H Respiratory Rate 14 16 Blood Pressure 138/73 100/56 L Pulse Oximetry 99 97 Oxygen Delivery 09/03/25 02:00 09/03/25 03:00 09/03/25 04:00 Temperature Pulse Rate 103 H 110 H Respiratory Rate 13 15 Blood Pressure 138/83 142/84 H Pulse Oximetry 98 97 Oxygen Delivery Room Air 09/03/25 04:00 09/03/25 04:00 09/03/25 05:00 Temperature 36.6 C Pulse Rate 98 100 110 H Respiratory Rate 13 13 Blood Pressure 126/77 154/96 H Pulse Oximetry 97 100 Oxygen Delivery 09/03/25 06:00 09/03/25 06:00 09/03/25 07:00 Temperature Pulse Rate 102 H 102 H 98 Respiratory Rate 18 11 L Blood Pressure 114/74 122/73 Pulse Oximetry 100 99 Oxygen Delivery 09/03/25 08:00 09/03/25 08:00 09/03/25 08:00 Temperature 36.8 C Pulse Rate 104 H 106 H Respiratory Rate 14 Blood Pressure 154/89 H Pulse Oximetry 99 Oxygen Delivery Room Air 09/03/25 09:30 Temperature Pulse Rate 104 H Respiratory Rate 12 Blood Pressure 148/86 H Pulse Oximetry 100 Oxygen Delivery Exam Narrative: General: Pt is alert awake and in NAD Lungs/Chest: Trachea central Clear BS B/L, No crackles or wheezing. she has some tenderness on chest wall anteriorly Cardiac: RRR. Normal S1 S2. No murmurs Circulation: Pedal pulses are intact and symmetrical. Abdomen: Normal bowel sounds.. Soft. NT. ND. Extremities: No clubbing, cyanosis or edema. Warm : Erwin in place Neurologic: Follows commands. Moves all 4 extremities PERRL AO x3 Skin: No Rash Results Labs 09/03/25 09:01 09/03/25 09:03 Labs: Short CBC 09/02/25 09/03/25 Range/Units 17:09 09:01 WBC 12.7 H 9.2 (4.5-10.0) K/mm3 Hgb 15.5 H D 12.9 (12.0-15.0) g/dL Hct 43.6 36.8 L (37.0-47.0) % Plt Count 337 274 (150-375) k/mm3 BMP 09/02/25 09/02/25 09/03/25 17:09 21:15 00:31 Sodium 137 140 138 Potassium 3.8 3.9 4.1 Chloride 93 L 103 110 H Carbon Dioxide 21 L 14 L 22 BUN 12 D 10 10 Creatinine 0.71 0.58 L 0.55 L Glucose 487 H 334 H 195 H Calcium 9.9 9.5 8.4 09/03/25 09/03/25 04:33 09:03 Sodium 138 134 L Potassium 3.8 3.6 Chloride 108 H 105 Carbon Dioxide 20 L 22 BUN 9 8 Creatinine 0.56 L 0.54 L Glucose 225 H 246 H Calcium 9.0 8.3 L Cardiac Enzymes 09/02/25 09/02/25 09/03/25 Range/Units 17:09 21:15 00:31 Troponin I < 0.012 < 0.012 < 0.012 (0.000-0.034) ng/mL Liver Function 09/02/25 Range/Units 17:09 Total Bilirubin 1.7 H (0.2-1.3) mg/dL AST 34 (14-36) U/L ALT 31 (6-35) U/L Alkaline Phosphatase 128 H (38-126) U/L Albumin 5.5 H (3.5-5.1) g/dL Urine 09/02/25 Range/Units 18:17 Urine Color Yellow (Yellow) Urine Appearance Clear (Clear) Urine pH 5.5 (5.0-9.0) Ur Specific Felt > 1.045 H (1.001-1.035) Urine Protein 1+ H (Negative) mg/dL Urine Glucose (UA) 3+ H (Negative) mg/dL
[2025-09-03] MEDS: PHENOL/SOD PHENO SPRAY CHERRY (*BKC) 1 SPRAY MUCOUS MEM (10:00)
[2025-09-03] MEDS: POTASSIUM CHLORIDE 20 MEQ PACKET (FOR LIQUID) 40 MEQ PO (11:43)
[2025-09-03] MEDS: INSULIN ASPART (*BKC) 100 UNITS/ML SUB-Q ×2 (12:04→17:39)
--- NOTE | 2025-09-03 14:51 | PC.NURSE ---
This patient, Alyssa Guzmán, was transferred to [facility] on 09/03/25 at 1452. Personal belongings sent with patient. Report given to Freya. Appropriate documentation sent with patient.
--- NOTE | 2025-09-03 15:01 | P.PNIM_ITS ---
Assessment and Plan Assessment and Plan (1) Insulin dependent diabetes mellitus: Status: Acute (2) DKA (diabetic ketoacidosis): Code(s): E11.10 - Type 2 diabetes mellitus with ketoacidosis without coma Status: Acute (3) Nausea & vomiting: Code(s): R11.2 - Nausea with vomiting, unspecified Status: Acute (4) Abdominal pain: Code(s): R10.9 - Unspecified abdominal pain Status: Acute (5) Lactic acidosis: Code(s): E87.20 - Acidosis, unspecified Status: Acute Plan This is a 45-year-old female who presented with nausea, vomiting since yesterday. Also epigastric pain that radiated to the back. She denies any diarrhea urinary symptoms fever chills shortness of breath. Patient type diabetes and insulin however she has not been using her insulin since a week now due to cost. In the ED she was hypertensive and tachycardic but afebrile. laboratory studies showed WBC 12 hemoglobin of 15 point platelet sodium potassium 3.8 chloride 93 bicarbonate 21 anion gap of 23 BUN 12 creatinine 0.7 blood glucose of 487 lactate of 3.2 calcium 9.9 phosphorus 5.8 magnesium 2.3 LFT with 1.7 bilirubin AST 34 ALT 31 up in phosphatase 128 troponin was negative at less than 0.012, beta hydroxy butyrate elevated at 3.71 urinalysis negative for UTI nasal MRSA is not detected. VBG 7.27/46/31/21. INR 1.1. Chest x-ray showed probable viral pneumonitis. CT abdomen pelvis with no acute findings. EKG showed sinus tachycardia Patient received fluid bolus, morphine and Zofran. Patient has been started on IV insulin per DKA protocol. Patient admitted in this setting to the ICU for further treatment. Acute DKA with hyperglycemia Continue fluid resuscitation as ordered along with IV insulin. After anion gap closed patient has been transition to subcu insulin. dehydration ivf with aggressive resuscitation Lactic acidosis chest x-ray viral pneumonitis. [place] acidosis improved with IV hydration. Panculture. Urinalysis negative for infection. no signs of infection could be from severe dehydration. watch off antibiotics. Abdominal pain nausea vomiting CT abdomen is negative. lipase is normal. Ppi. GI consulted. Reported blood-tinged vomitus hypertension Type 2 diabetes mellitus On insulin Hemoglobin A1c 12.6. Noncompliant with her medication DVT prophylaxis Lovenox Code status full code Subjective Date/time seen: 09/03/25 15:01 Interval history: Patient transferred [facility] Labs reviewed. Complains of epigastric pain. Awaiting GI consultation Review of Systems Review of Systems: All systems reviewed & are unremarkable except as noted in HPI and below Exam Narrative: General: Pt is alert awake and in NAD Lungs/Chest: Trachea central Clear BS B/L, No crackles or wheezing. Cardiac: RRR. Normal S1 S2. No murmurs Circulation: Pedal pulses are intact and symmetrical. Abdomen: Normal bowel sounds.. Soft. Non distended epigastric tenderness Extremities: No clubbing, cyanosis or edema. Warm : Erwin in place Neurologic: Follows commands. Moves all 4 extremities PERRL AO x3 Skin: No Rash Objective Data Vital Signs Vital Signs: Vital Signs - 24 hr 09/02/25 16:52 09/02/25 16:56 09/02/25 17:48 Temperature 97.8 F Pulse Rate 127 H 124 H Respiratory Rate 16 17 Blood Pressure 180/124 H Pulse Oximetry 100 94 Oxygen Delivery Room Air Room Air 09/02/25 18:07 09/02/25 18:40 09/02/25 19:16 Temperature Pulse Rate 118 H 117 H 121 H Respiratory Rate 15 20 13 Blood Pressure 187/104 H 162/102 H Pulse Oximetry 100 100 Oxygen Delivery 09/02/25 19:30 09/02/25 19:31 09/02/25 19:45 Temperature Pulse Rate 118 H 116 H 116 H Respiratory Rate 15 19 13 Blood Pressure 168/101 H 172/106 H Pulse Oximetry 100 98 Oxygen Delivery 09/02/25 19:46 09/02/25 20:00 09/02/25 20:01 Temperature Pulse Rate 116 H 117 H 139 H Respiratory Rate 16 22 H 23 H Blood Pressure 156/90 H Pulse Oximetry Oxygen Delivery 09/02/25 20:15 09/02/25 20:16 09/02/25 20:30 Temperature Pulse Rate 123 H 124 H 121 H Respiratory Rate 12 17 15 Blood Pressure 160/92 H Pulse Oximetry 100 100 97 Oxygen Delivery 09/02/25 20:36 09/02/25 20:47 09/02/25 21:00 Temperature 98.3 F 98.3 F Pulse Rate 121 H 121 H Respiratory Rate 15 20 Blood Pressure 164/92 H 156/110 H Pulse Oximetry 98 98 Oxygen Delivery Room Air 09/02/25 21:00 09/02/25 22:00 09/02/25 22:00 Temperature 98.0 F Pulse Rate 124 H 123 H 123 H Respiratory Rate 15 17 Blood Pressure 168/95 H 147/93 H Pulse Oximetry 99 99 Oxygen Delivery 09/02/25 23:00 09/03/25 00:00 09/03/25 00:00 Temperature Pulse Rate 124 H 124 H Respiratory Rate 15 Blood Pressure 152/95 H Pulse Oximetry 99 Oxygen Delivery Room Air 09/03/25 00:00 09/03/25 01:00 09/03/25 02:00 Temperature 98.1 F Pulse Rate 124 H 110 H 103 H Respiratory Rate 14 16 Blood Pressure 138/73 100/56 L Pulse Oximetry 99 97 Oxygen Delivery 09/03/25 02:00 09/03/25 03:00 09/03/25 04:00 Temperature Pulse Rate 103 H 110 H Respiratory Rate 13 15 Blood Pressure 138/83 142/84 H Pulse Oximetry 98 97 Oxygen Delivery Room Air 09/03/25 04:00 09/03/25 04:00 09/03/25 05:00 Temperature 97.9 F Pulse Rate 98 100 110 H Respiratory Rate 13 13 Blood Pressure 126/77 154/96 H Pulse Oximetry 97 100 Oxygen Delivery 09/03/25 06:00 09/03/25 06:00 09/03/25 07:00 Temperature Pulse Rate 102 H 102 H 98 Respiratory Rate 18 11 L Blood Pressure 114/74 122/73 Pulse Oximetry 100 99 Oxygen Delivery 09/03/25 08:00 09/03/25 08:00 09/03/25 08:00 Temperature 98.3 F Pulse Rate 104 H 106 H Respiratory Rate 14 Blood Pressure 154/89 H Pulse Oximetry 99 Oxygen Delivery Room Air 09/03/25 09:30 09/03/25 10:00 09/03/25 10:00 Temperature 98.2 F Pulse Rate 104 H 107 H 110 H Respiratory Rate 12 13 Blood Pressure 148/86 H 146/92 H Pulse Oximetry 100 100 Oxygen Delivery 09/03/25 10:00 09/03/25 11:00 09/03/25 12:00 Temperature 98.2 F Pulse Rate 108 H 93 88 Respiratory Rate 15 14 Blood Pressure 143/94 H 132/79 Pulse Oximetry 100 99 Oxygen Delivery 09/03/25 12:00 09/03/25 13:00 Temperature Pulse Rate 89 80 Respiratory Rate 14 Blood Pressure 114/73 Pulse Oximetry 99 Oxygen Delivery Intake/Output Intake/Output: Intake & Output 08/31/25 09/01/25 09/02/25 09/03/25 23:59 23:59 23:59 23:59 Intake Total 2526.2 1847.5 Output Total 1400 Balance 2526.2 447.5 Meds/Results Medications: Active Medications Generic Name Dose Route Start Last Admin Trade Name Freq PRN Reason Stop Dose Admin Atenolol 50 mg 09/03/25 09:00 09/03/25 10:00 Atenolol 50 Mg Tablet PO 50 mg DAILY LAURA Administration Dextrose 12.5 gm 09/03/25 08:49 Dextrose 50% 25 Gm/50 Ml Syringe IV PUSH PRN PRN Hypoglycemia Protocol Glucagon 1 mg 09/03/25 08:49 Glucagon For Inj 1 Mg Vial IM PRN PRN Hypoglycemia Protocol Glucose 15 gm 09/03/25 08:49 Glucose Oral Gel 15 Gm Of Glucse In 37.5 Gm Tube PO PRN PRN Hypoglycemia Protocol Dextrose 1,000 mls @ 100 mls/hr 09/03/25 08:49 Dextrose 5% 1,000 Ml IVPB PRN PRN Hypoglycemia Protocol Insulin Aspart 3 - 6 units 09/03/25 12:00 09/03/25 12:04 Insulin Aspart (*Bkc) 100 Units/Ml SUB-Q 4 units TIDWM LAURA Administration Protocol Insulin Aspart 1 - 3 units 09/03/25 21:00 Insulin Aspart (*Bkc) 100 Units/Ml SUB-Q HS LAURA Protocol Insulin Glargine 15 units 09/03/25 09:00 09/03/25 09:08 Insulin Glargine (*Bkc) 100 Units/Ml SUB-Q 15 units QAM LAURA Administration Morphine Sulfate 2 mg 09/02/25 21:24 09/03/25 14:33 Morphine Sulfate (*Crx) 4 Mg/Ml Inj IV PUSH 2 mg Q4H PRN Administration Pain Rated 7-10 Ondansetron HCl 4 mg 09/02/25 19:05 09/03/25 12:10 Ondansetron Inj 4 Mg/2 Ml Vial IV PUSH 4 mg Q4H PRN Administration Nausea Pantoprazole Sodium 40 mg 09/03/25 09:00 09/03/25 09:08 Pantoprazole Sodium Iv 40 Mg Vial IV PUSH 40 mg Q12HR LAURA Administration Phenol 1 spray 09/03/25 08:55 09/03/25 10:00 Phenol/Sod Pheno [employer] [facility] (*Bkc) MUCOUS MEM 1 spray PRN PRN Administration Sore Throat Radiology Results: ITS Impressions Chest X-Ray 09/02/25 17:56 Impression: Probable viral pneumonitis Abdomen/Pelvis CT 09/02/25 18:14 IMPRESSION: No acute intra-abdominal process Labs Labs: Laboratory Results - last 24 hr 09/02/25 09/02/25 09/02/25 17:09 18:17 18:22 WBC 12.7 H RBC 4.75 Hgb 15.5 H D Hct 43.6 MCV 91.8 MCH 32.6 MCHC 35.6 RDW 12.0 Plt Count 337 MPV 10.1 Immature Gran % (Auto) 0.4 Neut % (Auto) 85.5 H Lymph % (Auto) 9.2 L [place] % (Auto) 4.7 Eos % (Auto) 0.0 Baso % (Auto) 0.2 Lymph # (Auto) 1.17 [place] # (Auto) 0.6 Eos # (Auto) 0.0 Baso # (Auto) 0.0 Abs Immat Gran (auto) 0.05 H Absolute Neuts (auto) 10.8 H Absolute Nucleated RBC 0.000 Nucleated RBC % 0.0 PT 14.6 INR 1.1 APTT 22.2 L VBG pH 7.277 L VBG pCO2 46.2 VBG pO2 31.2 L VBG HCO3 21.1 L O2 Delivery Device Room air O2 Liters/Min Not Reportable FiO2 21 Sodium 137 Potassium 3.8 Chloride 93 L Carbon Dioxide 21 L Anion Gap 23 H BUN 12 D Creatinine 0.71 Estim Creat Clear Calc 73 Estimated GFR > 60 Glucose 487 H POC Capillary Glucose Hemoglobin A1c 12.6 H Lactic Acid 3.2 H Calcium 9.9 Phosphorus 5.8 H Magnesium 2.3 Total Bilirubin 1.7 H AST 34 ALT 31 Alkaline Phosphatase 128 H Troponin I < 0.012 Total Protein 10.8 H Albumin 5.5 H Lipase 44 Beta-Hydroxybutyrate/Acetoacetate 3.71 H Urine Color Yellow Urine Appearance Clear Urine pH 5.5 Ur Specific [place] > 1.045 H Urine Protein 1+ H Urine Glucose (UA) 3+ H Urine Ketones 4+ H Ur Blood (Man) Negative Urine Nitrate Negative Urine Bilirubin Negative Urine Urobilinogen 0.2 Leukocyte Esterase Rfl Negative Urine RBC 0-2 Urine WBC 0-5 Ur Squamous Epith Cells None seen Urine Bacteria 1+ H Urine Casts 0-2 Nasal MRSA (PCR) Influenza A (RT-PCR) Influenza B (RT-PCR) RSV (RT-PCR) SARS-CoV-2 RNA (RT-PCR) Group A Strep (PCR) 09/02/25 09/02/25 09/02/25 19:12 19:48 20:35 WBC RBC Hgb Hct MCV MCH MCHC RDW Plt Count MPV Immature Gran % (Auto) Neut % (Auto) Lymph % (Auto) [place] % (Auto) Eos % (Auto) Baso % (Auto) Lymph # (Auto) [place] # (Auto) Eos # (Auto) Baso # (Auto) Abs Immat Gran (auto) Absolute Neuts (auto) Absolute Nucleated RBC Nucleated RBC % PT INR APTT VBG pH VBG pCO2 VBG pO2 VBG HCO3 O2 Delivery Device O2 Liters/Min FiO2 Sodium Potassium Chloride Carbon Dioxide Anion Gap BUN Creatinine Estim Creat Clear Calc Estimated GFR Glucose POC Capillary Glucose 389 H 396 H Hemoglobin A1c Lactic Acid Calcium Phosphorus Magnesium Total Bilirubin AST ALT Alkaline Phosphatase Troponin I Total Protein Albumin Lipase Beta-Hydroxybutyrate/Acetoacetate Urine Color Urine Appearance Urine pH Ur Specific [place] Urine Protein Urine Glucose (UA) Urine Ketones Ur Blood (Man) Urine Nitrate Urine Bilirubin Urine Urobilinogen Leukocyte Esterase Rfl Urine RBC Urine WBC Ur Squamous Epith Cells Urine Bacteria Urine Casts Nasal MRSA (PCR) Not detected Influenza A (RT-PCR) Influenza B (RT-PCR) RSV (RT-PCR) SARS-CoV-2 RNA (RT-PCR) Group A Strep (PCR) 09/02/25 09/02/25 09/02/25 20:40 21:11 21:15 WBC RBC Hgb Hct MCV MCH MCHC RDW Plt Count MPV Immature Gran % (Auto) Neut % (Auto) Lymph % (Auto) [place] % (Auto) Eos % (Auto) Baso % (Auto) Lymph # (Auto) [place] # (Auto) Eos # (Auto) Baso # (Auto) Abs Immat Gran (auto) Absolute Neuts (auto) Absolute Nucleated RBC Nucleated RBC % PT INR APTT VBG pH VBG pCO2 VBG pO2 VBG HCO3 O2 Delivery Device O2 Liters/Min FiO2 Sodium 140 Potassium 3.9 Chloride 103 Carbon Dioxide 14 L Anion Gap 23 H BUN 10 Creatinine 0.58 L Estim Creat Clear Calc 88 Estimated GFR > 60 Glucose 334 H POC Capillary Glucose 322 H Hemoglobin A1c 12.8 H Lactic Acid 9.5 H* Calcium 9.5 Phosphorus 4.3 Magnesium Total Bilirubin AST ALT Alkaline Phosphatase Troponin I Total Protein Albumin Lipase Beta-Hydroxybutyrate/Acetoacetate Urine Color Urine Appearance Urine pH Ur Specific [place] Urine Protein Urine Glucose (UA) Urine Ketones Ur Blood (Man) Urine Nitrate Urine Bilirubin Urine Urobilinogen Leukocyte Esterase Rfl Urine RBC Urine WBC Ur Squamous Epith Cells Urine Bacteria Urine Casts Nasal MRSA (PCR) Influenza A (RT-PCR) Influenza B (RT-PCR) RSV (RT-PCR) SARS-CoV-2 RNA (RT-PCR) Group A Strep (PCR) 09/02/25 09/02/25 09/02/25 21:15 21:15 22:05 WBC RBC Hgb Hct MCV MCH MCHC RDW Plt Count MPV Immature Gran % (Auto) Neut % (Auto) Lymph % (Auto) [place] % (Auto) Eos % (Auto) Baso % (Auto) Lymph # (Auto) [place] # (Auto) Eos # (Auto) Baso # (Auto) Abs Immat Gran (auto) Absolute Neuts (auto) Absolute Nucleated RBC Nucleated RBC % PT INR APTT VBG pH VBG pCO2 VBG pO2 VBG HCO3 O2 Delivery Device O2 Liters/Min FiO2 Sodium Potassium Chloride Carbon Dioxide Anion Gap BUN Creatinine Estim Creat Clear Calc Estimated GFR Glucose POC Capillary Glucose 263 H Hemoglobin A1c Lactic Acid Calcium Phosphorus Cancelled Magnesium 2.2 Cancelled Total Bilirubin AST ALT Alkaline Phosphatase Troponin I < 0.012 Total Protein Albumin Lipase Beta-Hydroxybutyrate/Acetoacetate Urine Color Urine Appearance Urine pH Ur Specific [place] Urine Protein Urine Glucose (UA) Urine Ketones Ur Blood (Man) Urine Nitrate Urine Bilirubin Urine Urobilinogen Leukocyte Esterase Rfl Urine RBC Urine WBC Ur Squamous Epith Cells Urine Bacteria Urine Casts Nasal MRSA (PCR) Influenza A (RT-PCR) Influenza B (RT-PCR) RSV (RT-PCR) SARS-CoV-2 RNA (RT-PCR) Group A Strep (PCR) 09/02/25 09/02/25 09/03/25 23:07 23:42 00:11 WBC RBC Hgb Hct MCV MCH MCHC RDW Plt Count MPV Immature Gran % (Auto) Neut % (Auto) Lymph % (Auto) [place] % (Auto) Eos % (Auto) Baso % (Auto) Lymph # (Auto) [place] # (Auto) Eos # (Auto) Baso # (Auto) Abs Immat Gran (auto) Absolute Neuts (auto) Absolute Nucleated RBC Nucleated RBC % PT INR APTT VBG pH VBG pCO2 VBG pO2 VBG HCO3 O2 Delivery Device O2 Liters/Min FiO2 Sodium Potassium Chloride Carbon Dioxide Anion Gap BUN Creatinine Estim Creat Clear Calc Estimated GFR Glucose POC Capillary Glucose 159 H 180 H Hemoglobin A1c Lactic Acid Calcium Phosphorus Magnesium Total Bilirubin AST ALT Alkaline Phosphatase Troponin I Total Protein Albumin Lipase Beta-Hydroxybutyrate/Acetoacetate Urine Color Urine Appearance Urine pH Ur Specific [place] Urine Protein Urine Glucose (UA) Urine Ketones Ur Blood (Man) Urine Nitrate Urine Bilirubin Urine Urobilinogen Leukocyte Esterase Rfl Urine RBC Urine WBC Ur Squamous Epith Cells Urine Bacteria Urine Casts Nasal MRSA (PCR) Influenza A (RT-PCR) Negative Influenza B (RT-PCR) Negative RSV (RT-PCR) Negative SARS-CoV-2 RNA (RT-PCR) Negative Group A Strep (PCR) Not detected 09/03/25 09/03/25 09/03/25 00:31 01:09 02:13 WBC RBC Hgb Hct MCV MCH MCHC RDW Plt Count MPV Immature Gran % (Auto) Neut % (Auto) Lymph % (Auto) [place] % (Auto) Eos % (Auto) Baso % (Auto) Lymph # (Auto) [place] # (Auto) Eos # (Auto) Baso # (Auto) Abs Immat Gran (auto) Absolute Neuts (auto) Absolute Nucleated RBC Nucleated RBC % PT INR APTT VBG pH VBG pCO2 VBG pO2 VBG HCO3 O2 Delivery Device O2 Liters/Min FiO2 Sodium 138 Potassium 4.1 Chloride 110 H Carbon Dioxide 22 Anion Gap 6 BUN 10 Creatinine 0.55 L Estim Creat Clear Calc 92 Estimated GFR > 60 Glucose 195 H POC Capillary Glucose 215 H 260 H Hemoglobin A1c Lactic Acid 2.2 H Calcium 8.4 Phosphorus Magnesium Total Bilirubin AST ALT Alkaline Phosphatase Troponin I < 0.012 Total Protein Albumin Lipase Beta-Hydroxybutyrate/Acetoacetate Urine Color Urine Appearance Urine pH Ur Specific [place] Urine Protein Urine Glucose (UA) Urine Ketones Ur Blood (Man) Urine Nitrate Urine Bilirubin Urine Urobilinogen Leukocyte Esterase Rfl Urine RBC Urine WBC Ur Squamous Epith Cells Urine Bacteria Urine Casts Nasal MRSA (PCR) Influenza A (RT-PCR) Influenza B (RT-PCR) RSV (RT-PCR) SARS-CoV-2 RNA (RT-PCR) Group A Strep (PCR) 09/03/25 09/03/25 09/03/25 03:18 04:17 04:33 WBC RBC Hgb Hct MCV MCH MCHC RDW Plt Count MPV Immature Gran % (Auto) Neut % (Auto) Lymph % (Auto) [place] % (Auto) Eos % (Auto) Baso % (Auto) Lymph # (Auto) [place] # (Auto) Eos # (Auto) Baso # (Auto) Abs Immat Gran (auto) Absolute Neuts (auto) Absolute Nucleated RBC Nucleated RBC % PT INR APTT VBG pH VBG pCO2 VBG pO2 VBG HCO3 O2 Delivery Device O2 Liters/Min FiO2 Sodium 138 Potassium 3.8 Chloride 108 H Carbon Dioxide 20 L Anion Gap 10 BUN 9 Creatinine 0.56 L Estim Creat Clear Calc 75 Estimated GFR > 60 Glucose 225 H POC Capillary Glucose 252 H 214 H Hemoglobin A1c Lactic Acid Calcium 9.0 Phosphorus Magnesium Total Bilirubin AST ALT Alkaline Phosphatase Troponin I Total Protein Albumin Lipase Beta-Hydroxybutyrate/Acetoacetate Urine Color Urine Appearance Urine pH Ur Specific [place] Urine Protein Urine Glucose (UA) Urine Ketones Ur Blood (Man) Urine Nitrate Urine Bilirubin Urine Urobilinogen Leukocyte Esterase Rfl Urine RBC Urine WBC Ur Squamous Epith Cells Urine Bacteria Urine Casts Nasal MRSA (PCR) Influenza A (RT-PCR) Influenza B (RT-PCR) RSV (RT-PCR) SARS-CoV-2 RNA (RT-PCR) Group A Strep (PCR) 09/03/25 09/03/25 09/03/25 05:23 06:15 07:07 WBC RBC Hgb Hct MCV MCH MCHC RDW Plt Count MPV Immature Gran % (Auto) Neut % (Auto) Lymph % (Auto) [place] % (Auto) Eos % (Auto) Baso % (Auto) Lymph # (Auto) [place] # (Auto) Eos # (Auto) Baso # (Auto) Abs Immat Gran (auto) Absolute Neuts (auto) Absolute Nucleated RBC Nucleated RBC % PT INR APTT VBG pH VBG pCO2 VBG pO2 VBG HCO3 O2 Delivery Device O2 Liters/Min FiO2 Sodium Potassium Chloride Carbon Dioxide Anion Gap BUN Creatinine Estim Creat Clear Calc Estimated GFR Glucose POC Capillary Glucose 186 H 208 H 237 H Hemoglobin A1c Lactic Acid Calcium Phosphorus Magnesium Total Bilirubin AST ALT Alkaline Phosphatase Troponin I Total Protein Albumin Lipase Beta-Hydroxybutyrate/Acetoacetate Urine Color Urine Appearance Urine pH Ur Specific [place] Urine Protein Urine Glucose (UA) Urine Ketones Ur Blood (Man) Urine Nitrate Urine Bilirubin Urine Urobilinogen Leukocyte Esterase Rfl Urine RBC Urine WBC Ur Squamous Epith Cells Urine Bacteria Urine Casts Nasal MRSA (PCR) Influenza A (RT-PCR) Influenza B (RT-PCR) RSV (RT-PCR) SARS-CoV-2 RNA (RT-PCR) Group A Strep (PCR) 09/03/25 09/03/25 09/03/25 08:04 09:01 09:03 WBC 9.2 RBC 3.97 L Hgb 12.9 Hct 36.8 L MCV 92.7 MCH 32.5 MCHC 35.1 RDW 12.3 Plt Count 274 MPV 9.9 Immature Gran % (Auto) Neut % (Auto) Lymph % (Auto) [place] % (Auto) Eos % (Auto) Baso % (Auto) Lymph # (Auto) [place] # (Auto) Eos # (Auto) Baso # (Auto) Abs Immat Gran (auto) Absolute Neuts (auto) Absolute Nucleated RBC Nucleated RBC % PT INR APTT VBG pH VBG pCO2 VBG pO2 VBG HCO3 O2 Delivery Device O2 Liters/Min FiO2 Sodium 134 L Potassium 3.6 Chloride 105 Carbon Dioxide 22 Anion Gap 7 BUN 8 Creatinine 0.54 L Estim Creat Clear Calc 78 Estimated GFR > 60 Glucose 246 H POC Capillary Glucose 258 H Hemoglobin A1c Lactic Acid Calcium 8.3 L Phosphorus 2.7 Magnesium 2.2 Total Bilirubin AST ALT Alkaline Phosphatase Troponin I Total Protein Albumin Lipase Beta-Hydroxybutyrate/Acetoacetate Urine Color Urine Appearance Urine pH Ur Specific [place] Urine Protein Urine Glucose (UA) Urine Ketones Ur Blood (Man) Urine Nitrate Urine Bilirubin Urine Urobilinogen Leukocyte Esterase Rfl Urine RBC Urine WBC Ur Squamous Epith Cells Urine Bacteria Urine Casts Nasal MRSA (PCR) Influenza A (RT-PCR) Influenza B (RT-PCR) RSV (RT-PCR) SARS-CoV-2 RNA (RT-PCR) Group A Strep (PCR) 09/03/25 09/03/25 09/03/25 09:09 09:58 11:02 WBC RBC Hgb Hct MCV MCH MCHC RDW Plt Count MPV Immature Gran % (Auto) Neut % (Auto) Lymph % (Auto) [place] % (Auto) Eos % (Auto) Baso % (Auto) Lymph # (Auto) [place] # (Auto) Eos # (Auto) Baso # (Auto) Abs Immat Gran (auto) Absolute Neuts (auto) Absolute Nucleated RBC Nucleated RBC % PT INR APTT VBG pH VBG pCO2 VBG pO2 VBG HCO3 O2 Delivery Device O2 Liters/Min FiO2 Sodium Potassium Chloride Carbon Dioxide Anion Gap BUN Creatinine Estim Creat Clear Calc Estimated GFR Glucose POC Capillary Glucose 225 H 216 H 280 H Hemoglobin A1c Lactic Acid Calcium Phosphorus Magnesium Total Bilirubin AST ALT Alkaline Phosphatase Troponin I Total Protein Albumin Lipase Beta-Hydroxybutyrate/Acetoacetate Urine Color Urine Appearance Urine pH Ur Specific [place] Urine Protein Urine Glucose (UA) Urine Ketones Ur Blood (Man) Urine Nitrate Urine Bilirubin Urine Urobilinogen Leukocyte Esterase Rfl Urine RBC Urine WBC Ur Squamous Epith Cells Urine Bacteria Urine Casts Nasal MRSA (PCR) Influenza A (RT-PCR) Influenza B (RT-PCR) RSV (RT-PCR) SARS-CoV-2 RNA (RT-PCR) Group A Strep (PCR) 09/03/25 11:57 WBC RBC Hgb Hct MCV MCH MCHC RDW Plt Count MPV Immature Gran % (Auto) Neut % (Auto) Lymph % (Auto) [place] % (Auto) Eos % (Auto) Baso % (Auto) Lymph # (Auto) [place] # (Auto) Eos # (Auto) Baso # (Auto) Abs Immat Gran (auto) Absolute Neuts (auto) Absolute Nucleated RBC Nucleated RBC % PT INR APTT VBG pH VBG pCO2 VBG pO2 VBG HCO3 O2 Delivery Device O2 Liters/Min FiO2 Sodium Potassium Chloride Carbon Dioxide Anion Gap BUN Creatinine Estim Creat Clear Calc Estimated GFR Glucose POC Capillary Glucose 299 H Hemoglobin A1c Lactic Acid Calcium Phosphorus Magnesium Total Bilirubin AST ALT Alkaline Phosphatase Troponin I Total Protein Albumin Lipase Beta-Hydroxybutyrate/Acetoacetate Urine Color Urine Appearance Urine pH Ur Specific [place] Urine Protein Urine Glucose (UA) Urine Ketones Ur Blood (Man) Urine Nitrate Urine Bilirubin Urine Urobilinogen Leukocyte Esterase Rfl Urine RBC Urine WBC Ur Squamous Epith Cells Urine Bacteria Urine Casts Nasal MRSA (PCR) Influenza A (RT-PCR) Influenza B (RT-PCR) RSV (RT-PCR) SARS-CoV-2 RNA (RT-PCR) Group A Strep (PCR)
--- NOTE | 2025-09-03 19:05 | WPDGICN ---
Assessment and Plan Assessment and plan (1) Nausea & vomiting: Code(s): R11.2 - Nausea with vomiting, unspecified Status: Acute Assessment and Plan: The patient presents with DKA complicated by significant abdominal pain and vomiting, which raises clinical suspicion for secondary acute esophagitis from persistent vomiting . - She is currently being managed symptomatically with intravenous pantoprazole and has been prescribed a GI cocktail for pain relief every 6 hours as needed; given the lack of hematemesis, clinical suspicion for Samantha-Ibrahim tear or major upper GI bleeding is low, and EGD is not warranted at this time. - We advise continuing to advance her diet as tolerated, and upon discharge, she will be sent home on a maintenance dose of pantoprazole 40 mg orally once daily for a minimum of 4 weeks to ensure esophageal mucosal healing, If symptoms persist she can see us in GI clinic. GI Consult Note Consult date/time: 09/03/25 19:05 Reason for consult: Blood-tinged vomitus HPI: Alyssa Guzmán is a 45 year old female admitted yesterday with a history of longstanding type 2 diabetes noncompliant with insulin for financial reasons. She was found to have DKA and possible pneumonitis on chest x-ray. The reason for consultation to our service is that the patient mentioned having pinkish vomit once. She denies nery hematemesis or melena. Laboratory data at admission: Hemoglobin 15.5, down to 12.9 today after volume repletion, pH 7.27, bicarbonate 21, sodium 134, potassium 3.6, lactic acid 9.5, creatinine 0.54. Today the patient feels better however she feels retrosternal discomfort especially when eating. She states that she had an EGD and colonoscopy approximately a year ago with no significant findings. Review of Systems Constitutional: Constitutional: Reports no additional constitutional complaints, Reports difficulty sleeping and Reports fatigue Eyes: Eyes: Reports as per HPI Cardiovascular: Cardiovascular: Reports chest pain, Denies diaphoresis and Denies pedal edema Respiratory: Respiratory: Reports no additional respiratory complaints, Denies hemoptysis and Denies dyspnea Gastrointestinal: Gastrointestinal: Reports abdominal pain, Denies melena, Denies bloating, Denies hematochezia and Reports heartburn PMF Past Medical History Medical History (Updated 09/03/25 @ 10:04 by Ej Quinn MD) Hypertension Insulin dependent diabetes mellitus Family History Family History (Updated 09/02/25 @ 22:01 by Sandra Wright RN) Grandparent Acute myocardial infarction Cerebrovascular accident Diabetes mellitus Hypertension Father Colon cancer Diabetes mellitus Social History Social History Smoking status: Never smoker Alcohol intake: current Drinks per week: 1 Substance use: never Substance use type: does not use Lack of Transportation: No Lack of Food: Never True Current Housing: I Have Housing Concerned About Future Housing: No Difficulty Paying Gas/Electric Bills: YES Difficulty Paying for Meds: No Currently Unemployed: Decline to Answer Education: Decline to Answer Difficulty w/ Childcare or Family Care: No Gender identity (if verbalized by the patient): Female Spiritual care concerns: No Meds Home Medications and Allergies Home Medications ?Medication ?Instructions ?Recorded ?Confirmed ?Type atenolol 50 mg tablet 50 mg PO DAILY 12/14/24 09/02/25 History canagliflozin 300 mg tablet 300 mg PO DAILY 12/14/24 09/02/25 History (Invokana) glipizide 5 mg tablet 5 mg PO BIDAC 12/14/24 09/02/25 History insulin glargine 100 unit/mL (3 10 unit subcut HS 12/14/24 09/02/25 History mL) subcutaneous pen (Lantus Solostar U-100 Insulin) Allergies Allergy/AdvReac Type Severity Reaction Status Date / Time hydrocodone (From [place]eg[place]) AdvReac Mild Itching Verified 09/02/25 21:37 hydromorphone (From Dilaudid) AdvReac Mild Itching Verified 09/02/25 21:37 Vital Signs Vital Signs - 24 hr 09/02/25 19:16 09/02/25 19:30 09/02/25 19:31 Temperature Pulse Rate 121 H 118 H 116 H Respiratory Rate 13 15 19 Blood Pressure 168/101 H Pulse Oximetry 100 98 Oxygen Delivery 09/02/25 19:45 09/02/25 19:46 09/02/25 20:00 Temperature Pulse Rate 116 H 116 H 117 H Respiratory Rate 13 16 22 H Blood Pressure 172/106 H 156/90 H Pulse Oximetry Oxygen Delivery 09/02/25 20:01 09/02/25 20:15 09/02/25 20:16 Temperature Pulse Rate 139 H 123 H 124 H Respiratory Rate 23 H 12 17 Blood Pressure 160/92 H Pulse Oximetry 100 100 Oxygen Delivery 09/02/25 20:30 09/02/25 20:36 09/02/25 20:47 Temperature 98.3 F 98.3 F Pulse Rate 121 H 121 H 121 H Respiratory Rate 15 15 20 Blood Pressure 164/92 H 156/110 H Pulse Oximetry 97 98 98 Oxygen Delivery 09/02/25 21:00 09/02/25 21:00 09/02/25 22:00 Temperature 98.0 F Pulse Rate 124 H 123 H Respiratory Rate 15 17 Blood Pressure 168/95 H 147/93 H Pulse Oximetry 99 99 Oxygen Delivery Room Air 09/02/25 22:00 09/02/25 23:00 09/03/25 00:00 Temperature Pulse Rate 123 H 124 H Respiratory Rate 15 Blood Pressure 152/95 H Pulse Oximetry 99 Oxygen Delivery Room Air 09/03/25 00:00 09/03/25 00:00 09/03/25 01:00 Temperature 98.1 F Pulse Rate 124 H 124 H 110 H Respiratory Rate 14 16 Blood Pressure 138/73 100/56 L Pulse Oximetry 99 97 Oxygen Delivery 09/03/25 02:00 09/03/25 02:00 09/03/25 03:00 Temperature Pulse Rate 103 H 103 H 110 H Respiratory Rate 13 15 Blood Pressure 138/83 142/84 H Pulse Oximetry 98 97 Oxygen Delivery 09/03/25 04:00 09/03/25 04:00 09/03/25 04:00 Temperature 97.9 F Pulse Rate 98 100 Respiratory Rate 13 Blood Pressure 126/77 Pulse Oximetry 97 Oxygen Delivery Room Air 09/03/25 05:00 09/03/25 06:00 09/03/25 06:00 Temperature Pulse Rate 110 H 102 H 102 H Respiratory Rate 13 18 Blood Pressure 154/96 H 114/74 Pulse Oximetry 100 100 Oxygen Delivery 09/03/25 07:00 09/03/25 08:00 09/03/25 08:00 Temperature 98.3 F Pulse Rate 98 104 H Respiratory Rate 11 L 14 Blood Pressure 122/73 154/89 H Pulse Oximetry 99 99 Oxygen Delivery Room Air 09/03/25 08:00 09/03/25 09:30 09/03/25 10:00 Temperature Pulse Rate 106 H 104 H 107 H Respiratory Rate 12 Blood Pressure 148/86 H Pulse Oximetry 100 Oxygen Delivery 09/03/25 10:00 09/03/25 10:00 09/03/25 11:00 Temperature 98.2 F Pulse Rate 110 H 108 H 93 Respiratory Rate 13 15 Blood Pressure 146/92 H 143/94 H Pulse Oximetry 100 100 Oxygen Delivery 09/03/25 12:00 09/03/25 12:00 09/03/25 13:00 Temperature 98.2 F Pulse Rate 88 89 80 Respiratory Rate 14 14 Blood Pressure 132/79 114/73 Pulse Oximetry 99 99 Oxygen Delivery 09/03/25 16:00 Temperature 98.8 F Pulse Rate 82 Respiratory Rate 20 Blood Pressure 117/70 Pulse Oximetry 100 Oxygen Delivery Results Labs 09/03/25 09:01 09/03/25 09:03 Labs: Short CBC 09/03/25 Range/Units 09:01 WBC 9.2 (4.5-10.0) K/mm3 Hgb 12.9 (12.0-15.0) g/dL Hct 36.8 L (37.0-47.0) % Plt Count 274 (150-375) k/mm3 [facility] 09/02/25 09/03/25 09/03/25 21:15 00:31 04:33 Sodium 140 138 138 Potassium 3.9 4.1 3.8 Chloride 103 110 H 108 H Carbon Dioxide 14 L 22 20 L BUN 10 10 9 Creatinine 0.58 L 0.55 L 0.56 L Glucose 334 H 195 H 225 H Calcium 9.5 8.4 9.0 09/03/25 09:03 Sodium 134 L Potassium 3.6 Chloride 105 Carbon Dioxide 22 BUN 8 Creatinine 0.54 L Glucose 246 H Calcium 8.3 L Cardiac Enzymes 09/02/25 09/03/25 Range/Units 21:15 00:31 Troponin I < 0.012 < 0.012 (0.000-0.034) ng/mL
[2025-09-03] MEDS: BELLADONNA ALK/PHENOB ELIX 10 ML, MAG HYDROX/ALUMINUM HYD/SIMETH 30 ML, LIDOCAINE 2% VI... PO (21:27)
[2025-09-04 05:58] VITALS: BP 111/71; PULSE 92; RESP 16; TEMP 36.6; O2SAT 99
[2025-09-04] MEDS: MORPHINE SULFATE (*CRX) 4 MG/ML INJ 2 MG IV PUSH ×4 (06:17→21:18)
[2025-09-04 06:18] LABS: Hematocrit 35.3 % (37.0-47.0); Hemoglobin 12.2 g/dL (12.0-15.0); Immature Granulocyte Percent A 0.3 % (0-0.5); Lymphocytes Absolute Auto 2.15 K/mm3 (0.9-3.2); Mean Corpuscular HGB Conc 34.6 g/dl (32-36); Mean Corpuscular Hemoglobin 32.8 pg (26-34); Mean Corpuscular Volume 94.9 fl (80-100); Nucleated Red Blood Cells Absolute Auto 0.000 K/mm3 (0.0-0.012); Nucleated Red Blood Cells Perc 0.0 % (0.0-0.2); Platelet Count Result 277 k/mm3 (150-375); Red Blood Count 3.72 M/mm3 (4.2-5.4); White Blood Count 5.9 K/mm3 (4.5-10.0)
[2025-09-04 07:04] LABS: Alanine Aminotransferase 19 U/L (6-35); Albumin Level 3.7 g/dL (3.5-5.1); Alkaline Phosphatase 79 U/L (38-126); Anion Gap 8 mmol/L (4-12); Aspartate Amino Transferase 27 U/L (14-36); Bilirubin,Total 1.1 mg/dL (0.2-1.3); Blood Urea Nitrogen 8 mg/dL (7-17); Calcium 8.2 mg/dL (8.4-10.2); Carbon Dioxide 21 mmol/L (22-30); Chloride 103 mmol/L (98-107); Estimated CRCL calculation 92 ml/min; Estimated Glomerular Filt Rate > 60; Glucose 225 mg/dL (65-110); Magnesium 2.0 mg/dL (1.6-2.3); Potassium 3.4 mmol/L (3.4-5.0); Sodium 132 mmol/L (137-145); Total Protein 6.9 g/dL (6.3-8.2)
[2025-09-04] MEDS: BELLADONNA ALK/PHENOB ELIX 10 ML, MAG HYDROX/ALUMINUM HYD/SIMETH 30 ML, LIDOCAINE 2% VI... PO (08:32)
[2025-09-04] MEDS: PANTOPRAZOLE SODIUM IV 40 MG VIAL IV PUSH ×2 (08:32→21:10)
[2025-09-04 08:35] VITALS: PULSE 96
[2025-09-04] MEDS: INSULIN GLARGINE (*BKC) 100 UNITS/ML 15 UNITS SUB-Q (08:35)
[2025-09-04] MEDS: INSULIN ASPART (*BKC) 100 UNITS/ML SUB-Q ×3 (08:36→17:26)
--- NOTE | 2025-09-04 12:04 | P.PNIM_ITS ---
Assessment and Plan Assessment and Plan (1) Insulin dependent diabetes mellitus: Status: Acute (2) DKA (diabetic ketoacidosis): Code(s): E11.10 - Type 2 diabetes mellitus with ketoacidosis without coma Status: Acute (3) Nausea & vomiting: Code(s): R11.2 - Nausea with vomiting, unspecified Status: Acute (4) Abdominal pain: Code(s): R10.9 - Unspecified abdominal pain Status: Acute (5) Lactic acidosis: Code(s): E87.20 - Acidosis, unspecified Status: Acute Plan This is a 45-year-old female who presented with nausea, vomiting since yesterday. Also epigastric pain that radiated to the back. She denies any diarrhea urinary symptoms fever chills shortness of breath. Patient type diabetes and insulin however she has not been using her insulin since a week now due to cost. In the ED she was hypertensive and tachycardic but afebrile. laboratory studies showed WBC 12 hemoglobin of 15 point platelet sodium potassium 3.8 chloride 93 bicarbonate 21 anion gap of 23 BUN 12 creatinine 0.7 blood glucose of 487 lactate of 3.2 calcium 9.9 phosphorus 5.8 magnesium 2.3 LFT with 1.7 bilirubin AST 34 ALT 31 up in phosphatase 128 troponin was negative at less than 0.012, beta hydroxy butyrate elevated at 3.71 urinalysis negative for UTI nasal MRSA is not detected. VBG 7.27/46/31/21. INR 1.1. Chest x-ray showed probable viral pneumonitis. CT abdomen pelvis with no acute findings. EKG showed sinus tachycardia Patient received fluid bolus, morphine and Zofran. Patient has been started on IV insulin per DKA protocol. Patient admitted in this setting to the ICU for further treatment. Acute DKA with hyperglycemia Continue fluid resuscitation as ordered along with IV insulin. After anion gap closed patient has been transition to subcutaneous insulin. adjust dose dehydration ivf with aggressive resuscitation Lactic acidosis chest x-ray viral pneumonitis. Frans[place] acidosis improved with IV hydration. Panculture. Urinalysis negative for infection. no signs of infection could be from severe dehydration. watch off antibiotics. Abdominal pain nausea vomiting CT abdomen is negative. lipase is normal. Ppi. GI consulted. Reported blood-tinged vomitus. add sucralfate for ongoing epigastric pain hypertension on atenolol Type 2 diabetes mellitus On insulin Hemoglobin A1c 12.6. Noncompliant with her medication DVT prophylaxis Lovenox Code status full code Subjective Date/time seen: 09/04/25 12:04 Interval history: Patient reports epigastric discomfort ongoing. some nausea, no fever, chills. . no chest pain. sob Review of Systems Review of Systems: All systems reviewed & are unremarkable except as noted in HPI and below Exam Narrative: General: Pt is alert awake and in NAD Lungs/Chest: Trachea central Clear BS B/L, No crackles or wheezing. Cardiac: RRR. Normal S1 S2. No murmurs Circulation: Pedal pulses are intact and symmetrical. Abdomen: Normal bowel sounds.. Soft. Non distended epigastric tenderness Extremities: No clubbing, cyanosis or edema. Warm : Erwin in place Neurologic: Follows commands. Moves all 4 extremities PERRL AO x3 Skin: No Rash Objective Data Vital Signs Vital Signs: Vital Signs - 24 hr 09/03/25 13:00 09/03/25 16:00 09/03/25 20:00 Temperature 98.8 F Pulse Rate 80 82 Respiratory Rate 14 20 Blood Pressure 114/73 117/70 Pulse Oximetry 99 100 Oxygen Delivery Room Air 09/03/25 21:43 09/04/25 05:58 09/04/25 08:35 Temperature 97.5 F L 97.9 F Pulse Rate 85 92 96 Respiratory Rate 16 16 Blood Pressure 128/79 111/71 Pulse Oximetry 100 99 Oxygen Delivery 09/04/25 08:35 Temperature Pulse Rate Respiratory Rate Blood Pressure Pulse Oximetry Oxygen Delivery Room Air Intake/Output Intake/Output: Intake & Output 09/01/25 09/02/25 09/03/25 09/04/25 23:59 23:59 23:59 23:59 Intake Total 2526.2 1967.5 200 Output Total 1999 Balance 2526.2 -32.5 200 Meds/Results Medications: Active Medications Generic Name Dose Route Start Last Admin Trade Name Freq PRN Reason Stop Dose Admin Atenolol 50 mg 09/03/25 09:00 09/04/25 08:35 Atenolol 50 Mg Tablet PO 50 mg DAILY LAURA Administration Belladonna Alkaloids/ 0 ml 09/03/25 19:05 09/04/25 08:32 Phenobarbital 10 ml/ Al Hydrox PO 30 ml /Mg Hydrox/Simethicone 30 ml/ Q6H PRN Administration Lidocaine HCl 10 ml GI DISCOMFORT Dextrose 12.5 gm 09/03/25 08:49 Dextrose 50% 25 Gm/50 Ml Syringe IV PUSH PRN PRN Hypoglycemia Protocol Glucagon 1 mg 09/03/25 08:49 Glucagon For Inj 1 Mg Vial IM PRN PRN Hypoglycemia Protocol Glucose 15 gm 09/03/25 08:49 Glucose Oral Gel 15 Gm Of Glucse In 37.5 Gm Tube PO PRN PRN Hypoglycemia Protocol Dextrose 1,000 mls @ 100 mls/hr 09/03/25 08:49 Dextrose 5% 1,000 Ml IVPB PRN PRN Hypoglycemia Protocol Insulin Aspart 3 - 6 units 09/03/25 12:00 09/04/25 12:03 Insulin Aspart (*Bkc) 100 Units/Ml SUB-Q 3 units TIDWM LAURA Administration Protocol Insulin Aspart 1 - 3 units 09/03/25 21:00 09/03/25 21:34 Insulin Aspart (*Bkc) 100 Units/Ml SUB-Q Not Given HS LAURA Protocol Insulin Glargine 15 units 09/03/25 09:00 09/04/25 08:35 Insulin Glargine (*Bkc) 100 Units/Ml SUB-Q 15 units QAM LAURA Administration Morphine Sulfate 2 mg 09/02/25 21:24 09/04/25 06:17 Morphine Sulfate (*Crx) 4 Mg/Ml Inj IV PUSH 2 mg Q4H PRN Administration Pain Rated 7-10 Ondansetron HCl 4 mg 09/02/25 19:05 09/03/25 12:10 Ondansetron Inj 4 Mg/2 Ml Vial IV PUSH 4 mg Q4H PRN Administration Nausea Pantoprazole Sodium 40 mg 09/03/25 09:00 09/04/25 08:32 Pantoprazole Sodium Iv 40 Mg Vial IV PUSH 40 mg Q12HR LAURA Administration Phenol 1 spray 09/03/25 08:55 09/03/25 10:00 Phenol/Sod Pheno [place]iss (*Bkc) MUCOUS MEM 1 spray PRN PRN Administration Sore Throat Radiology Results: ITS Impressions Chest X-Ray 09/02/25 17:56 Impression: Probable viral pneumonitis Abdomen/Pelvis CT 09/02/25 18:14 IMPRESSION: No acute intra-abdominal process Labs Labs: Laboratory Results - last 24 hr 12/09/03/25 09/04/25 16:18 20:02 05:12 WBC 5.9 RBC 3.72 L Hgb 12.2 Hct 35.3 L MCV 94.9 MCH 32.8 MCHC 34.6 RDW 12.2 Plt Count 277 MPV 10.6 H Immature Gran % (Auto) 0.3 Neut % (Auto) 54.4 Lymph % (Auto) 36.7 [place] % (Auto) 7.8 Eos % (Auto) 0.5 Baso % (Auto) 0.3 Lymph # (Auto) 2.15 [place] # (Auto) 0.5 Eos # (Auto) 0.0 Baso # (Auto) 0.0 Abs Immat Gran (auto) 0.02 Absolute Neuts (auto) 3.2 Absolute Nucleated RBC 0.000 Nucleated RBC % 0.0 Sodium 132 L Potassium 3.4 Chloride 103 Carbon Dioxide 21 L Anion Gap 8 BUN 8 Creatinine 0.55 L Estim Creat Clear Calc 92 Estimated GFR > 60 Glucose 225 H POC Capillary Glucose 265 H 232 H Calcium 8.2 L Phosphorus 3.0 Magnesium 2.0 Total Bilirubin 1.1 AST 27 ALT 19 Alkaline Phosphatase 79 Total Protein 6.9 Albumin 3.7 09/04/25 09/04/25 07:30 11:30 WBC RBC Hgb Hct MCV MCH MCHC RDW Plt Count MPV Immature Gran % (Auto) Neut % (Auto) Lymph % (Auto) [place] % (Auto) Eos % (Auto) Baso % (Auto) Lymph # (Auto) [place] # (Auto) Eos # (Auto) Baso # (Auto) Abs Immat Gran (auto) Absolute Neuts (auto) Absolute Nucleated RBC Nucleated RBC % Sodium Potassium Chloride Carbon Dioxide Anion Gap BUN Creatinine Estim Creat Clear Calc Estimated GFR Glucose POC Capillary Glucose 271 H 237 H Calcium Phosphorus Magnesium Total Bilirubin AST ALT Alkaline Phosphatase Total Protein Albumin
[2025-09-04] MEDS: SUCRALFATE SUSP 100 MG/ML 10 ML UDC 1000 MG PO ×3 (12:53→21:10)
[2025-09-04 14:00] VITALS: BP 113/73; PULSE 77; RESP 22; TEMP 36.4; O2SAT 100
[2025-09-04 19:43] VITALS: PULSE 77; RESP 22; O2SAT 100
[2025-09-04 20:24] VITALS: BP 113/63; PULSE 81; RESP 18; TEMP 36.4; O2SAT 99
[2025-09-04 21:00] VITALS: O2SAT 100
[2025-09-05] MEDS: MORPHINE SULFATE (*CRX) 4 MG/ML INJ 2 MG IV PUSH ×3 (02:53→20:28)
[2025-09-05 05:24] VITALS: BP 106/64; PULSE 77; RESP 16; TEMP 36.5; O2SAT 100
[2025-09-05] MEDS: SUCRALFATE SUSP 100 MG/ML 10 ML UDC 1000 MG PO ×4 (05:56→20:24)
[2025-09-05] MEDS: ONDANSETRON INJ 4 MG/2 ML VIAL IV PUSH ×3 (06:00→20:28)
[2025-09-05 06:03] LABS: Hematocrit 32.9 % (37.0-47.0); Hemoglobin 11.6 g/dL (12.0-15.0); Immature Granulocyte Percent A 0.2 % (0-0.5); Lymphocytes Absolute Auto 2.33 K/mm3 (0.9-3.2); Mean Corpuscular HGB Conc 35.3 g/dl (32-36); Mean Corpuscular Hemoglobin 32.2 pg (26-34); Mean Corpuscular Volume 91.4 fl (80-100); Nucleated Red Blood Cells Absolute Auto 0.000 K/mm3 (0.0-0.012); Nucleated Red Blood Cells Perc 0.0 % (0.0-0.2); Platelet Count Result 241 k/mm3 (150-375); Red Blood Count 3.60 M/mm3 (4.2-5.4); White Blood Count 5.8 K/mm3 (4.5-10.0)
[2025-09-05 06:26] LABS: Alanine Aminotransferase 28 U/L (6-35); Albumin Level 3.3 g/dL (3.5-5.1); Alkaline Phosphatase 77 U/L (38-126); Anion Gap 4 mmol/L (4-12); Aspartate Amino Transferase 28 U/L (14-36); Bilirubin,Total 0.8 mg/dL (0.2-1.3); Blood Urea Nitrogen 9 mg/dL (7-17); Calcium 8.0 mg/dL (8.4-10.2); Carbon Dioxide 25 mmol/L (22-30); Chloride 102 mmol/L (98-107); Estimated CRCL calculation 98 ml/min; Estimated Glomerular Filt Rate > 60; Glucose 206 mg/dL (65-110); Magnesium 1.9 mg/dL (1.6-2.3); Potassium 3.1 mmol/L (3.4-5.0); Sodium 131 mmol/L (137-145); Total Protein 6.3 g/dL (6.3-8.2)
--- NOTE | 2025-09-05 08:27 | PM.IMPN2 ---
Assessment and Plan Assessment and Plan (1) Insulin dependent diabetes mellitus: Status: Acute (2) DKA (diabetic ketoacidosis): Code(s): E11.10 - Type 2 diabetes mellitus with ketoacidosis without coma Status: Acute (3) Nausea & vomiting: Code(s): R11.2 - Nausea with vomiting, unspecified Status: Acute (4) Abdominal pain: Code(s): R10.9 - Unspecified abdominal pain Status: Acute (5) Lactic acidosis: Code(s): E87.20 - Acidosis, unspecified Status: Acute Plan This is a 45-year-old female who presented with nausea, vomiting since yesterday. Also epigastric pain that radiated to the back. She denies any diarrhea urinary symptoms fever chills shortness of breath. Patient type diabetes and insulin however she has not been using her insulin since a week now due to cost. In the ED she was hypertensive and tachycardic but afebrile. laboratory studies showed WBC 12 hemoglobin of 15 point platelet sodium potassium 3.8 chloride 93 bicarbonate 21 anion gap of 23 BUN 12 creatinine 0.7 blood glucose of 487 lactate of 3.2 calcium 9.9 phosphorus 5.8 magnesium 2.3 LFT with 1.7 bilirubin AST 34 ALT 31 up in phosphatase 128 troponin was negative at less than 0.012, beta hydroxy butyrate elevated at 3.71 urinalysis negative for UTI nasal MRSA is not detected. VBG 7.27/46/31/21. INR 1.1. Chest x-ray showed probable viral pneumonitis. CT abdomen pelvis with no acute findings. EKG showed sinus tachycardia Patient received fluid bolus, morphine and Zofran. Patient has been started on IV insulin per DKA protocol. Patient admitted in this setting to the ICU for further treatment. Acute DKA with hyperglycemia Continue fluid resuscitation as ordered along with IV insulin. After anion gap closed patient has been transition to subcutaneous insulin. adjust dose dehydration ivf with aggressive resuscitation Lactic acidosis chest x-ray viral pneumonitis. Frans[place] acidosis improved with IV hydration. Panculture. Urinalysis negative for infection. no signs of infection could be from severe dehydration. watch off antibiotics. Abdominal pain nausea vomiting CT abdomen is negative. lipase is normal. Ppi. GI consulted. Reported blood-tinged vomitus. add sucralfate for ongoing epigastric pain. Still nauseous. Will add Compazine Constipation will add MiraLax hypertension on atenolol Type 2 diabetes mellitus On insulin Hemoglobin A1c 12.6. Noncompliant with her medication DVT prophylaxis Lovenox Code status full code Subjective Date/time seen: 09/05/25 08:27 Interval history: Patient still continues to complain of epigastric discomfort and inability to eat had a an episode of vomiting yesterday. Continues to have nausea. Review of Systems Review of Systems: All systems reviewed & are unremarkable except as noted in HPI and below Exam Narrative: General: Pt is alert awake and in NAD Lungs/Chest: Trachea central Clear BS B/L, No crackles or wheezing. Cardiac: RRR. Normal S1 S2. No murmurs Circulation: Pedal pulses are intact and symmetrical. Abdomen: Normal bowel sounds.. Soft. Non distended, mild epigastric tenderness Extremities: No clubbing, cyanosis or edema. Warm : Erwin in place Neurologic: Follows commands. Moves all 4 extremities PERRL AO x3 Skin: No Rash Objective Data Vital Signs Vital Signs: Vital Signs - 24 hr 09/04/25 08:35 09/04/25 08:35 09/04/25 14:00 Temperature 97.5 F L Pulse Rate 96 77 Respiratory Rate 22 H Blood Pressure 113/73 Pulse Oximetry 100 Oxygen Delivery Room Air 09/04/25 19:43 09/04/25 20:24 09/04/25 21:00 Temperature 97.5 F L Pulse Rate 77 81 Respiratory Rate 22 H 18 Blood Pressure 113/63 Pulse Oximetry 100 99 100 Oxygen Delivery Room Air Room Air 09/05/25 05:24 Temperature 97.7 F Pulse Rate 77 Respiratory Rate 16 Blood Pressure 106/64 Pulse Oximetry 100 Oxygen Delivery Intake/Output Intake/Output: Intake & Output 09/02/25 09/03/25 09/04/25 09/05/25 23:59 23:59 23:59 23:59 Intake Total 2526.2 1967.5 550 998 Output Total 1999 Balance 2526.2 -32.5 550 998 Meds/Results Medications: Active Medications Generic Name Dose Route Start Last Admin Trade Name Freq PRN Reason Stop Dose Admin Atenolol 50 mg 09/03/25 09:00 09/04/25 08:35 Atenolol 50 Mg Tablet PO 50 mg DAILY LAURA Administration Belladonna Alkaloids/ 0 ml 09/03/25 19:05 09/04/25 08:32 Phenobarbital 10 ml/ Al Hydrox PO 30 ml /Mg Hydrox/Simethicone 30 ml/ Q6H PRN Administration Lidocaine HCl 10 ml GI DISCOMFORT Dextrose 12.5 gm 09/03/25 08:49 Dextrose 50% 25 Gm/50 Ml Syringe IV PUSH PRN PRN Hypoglycemia Protocol Glucagon 1 mg 09/03/25 08:49 Glucagon For Inj 1 Mg Vial IM PRN PRN Hypoglycemia Protocol Glucose 15 gm 09/03/25 08:49 Glucose Oral Gel 15 Gm Of Glucse In 37.5 Gm Tube PO PRN PRN Hypoglycemia Protocol Dextrose 1,000 mls @ 100 mls/hr 09/03/25 08:49 Dextrose 5% 1,000 Ml IVPB PRN PRN Hypoglycemia Protocol Insulin Aspart 3 - 6 units 09/03/25 12:00 09/04/25 17:56 Insulin Aspart (*Bkc) 100 Units/Ml SUB-Q Not Given TIDWM [facility] Protocol Insulin Aspart 1 - 3 units 09/03/25 21:00 09/04/25 21:10 Insulin Aspart (*Bkc) 100 Units/Ml SUB-Q Not Given HS [facility] Protocol Insulin Aspart 5 units 09/04/25 17:00 09/04/25 17:26 Insulin Aspart (*Bkc) 100 Units/Ml 0.1 units/kg (5 units) 5 units SUB-Q Administration TIDWM [facility] Insulin Glargine 18 units 09/05/25 09:00 Insulin Glargine (*Bkc) 100 Units/Ml SUB-Q QAM [facility] Morphine Sulfate 2 mg 09/02/25 21:24 09/05/25 02:53 Morphine Sulfate (*Crx) 4 Mg/Ml Inj IV PUSH 2 mg Q4H PRN Administration Pain Rated 7-10 Ondansetron HCl 4 mg 09/02/25 19:05 09/05/25 06:00 Ondansetron Inj 4 Mg/2 Ml Vial IV PUSH 4 mg Q4H PRN Administration Nausea Pantoprazole Sodium 40 mg 09/03/25 09:00 09/04/25 21:10 Pantoprazole Sodium Iv 40 Mg Vial IV PUSH 40 mg Q12HR LAURA Administration Phenol 1 spray 09/03/25 08:55 09/03/25 10:00 Phenol/Sod Pheno [place] Bliss (*Bkc) MUCOUS MEM 1 spray PRN PRN Administration Sore Throat Sucralfate 1,000 mg 09/04/25 12:05 09/05/25 05:56 Sucralfate Susp 100 Mg/Ml 10 Ml Udc PO 1,000 mg ACHS LAURA Administration Radiology Results: ITS Impressions Chest X-Ray 09/02/25 17:56 Impression: Probable viral pneumonitis Abdomen/Pelvis CT 09/02/25 18:14 IMPRESSION: No acute intra-abdominal process Labs Labs: Laboratory Results - last 24 hr 09/04/25 09/04/25 09/04/25 11:30 16:54 20:43 WBC RBC Hgb Hct MCV MCH MCHC RDW Plt Count MPV Immature Gran % (Auto) Neut % (Auto) Lymph % (Auto) [place] % (Auto) Eos % (Auto) Baso % (Auto) Lymph # (Auto) [place] # (Auto) Eos # (Auto) Baso # (Auto) Abs Immat Gran (auto) Absolute Neuts (auto) Absolute Nucleated RBC Nucleated RBC % Sodium Potassium Chloride Carbon Dioxide Anion Gap BUN Creatinine Estim Creat Clear Calc Estimated GFR Glucose POC Capillary Glucose 237 H 164 H 169 H Calcium Phosphorus Magnesium Total Bilirubin AST ALT Alkaline Phosphatase Total Protein Albumin 09/05/25 09/05/25 05:26 07:37 WBC 5.8 RBC 3.60 L Hgb 11.6 L Hct 32.9 L MCV 91.4 MCH 32.2 MCHC 35.3 RDW 11.9 Plt Count 241 MPV 9.9 Immature Gran % (Auto) 0.2 Neut % (Auto) 50.0 Lymph % (Auto) 40.5 [place] % (Auto) 8.0 Eos % (Auto) 1.0 Baso % (Auto) 0.3 Lymph # (Auto) 2.33 [place] # (Auto) 0.5 Eos # (Auto) 0.1 Baso # (Auto) 0.0 Abs Immat Gran (auto) 0.01 Absolute Neuts (auto) 2.9 Absolute Nucleated RBC 0.000 Nucleated RBC % 0.0 Sodium 131 L Potassium 3.1 L Chloride 102 Carbon Dioxide 25 Anion Gap 4 BUN 9 Creatinine 0.52 L Estim Creat Clear Calc 98 Estimated GFR > 60 Glucose 206 H POC Capillary Glucose 214 H Calcium 8.0 L Phosphorus 3.3 Magnesium 1.9 Total Bilirubin 0.8 AST 28 ALT 28 Alkaline Phosphatase 77 Total Protein 6.3 Albumin 3.3 L
[2025-09-05 09:01] VITALS: PULSE 81
[2025-09-05] MEDS: INSULIN ASPART (*BKC) 100 UNITS/ML SUB-Q ×5 (09:01→17:31)
[2025-09-05] MEDS: INSULIN GLARGINE (*BKC) 100 UNITS/ML 18 UNITS SUB-Q (09:01)
[2025-09-05] MEDS: PANTOPRAZOLE SODIUM IV 40 MG VIAL IV PUSH ×2 (09:05→20:24)
[2025-09-05] MEDS: POTASSIUM CHLORIDE INJ 40 MEQ in SODIUM CHLORIDE 0.9% IV 500 ML 130 MEQ IVPB (09:05)
[2025-09-05 14:00] VITALS: BP 90/53; PULSE 85; RESP 18; TEMP 36.4; O2SAT 95
[2025-09-05 20:00] VITALS: PULSE 85; RESP 18; O2SAT 95
[2025-09-05 20:30] VITALS: BP 100/60; PULSE 85; RESP 18; TEMP 36.3; O2SAT 100
--- NOTE | 2025-09-05 22:48 | P.PNCROSS_ITS ---
Event Note Event Note Event Note: Patient has not had a bowel movement in 2-3 days. She has been started on Umair aLax with 1st dose this morning. Has not produced a bowel movement. Offered MiraLax this evening, however patient declined and like something else. Patient started on docusate/senna HS. Additionally, Zofran placed as second-line antiemetic and Reglan placed as first-line antiemetic with Compazine held. We Reglan as 1st line to promote gastric motility.
[2025-09-05] MEDS: SENNA/DOCUSATE SODIUM TABLET 1 TAB PO (23:11)
[2025-09-06 04:25] VITALS: BP 99/59; PULSE 76; RESP 18; TEMP 36.7; O2SAT 99
[2025-09-06] MEDS: SUCRALFATE SUSP 100 MG/ML 10 ML UDC 1000 MG PO ×2 (05:58→11:22)
[2025-09-06 06:41] LABS: Hematocrit 30.6 % (37.0-47.0); Hemoglobin 10.9 g/dL (12.0-15.0); Immature Granulocyte Percent A 0.4 % (0-0.5); Lymphocytes Absolute Auto 1.91 K/mm3 (0.9-3.2); Mean Corpuscular HGB Conc 35.6 g/dl (32-36); Mean Corpuscular Hemoglobin 32.8 pg (26-34); Mean Corpuscular Volume 92.2 fl (80-100); Nucleated Red Blood Cells Absolute Auto 0.000 K/mm3 (0.0-0.012); Nucleated Red Blood Cells Perc 0.0 % (0.0-0.2); Platelet Count Result 236 k/mm3 (150-375); Red Blood Count 3.32 M/mm3 (4.2-5.4); White Blood Count 5.4 K/mm3 (4.5-10.0)
[2025-09-06 07:03] LABS: Alanine Aminotransferase 21 U/L (6-35); Albumin Level 3.1 g/dL (3.5-5.1); Alkaline Phosphatase 72 U/L (38-126); Anion Gap 4 mmol/L (4-12); Aspartate Amino Transferase 21 U/L (14-36); Bilirubin,Total 0.5 mg/dL (0.2-1.3); Blood Urea Nitrogen 7 mg/dL (7-17); Calcium 7.9 mg/dL (8.4-10.2); Carbon Dioxide 25 mmol/L (22-30); Chloride 104 mmol/L (98-107); Estimated CRCL calculation 96 ml/min; Estimated Glomerular Filt Rate > 60; Glucose 197 mg/dL (65-110); Magnesium 1.9 mg/dL (1.6-2.3); Potassium 3.4 mmol/L (3.4-5.0); Sodium 133 mmol/L (137-145); Total Protein 6.0 g/dL (6.3-8.2)
[2025-09-06] MEDS: PANTOPRAZOLE SODIUM IV 40 MG VIAL IV PUSH (08:06)
[2025-09-06] MEDS: INSULIN ASPART (*BKC) 100 UNITS/ML SUB-Q ×4 (08:06→13:02)
[2025-09-06 08:11] VITALS: PULSE 77
[2025-09-06] MEDS: INSULIN GLARGINE (*BKC) 100 UNITS/ML 18 UNITS SUB-Q (08:12)
[2025-09-06] MEDS: oxyCODONE/ACETAMINOPHEN (*CRX) 5-325 MG TABLET 1 TABLET PO (11:20)
[2025-09-06] MEDS: LACTULOSE 20 GM/30 ML UDC PO (11:22)
--- NOTE | 2025-09-06 13:52 | P.DS_ITS ---
DS: Admitting Diagnosis Discharge Date 09/06/2025 Admitting Diagnosis DKA DS: Discharge Diagnosis Discharge Diagnosis (1) Insulin dependent diabetes mellitus: Status: Acute (2) DKA (diabetic ketoacidosis): Code(s): E11.10 - Type 2 diabetes mellitus with ketoacidosis without coma Status: Acute (3) Nausea & vomiting: Code(s): R11.2 - Nausea with vomiting, unspecified Status: Acute (4) Abdominal pain: Code(s): R10.9 - Unspecified abdominal pain Status: Acute (5) Lactic acidosis: Code(s): E87.20 - Acidosis, unspecified Status: Acute DS: Summary Hospital Course Reason for hospitalization: * Type 2 diabetes mellitus with ketoacidosis without coma (E11.10), resolved * Insulin-dependent diabetes mellitus * Nausea and vomiting, resolved * Abdominal pain, improved * Lactic acidosis, resolved * Esophagitis secondary to vomiting Hospital Course: The patient was a 45-year-old female with insulin-dependent type 2 diabetes and hypertension who presented with one day of nausea, vomiting, and epigastric pain radiating to the back. She had been noncompliant with insulin for approximately one week due to financial constraints. Initial evaluation revealed hyperglycemia (glucose 487 mg/dL), elevated anion gap metabolic acidosis, elevated beta-hydroxybutyrate, and lactic acidosis. She was hypertensive and tachycardic but afebrile. Imaging showed no acute intra- abdominal pathology; CT abdomen noted esophageal thickening consistent with esophagitis. Chest X-ray suggested viral pneumonitis without clinical evidence of infection. She was admitted to the ICU and treated with aggressive IV fluids and insulin infusion per DKA protocol. Anion gap closed, acidosis resolved, and she was transitioned to subcutaneous insulin with good glycemic control. Electrolyte abnormalities were corrected. During hospitalization, she reported blood-tinged emesis. GI consultation determined low suspicion for active GI bleeding or Samantha-Ibrahim tear. Esophagitis was attributed to repeated vomiting. She was treated with IV pantoprazole and sucralfate with symptomatic improvement. No endoscopy was indicated. She tolerated diet advancement, nausea and abdominal pain improved, and she was transferred out of ICU and ultimately discharged home in stable condition. Status at Discharge Functional status at discharge: independent ambulation Overall status at discharge: patient is back to baseline Time Spent with Patient Time attestation: Total time spent providing and/or coordinating discharge services: Time spent: Greater than 30 minutes Exam Narrative: General: Pt is alert awake and in NAD Lungs/Chest: Trachea central Clear BS B/L, No crackles or wheezing. Cardiac: RRR. Normal S1 S2. No murmurs Circulation: Pedal pulses are intact and symmetrical. Abdomen: Normal bowel sounds.. Soft. Non distended, mild epigastric tenderness has improved Extremities: No clubbing, cyanosis or edema. Warm : Erwin in place Neurologic: Follows commands. Moves all 4 extremities PERRL AO x3 Skin: No Rash DS: Data Data Completed and Pending Labs on day of discharge: Labs from last 24 hours 09/06/25 09/06/25 09/05/25 07:39 05:32 20:30 WBC 5.4 RBC 3.32 L Hgb 10.9 L Hct 30.6 L MCV 92.2 MCH 32.8 MCHC 35.6 RDW 11.8 Plt Count 236 MPV 10.2 Immature Gran % (Auto) 0.4 Neut % (Auto) 53.6 Lymph % (Auto) 35.4 Will % (Auto) 9.1 H Eos % (Auto) 1.1 Baso % (Auto) 0.4 Lymph # (Auto) 1.91 Will # (Auto) 0.5 Eos # (Auto) 0.1 Baso # (Auto) 0.0 Abs Immat Gran (auto) 0.02 Absolute Neuts (auto) 2.9 Absolute Nucleated RBC 0.000 Nucleated RBC % 0.0 Sodium 133 L Potassium 3.4 Chloride 104 Carbon Dioxide 25 Anion Gap 4 BUN 7 Creatinine 0.55 L Estim Creat Clear Calc 96 Estimated GFR > 60 Glucose 197 H POC Capillary Glucose 237 H 179 H Calcium 7.9 L Phosphorus 2.9 Magnesium 1.9 Total Bilirubin 0.5 AST 21 ALT 21 Alkaline Phosphatase 72 Total Protein 6.0 L Albumin 3.1 L 09/05/25 16:33 WBC RBC Hgb Hct MCV MCH MCHC RDW Plt Count MPV Immature Gran % (Auto) Neut % (Auto) Lymph % (Auto) Will % (Auto) Eos % (Auto) Baso % (Auto) Lymph # (Auto) Will # (Auto) Eos # (Auto) Baso # (Auto) Abs Immat Gran (auto) Absolute Neuts (auto) Absolute Nucleated RBC Nucleated RBC % Sodium Potassium Chloride Carbon Dioxide Anion Gap BUN Creatinine Estim Creat Clear Calc Estimated GFR Glucose POC Capillary Glucose 140 H Calcium Phosphorus Magnesium Total Bilirubin AST ALT Alkaline Phosphatase Total Protein Albumin Preliminary micro results at discharge 09/02/25 21:58 Blood Culture - Preliminary Blood 09/02/25 21:58 Blood Culture - Preliminary Blood Imaging Attestation: I personally reviewed and interpreted this imaging study as follows: Radiologist's impression: EXAMINATION: CT abdomen pelvis w con COMPARISON: None HISTORY: abdominal pain and vomiting TECHNIQUE: Axial images were obtained through the abdomen, pelvis post administration of IV contrast. Oral contrast was also administered. Coronal reconstruction images were obtained from the axial views. CT scan performed using dose optimization techniques including the following automated exposure control; adjustment of mA and/or kV; use of iterative reconstruction technique. Automatic exposure control was used to reduce radiation dose. Permanent radiation dose record is archived to PACS. FINDINGS: CT abdomen: LUNG BASES: The lung bases are clear. The visualized portions of the heart and pericardium are unremarkable. LIVER: Mild hepatic steatosis. Portal vein is patent. No intrahepatic biliary duct dilatation. SPLEEN: Unremarkable. KIDNEYS: Right Kidney: Unremarkable. No calculi. No hydronephrosis. Left Kidney: Unremarkable. No calculi. No hydronephrosis ADRENAL GLANDS: Unremarkable. PANCREAS: Unremarkable. GALLBLADDER/BILIARY: Gallbladder is not identified. STOMACH AND ESOPHAGUS: Thickening of the esophagus may represent mild esophagitis. BOWEL/MESENTERY: Moderate fecal content, no colitis or diverticulitis. Appendix normal. Mesentery normal. No thickened or dilated loops of small bowel. ADENOPATHY/RETROPERITONEUM: No lymphadenopathy. AORTA/VASCULATURE: Normal caliber aorta. FREE FLUID OR FREE AIR: No free fluid.. CT pelvis: SOLID ORGANS/REPRODUCTIVE: Uterus is atrophic. No adnexal mass. BLADDER: The bladder is distended. OSSEOUS STRUCTURES: No acute osseous abnormality.No suspicious lesions. OVERLYING SOFT TISSUES: Unremarkable. IMPRESSION: No acute intra-abdominal process Discharge Plan Discharge Attending physician on discharge: Wale Patiño Consulting providers: Rakesh Paez; Ej Quinn; Deepali Tran; Jamey Cowan; Bhargavi Foote Francisco M.; Ellen Moy; Ry Coy Discharging Clinician: Deepali Tran Anticipated Discharge Date/Time: 09/06/25 13:55 Patient Disposition: Home Activity: as tolerated Diet: diabetic Discharge Instructions: 1). Diabetes * Continue with home insulin increased to 18 units HS * Follow-up with turbine inspector as scheduled * I have attached information on DKA and diabetes please review How can you care for yourself at home? ? Keep track of any new symptoms or changes in your symptoms. ? Rest until you feel better. ? Be safe with medicines. Take your medicines exactly as prescribed. Call your doctor if you think you are having a problem with your medicine. ? Do not drive after taking a prescription pain medicine. ? Ensure to follow-up with primary care physician as indicated and provide updated medication list provided to you at discharge. When should you call for help? Call 911 anytime you think you may need emergency care. For example, call if: ? You passed out (lost consciousness). Call your doctor now or seek immediate medical care if: ? You have new symptoms like fever, difficulty breathing, Chest pain, vomiting, or rash. ? You have new or different pain. ? You are confused and are having trouble thinking clearly. ? Your symptoms are getting worse. Watch closely for changes in your health, and be sure to contact your doctor if: ? You do not get better as expected. Patient Instructions: Antibiotic Form, Diabetic Ketoacidosis (DC), Diabetic Ketoacidosis (GEN), Managing Diabetes During Sick Days (DC), Diabetes and Nutrition (DC), Diabetes and Exercise (DC), Diabetes Type 1: Management (DC) Patient Language: Greek Stand Alone Forms: General Discharge Information Follow-up/Referrals: Rakesh Paez MD [Physician, Family Practice] - 3 Weeks Discharge Medications: New sucralfate 100 mg/mL Suspension 1,000 mg PO ACHS Qty: 1000 0RF pantoprazole 40 mg tablet,delayed release (DR/EC) 40 mg PO QAM Qty: 30 0RF lactulose 10 gram/15 mL solution 20 g PO BID PRN (Reason: constipation) Qty: 1200 0RF Continued Invokana 300 mg tablet 300 mg PO DAILY glipizide 5 mg tablet 5 mg PO BIDAC Patient Comments: before breakfast and supper Changed insulin glargine [Lantus Solostar U-100 Insulin] 100 unit/mL (3 mL) insulin pen 18 unit SUBCUT HS Qty: 15 0RF Rx Instructions: 10 units for under 200 blood sugar 15 units for above 200 on blood sugar atenolol 50 mg tablet 25 mg PO DAILY Qty: 30 0RF Date of admission: 09/04/25 16:00 Primary Care Provider: PHYSICIAN,WHITING CAN WORKER Admitting Provider: Salinas Bernard Attending physician on admission: Salinas Bernard Condition: Improved Quality VTE Prophylaxis VTE prophylaxis: mechanical ordered - Patient's previous records reviewed on admission -ER notes reviewed in detail on admission -discussed all findings and current treatment plan with patient/Family/POA -Consultations reviewed for recommendations -Patient's disposition for safe discharge discussed with rn field case manager -radiology imaging, EKG and test results I have personally reviewed and interpreted unless otherwise specified Dictation performed by [employer] direct speech recognition software, ther efore orthotist variants and typographical errors may occur. Hospitalist MIPS Heart Failure (Exclusion) Patient has history of Heart Transplant or Left Ventricular Assistive Device?: No IF YES, STOP HERE Heart Failure (Qualifier) Patient has current or prior documentation of LVEF less than or equal to 40%, or mod/servere depressed LVSF?: No IF NO, STOP HERE
[2025-09-06 14:00] VITALS: BP 119/67; PULSE 79; RESP 16; TEMP 36.2; O2SAT 100
--- NOTE | 2025-09-12 15:20 | PCCDE ---
09/12/25: DM educator courtesy call placed. Message left including call back numbers.
== END 2025-09-06 16:15 | disposition home or self-care (01) | DRG 420 ==
LOC: ANHED 17:31 → ANHICU 20:21 → ANH3MEDSUR 09-03 14:48
PROVIDERS: Emergency Medicine; Internal Medicine; Nurse Practitioner; Admitting Provider Internal Medicine; Visit Provider Internal Medicine
DX: E11.10 Type 2 diabetes mellitus with ketoacidosis without coma (principal); K20.90 Esophagitis, unspecified without bleeding; K92.0 Hematemesis; E11.65 Type 2 diabetes mellitus with hyperglycemia; E86.0 Dehydration; K59.00 Constipation, unspecified; I10 Essential (primary) hypertension; Z91.141 Patient's other noncompliance with medication regimen due to financial hardship; Z20.822 Contact with and (suspected) exposure to COVID-19; Z79.4 Long term (current) use of insulin; Z79.84 Long term (current) use of oral hypoglycemic drugs
CPT/HCPCS: 36415; 71046; 74177; 80048; 80053; 81001; 82010; 82803; 82948; 83036; 83605; 83690; 83735; 84100; 84484; 85025; 85027; 85610; 85730; 87040; 87637; 87641; 87651; 93005; 96361; 96365; 96366; 96372; 96374; 96375; 96376; 99285; A9270; G0378; J1650; J1815; J2270; J2405; J2470; J3480; J7030; J7040; J7120; Q9967

== ENCOUNTER 2025-09-11 07:36 | Emergency (ER) | payer SELFPAY ==
--- OUTSIDE RECORDS SUMMARY | 2025-09-11 07:38 | XMS_ITS | Clinical Summary ---
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 Gender Identity Not on file Sexual Orientation Not on file Last Filed Vital Signs Vital Sign Reading Time Taken Comments Blood Pressure 121/68 09/09/2024 3:09 PM SETTLEMENT WORKER Pulse 97 09/09/2024 3:09 PM SETTLEMENT WORKER Temperature 36.6 C (97.9 F) 09/09/2024 3:09 PM SETTLEMENT WORKER Respiratory Rate 18 09/09/2024 3:09 PM SETTLEMENT WORKER Oxygen Saturation 99% 09/09/2024 3:09 PM SETTLEMENT WORKER Inhaled Oxygen Concentration - - Weight 49.9 kg (110 lb) 09/09/2024 3:09 PM SETTLEMENT WORKER Height 162.6 cm (5' 4) 09/09/2024 3:09 PM SETTLEMENT WORKER Body Mass Index 18.88 09/09/2024 3:09 PM SETTLEMENT WORKER Plan of Treatment Health Maintenance Due Date Last Done Comments Breast Cancer Screening-Mammogram 1982 Cervical Cancer Screening 1982 Depression Screening 1982 Hepatitis C Screening 1982 DTaP/Tdap/Td Vaccine (1 - Tdap) 1993 Varicella Vaccines (1 of 2 - 13+ 2-dose series) 1995 Hepatitis B Screening 2000 Regular Well Visit/Exam 18-64 2000 HPV Vaccines (1 - 3-dose SCD M series) 2009 Influenza Vaccine (#1) 2025 08/03/2017 Pneumococcal vaccine <65 Aged Out 05/14/2017 No longer eligible based on patient's age to complete this topic Insurance [facility] PLAN [facility] Care Teams Automatic Lump Making Machine Tender Relationship Specialty Start Date End Date Unknown, Notinfile PCP - General 03/26/21
--- OUTSIDE RECORDS SUMMARY | 2025-09-11 07:38 | XMS_ITS | Clinical Summary ---
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
--- OUTSIDE RECORDS SUMMARY | 2025-09-11 07:38 | XMS_ITS | Clinical Summary ---
Author Organization [facility] Address [address] [place] [place] [address] Care Team Providers Care Gold Leaf Gilder Name Role Phone Ewelina Gaitan MD Primary Care Provider [phone] Source Comments [facility],non-owned Affiliates and Associated Physician Practices is amultiple site organization consisting of ambulatory clinics and hospital sitesin [place], [place], [place] and [place]. This disclosure is being madepursuant to the Care Everywhere program and may not contain all information available regarding this patient. Last updated 18.[facility] Allergies No known active allergies Medications * [...] with long-term current use of insulin ([facility]) Use 1 Each 2 times daily 100 Each 11 4 Active atenolol (Tenormin) 50 MG tabletIndicati ons:Type 2 diabetes mellitus with hyperglycemia, with long-term current use of insulin ([facility]) Take 1 (one) tablet by mouth once daily 90 tablet 11 4 Active glipiZIDE (Glucotrol) 5 MG tabletIndicati ons:Type 2 diabetes mellitus with hyperglycemia, with long-term current use of insulin ([facility]) Take 1 (one) tablet by mouth 2 times daily, before breakfast and supper 180 tablet 11 4 Active insulin glargine (Lantus/Semgle e) 100 units/mL penIndications :Type 2 diabetes mellitus with hyperglycemia, with long-term current use of insulin ([facility]) Inject 20 (twenty) Units subcutaneously at bedtime 15 mL 11 4 Active Insulin Pen Needle 32G X 4 MM MISCIndication s:Type 2 diabetes mellitus with hyperglycemia, with long-term current use of insulin ([facility]) 1 Each by Injection route once daily 100 Each 4 Active OneTouch Delica Lancets 33G MISCIndication s:Type 2 diabetes mellitus with hyperglycemia, with long-term current use of insulin ([facility]) Use 1 Each 2 times daily 100 Each 4 Active pioglitazone (Actos) 30 MG tabletIndicati ons:Type 2 diabetes mellitus with hyperglycemia, with long-term current use of insulin ([facility]) Take 1 (one) tablet by mouth once [...] Problem Noted Date Diagnosed Date Resolved Date 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 [phone] MON PM, AM, WED AM, MON PM, [...] Not Established ug/mL 12/17/2023 4:31 PM [facility] Creatinine Urine 43.47 Not Established mg/dL 12/17/2023 4:31 PM [facility] Urine Albumin/Creati nine Ratio 35(H) <30 mg/g 12/17/2023 4:31 PM [facility] Urine URINE SPECIMEN OBTAINED BY CLEAN CATCH PROCEDURE / Unknown Collection / Unknown 12/17/2023 2:53 PM CDT 12/17/2023 3:04 PM CDT Vinny De Luna MD LAB - URINE CHEMISTRY ORDERABL ES Final Result Performing Organization Address [facility]/ZIP Co de Phone Number [facility] [address] [place] [address], [facility] [phone] * (ABNORMAL) COMPREHENSIVE METABOLIC PANEL (12/17/2023 2:45 PM CDT) BUN 7 7 - 26 mg/dL 12/17/2023 4:31 PM [facility] Creatinine 0.59 0.56 - 0.96 mg/dL 12/17/2023 4:31 PM [facility] Sodium 135(L) 136 - 145 mmol/L 12/17/2023 4:31 PM [facility] Potassium 4.0 3.5 - 4.5 mmol/L 12/17/2023 4:31 PM [facility] Chloride 99 98 - 107 mmol/L 12/17/2023 4:31 PM [facility] CO2 23 22 - 29 mmol/L 12/17/2023 4:31 PM [facility] Glucose 386(H) 70 - 115 mg/dL 12/17/2023 4:31 PM [facility] Calcium 9.6 8.4 - 10.2 mg/dL 12/17/2023 4:31 PM [facility] Protein Total 8.0 6.0 - 8.3 g/dL 12/17/2023 4:31 PM [facility] Albumin 4.1 3.4 - 5.0 g/dL 12/17/2023 4:31 PM [facility] Bilirubin Total 1.1 0.2 - 1.2 mg/dL 12/17/2023 4:31 PM [facility] Alkaline Phosphatase 103 40 - 150 U/L 12/17/2023 4:31 PM [facility] ALT 18 5 - 55 U/L 12/17/2023 4:[address] [facility] AST 11 5 - 34 U/L 12/17/2023 4:[address] [facility] Anion Gap 13 6 - 16 12/17/2023 4:[address] [facility] BUN/Creatinine Ratio 12 7 - 23 12/17/2023 4:[address] [facility] Osmolality Calculated 294 275 - 295 mOsm/kg 12/17/2023 4:[address] [facility] Albumin/Globulin Ratio 1.1 1.1 - 2.3 12/17/2023 4:[address] [facility] eGFR by CKD-EPI >90 >=90 mL/min/1.7 3 m2 12/17/2023 4:[address] [facility] Blood BLOOD SPECIMEN / Unknown Lab Venipuncture / Unknown 12/17/2023 2:45 PM CDT 12/17/2023 3:08 PM CDT Vinny De Luna MD LAB - CHEMISTRY ORDERABLES Fin al Result [facility] [address] [place] [address], [facility] [phone] * HEMOGLOBIN A1C - POINT OF CARE (AMB) [facility] (12/17/2023 2:13 PM CDT) Hemoglobin A1c POCT 11.3 % [address] BLOOD SPECIMEN / Unknown 12/17/2023 2:13 PM CDT Vinny De Luna MD LAB - POINT OF CARE ORDERABLES Final Result Performing Organization Address [facility]/ZIP Co de Phone Number [place] [id number] [facility] [place] [address], [facility] [phone] from Last 3 Months or Most Recently Relevant to Health Maintenance Care Teams Gold Leaf Gilder Relationship Specialty Start Date End Date Ewelina Gaitan MD [address] [place] [id number] [facility] - General 01/25/20
[2025-09-11 07:40] VITALS: BP 139/96; PULSE 89; RESP 16; TEMP 36.6; O2SAT 100
--- NOTE | 2025-09-11 09:33 | PC.NURSE ---
Patient to desk stating, I'm just going to leave. Patient amb out of ED with steady gait and in NAD.
--- OUTSIDE RECORDS SUMMARY | 2025-09-11 10:07 | XMS_ITS | Clinical Summary ---
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 Gender Identity Not on file Sexual Orientation Not on file Last Filed Vital Signs Vital Sign Reading Time Taken Comments Blood Pressure 121/68 09/09/2024 3:09 PM PEDIATRIC ORTHODONTIST Pulse 97 09/09/2024 3:09 PM PEDIATRIC ORTHODONTIST Temperature 36.6 C (97.9 F) 09/09/2024 3:09 PM PEDIATRIC ORTHODONTIST Respiratory Rate 18 09/09/2024 3:09 PM PEDIATRIC ORTHODONTIST Oxygen Saturation 99% 09/09/2024 3:09 PM PEDIATRIC ORTHODONTIST Inhaled Oxygen Concentration - - Weight 49.9 kg (110 lb) 09/09/2024 3:09 PM PEDIATRIC ORTHODONTIST Height 162.6 cm (5' 4) 09/09/2024 3:09 PM PEDIATRIC ORTHODONTIST Body Mass Index 18.88 09/09/2024 3:09 PM PEDIATRIC ORTHODONTIST Plan of Treatment Health Maintenance Due Date [...] patient's age to complete this topic Insurance [facility] PLAN [facility] Care Teams Government Contracts Manager Relationship Specialty Start Date End Date Unknown, Notinfile PCP - General 03/26/21
--- OUTSIDE RECORDS SUMMARY | 2025-09-11 10:07 | XMS_ITS | Clinical Summary ---
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
--- OUTSIDE RECORDS SUMMARY | 2025-09-11 10:07 | XMS_ITS | Clinical Summary ---
Author Organization [facility] [place] Address [address] [place] [address] Care Team Providers Care Customer Support Coordinator Name Role Phone Ewelina Gaitan MD Primary Care Provider [phone] Source Comments [facility] [place],non-owned Affiliates and Associated Physician Practices is amultiple site organization consisting of ambulatory clinics and hospital sitesin [place], [place], [place] and [place]. This disclosure is being madepursuant to the Care Everywhere program and may not contain all information available regarding this patient. Last updated 18.[facility] Allergies No known active allergies Medications * [...] hyperglycemia, with long-term current use of insulin ([facility]) Use 1 Each 2 times daily 100 Each 11 4 Active atenolol (Tenormin) 50 MG tabletIndicati ons:Type 2 diabetes mellitus with hyperglycemia, with long-term current use of insulin ([facility]) Take 1 (one) tablet by mouth once daily 90 tablet 11 4 Active glipiZIDE (Glucotrol) 5 MG tabletIndicati ons:Type 2 diabetes mellitus with hyperglycemia, with long-term current use of insulin ([facility]) Take 1 (one) tablet by mouth 2 times daily, before breakfast and supper 180 tablet 11 4 Active insulin glargine (Lantus/Semgle e) 100 units/mL penIndications :Type 2 diabetes mellitus with hyperglycemia, with long-term current use of insulin ([facility]) Inject 20 (twenty) Units subcutaneously at bedtime 15 mL 11 4 Active Insulin Pen Needle 32G X 4 MM MISCIndication s:Type 2 diabetes mellitus with hyperglycemia, with long-term current use of insulin ([facility]) 1 Each by Injection route once daily 100 Each 4 Active OneTouch Delica Lancets 33G MISCIndication s:Type 2 diabetes mellitus with hyperglycemia, with long-term current use of insulin ([facility]) Use 1 Each 2 times daily 100 Each 4 Active pioglitazone (Actos) 30 MG tabletIndicati ons:Type 2 diabetes mellitus with hyperglycemia, with long-term current use of insulin ([facility]) Take 1 (one) tablet by [...] Problem Noted Date Diagnosed Date Resolved Date 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 [phone] MON PM, AM, WED AM, MON PM, [...] Not Established ug/mL 12/17/2023 4:31 PM [facility] Creatinine Urine 43.47 Not Established mg/dL 12/17/2023 4:31 PM [facility] Urine Albumin/Creati nine Ratio 35(H) <30 mg/g 12/17/2023 4:31 PM [facility] Urine URINE SPECIMEN OBTAINED BY CLEAN CATCH PROCEDURE / Unknown Collection / Unknown 12/17/2023 2:53 PM CDT 12/17/2023 3:04 PM CDT Vinny De Luna MD LAB - URINE CHEMISTRY ORDERABL ES Final Result Performing Organization Address [facility]/ZIP Co de Phone Number [facility] [address] [place] [address], [facility] [phone] * (ABNORMAL) COMPREHENSIVE METABOLIC PANEL (12/17/2023 2:45 PM CDT) BUN 7 7 - 26 mg/dL 12/17/2023 4:31 PM [facility] Creatinine 0.59 0.56 - 0.96 mg/dL 12/17/2023 4:31 PM [facility] Sodium 135(L) 136 - 145 mmol/L 12/17/2023 4:31 PM [facility] Potassium 4.0 3.5 - 4.5 mmol/L 12/17/2023 4:31 PM [facility] Chloride 99 98 - 107 mmol/L 12/17/2023 4:31 PM [facility] CO2 23 22 - 29 mmol/L 12/17/2023 4:31 PM [facility] Glucose 386(H) 70 - 115 mg/dL 12/17/2023 4:31 PM [facility] Calcium 9.6 8.4 - 10.2 mg/dL 12/17/2023 4:31 PM [facility] Protein Total 8.0 6.0 - 8.3 g/dL 12/17/2023 4:31 PM [facility] Albumin 4.1 3.4 - 5.0 g/dL 12/17/2023 4:31 PM [facility] Bilirubin Total 1.1 0.2 - 1.2 mg/dL 12/17/2023 4:31 PM [facility] Alkaline Phosphatase 103 40 - 150 U/L 12/17/2023 4:31 PM [facility] ALT 18 5 - 55 U/L 12/17/2023 4:31 PM CDT [facility] AST 11 5 - 34 U/L 12/17/2023 4:31 PM CDT [facility] Anion Gap 13 6 - 16 12/17/2023 4:31 PM CDT [facility] BUN/Creatinine Ratio 12 7 - 23 12/17/2023 4:31 PM CDT [facility] Osmolality Calculated 294 275 - 295 mOsm/kg 12/17/2023 4:31 PM CDT [facility] Albumin/Globulin Ratio 1.1 1.1 - 2.3 12/17/2023 4:31 PM T [facility] eGFR by CKD-EPI >90 >=90 mL/min/1.7 3 m2 12/17/2023 4:31 PM CDT [facility] Blood BLOOD SPECIMEN / Unknown Lab Venipuncture / Unknown 12/17/2023 2:45 PM CDT 12/17/2023 3:08 PM CDT Vinny De Luna MD LAB - CHEMISTRY ORDERABLES Fin al Result [facility] [address] [place] [address], [facility] [phone] * HEMOGLOBIN A1C - POINT OF CARE (AMB) [facility] (12/17/2023 2:13 PM CDT) Hemoglobin A1c POCT 11.3 % [address] BLOOD SPECIMEN / Unknown 12/17/2023 2:13 PM CDT Vinny De Luna MD LAB - POINT OF CARE ORDERABLES Final Result Performing Organization Address [facility]/ZIP Co de Phone Number [place] [phone] [facility], [facility] [place] [address], [facility] [phone] from Last 3 Months or Most Recently Relevant to Health Maintenance Care Teams Customer Support Coordinator Relationship Specialty Start Date End Date Ewelina Gaitan MD [address] [place] [id number] [facility] - General 01/25/20
== END 2025-09-11 09:58 | disposition left against medical advice (07) ==
LOC: ANHED 09:47
DX: R07.0 Pain in throat (principal)
CPT/HCPCS: 99199